=== PATIENT | female | born 1945 | race Caucasian/White ===

== ENCOUNTER 2017-11-17 17:36 | Emergency (ER) | payer MEDICARE ==
[2017-11-17] MEDS ORDERED: NORMAL SALINE 1000 ML 500 ML IV ONE (18:17)
--- NOTE | 2017-11-17 18:36 | RADIOLOGY REPORT (SQ) ---
EXAM DESCRIPTION: CHEST SINGLE VIEW COMPLETED DATE/TIME: 11/17/2017 6:28 pm REASON FOR STUDY: sob COMPARISON: None. EXAM PARAMETERS: NUMBER OF VIEWS: One view. TECHNIQUE: Single frontal radiographic view of the chest acquired. RADIATION DOSE: NA LIMITATIONS: None. FINDINGS: LUNGS AND PLEURA: No opacities, masses or pneumothorax. No pleural effusion. MEDIASTINUM AND HILAR STRUCTURES: No masses. Contour normal. HEART AND VASCULAR STRUCTURES: Heart normal in size. Normal vasculature. BONES: No acute findings. HARDWARE: None in the chest. OTHER: No other significant finding. IMPRESSION: NO ACUTE RADIOGRAPHIC FINDING IN THE CHEST. TECHNICAL DOCUMENTATION: JOB ID: [id number] [employer]- All Rights Reserved Reading location - IP/workstation name: [email or web address]
[2017-11-17 19:05] LABS: ABSOLUTE BASOPHILS # (AUTO) 0.1 10^3/uL (0.0-0.2); ABSOLUTE EOSINOPHILS # (AUTO) 0.3 10^3/uL (0.0-0.6); ABSOLUTE LYMPHOCYTES (AUTO) 1.7 10^3/uL (0.5-4.7); ABSOLUTE MONOCYTES (AUTO) 1.3 10^3/uL (0.1-1.4); ABSOLUTE NEUT (AUTO) 8.2 10^3/uL (1.7-8.2); BASOPHILS % (AUTO) 0.5 % (0-2); EOSINOPHILS % (AUTO) 2.6 % (0-6); HEMATOCRIT 41.8 % (36.0-47.0); HEMOGLOBIN 14.1 g/dL (12.0-15.5); LYMPHOCYTES % (AUTO) 14.5 % (13-45); MEAN CORPUSCULAR HEMOGLOBIN 29.5 pg (27.0-33.4); MEAN CORPUSCULAR HGB CONC 33.6 g/dL (32.0-36.0); MEAN CORPUSCULAR VOLUME 88 fl (80-97); MONOCYTES % (AUTO) 11.2 % (3-13); PLATELET COUNT 198 10^3/uL (150-450); RED BLOOD COUNT 4.77 10^6/uL (3.72-5.28); RED CELL DISTRIBUTION WIDTH 13.1 % (11.5-14.0); SEGMENTED NEUTROPHILS % (AUTO) 71.2 % (42-78); TOTAL CELLS COUNTED % (AUTO) 100 %; WHITE BLOOD COUNT 11.4 10^3/uL (4.0-10.5)
[2017-11-17 19:27] LABS: ALANINE AMINOTRANSFERASE 22 U/L (9-52); ALBUMIN 3.9 g/dL (3.5-5.0); ALKALINE PHOSPHATASE 63 U/L (38-126); ANION GAP 10 (5-19); ASPARTATE AMINO TRANSFERASE 23 U/L (14-36); BILIRUBIN,DIRECT 0.3 mg/dL (0.0-0.4); BILIRUBIN,TOTAL 0.6 mg/dL (0.2-1.3); BLOOD UREA NITROGEN 27 mg/dL (7-20); CARBON DIOXIDE 32 mmol/L (22-30); CHLORIDE 96 mmol/L (98-107); CREATINE KINASE 36 U/L (30-135); GLUCOSE 114 mg/dL (75-110); POTASSIUM 3.2 mmol/L (3.6-5.0); SODIUM 137.5 mmol/L (137-145); TOTAL PROTEIN 6.7 g/dL (6.3-8.2)
[2017-11-17 19:53] LABS: CALCIUM 14.4 mg/dL (8.4-10.2)
[2017-11-17] MEDS ORDERED: NORMAL SALINE 1000 ML 1,000 ML IV ONE (19:54)
--- NOTE | 2017-11-17 20:17 | ER Document Report ---
ED General - General Chief Complaint: Dizziness Stated Complaint: DIZZINESS Time Seen by Provider: 11/17/17 18:14 Notes: Patient is a 72-year-old female with a past medical history of COPD and hypertension who presents with lightheadedness, dizziness and general weakness. Her son at the bedside also reports that there has been periods of some confusion. The patient was placed on 2 different courses of antibiotics over the past 3 weeks including azithromycin and doxycycline. During that time point she was having frequent nausea and even several episodes of vomiting. Since discontinuation of doxycycline 1 week ago she has not had any recurrent vomiting but has continued to feel somewhat lightheaded. She had also been placed on furosemide for a total of 1 week due to bilateral lower extremity edema which has also since been discontinued and the edema has also resolved. Family presented today due to concerns of the patient is not improving. No history of similar symptoms in the past. Standing and exerting herself seems to worsen the lightheadedness and fatigue. She denies any chest pain or increased shortness of breath. No fever or constitutional symptoms. No focal weakness or numbness. Patient and her son at this time deny any confusion. - Related Data Allergies/Adverse Reactions: adhesive tape Allergy (Verified 11/17/17 19:02) cephalexin [From Keflex] Allergy (Verified 11/17/17 19:02) levofloxacin [From Levaquin] Allergy (Verified 11/17/17 19:02) meloxicam Allergy (Verified 11/17/17 19:02) sulfamethoxazole [From Bactrim] Allergy (Verified 11/17/17 19:02) trimethoprim [From Bactrim] Allergy (Verified 11/17/17 19:02) procaine [From Novocain] Adverse Reaction (Verified 11/17/17 19:02) Past Medical History - General Information source: Patient - Social History Smoking Status: Current Every Day Smoker Frequency of alcohol use: None Drug Abuse: None Lives with: Family Family History: Reviewed & Not Pertinent Patient has suicidal ideation: No Patient has homicidal ideation: No Renal/ Medical History: Denies: Hx Peritoneal Dialysis Review of Systems - Review of Systems Notes: Constitutional: Negative for fever. HENT: Negative for sore throat. Eyes: Negative for visual changes. Cardiovascular: Negative for chest pain. Positive for lightheadedness Respiratory: Negative for shortness of breath. Gastrointestinal: Negative for abdominal pain, vomiting or diarrhea. Genitourinary: Negative for dysuria. Musculoskeletal: Negative for back pain. Skin: Negative for rash. Neurological: Negative for headaches, weakness or numbness. 10 point ROS negative except as marked above and in HPI. Physical Exam - Vital signs Vitals: Temp Pulse Resp BP Pulse Ox 99.5 F 96 20 172/69 H 96 11/17/17 17:53 11/17/17 17:53 11/17/17 17:53 11/17/17 17:53 11/17/17 17:53 Interpretation: Hypertensive Notes: PHYSICAL EXAMINATION: GENERAL: Well-appearing, well-nourished and in no acute distress. HEAD: Atraumatic, normocephalic. EYES: Pupils equal round and reactive to light, extraocular movements intact, sclera anicteric, conjunctiva are normal. ENT: nares patent, oropharynx clear without exudates. Mild dry mucous membranes. NECK: Normal range of motion, supple without lymphadenopathy LUNGS: Breath sounds clear to auscultation bilaterally and equal. No wheezes rales or rhonchi. HEART: Regular rate and rhythm without murmurs ABDOMEN: Soft, nontender, normoactive bowel sounds. No guarding, no rebound. No masses appreciated. EXTREMITIES: Normal range of motion, no pitting or edema. No cyanosis. NEUROLOGICAL: Face symmetric. Tongue protrudes midline. Extraocular motions intact. Pupils are 2 mm and equally reactive. Normal speech. 5 out of 5 strength in both the distal and proximal upper and lower extremities bilaterally. Sensation is grossly intact throughout. Finger to nose testing normal. Pronator drift normal. PSYCH: Normal mood, normal affect. SKIN: Warm, Dry, normal turgor, no rashes or lesions noted. Course - Re-evaluation Re-evalutation: 11/17/17 20:15 Patient presents with signs and symptoms most consistent with acute dehydration and her labs do support this with a prerenal azotemia as well as hypercalcemia like in the setting of poor fluid intake, diuresis with furosemide and nausea and vomiting in the setting of antibiotic use. She has not had any vomiting or upper abdominal pain since discontinuing doxycycline I do not suspect an acute intra-abdominal process. Her neurologic exam is without any focal deficits. Her chest x-ray is clear without any evidence of acute pneumonia. Urinalysis is pending. Will also obtain a CT of the head as family is concerned about the possibility of a stroke for which I have an extremely low suspicion particular given an NIH stroke scale of 0 at time of assessment. Is having these remaining tests are normal patient we discharged home with her conditions continue oral fluid, compression stockings to lower extremities as needed for edema as opposed to furosemide 11/17/17 21:14 Urinalysis with 13 white blood cells but also has multiple squamous epithelial cells and patient does not have any additional symptoms to suggest urinary tract infection. A culture has been sent and will call back if patient has positive culture. CT head unremarkable. Patient feels improved after receiving IV fluids. At this time will discharge with return precautions and follow-up recommendations. Verbal discharge instructions given a the bedside and opportunity for questions given. Medication warnings reviewed. Patient is in agreement with this plan and has verbalized understanding of return precautions and the need for primary care follow-up in the next 24-72 hours. - Vital Signs Vital signs: Temp Pulse Resp BP Pulse Ox 99.5 F 96 19 158/91 H 94 11/17/17 17:53 11/17/17 17:53 11/17/17 21:04 11/17/17 20:41 11/17/17 21:04 - Laboratory Result Diagrams: 11/17/17 18:45 11/17/17 18:45 Laboratory results interpreted by me: 11/17/17 11/17/17 11/17/17 18:45 18:45 20:22 WBC 11.4 H Potassium 3.2 L Chloride 96 L Carbon Dioxide 32 H BUN 27 H Creatinine 1.39 H Est GFR ( Amer) 45 L Est GFR (Non-Af Amer) 37 L Glucose 114 H Calcium 14.4 H* Ur Leukocyte Esterase TRACE H - Diagnostic Test Radiology reviewed: Image reviewed, Reports reviewed Radiology results interpreted by me: 11/17/17 21:14 Chest x-ray: No acute infiltrate or pneumothorax CT head: No acute intracranial bleed or mass Discharge - Discharge Clinical Impression: Dehydration, Hypercalcemia, Prerenal azotemia Condition: Good Disposition: HOME, SELF-CARE Additional Instructions: Your labs and workup today suggest that your symptoms are likely due to being dehydrated from having taken Lasix and having had several episodes of nausea and vomiting while on antibiotics. Please continue to drink plenty of water. Wear compression stockings as needed for increasing swelling of her lower extremities if this does occur. Please return to the emergency department immediately if you have chest pain, shortness of breath, pass out, develop a fever greater than 100.4F, or have any other symptoms that are worrisome to you. Referrals: SHIMON LA MD [Primary Care Provider] - Follow up as needed
[2017-11-17 20:48] LABS: APPEARANCE,URINE SLIGHTLY-CLOUDY; BILIRUBIN,URINE NEGATIVE (NEGATIVE); COLOR,URINE YELLOW; GLUCOSE, URINE NEGATIVE (NEGATIVE); KETONES,URINE NEGATIVE (NEGATIVE); LEUKOCYTE ESTERASE,URINE TRACE (NEGATIVE); NITRITE,URINE NEGATIVE (NEGATIVE); PROTEIN,URINE NEGATIVE (NEGATIVE); URINE SPECIFIC GRAVITY 1.011; UROBILINOGEN,URINE NEGATIVE mg/dL (<2.0)
--- NOTE | 2017-11-17 21:16 | RADIOLOGY REPORT (SQ) ---
EXAM DESCRIPTION: CT HEAD WITHOUT COMPLETED DATE/TIME: 11/17/2017 9:08 pm REASON FOR STUDY: ams COMPARISON: None. TECHNIQUE: Axial images acquired through the brain without intravenous contrast. Images reviewed wi th bone, brain and subdural windows. Images stored on PACS. All CT scanners at this facility use dose modulation, iterative reconstruction, and/or weight based d osing when appropriate to reduce radiation dose to as low as reasonably achievable (ALARA). [facility]: Dose Right [facility]: CareDose [facility]: Dose Right [facility]: Teradose 4D [facility]: Smart [employer] RADIATION DOSE: CT Rad equipment meets quality standard of care and radiation dose reduction techniq ues were employed. CTDIvol: 53.2 mGy. DLP: 991 mGy-cm. mGy. LIMITATIONS: None. FINDINGS: VENTRICLES: Normal size and contour. CEREBRUM: No masses. No hemorrhage. No midline shift. No evidence for acute infarction. Normal gra y/white matter differentiation. No areas of low density in the white matter. CEREBELLUM: No masses. No hemorrhage. No alteration of density. No evidence for acute infarction. EXTRAAXIAL SPACES: No fluid collections. No masses. ORBITS AND GLOBE: No intra- or extraconal masses. Normal contour of globe without masses. CALVARIUM: No fracture. PARANASAL SINUSES: No fluid or mucosal thickening. SOFT TISSUES: No mass or hematoma. OTHER: No other significant finding. IMPRESSION: NORMAL BRAIN CT WITHOUT CONTRAST. EVIDENCE OF ACUTE STROKE: NO. COMMENT: Quality ID # [id number]: Final reports with documentation of one or more dose reduction techniques (e.g., Automated exposure control, adjustment of the mA and/or kV according to patient size, use of iterative reconstruction technique) TECHNICAL DOCUMENTATION: JOB ID: [id number] [email or web address]- All Rights Reserved Reading location - IP/workstation name: [email or web address]
[2017-11-17 23:38] VITALS: BP 154/66
== END 2017-11-17 23:40 | disposition home or self-care (01) ==
LOC: ER 17:36
DX: E86.0 Dehydration (principal); E83.52 Hypercalcemia; R79.89 Other specified abnormal findings of blood chemistry; R42 Dizziness and giddiness; R53.83 Other fatigue; R53.1 Weakness; I10 Essential (primary) hypertension; J44.9 Chronic obstructive pulmonary disease, unspecified; Z91.048 Other nonmedicinal substance allergy status; Z88.8 Allergy status to other drugs, medicaments and biological substances; Z88.1 Allergy status to other antibiotic agents; F17.200 Nicotine dependence, unspecified, uncomplicated
CPT/HCPCS: 99284; 96360; 96361; 36415; 87086; 82550; 83605; 85025; 80053; 81001; 84484; 71045; 70450; J7030

== ENCOUNTER 2018-04-25 20:57 | Inpatient (IN) | payer MEDICARE ==
[2018-04-25] MEDS ORDERED: RINGERS SOLUTION,LACTATED 1,000 ML IV ONE ×2 (21:10→21:51)
[2018-04-25] MEDS ORDERED: IPRATROPIUM/ALBUTEROL 0.5-2.5 MG/3 ML AMPUL NEB ONE (21:11)
[2018-04-25] MEDS ORDERED: ALBUTEROL SULFATE 0.083% NEB 2.5 MG/3 ML AMPUL NEB ONE (21:11)
--- NOTE | 2018-04-25 21:11 | ER Document Report ---
ED General - General Stated Complaint: RESPIRATORY DISTRESS Time Seen by Provider: 04/25/18 21:04 Cannot obtain history due to: Unstable vital signs, Altered mental status Notes: Patient is a 72-year-old female with past medical history of COPD, continues to smoke who presents in respiratory distress with EMS. The patient apparently has had progressive shortness of breath and cough throughout the day per the daughter at the bedside, was initially very resistant to coming to the hospital eventually EMS was contacted. Patient is herself unable to provide any meaningful history due to respiratory distress and lethargy. Family denies any history of similar symptoms in the past. She has never required intubation or BiPAP placement. She has not contacted her primary care doctor regarding today's concerns. She did receive an influenza vaccine this year. - Related Data Allergies/Adverse Reactions: adhesive tape Allergy (Verified 04/25/18 23:05) cephalexin [From Keflex] Allergy (Verified 04/25/18 23:05) levofloxacin [From Levaquin] Allergy (Verified 04/25/18 23:05) meloxicam Allergy (Verified 04/25/18 23:05) sulfamethoxazole [From Bactrim] Allergy (Verified 04/25/18 23:05) trimethoprim [From Bactrim] Allergy (Verified 04/25/18 23:05) procaine [From Novocain] Adverse Reaction (Verified 04/25/18 23:05) Past Medical History - General Information source: Relative Cannot obtain history due to: Unstable vital signs, Altered mental status - Social History Smoking Status: Current Every Day Smoker Frequency of alcohol use: None Drug Abuse: None Lives with: Family Family History: Reviewed & Not Pertinent Renal/ Medical History: Denies: Hx Peritoneal Dialysis Review of Systems - Review of Systems Notes: Constitutional: Positive for fever. HENT: Positive for sore throat. Eyes: Negative for visual changes. Cardiovascular: Negative for chest pain. Respiratory: Positive for shortness of breath. Gastrointestinal: Negative for abdominal pain, vomiting or diarrhea. Genitourinary: Negative for dysuria. Musculoskeletal: Negative for back pain. Skin: Negative for rash. Neurological: Negative for headaches, weakness or numbness. 10 point ROS negative except as marked above and in HPI. Physical Exam - Vital signs Vitals: Resp Pulse Ox 39 H 100 04/25/18 21:01 04/25/18 21:01 Interpretation: Tachycardic, Tachypneic, Febrile Notes: PHYSICAL EXAMINATION: GENERAL: Extremely ill in appearance, in severe respiratory distress HEAD: Atraumatic, normocephalic. EYES: Pupils equal round and reactive to light, extraocular movements intact, sclera anicteric, conjunctiva are normal. ENT: nares patent, oropharynx clear without exudates. Extremely dry mucous membranes. NECK: Normal range of motion, supple without lymphadenopathy LUNGS: Poor air movement in all lung sharma, scattered wheezing throughout. In severe respiratory distress with respiratory rates greater than 40 breaths/min. Intercostal and supraclavicular retractions are present. HEART: Regular tachycardia without murmurs ABDOMEN: Soft, nontender, normoactive bowel sounds. No guarding, no rebound. No masses appreciated. EXTREMITIES: Normal range of motion, no pitting or edema. No cyanosis. NEUROLOGICAL: No focal neurological deficits. Moves all extremities spontaneously. PSYCH: Somewhat lethargic, listless SKIN: Warm, Dry, poor skin turgor Course - Re-evaluation Re-evalutation: 04/25/18 21:07 Patient presents in severe respiratory distress, only able to speak in 2-3 words per sentence, retracting in the supraclavicular and intercostal spaces. Globally diminished air movement in all lung sharma with scattered expiratory wheezing throughout. Patient is tachycardic although is maintaining her saturations into the mid 90s on segmental nasal cannula. Patient will be immediately placed on BiPAP. She has a ready received 125 mg of Solu-Medrol, 2 g of magnesium and 1 duo nebulizer prior to arrival via EMS. She has been immediately placed on a continuous nebulizer in line with BiPAP. Will also give 1 L of IV fluids. Will continue to regularly reassess the patient as she is high risk for respiratory decompensation and need for intubation. 04/25/18 21:50 Documentation is delayed has had been at this patient's bedside continuously for the past 30 minutes. In summary unfortunately patient did continue to deteriorate on BiPAP, became increasingly somnolent, was continuing to remain tachypnea can have very poor air movement in all lung sharma. Chest x-ray did not show any distinct infiltrate and clinical history is not consistent with a congestive picture. Patient was transferred to a trauma bay. She was given a low dose of ketamine which unfortunately continued to fail to improve her respiratory status. I then did elect to proceed with intubation due to the patient's continued deterioration. Shortly after intubation venous blood gas results did reveal that the patient has a respiratory acidosis consistent with her picture of a COPD with distress. Patient has been placed on a ventilator, propofol infusion for sedation. She has been started on IV doxycycline for empiric coverage of a possible associated pneumonia as she did have a fever at home today. A temperature Arredondo catheter will be placed. IV fluids are ongoing. Blood cultures have been obtained. 04/25/18 22:12 Patient has had improvement of her oxygenation on the ventilator currently 93% on 40% FiO2. Blood pressure 102/57 while on propofol. IV fluids are going. Heart rate has decreased down into the 120s. Will continue to reassess at regular intervals. Patient will require admission to the ICU. 04/25/18 23:43 Patient continues to be well sedated on propofol. Laboratories do show that she is flu a positive. I have discussed this case with the inpatient physician who has excepted the patient Tamiflu has been administered. I have updated the fami ly. I have advanced the ET tube a total of 4 cm. - Vital Signs Vital signs: Temp Pulse Resp BP Pulse Ox 99.8 F 108 H 17 81/50 L 99 04/26/18 02:48 04/26/18 00:30 04/26/18 02:48 04/26/18 02:48 04/26/18 02:48 - Laboratory Result Diagrams: 04/25/18 21:09 04/25/18 22:06 Laboratory results interpreted by me: 04/25/18 04/25/18 04/25/18 21:09 21:09 21:09 WBC 21.0 H Seg Neuts % (Manual) 91 H Lymphocytes % (Manual) 5 L Abs Neuts (Manual) 19.1 H Carbonic Acid ABG pH ABG pCO2 ABG pO2 ABG HCO3 ABG Total CO2 ABG O2 Saturation VBG pH 7.21 L VBG pCO2 69.6 H* Sodium Chloride Glucose Lactic Acid 2.4 H 04/25/18 04/25/18 22:06 23:20 WBC Seg Neuts % (Manual) Lymphocytes % (Manual) Abs Neuts (Manual) Carbonic Acid 2.29 H ABG pH 7.21 L ABG pCO2 76.2 H* ABG pO2 79.9 L ABG HCO3 29.7 H ABG Total CO2 32.1 H ABG O2 Saturation 92.7 L VBG pH VBG pCO2 Sodium 129.5 L Chloride 97 L Glucose 351 H Lactic Acid - Diagnostic Test Radiology reviewed: Image reviewed, Reports reviewed Radiology results interpreted by me: 04/25/18 21:53 Chest x-ray: No acute infiltrate - EKG Interpretation by Me Additional EKG results interpreted by me: 04/26/18 03:24 Sinus tachycardia, rate 145, LBB, Procedures - Intubation Orotracheal Airway evaluation: Normal anatomy Mallampati Classification: Class 1 Medications: Etomidate, Other - Rocuronium Intubation method: Orotracheal Blade type: Rhonda Blade size: 4 ETT size: 7.5 ETT secured at: Lips ETT secured at (cm): 22 Breath Sounds after Intubation: Equal End tidal CO2 confirmed: Yes Ventilator settings: SIMV Tidal volume: 400 FiO2: 70 Respirations: 18 PEEP: 5 Post Intubation Xray: Yes - Tube advanced 4 cm Intubation Complications: No complications Critical Care Note - Critical Care Note Total time excluding time spent on procedures (mins): 55 Comments: Critical care time spent obtaining history from patient or surrogate, discussions with consultants, development of treatment plan with patient or surrogate, evaluation of patient's response to treatment, examination of patient, ordering and performing treatments and interventions, ordering and review of laboratory studies, re-evaluation of patient's condition, ordering and review of radiographic studies and review of old charts Discharge - Discharge Clinical Impression: Respiratory distress, Influenza, Respiratory acidosis Condition: Critical Disposition: ADMITTED INPATIENT Admitting Provider: Hospitalist Unit Admitted: ICU
[2018-04-25 21:31] LABS: HEMATOCRIT 39.7 % (36.0-47.0); HEMOGLOBIN 13.4 g/dL (12.0-15.5); MEAN CORPUSCULAR HEMOGLOBIN 30.3 pg (27.0-33.4); MEAN CORPUSCULAR HGB CONC 33.8 g/dL (32.0-36.0); MEAN CORPUSCULAR VOLUME 90 fl (80-97); PLATELET COUNT 283 10^3/uL (150-450); RED BLOOD COUNT 4.42 10^6/uL (3.72-5.28); RED CELL DISTRIBUTION WIDTH 12.8 % (11.5-14.0); VENOUS BLOOD HCO3 27.4 mmol/L (20-32); VENOUS BLOOD PH 7.21 (7.30-7.42)
[2018-04-25] MEDS ORDERED: KETAMINE HCL INJ 500 MG/10 ML VIAL ONE (21:32)
[2018-04-25] MEDS ORDERED: ETOMIDATE INJ/PF 20 MG/10 ML SDV IV ONE ×2 (21:34→22:44)
--- NOTE | 2018-04-25 21:38 | RADIOLOGY REPORT (SQ) ---
XR CHEST 1 VIEW HISTORY: Respiratory distress. COMPARISON: 11/17/2017 FINDINGS: Query cardiomegaly with mild pulmonary vascular congestion. There is atelectasis at the left lung base. No large pleural effusions or pneumothorax. IMPRESSION: Mild pulmonary edema. No pleural effusions are seen.
[2018-04-25 21:42] LABS: VENOUS BLOOD PCO2 69.6 mmHg (35-63)
[2018-04-25] MEDS ORDERED: PROPOFOL 1,000 MG/100 ML INFUS..BTL IV PRN (21:49)
[2018-04-25] MEDS ORDERED: DOXYCYCLINE HYCLATE INJ 100 MG VIAL IV ONE (21:50)
[2018-04-25 21:51] LABS: ABSOLUTE LYMPHOCYTES# (MANUAL) 1.1 10^3/uL (0.5-4.7); ABSOLUTE MONOCYTES # (MANUAL) 0.8 10^3/uL (0.1-1.4); ABSOLUTE NEUTROPHILS# (MANUAL) 19.1 10^3/uL (1.7-8.2); BASOPHILS % (MANUAL) 0 % (0-2); EOSINOPHILS % (MANUAL) 0 % (0-6); LYMPHOCYTES % (MANUAL) 5 % (13-45); MONOCYTES % (MANUAL) 4 % (3-13); SEGMENTED NEUTROPHILS % (MAN) 91 % (42-78); TOTAL CELLS COUNTED 100
[2018-04-25 21:52] LABS: PLATELET COMMENT ADEQUATE; RBC MORPHOLOGY COMMENT NORMO-CYTIC/CHROMIC
[2018-04-25] MEDS ORDERED: ACETAMINOPHEN 325 MG SUPP.RECT PR ONE (22:24)
[2018-04-25 22:42] LABS: ANION GAP 10 (5-19); BLOOD UREA NITROGEN 15 mg/dL (7-20); CALCIUM 8.5 mg/dL (8.4-10.2); CARBON DIOXIDE 23 mmol/L (22-30); CHLORIDE 97 mmol/L (98-107); GLUCOSE 351 mg/dL (75-110); SODIUM 129.5 mmol/L (137-145)
[2018-04-25] MEDS ORDERED: ROCURONIUM BROMIDE INJ 50 MG/5 ML VIAL IV ONE (22:45)
[2018-04-25] MEDS ORDERED: KETAMINE HCL INJ 500 MG/10 ML VIAL IV ONE (22:45)
[2018-04-25 23:12] LABS: A TYPE INFLUENZA AG POSITIVE (NEGATIVE); B INFLUENZA AG NEGATIVE (NEGATIVE)
[2018-04-25 23:12] LABS: TROPONIN I 0.787 ng/mL
--- NOTE | 2018-04-25 23:12 | RADIOLOGY REPORT (SQ) ---
EXAM DESCRIPTION: XR CHEST 1 VIEW COMPLETED DATE/TME: 04/25/2018 00:00 CLINICAL HISTORY: 72 years Female ETT/NG PLACEMENT COMPARISON: 04/25/2018. FINDINGS: Lungs are hyperinflated compatible COPD. Chronic size appears stable. Endotracheal tube is 8 cm above the joseph. This could be advanced 3 cm for more optimal positioning. No definite consolidation or pleural fluid. Small nodular focus along the inferior lower right chest of uncertain clinical significance. This was not clearly present on the examination from October. Consider further evaluation with CT. IMPRESSION: ET tube is 8 cm above the joseph. This could be advanced 3 cm for more optimal positioning Pulmonary hyperinflation Nasogastric tube is seen in the esophagus but is not clearly visualized over the distal aspect of the lower chest. Recommend advancing the tube and repeat imaging. Nodular focus along the lateral right lung base. Recommend CT to exclude underlying mass or nodule
[2018-04-25] MEDS ORDERED: OSELTAMIVIR PHOSPHATE 75 MG CAPSULE PO ONE (23:31)
[2018-04-25 23:34] LABS: ARTERIAL BLOOD BASE EXCESS 0 mmol/L; ARTERIAL BLOOD FIO2 70%; ARTERIAL BLOOD H2CO3 2.29 mmol/L (1.05-1.35); ARTERIAL BLOOD HCO3 29.7 mmol/L (20-24); ARTERIAL BLOOD O2 SATURATION 92.7 % (94-98); ARTERIAL BLOOD PH 7.21 (7.35-7.45); ARTERIAL BLOOD PO2 79.9 mmHg (80-100); ARTERIAL BLOOD TOTAL CO2 32.1 mmol/L (21-25)
[2018-04-25 23:35] LABS: ARTERIAL BLOOD PCO2 76.2 mmHg (35-45)
[2018-04-25] MEDS ORDERED: ONDANSETRON HCL INJ/PF 4 MG/2 ML SDV IV PRN (23:36)
[2018-04-25 23:45] LABS: APPEARANCE,URINE SLIGHTLY-CLOUDY; BILIRUBIN,URINE NEGATIVE (NEGATIVE); CALCIUM OXALATE CRYSTALS,URINE RARE /HPF; COLOR,URINE YELLOW; GLUCOSE, URINE NEGATIVE (NEGATIVE); KETONES,URINE NEGATIVE (NEGATIVE); LEUKOCYTE ESTERASE,URINE NEGATIVE (NEGATIVE); NITRITE,URINE NEGATIVE (NEGATIVE); PROTEIN,URINE NEGATIVE (NEGATIVE); URINE SPECIFIC GRAVITY 1.018; UROBILINOGEN,URINE NEGATIVE mg/dL (<2.0)
[2018-04-25] MEDS ORDERED: ACETAMINOPHEN 650 MG SUPP.RECT PR PRN (23:50)
[2018-04-25] MEDS ORDERED: HYDRALAZINE HCL INJ/PF 20 MG/1 ML SDV IV PRN (23:56)
--- NOTE | 2018-04-25 23:59 | RADIOLOGY REPORT (SQ) ---
EXAM DESCRIPTION: XR CHEST 1 VIEW COMPLETED DATE/TME: 04/25/2018 00:00 CLINICAL HISTORY: 72 years, Female, ET tube advancement COMPARISON: Prior chest x-ray from 10:02 PM on today's date NUMBER OF VIEWS: 1 TECHNIQUE: Portable chest LIMITATIONS: None. FINDINGS: Heart size is stable. Enteric tube remains in place, however the distal tip continues to project over the region of the mid to distal esophagus.. Endotracheal tube in grossly unchanged position, with the tip at the level of the clavicular heads. No pneumothorax. Underlying emphysema. Airspace opacity of the right lung base. Equivocal left basilar airspace opacity. Coarse interstitial changes bilaterally.. IMPRESSION: Endotracheal tube in unchanged position. Enteric tube with the distal tip projecting over the mid to distal esophagus. Other findings are stable copyright 2011 [employer]- All Rights Reserved
[2018-04-26] MEDS ORDERED: HEPARIN SOD (PORCINE) 5,000 UNIT/ML 1 ML SYRINGE SUBCUT ONE (00:15)
[2018-04-26] MEDS ORDERED: PANTOPRAZOLE SODIUM 40 MG VIAL IV ONE (00:15)
[2018-04-26] MEDS: LEVALBUTEROL HCL NEB 1.25 MG/3 ML AMPUL NEB SCH ×4 (00:32→23:18)
[2018-04-26] MEDS: IPRATROPIUM BROMIDE 0.02% NEB 0.5 MG/2.5 ML AMPUL NEB SCH ×4 (00:32→23:18)
--- NOTE | 2018-04-26 01:29 | RADIOLOGY REPORT (SQ) ---
EXAM DESCRIPTION: XR CHEST 1 VIEW COMPLETED DATE/TME: 04/26/2018 00:00 CLINICAL HISTORY: 72 years, Female, ET tube advancement COMPARISON: Prior chest x-ray from 04/25/2018 at 11:39 PM NUMBER OF VIEWS: 1 TECHNIQUE: Frontal view chest LIMITATIONS: None. FINDINGS: Tip of the endotracheal tube now lies approximately 4.5 cm above the joseph. However, the enteric tube distal tip still lies in the region of the distal esophagus. No pneumothorax. The heart size is normal. Atheromatous change thoracic aorta. Airspace opacity right lung base. Equivocal opacity left lung base with coarse interstitial changes bilaterally. IMPRESSION: Tip of the endotracheal tube has been advanced and is now approximately 4.5 cm above the joseph. Tip of the enteric tube remains in the region of the distal esophagus. Other findings are stable copyright 2010 [employer]- All Rights Reserved
[2018-04-26] MEDS ORDERED: MIDAZOLAM HCL 50 MG/100 ML RTUINJ ONE (02:06)
--- NOTE | 2018-04-26 02:13 | PDOC H&P ---
History of Present Illness Admission Date/PCP: SHIMON LA MD Patient complains of: Dyspnea History of Present Illness: CAROLE SOARES is a 72 year old female who presented to the emergency room with a 2-day history of progressively worsening dyspnea which had increased to extremely severe at the time of her presentation to the ER. At the time of her initial presentation she was only able to speak 2-3 word sentences and was aggressively using her accessory musculature of respiration. She was initially treated with BiPAP which failed and she was subsequently intubated and placed on a mechanical ventilator. Patient's family therefore has provided most of this information. She had associated symptoms of a slightly increased chronic nonproductive cough as well as a subjective low-grade fever. She has experienced similar symptoms in the past with exacerbations of her chronic obstructive pulmonary disease. Her dyspnea was worsened by any effort or exe rtion and had not improved with her usual home medications for COPD. In the emergency room she was found to have severe hypoxia and hypercapnia with a positive influenza A titer and a leukocytosis noted after the patient had received IV Solu-Medrol and albuterol nebulizers. Patient was therefore a dmitted to the intensive care unit for further evaluation and treatment as soon as an intensive care bed is available. Past Medical History Cardiac Medical History: Reports: Hyperlipidema, Hypertension Pulmonary Medical History: Reports: Bronchitis, Chronic Obstructive Pulmonary Disease (COPD), Intubation, Pneumonia, Respiratory Failure EENT Medical History: Reports: None Neurological Medical History: Denies: Multiple Sclerosis, Seizures Endocrine Medical History: Reports: Hypothyroidism Denies: Diabetes Mellitus Type 1, Diabetes Mellitus Type 2, Hyperthyroidism Renal/ Medical History: Denies: Chronic Kidney Disease, Nephrolithiasis Malignancy Medical History: Reports: None GI Medical History: Reports: Gastroesophageal Reflux Disease Denies: Cirrhosis, Hepatitis Musculoskeltal Medical History: Reports: Arthritis, Other - Osteoporosis Denies: Gout Skin Medical History: Denies: Eczema, Psoriasis Psychiatric Medical History: Reports: Depression, Tobacco Dependency Denies: Alcohol Dependency, Substance Abuse Traumatic Medical History: Reports: None Hematology: Denies: Anemia, Bleeding Tendencies Infectious Medical History: Reports: None Past Surgical History Past Surgical History: Family members present were unaware of any surgical history. Past Surgical History: Reports: None Social History Information Source: Relative Smoking Status: Current Every Day Smoker Frequency of Alcohol Use: None Hx Recreational Drug Use: No Drugs: None Hx Prescription Drug Abuse: No - Advance Directive Resuscitation Status: Full Code Surrogate healthcare decision maker:: Betsy Diggs Family History Family History: DM, Hypertension, Thyroid Disfunction Parental Family History Reviewed: Yes Children Family History Reviewed: No Sibling(s) Family History Reviewed.: Yes Medication/Allergy Home Medications: Albuterol Sulfate [Proair Hfa Inhalation Aerosol 8.5 gm Mdi] 2 puff IH Q4 PRN 04/25/18 Albuterol Sulfate [Ventolin 0.083% Neb 2.5 mg/3 ml Ampul] 1 vial NEB Q6 04/25/18 Aspirin [Ecotrin] 81 mg PO DAILY 04/25/18 Atorvastatin Calcium [Lipitor 20 mg Tablet] 20 mg PO QHS 04/25/18 Benazepril/Hydrochlorothiazide [Benazepril-Hctz 20-25 mg Tab] 1 tab PO DAILY 04/25/18 Budesonide/Formoterol Fumarate [Symbicort Hfa 80-4.5 Mcg Inhaler 6.9 gm] 2 puff IH BID 04/25/18 Bupropion HCl [Wellbutrin Sr 150 mg Tablet] 1 tab PO DAILY 04/25/18 Calcium Carbonate/Vitamin D3 [Calcium 600 + Vit D 400 Tablet] 1 tab PO DAILY 04/25/18 Cetirizine HCl [Zyrtec] 10 mg PO DAILY 04/25/18 Denosumab [Prolia 60 mg/ml Syr 1 ml] 60 mg SUBCUT ASDIR 04/25/18 Esomeprazole Mag Trihydrate [Nexium] 40 mg PO DAILY PRN 04/25/18 Fluticasone Propionate [Flovent Diskus] 1 spray NASL BID 04/25/18 Levothyroxine Sodium [Synthroid 0.088 mg Tablet] 88 mcg PO DAILY 04/25/18 Montelukast Sodium [Singulair] 10 mg PO DAILY 04/25/18 Multivitamin [Multivitamins] 1 each PO DAILY 04/25/18 Naproxen 500 mg PO PRN PRN 04/25/18 Potassium Chloride 10 meq PO DAILY 04/25/18 Tiotropium [place] [Spiriva Respimat] 2.5 mcg IH BID 04/25/18 Allergies/Adverse Reactions: adhesive tape Allergy (Verified 04/25/18 23:05) cephalexin [From Keflex] Allergy (Verified 04/25/18 23:05) levofloxacin [From Levaquin] Allergy (Verified 04/25/18 23:05) meloxicam Allergy (Verified 04/25/18 23:05) sulfamethoxazole [From Bactrim] Allergy (Verified 04/25/18 23:05) trimethoprim [From Bactrim] Allergy (Verified 04/25/18 23:05) procaine [From Novocain] Adverse Reaction (Verified 04/25/18 23:05) Review of Systems ROS unobtainable: Due to endotracheal tube Physical Exam Vital Signs: Temp Pulse Resp BP Pulse Ox 99.8 F 27 H 122/83 93 04/25/18 23:26 04/25/18 23:26 04/25/18 23:26 04/25/18 23:26 Intake & Output 04/23/18 04/24/18 04/25/18 23:59 23:59 23:59 Intake Total 1999 Balance 2000 Weight 65.1 kg General appearance: PRESENT: no acute distress, well-developed, other - Endotracheally intubated and mechanically ventilated Head exam: PRESENT: atraumatic, normocephalic Eye exam: PRESENT: conjunctiva pink. ABSENT: scleral icterus Ear exam: PRESENT: normal external ear exam. ABSENT: bleeding, drainage Mouth exam: PRESENT: dry mucosa, neck supple, tongue midline Neck exam: ABSENT: JVD, thyromegaly, tracheal deviation Respiratory exam: PRESENT: decreased breath sounds - Moderately decreased breath sounds throughout all sharma, symmetrical, other - Endotracheally intubated and mechanically ventilated Cardiovascular exam: PRESENT: RRR, systolic murmur - Soft 2/6 systolic murmur heard best at the right lower sternal border, tachycardia. ABSENT: clicks, diastolic murmur, gallop, rubs Pulses: PRESENT: normal radial pulses, normal dorsalis pedis pul Vascular exam: PRESENT: normal capillary refill. ABSENT: pallor GI/Abdominal exam: PRESENT: normal bowel sounds, soft Rectal exam: PRESENT: deferred Extremities exam: ABSENT: joint swelling, pedal edema Musculoskeletal exam: ABSENT: deformity, dislocation Neurological exam: PRESENT: other - Endotracheally intubated and mechanically ventilated, receiving propofol for sedation Psychiatric exam: PRESENT: other - Sedated for mechanical ventilation with propofol Skin exam: PRESENT: dry, intact, warm. ABSENT: jaundice, rash, urticaria Results Laboratory Results: 04/25/18 21:09 04/25/18 22:06 04/25/18 04/25/18 04/25/18 21:09 21:09 21:09 WBC 21.0 H RBC 4.42 Hgb 13.4 Hct 39.7 MCV 90 MCH 30.3 MCHC 33.8 RDW 12.8 Plt Count 283 Seg Neutrophils % Not Reportable Lymphocytes % Not Reportable Monocytes % Not Reportable Eosinophils % Not Reportable Basophils % Not Reportable Absolute Neutrophils Not Reportable Absolute Lymphocytes Not Reportable Absolute Monocytes Not Reportable Absolute Eosinophils Not Reportable Absolute Basophils Not Reportable Carbonic Acid HCO3/H2CO3 Ratio ABG pH ABG pCO2 ABG pO2 ABG HCO3 ABG O2 Saturation ABG Base Excess VBG pH VBG pCO2 VBG HCO3 VBG Base Excess FiO2 Sodium Cancelled Potassium Cancelled Chloride Cancelled Carbon Dioxide Cancelled Anion Gap Cancelled BUN Cancelled Creatinine Cancelled Est GFR ( Amer) Cancelled Est GFR (Non-Af Amer) Cancelled Glucose Cancelled Lactic Acid 2.4 H Calcium Cancelled Urine Color Urine Appearance Urine pH Ur Specific [place] Urine Protein Urine Glucose (UA) Urine Ketones Urine Blood Urine Nitrite Ur Leukocyte Esterase Urine WBC (Auto) Urine RBC (Auto) 04/25/18 04/25/18 04/25/18 21:09 21:50 22:06 WBC RBC Hgb Hct MCV MCH MCHC RDW Plt Count Seg Neutrophils % Lymphocytes % Monocytes % Eosinophils % Basophils % Absolute Neutrophils Absolute Lymphocytes Absolute Monocytes Absolute Eosinophils Absolute Basophils Carbonic Acid HCO3/H2CO3 Ratio ABG pH ABG pCO2 ABG pO2 ABG HCO3 ABG O2 Saturation ABG Base Excess VBG pH 7.21 L VBG pCO2 69.6 H* VBG HCO3 27.4 VBG Base Excess -2.0 FiO2 Sodium 129.5 L Potassium 5.0 Chloride 97 L Carbon Dioxide 23 Anion Gap 10 BUN 15 Creatinine 0.71 Est GFR ( Amer) > 60 Est GFR (Non-Af Amer) > 60 Glucose 351 H Lactic Acid Calcium 8.5 Urine Color YELLOW Urine Appearance SLIGHTLY-CLOUDY Urine pH 5.0 Ur Specific [place] 1.018 Urine Protein NEGATIVE Urine Glucose (UA) NEGATIVE Urine Ketones NEGATIVE Urine Blood NEGATIVE Urine Nitrite NEGATIVE Ur Leukocyte Esterase NEGATIVE Urine WBC (Auto) 1 Urine RBC (Auto) 1 04/25/18 23:20 WBC RBC Hgb Hct MCV MCH MCHC RDW Plt Count Seg Neutrophils % Lymphocytes % Monocytes % Eosinophils % Basophils % Absolute Neutrophils Absolute Lymphocytes Absolute Monocytes Absolute Eosinophils Absolute Basophils Carbonic Acid 2.29 H HCO3/H2CO3 Ratio 12:1 ABG pH 7.21 L ABG pCO2 76.2 H* ABG pO2 79.9 L ABG HCO3 29.7 H ABG O2 Saturation 92.7 L ABG Base Excess 0 VBG pH VBG pCO2 VBG HCO3 VBG Base Excess FiO2 70% Sodium Potassium Chloride Carbon Dioxide Anion Gap BUN Creatinine Est GFR ( Amer) Est GFR (Non-Af Amer) Glucose Lactic Acid Calcium Urine Color Urine Appearance Urine pH Ur Specific [place] Urine Protein Urine Glucose (UA) Urine Ketones Urine Blood Urine Nitrite Ur Leukocyte Esterase Urine WBC (Auto) Urine RBC (Auto) 04/25/18 04/25/18 21:09 22:32 Troponin I Cancelled 0.787 NT-Pro-B Natriuret Pep Cancelled 256 Impressions: Chest X-Ray 04/25/18 21:08 IMPRESSION: Mild pulmonary edema. No pleural effusions are seen. Assessment & Plan - Diagnosis (1) Acute on chronic respiratory failure with hypoxemia Is this a current diagnosis for this admission?: Yes Plan: Patient will be continued on ventilatory support with mechanical ventilation in the ICU. Dr. Hua will be consulted for pulmonary management of the patient's ventilator and pulmonology input into treatment the patient. (2) Influenza A with pneumonia Is this a current diagnosis for this admission?: Yes Plan: Patient will be treated with supportive cares and symptomatic cares as required for her influenza. If she is intubated and her GI tract is not easily accessible with a failed NG tube placement she will not receive Tamiflu which is of dubious value at this stage of her treatment. She will be treated with empiric doxycycline intravenously 100 mg every 12 hours to cover any possible atypical pneumonias but would give the similar right middle lobe interstitial pneumonitis appearance radiographically. (3) Chronic obstructive pulmonary disease (COPD) Is this a current diagnosis for this admission?: Yes Plan: She will receive an aggressive pulmonary toilet utilizing Pulmicort, Xopenex, Atrovent and albuterol via nebulizer as well as IV Solu-Medrol and empiric an tibiotic therapy with doxycycline as previously noted. (4) Hypertension Qualifiers: Hypertension type: essential hypertension Qualified Code(s): I10 - Essential (primary) hypertension Is this a current diagnosis for this admission?: Yes Plan: Patient's hypertension will be addressed on an as-needed basis while she is on the ventilator with intravenous hydralazine. Her usual antihypertensive regiment will be continued as appropriate once she is no longer requiring cynthia tilatory support. (5) Hyperlipidemia Qualifiers: Hyperlipidemia type: unspecified Qualified Code(s): E78.5 - Hyperlipidemia, unspecified Is this a current diagnosis for this admission?: Yes Plan: Patient will be continued on her statin therapy once she no longer requires ventilatory support and can tolerate oral medications. A lipid profile may be obtained to evaluate her current therapy. - Time Time Spent: 30 to 50 Minutes Critical Time spent with patient: Less than 15 minutes Medications reviewed and adjusted accordingly: Yes Anticipated discharge[facility] [id number] - Inpatient Certification Based on my medical assessment, after consideration of the patient's comorbidities, presenting symptoms, or acuity I expect that the services needed warrant INPATIENT care.: Yes I certify that my determination is in accordance with my understanding of Medicare's requirements for reasonable and necessary INPATIENT services [42 CFR 412.3e].: Yes Medical Necessity: Need Close Monitoring Due to Risk of Patient Decompensation, Need For IV Fluids, Need For Continuous Telemetry Monitoring, Need for Nebulizer Therapy and Monitoring of Response, Risk of Complication if Not Cared For in Hospital
[2018-04-26] MEDS: MIDAZOLAM HCL 50 MG/100 ML RTUINJ IV PRN ×4 (02:24→22:20)
[2018-04-26 03:59] LABS: ARTERIAL BLOOD BASE EXCESS -2.4 mmol/L; ARTERIAL BLOOD H2CO3 1.59 mmol/L (1.05-1.35); ARTERIAL BLOOD HCO3 24.8 mmol/L (20-24); ARTERIAL BLOOD PCO2 52.9 mmHg (35-45); ARTERIAL BLOOD PH 7.29 (7.35-7.45); ARTERIAL BLOOD PO2 172.8 mmHg (80-100); ARTERIAL BLOOD TOTAL CO2 26.4 mmol/L (21-25)
[2018-04-26] MEDS ORDERED: NOREPINEPHRINE BITARTRATE INJ/PF 4 MG/4 ML SDV IV ONE (04:18)
[2018-04-26] MEDS: DEXTROSE 5%-WATER 250 ML with NOREPINEPHRINE BITARTRATE 4 MG IV PRN ×4 (04:30→15:06)
[2018-04-26 04:54] LABS: HEMATOCRIT 34.3 % (36.0-47.0); HEMOGLOBIN 11.5 g/dL (12.0-15.5); MEAN CORPUSCULAR HEMOGLOBIN 30.3 pg (27.0-33.4); MEAN CORPUSCULAR HGB CONC 33.6 g/dL (32.0-36.0); MEAN CORPUSCULAR VOLUME 90 fl (80-97); PLATELET COUNT 206 10^3/uL (150-450); RED BLOOD COUNT 3.81 10^6/uL (3.72-5.28); RED CELL DISTRIBUTION WIDTH 12.8 % (11.5-14.0)
[2018-04-26 05:09] LABS: ANION GAP 8 (5-19); BLOOD UREA NITROGEN 16 mg/dL (7-20); CALCIUM 7.7 mg/dL (8.4-10.2); CARBON DIOXIDE 23 mmol/L (22-30); CHLORIDE 98 mmol/L (98-107); CREATINE KINASE 121 U/L (30-135); GLUCOSE 219 mg/dL (75-110); POTASSIUM 4.5 mmol/L (3.6-5.0); SODIUM 128.9 mmol/L (137-145)
[2018-04-26 05:17] LABS: ABSOLUTE MONOCYTES # (MANUAL) 0.8 10^3/uL (0.1-1.4); ABSOLUTE NEUTROPHILS# (MANUAL) 20.2 10^3/uL (1.7-8.2); BASOPHILS % (MANUAL) 0 % (0-2); EOSINOPHILS % (MANUAL) 0 % (0-6); LYMPHOCYTES % (MANUAL) 0 % (13-45); MONOCYTES % (MANUAL) 4 % (3-13); SEGMENTED NEUTROPHILS % (MAN) 96 % (42-78); TOTAL CELLS COUNTED 100
[2018-04-26 05:18] LABS: PLATELET COMMENT ADEQUATE; RBC MORPHOLOGY COMMENT NORMO-CYTIC/CHROMIC
[2018-04-26 05:19] LABS: CREATINE KINASE MB 7.97 ng/mL (<4.55)
[2018-04-26 05:25] LABS: TROPONIN I 1.82 ng/mL
[2018-04-26] MEDS: METHYLPREDNISOLONE INJ 40 MG/1 ML SDV IV SCH ×4 (06:01→23:18)
[2018-04-26] MEDS: HEPARIN SOD (PORCINE) 5,000 UNIT/ML 1 ML SYRINGE SUBCUT SCH ×2 (06:01→15:07)
[2018-04-26] MEDS: NORMAL SALINE 1000 ML 1,000 ML IV PRN ×2 (07:00→17:23)
[2018-04-26] MEDS: BUDESONIDE NEB 0.5 MG/2 ML AMPUL NEB SCH ×2 (08:10→21:07)
--- NOTE | 2018-04-26 08:50 | EKG REPORT ---
SEVERITY:- ABNORMAL ECG - SINUS RHYTHM ABNORMAL T, PROBABLE ISCHEMIA, WIDESPREAD PROLONGED QT INTERVAL : Confirmed by: Vincent Rao 26-Apr-2018 08:49:28
--- NOTE | 2018-04-26 08:51 | EKG REPORT ---
SEVERITY:- ABNORMAL ECG - SINUS TACHYCARDIA also consider A FLUTTER WITH 2:1 CONDUCTION AT THIS HEART RATE FIRST DEGREE AV BLOCK LEFT BUNDLE BRANCH BLOCK : Confirmed by: Vincent Rao 26-Apr-2018 08:50:58
[2018-04-26] MEDS ORDERED: DOXYCYCLINE HYCLATE INJ 100 MG VIAL IV SCH (10:00)
[2018-04-26] MEDS ORDERED: OSELTAMIVIR PHOSPHATE 75 MG CAPSULE PO SCH (10:00)
[2018-04-26 11:13] LABS: CREATINE KINASE MB 12.5 ng/mL (<4.55)
[2018-04-26 11:23] LABS: TROPONIN I 2.09 ng/mL
[2018-04-26] MEDS: PANTOPRAZOLE SODIUM 40 MG VIAL IV SCH ×2 (11:45→21:39)
[2018-04-26] MEDS: ACETYLCYSTEINE 20% SOLN 800 MG/4 ML VIAL.NEB NEB SCH ×2 (14:17→21:13)
[2018-04-26 14:41] LABS: ARTERIAL BLOOD BASE EXCESS -0.8 mmol/L; ARTERIAL BLOOD H2CO3 0.94 mmol/L (1.05-1.35); ARTERIAL BLOOD HCO3 22.2 mmol/L (20-24); ARTERIAL BLOOD O2 SATURATION 95.8 % (94-98); ARTERIAL BLOOD PCO2 31.3 mmHg (35-45); ARTERIAL BLOOD PH 7.47 (7.35-7.45); ARTERIAL BLOOD TOTAL CO2 23.1 mmol/L (21-25)
[2018-04-26 14:44] LABS: ARTERIAL BLOOD FIO2 30%
--- NOTE | 2018-04-26 15:09 | PDOC PROGRESS REPORT ---
Subjective Progress Note for:: 04/26/18 Subjective:: Intubated, sedated. In no apparent distress. Reason For Visit: ACUTE ON CHRONIC RESPIRATORY FAILURE WITH HYPOXIA Physical Exam Vital Signs: Temp Pulse Resp BP Pulse Ox 100.4 F 82 18 96/61 L 97 04/26/18 13:21 04/26/18 08:10 04/26/18 08:10 04/26/18 03:52 04/26/18 11:45 Intake & Output 04/25/18 04/26/18 04/27/18 06:59 06:59 06:59 Intake Total 2058 320 Output Total 300 860 Balance 1758 -540 Weight 66.1 kg GENERAL: Well-developed, no acute distress HEENT: Normocephalic/atraumatic NECK supple, no JVD CARDIOVASCULAR: RRR, normal S1-S2 LUNGS: CTA bilaterally ABDOMEN: Soft, NT, NL bowel sounds EXTREMITIES: No edema, clubbing, cyanosis NEUROLOGICAL: Intubated/sedated Results Laboratory Results: 04/26/18 04:40 04/26/18 04:40 04/25/18 04/25/18 04/25/18 21:09 21:09 21:09 WBC 21.0 H RBC 4.42 Hgb 13.4 Hct 39.7 MCV 90 MCH 30.3 MCHC 33.8 RDW 12.8 Plt Count 283 Seg Neutrophils % Not Reportable Lymphocytes % Not Reportable Monocytes % Not Reportable Eosinophils % Not Reportable Basophils % Not Reportable Absolute Neutrophils Not Reportable Absolute Lymphocytes Not Reportable Absolute Monocytes Not Reportable Absolute Eosinophils Not Reportable Absolute Basophils Not Reportable Carbonic Acid HCO3/H2CO3 Ratio ABG pH ABG pCO2 ABG pO2 ABG HCO3 ABG O2 Saturation ABG Base Excess VBG pH VBG pCO2 VBG HCO3 VBG Base Excess FiO2 Sodium Cancelled Potassium Cancelled Chloride Cancelled Carbon Dioxide Cancelled Anion Gap Cancelled BUN Cancelled Creatinine Cancelled Est GFR ( Amer) Cancelled Est GFR (Non-Af Amer) Cancelled Glucose Cancelled Lactic Acid 2.4 H Calcium Cancelled Magnesium Urine Color Urine Appearance Urine pH Ur Specific [place] Urine Protein Urine Glucose (UA) Urine Ketones Urine Blood Urine Nitrite Ur Leukocyte Esterase Urine WBC (Auto) Urine RBC (Auto) 04/25/18 04/25/18 04/25/18 21:09 21:50 22:06 WBC RBC Hgb Hct MCV MCH MCHC RDW Plt Count Seg Neutrophils % Lymphocytes % Monocytes % Eosinophils % Basophils % Absolute Neutrophils Absolute Lymphocytes Absolute Monocytes Absolute Eosinophils Absolute Basophils Carbonic Acid HCO3/H2CO3 Ratio ABG pH ABG pCO2 ABG pO2 ABG HCO3 ABG O2 Saturation ABG Base Excess VBG pH 7.21 L VBG pCO2 69.6 H* VBG HCO3 27.4 VBG Base Excess -2.0 FiO2 Sodium 129.5 L Potassium 5.0 Chloride 97 L Carbon Dioxide 23 Anion Gap 10 BUN 15 Creatinine 0.71 Est GFR ( Amer) > 60 Est GFR (Non-Af Amer) > 60 Glucose 351 H Lactic Acid Calcium 8.5 Magnesium Urine Color YELLOW Urine Appearance SLIGHTLY-CLOUDY Urine pH 5.0 Ur Specific [place] 1.018 Urine Protein NEGATIVE Urine Glucose (UA) NEGATIVE Urine Ketones NEGATIVE Urine Blood NEGATIVE Urine Nitrite NEGATIVE Ur Leukocyte Esterase NEGATIVE Urine WBC (Auto) 1 Urine RBC (Auto) 1 04/25/18 04/26/18 04/26/18 23:20 01:12 03:50 WBC RBC Hgb Hct MCV MCH MCHC RDW Plt Count Seg Neutrophils % Lymphocytes % Monocytes % Eosinophils % Basophils % Absolute Neutrophils Absolute Lymphocytes Absolute Monocytes Absolute Eosinophils Absolute Basophils Carbonic Acid 2.29 H 1.59 H HCO3/H2CO3 Ratio 12:1 15:1 ABG pH 7.21 L 7.29 L ABG pCO2 76.2 H* 52.9 H ABG pO2 79.9 L 172.8 H ABG HCO3 29.7 H 24.8 H ABG O2 Saturation 92.7 L 99.0 H ABG Base Excess 0 -2.4 VBG pH VBG pCO2 VBG HCO3 VBG Base Excess FiO2 70% 55% Sodium Potassium Chloride Carbon Dioxide Anion Gap BUN Creatinine Est GFR ( Amer) Est GFR (Non-Af Amer) Glucose Lactic Acid 1.8 Calcium Magnesium Urine Color Urine Appearance Urine pH Ur Specific [place] Urine Protein Urine Glucose (UA) Urine Ketones Urine Blood Urine Nitrite Ur Leukocyte Esterase Urine WBC (Auto) Urine RBC (Auto) 04/26/18 04/26/18 04/26/18 04:40 04:40 14:25 WBC 21.0 H RBC 3.81 Hgb 11.5 L Hct 34.3 L MCV 90 MCH 30.3 MCHC 33.6 RDW 12.8 Plt Count 206 Seg Neutrophils % Not Reportable Lymphocytes % Not Reportable Monocytes % Not Reportable Eosinophils % Not Reportable Basophils % Not Reportable Absolute Neutrophils Not Reportable Absolute Lymphocytes Not Reportable Absolute Monocytes Not Reportable Absolute Eosinophils Not Reportable Absolute Basophils Not Reportable Carbonic Acid 0.94 L HCO3/H2CO3 Ratio 23:1 ABG pH 7.47 H ABG pCO2 31.3 L ABG pO2 74.0 L ABG HCO3 22.2 ABG O2 Saturation 95.8 ABG Base Excess -0.8 VBG pH VBG pCO2 VBG HCO3 VBG Base Excess FiO2 30% Sodium 128.9 L Potassium 4.5 Chloride 98 Carbon Dioxide 23 Anion Gap 8 BUN 16 Creatinine 0.77 Est GFR ( Amer) > 60 Est GFR (Non-Af Amer) > 60 Glucose 219 H Lactic Acid Calcium 7.7 L Magnesium 1.7 Urine Color Urine Appearance Urine pH Ur Specific [place] Urine Protein Urine Glucose (UA) Urine Ketones Urine Blood Urine Nitrite Ur Leukocyte Esterase Urine WBC (Auto) Urine RBC (Auto) 04/25/18 04/25/18 04/25/18 21:09 22:06 22:32 Creatine Kinase 91 CK-MB (CK-2) Troponin I Cancelled 0.787 NT-Pro-B Natriuret Pep Cancelled 256 04/25/18 04/26/18 04/26/18 22:32 04:40 04:40 Creatine Kinase 121 CK-MB (CK-2) 3.26 7.97 H Troponin I Cancelled 1.820 NT-Pro-B Natriuret Pep 04/26/18 04/26/18 10:24 10:24 Creatine Kinase 171 H CK-MB (CK-2) 12.50 H Troponin I 2.090 NT-Pro-B Natriuret Pep Impressions: Chest X-Ray 04/26/18 00:00 IMPRESSION: Tip of the endotracheal tube has been advanced and is now approximately 4.5 cm above the joseph. Tip of the enteric tube remains in the region of the distal esophagus. Other findings are stable copyright 2011 [email or web address]- All Rights Reserved Assessment & Plan - Diagnosis (1) Acute on chronic respiratory failure with hypoxemia Is this a current diagnosis for this admission?: Yes (2) Chronic obstructive pulmonary disease (COPD) Is this a current diagnosis for this admission?: Yes (3) Hyperlipidemia Qualifiers: Hyperlipidemia type: unspecified Qualified Code(s): E78.5 - Hyperlipidemia, unspecified Is this a current diagnosis for this admission?: Yes (4) Hypertension Qualifiers: Hypertension type: essential hypertension Qualified Code(s): I10 - Essential (primary) hypertension Is this a current diagnosis for this admission?: Yes (5) Influenza A with pneumonia Is this a current diagnosis for this admission?: Yes (6) Nicotine addiction Is this a current diagnosis for this admission?: Yes - Plan Summary Plan Summary: Continue management of flu with Tamiflu. Continue doxycycline for bacterial coverage. Follow blood culture result, check sputum cultures. Continue vent management, wean as tolerated. Continue supportive care otherwise.
[2018-04-26] MEDS ORDERED: PHARMACY COMMUNICATION ORDER MC NR (15:30)
--- NOTE | 2018-04-26 16:16 | RADIOLOGY REPORT (SQ) ---
EXAM DESCRIPTION: KUB/ABDOMEN (SINGLE VIEW) COMPLETED DATE/TIME: 04/26/2018 3:55 pm REASON FOR STUDY: Check Placement of NG Tube COMPARISON: None. NUMBER OF VIEWS: One view. TECHNIQUE: Supine radiographic image of the abdomen acquired. LIMITATIONS: None. FINDINGS: Nasogastric tube is looped in the stomach with the tip pointing cephalad at the level of t he GE junction. Side-hole is in the gastric fundus. IMPRESSION: NG tube position as above. Reading location - IP/workstation name: [email or web address]
[2018-04-26] MEDS: NICOTINE 21 MG/24 HR PATCH.TD24 TD SCH (17:21)
[2018-04-26] MEDS: DOXYCYCLINE HYCLATE 100 MG in DEXTROSE 5%-WATER 250 ML IV SCH (17:22)
--- NOTE | 2018-04-26 17:40 | RADIOLOGY REPORT (SQ) ---
EXAM DESCRIPTION: KUB/ABDOMEN (SINGLE VIEW) COMPLETED DATE/TIME: 04/26/2018 5:29 pm REASON FOR STUDY: ogt pulled back COMPARISON: Earlier the same day. NUMBER OF VIEWS: One view. TECHNIQUE: Supine radiographic image of the abdomen acquired. LIMITATIONS: None. FINDINGS: NG tube has been retracted. Side-hole overlies the gastric fundus and should be satisfact ory for tube feeding. IMPRESSION: Satisfactory position of nasogastric tube. Reading location - IP/workstation name: [email or web address]
[2018-04-26 19:47] LABS: CREATINE KINASE MB 9.22 ng/mL (<4.55)
[2018-04-26 19:51] LABS: TROPONIN I 2.02 ng/mL
[2018-04-26] MEDS: ALBUTEROL SULFATE 0.083% NEB 2.5 MG/3 ML AMPUL NEB PRN (21:07)
[2018-04-26] MEDS: ENOXAPARIN SODIUM INJ 80 MG/0.8 ML DISP.SYRIN SUBCUT SCH (21:39)
--- NOTE | 2018-04-26 22:16 | PDOC CONSULTATION ---
Consultation-Blank Consultation: CARDIOLOGY CONSULTATION by Dr. Nereyda Dunlap. Patient seen at 2 PM on 04/26/2018 REASON FOR CONSULTATION: Patient with acute respiratory failure with abnormal EKG, and elevated troponin I.
[2018-04-27] MEDS: MIDAZOLAM HCL 50 MG/100 ML RTUINJ IV PRN ×5 (02:17→22:20)
[2018-04-27] MEDS: NORMAL SALINE 1000 ML 1,000 ML IV PRN ×2 (02:18→15:08)
[2018-04-27] MEDS: DOXYCYCLINE HYCLATE 100 MG in DEXTROSE 5%-WATER 250 ML IV SCH (05:28)
[2018-04-27] MEDS: METHYLPREDNISOLONE INJ 40 MG/1 ML SDV IV SCH ×4 (05:28→23:27)
--- NOTE | 2018-04-27 05:42 | RADIOLOGY REPORT (SQ) ---
EXAM DESCRIPTION: XR CHEST 1 VIEW COMPLETED DATE/TME: 04/27/2018 06:00 CLINICAL HISTORY: 72 years, Female, resp failure COMPARISON: 04/26/2018 chest NUMBER OF VIEWS: 1 TECHNIQUE: Portal chest LIMITATIONS: None. FINDINGS: The heart size is normal. Endotracheal and enteric tubes are in place. COPD. Osteopenia. Mild atheromatous change thoracic aorta. Improved aeration of the lung bases bilaterally. IMPRESSION: Improved aeration of the lung bases. Other findings are grossly stable copyright 2010 [employer]- All Rights Reserved
[2018-04-27 05:49] LABS: ARTERIAL BLOOD BASE EXCESS -1.3 mmol/L; ARTERIAL BLOOD H2CO3 0.92 mmol/L (1.05-1.35); ARTERIAL BLOOD HCO3 21.6 mmol/L (20-24); ARTERIAL BLOOD O2 SATURATION 97.4 % (94-98); ARTERIAL BLOOD PCO2 30.6 mmHg (35-45); ARTERIAL BLOOD PH 7.47 (7.35-7.45); ARTERIAL BLOOD PO2 90.5 mmHg (80-100); ARTERIAL BLOOD TOTAL CO2 22.5 mmol/L (21-25)
[2018-04-27 05:50] LABS: ARTERIAL BLOOD FIO2 30%
[2018-04-27 05:53] LABS: APPEARANCE,URINE CLEAR; BILIRUBIN,URINE NEGATIVE (NEGATIVE); COLOR,URINE YELLOW; GLUCOSE, URINE NEGATIVE (NEGATIVE); KETONES,URINE TRACE mg/dL (NEGATIVE); LEUKOCYTE ESTERASE,URINE NEGATIVE (NEGATIVE); NITRITE,URINE NEGATIVE (NEGATIVE); PROTEIN,URINE NEGATIVE (NEGATIVE); URINE SPECIFIC GRAVITY 1.012; UROBILINOGEN,URINE NEGATIVE mg/dL (<2.0)
[2018-04-27 06:29] LABS: HEMATOCRIT 33.2 % (36.0-47.0); HEMOGLOBIN 11.5 g/dL (12.0-15.5); MEAN CORPUSCULAR HEMOGLOBIN 30.1 pg (27.0-33.4); MEAN CORPUSCULAR HGB CONC 34.7 g/dL (32.0-36.0); MEAN CORPUSCULAR VOLUME 87 fl (80-97); PLATELET COUNT 230 10^3/uL (150-450); RED BLOOD COUNT 3.83 10^6/uL (3.72-5.28); RED CELL DISTRIBUTION WIDTH 12.6 % (11.5-14.0); WHITE BLOOD COUNT 21.8 10^3/uL (4.0-10.5)
[2018-04-27 06:40] LABS: ANION GAP 5 (5-19); BLOOD UREA NITROGEN 13 mg/dL (7-20); CALCIUM 7.2 mg/dL (8.4-10.2); CARBON DIOXIDE 24 mmol/L (22-30); CHLORIDE 104 mmol/L (98-107); GLUCOSE 183 mg/dL (75-110); PHOSPHORUS 1.7 mg/dL (2.5-4.5); POTASSIUM 3.7 mmol/L (3.6-5.0); SODIUM 132.7 mmol/L (137-145)
[2018-04-27] MEDS: ACETYLCYSTEINE 20% SOLN 800 MG/4 ML VIAL.NEB NEB SCH ×2 (07:59→19:58)
[2018-04-27] MEDS: LEVALBUTEROL HCL NEB 1.25 MG/3 ML AMPUL NEB SCH ×3 (07:59→23:43)
[2018-04-27] MEDS: IPRATROPIUM BROMIDE 0.02% NEB 0.5 MG/2.5 ML AMPUL NEB SCH ×3 (07:59→23:43)
[2018-04-27] MEDS: BUDESONIDE NEB 0.5 MG/2 ML AMPUL NEB SCH ×2 (07:59→19:58)
[2018-04-27] MEDS: DEXTROSE 5%-WATER 250 ML with NOREPINEPHRINE BITARTRATE 4 MG IV PRN ×2 (08:09)
[2018-04-27] MEDS ORDERED: DEXTROSE 5%-WATER 250 ML with VASOPRESSIN 100 UNIT IV PRN ×2 (10:29)
[2018-04-27] MEDS ORDERED: VANCOMYCIN HCL 0 MG in DEXTROSE 5%-WATER 250 ML IV NR (10:30)
--- NOTE | 2018-04-27 12:37 | RADIOLOGY REPORT (SQ) ---
EXAM DESCRIPTION: CT HEAD WITHOUT COMPLETED DATE/TIME: 04/27/2018 12:24 pm REASON FOR STUDY: LOC ? Cerebral T waves. COMPARISON: 11/17/2017. TECHNIQUE: Axial images acquired through the brain without intravenous contrast. Images reviewed wi th bone, brain and subdural windows. Additional sagittal and coronal reconstructions were generated. Images stored on PACS. All CT scanners at this facility use dose modulation, iterative reconstruction, and/or weight based d osing when appropriate to reduce radiation dose to as low as reasonably achievable (ALARA). [facility]: Dose Right [facility]: CareDose [facility]: Dose Right [facility]: Teradose 4D [facility]: Signal Data RADIATION DOSE: CT Rad equipment meets quality standard of care and radiation dose reduction techniq ues were employed. CTDIvol: 53.2 mGy. DLP: 1044 mGy-cm. mGy. LIMITATIONS: None. FINDINGS: VENTRICLES: Normal size and contour. CEREBRUM: No masses. No hemorrhage. No midline shift. No evidence for acute infarction. Normal gra y/white matter differentiation. No areas of low density in the white matter. CEREBELLUM: No masses. No hemorrhage. No alteration of density. No evidence for acute infarction. EXTRAAXIAL SPACES: No fluid collections. No masses. ORBITS AND GLOBE: No intra- or extraconal masses. Normal contour of globe without masses. CALVARIUM: No fracture. PARANASAL SINUSES: No fluid or mucosal thickening. SOFT TISSUES: No mass or hematoma. OTHER: No other significant finding. IMPRESSION: NORMAL BRAIN CT WITHOUT CONTRAST. EVIDENCE OF ACUTE STROKE: NO. COMMENT: Quality ID # [id number]: Final reports with documentation of one or more dose reduction techniques (e.g., Automated exposure control, adjustment of the mA and/or kV according to patient size, use of iterative reconstruction technique) TECHNICAL DOCUMENTATION: JOB ID: [id number] [employer]- All Rights Reserved Reading location - IP/workstation name: [email or web address]
[2018-04-27] MEDS ORDERED: NORMAL SALINE INJ/PF 0.9% 10 ML SDV IV PRN (13:17)
--- NOTE | 2018-04-27 13:17 | Operative Report ---
Operative Report DATE OF SURGERY: 04/27/18 PREOPERATIVE DIAGNOSIS: 1. Respiratory failure POSTOPERATIVE DIAGNOSIS: Same OPERATION: Ultrasound directed insertion of triple-lumen right internal jugular vein and interpretation a portable upright x-ray SURGEON: JILLIAN LUDWIG ANESTHESIA: Local TISSUE REMOVED OR ALTERED: None COMPLICATIONS: None ESTIMATED BLOOD LOSS: 15 cc INTRAOPERATIVE FINDINGS: See below PROCEDURE: Informed consent was obtained. The patient was placed in Trendelenburg the right neck and chest wall were exposed, and prepped and draped in a sterile fashion. Surgical plan and surgical timeout discussed. The right neck was anesthetized with 1% lidocaine without epinephrine. Using the variable frequency linear transducer, real time, a 18-gauge needle and wire were threaded into the right internal jugular vein. The tract was dilated up, the dilator removed, and the triple-lumen central venous access catheter was threaded into the right internal jugular vein uneventfully to the hub. There was excellent aspiration and flush of saline through all 3 lumens. The catheter was affixed to the skin with a Biopatch and 2-0 silk suture; sterile dressing applied. The patient tolerated the procedure well. There were no complications. Portable upright chest x-ray demonstrated no pneumothorax, no kinking of the catheter, and tip of the catheter in the superior vena cava-right atrial junction. Results of the studies shared with nursing staff.
[2018-04-27] MEDS: ENOXAPARIN SODIUM INJ 80 MG/0.8 ML DISP.SYRIN SUBCUT SCH (13:25)
[2018-04-27] MEDS: NICOTINE 21 MG/24 HR PATCH.TD24 TD SCH (13:25)
[2018-04-27] MEDS: PANTOPRAZOLE SODIUM 40 MG VIAL IV SCH ×2 (13:26→22:50)
--- NOTE | 2018-04-27 13:32 | RADIOLOGY REPORT (SQ) ---
EXAM DESCRIPTION: CHEST SINGLE VIEW COMPLETED DATE/TIME: 04/27/2018 1:19 pm REASON FOR STUDY: Central Line Placement COMPARISON: 04/27/2018 at 0506 hours. EXAM PARAMETERS: NUMBER OF VIEWS: One view. TECHNIQUE: Single frontal radiographic view of the chest acquired. RADIATION DOSE: NA LIMITATIONS: None. FINDINGS: LUNGS AND PLEURA: Chronic interstitial changes. Faint basilar densities. No pneumothorax . MEDIASTINUM AND HILAR STRUCTURES: No masses. Contour normal. HEART AND VASCULAR STRUCTURES: Heart normal in size. Normal vasculature. BONES: No acute findings. HARDWARE: Central line on the right side with the tip at the cavoatrial junction. Stable endotrachea l tube and nasogastric tube. OTHER: No other significant finding. IMPRESSION: NO PNEUMOTHORAX FOLLOWING CENTRAL LINE PLACEMENT. NO SIGNIFICANT CHANGE IN APPEARANCE O F THE CHEST. TECHNICAL DOCUMENTATION: JOB ID: [id number] [employer] All Rights Reserved Reading location - IP/workstation name: [email or web address]
[2018-04-27] MEDS ORDERED: LEVOFLOXACIN 750 MG/D5W RTU 750 MG/150 ML RTUPB IV SCH (14:00)
--- NOTE | 2018-04-27 14:50 | PDOC CONSULTATION ---
Consultation Consult Date: 04/26/18 Attending physician:: SONIA PORTILLO Consult reason:: Acute on chronic respiratory failure History of Present Illness Admission Date/PCP: 04/25/18 23:58 SHIMON LA MD History of Present Illness: CAROLE SOARES is a 72 year old female, to the emergency room after 2 days of progressive shortness of breath she has a history of COPD O2 dependent at the time of her presentation BiPAP was initiated as well as multiple nebulizers however she failed to respond and subsequently she was intubated. She is currently intubated and sedated is of note that she has a positive influenza titer. No history of smoking additional details are unavailable as the family is not at the bedside. Past Medical History Cardiac Medical History: Reports: Hyperlipidema, Hypertension Pulmonary Medical History: Reports: Bronchitis, Chronic Obstructive Pulmonary Disease (COPD), Intubation, Pneumonia, Respiratory Failure EENT Medical History: Reports: None Neurological Medical History: Denies: Multiple Sclerosis, Seizures Endocrine Medical History: Reports: Hypothyroidism Denies: Diabetes Mellitus Type 1, Diabetes Mellitus Type 2, Hyperthyroidism Renal/ Medical History: Denies: Chronic Kidney Disease, Nephrolithiasis Malignancy Medical History: Reports: None GI Medical History: Reports: Gastroesophageal Reflux Disease Denies: Cirrhosis, Hepatitis Musculoskeltal Medical History: Reports: Arthritis, Other - Osteoporosis Denies: Gout Skin Medical History: Denies: Eczema, Psoriasis Psychiatric Medical History: Reports: Depression, Tobacco Dependency Denies: Alcohol Dependency, Substance Abuse Traumatic Medical History: Reports: None Hematology: Denies: Anemia, Bleeding Tendencies Infectious Medical History: Reports: None Past Surgical History Past Surgical History: Reports: None Social History Information Source: [facility] Records Lives with: Family Smoking Status: Current Every Day Smoker Cigarettes Packs Per Day: 0.5 Number of Years Smokin Frequency of Alcohol Use: None Hx Recreational Drug Use: No Drugs: None Hx Prescription Drug Abuse: No - Advance Directive Resuscitation Status: Full Code Family History Parental Family History Reviewed: No Children Family History Reviewed: No Sibling(s) Family History Reviewed.: No Medication/Allergy Home Medications: Albuterol Sulfate [Proair HFA Inhalation Aerosol 8.5 gm MDI] 2 puff IH Q6 1 Atorvastatin Calcium [Lipitor 10 mg Tablet] 10 mg PO DAILY 04/26/18 Azithromycin [Zithromax 250 mg Tablet] 250 mg PO MOTUWETHFR@1000 04/26/18 Benazepril/Hydrochlorothiazide [Benazepril-Hctz 20-25 mg Tab] 1 tab PO DAILY 04/26/18 Budesonide/Formoterol Fumarate [Symbicort HFA 160-4.5 mcg Inhaler 6 gm] 2 puff IH Q12 04/26/18 Bupropion HCl [Bupropion Xl] 150 mg PO DAILY 04/26/18 Cetirizine HCl [Zyrtec 10 mg Tablet] 10 mg PO DAILY 04/26/18 Hydrochlorothiazide [Hydrodiuril 12.5 mg Tablet] 12.5 mg PO DAILY 04/26/18 Levothyroxine Sodium [Synthroid 0.088 mg Tablet] 0.088 mg PO Q6AM 04/26/18 Montelukast Sodium [Singulair 10 mg Tablet] 10 mg PO QHS 04/26/18 Potassium Chloride [Klor-Con M10] 10 meq PO DAILY 04/26/18 Tiotropium [place] [Spiriva Handihaler 5 Cap/Kit (18 Mcg/Cap)] 1 puff IH DAILY 04/26/18 Triamcinolone Acetonide [Aristocort 0.1% Ointment] 1 applic TOP BID 04/26/18 Allergies/Adverse Reactions: adhesive tape Allergy (Verified 04/25/18 23:05) cephalexin [From Keflex] Allergy (Verified 04/25/18 23:05) levofloxacin [From Levaquin] Allergy (Verified 04/25/18 23:05) meloxicam Allergy (Verified 04/25/18 23:05) sulfamethoxazole [From Bactrim] Allergy (Verified 04/25/18 23:05) trimethoprim [From Bactrim] Allergy (Verified 04/25/18 23:05) procaine [From Novocain] Adverse Reaction (Verified 04/25/18 23:05) Review of Systems ROS unobtainable: Due to endotracheal tube Physical Exam Vital Signs: Temp Pulse Resp BP Pulse Ox 99.5 F 82 18 96/61 L 100 04/26/18 11:18 04/26/18 08:10 04/26/18 08:10 04/26/18 03:52 04/26/18 08:10 Intake & Output 04/25/18 04/26/18 04/27/18 06:59 06:59 06:59 Intake Total 8 Output Total 300 660 Balance 1758 -660 Weight 66.1 kg General appearance: PRESENT: no acute distress, disheveled, well-developed, well-nourished. ABSENT: cooperative Head exam: PRESENT: atraumatic, normocephalic Eye exam: PRESENT: conjunctiva pale. ABSENT: EOMI, nystagmus, scleral icterus Mouth exam: PRESENT: dry mucosa, neck supple, tongue midline, other - ET tube in place Neck exam: ABSENT: carotid bruit, JVD, lymphadenopathy, thyromegaly, tracheal deviation, tracheostomy Respiratory exam: PRESENT: decreased breath sounds, prolonged expiratory phas, rales, rhonchi, unlabored. ABSENT: retraction, stridor, symmetrical, tachypnea Cardiovascular exam: PRESENT: RRR, +S1, +S2. ABSENT: tachycardia Pulses: ABSENT: normal radial pulses GI/Abdominal exam: PRESENT: soft. ABSENT: tenderness Gentrourinary exam: PRESENT: indwelling catheter Extremities exam: ABSENT: calf tenderness, clubbing, joint swelling, pedal edema Musculoskeletal exam: ABSENT: deformity, dislocation Neurological exam: ABSENT: awake Skin exam: PRESENT: dry, warm Results Laboratory Results: 04/26/18 04:40 04/26/18 04:40 04/25/18 04/25/18 04/25/18 21:09 21:09 21:09 WBC 21.0 H RBC 4.42 Hgb 13.4 Hct 39.7 MCV 90 MCH 30.3 MCHC 33.8 RDW 12.8 Plt Count 283 Seg Neutrophils % Not Reportable Lymphocytes % Not Reportable Monocytes % Not Reportable Eosinophils % Not Reportable Basophils % Not Reportable Absolute Neutrophils Not Reportable Absolute Lymphocytes Not Reportable Absolute Monocytes Not Reportable Absolute Eosinophils Not Reportable Absolute Basophils Not Reportable Carbonic Acid HCO3/H2CO3 Ratio ABG pH ABG pCO2 ABG pO2 ABG HCO3 ABG O2 Saturation ABG Base Excess VBG pH VBG pCO2 VBG HCO3 VBG Base Excess FiO2 Sodium Cancelled Potassium Cancelled Chloride Cancelled Carbon Dioxide Cancelled Anion Gap Cancelled BUN Cancelled Creatinine Cancelled Est GFR ( Amer) Cancelled Est GFR (Non-Af Amer) Cancelled Glucose Cancelled Lactic Acid 2.4 H Calcium Cancelled Magnesium Urine Color Urine Appearance Urine pH Ur Specific [place] Urine Protein Urine Glucose (UA) Urine Ketones Urine Blood Urine Nitrite Ur Leukocyte Esterase Urine WBC (Auto) Urine RBC (Auto) 04/25/18 04/25/18 04/25/18 21:09 21:50 22:06 WBC RBC Hgb Hct MCV MCH MCHC RDW Plt Count Seg Neutrophils % Lymphocytes % Monocytes % Eosinophils % Basophils % Absolute Neutrophils Absolute Lymphocytes Absolute Monocytes Absolute Eosinophils Absolute Basophils Carbonic Acid HCO3/H2CO3 Ratio ABG pH ABG pCO2 ABG pO2 ABG HCO3 ABG O2 Saturation ABG Base Excess VBG pH 7.21 L VBG pCO2 69.6 H* VBG HCO3 27.4 VBG Base Excess -2.0 FiO2 Sodium 129.5 L Potassium 5.0 Chloride 97 L Carbon Dioxide 23 Anion Gap 10 BUN 15 Creatinine 0.71 Est GFR ( Amer) > 60 Est GFR (Non-Af Amer) > 60 Glucose 351 H Lactic Acid Calcium 8.5 Magnesium Urine Color YELLOW Urine Appearance SLIGHTLY-CLOUDY Urine pH 5.0 Ur Specific [place] 1.018 Urine Protein NEGATIVE Urine Glucose (UA) NEGATIVE Urine Ketones NEGATIVE Urine Blood NEGATIVE Urine Nitrite NEGATIVE Ur Leukocyte Esterase NEGATIVE Urine WBC (Auto) 1 Urine RBC (Auto) 1 04/25/18 04/26/18 04/26/18 23:20 01:12 03:50 WBC RBC Hgb Hct MCV MCH MCHC RDW Plt Count Seg Neutrophils % Lymphocytes % Monocytes % Eosinophils % Basophils % Absolute Neutrophils Absolute Lymphocytes Absolute Monocytes Absolute Eosinophils Absolute Basophils Carbonic Acid 2.29 H 1.59 H HCO3/H2CO3 Ratio 12:1 15:1 ABG pH 7.21 L 7.29 L ABG pCO2 76.2 H* 52.9 H ABG pO2 79.9 L 172.8 H ABG HCO3 29.7 H 24.8 H ABG O2 Saturation 92.7 L 99.0 H ABG Base Excess 0 -2.4 VBG pH VBG pCO2 VBG HCO3 VBG Base Excess FiO2 70% 55% Sodium Potassium Chloride Carbon Dioxide Anion Gap BUN Creatinine Est GFR ( Amer) Est GFR (Non-Af Amer) Glucose Lactic Acid 1.8 Calcium Magnesium Urine Color Urine Appearance Urine pH Ur Specific [place] Urine Protein Urine Glucose (UA) Urine Ketones Urine Blood Urine Nitrite Ur Leukocyte Esterase Urine WBC (Auto) Urine RBC (Auto) 04/26/18 04/26/18 04:40 04:40 WBC 21.0 H RBC 3.81 Hgb 11.5 L Hct 34.3 L MCV 90 MCH 30.3 MCHC 33.6 RDW 12.8 Plt Count 206 Seg Neutrophils % Not Reportable Lymphocytes % Not Reportable Monocytes % Not Reportable Eosinophils % Not Reportable Basophils % Not Reportable Absolute Neutrophils Not Reportable Absolute Lymphocytes Not Reportable Absolute Monocytes Not Reportable Absolute Eosinophils Not Reportable Absolute Basophils Not Reportable Carbonic Acid HCO3/H2CO3 Ratio ABG pH ABG pCO2 ABG pO2 ABG HCO3 ABG O2 Saturation ABG Base Excess VBG pH VBG pCO2 VBG HCO3 VBG Base Excess FiO2 Sodium 128.9 L Potassium 4.5 Chloride 98 Carbon Dioxide 23 Anion Gap 8 BUN 16 Creatinine 0.77 Est GFR ( Amer) > 60 Est GFR (Non-Af Amer) > 60 Glucose 219 H Lactic Acid Calcium 7.7 L Magnesium 1.7 Urine Color Urine Appearance Urine pH Ur Specific [place] Urine Protein Urine Glucose (UA) Urine Ketones Urine Blood Urine Nitrite Ur Leukocyte Esterase Urine WBC (Auto) Urine RBC (Auto) 04/25/18 04/25/18 04/25/18 21:09 22:06 22:32 Creatine Kinase 91 CK-MB (CK-2) Troponin I Cancelled 0.787 NT-Pro-B Natriuret Pep Cancelled 256 04/25/18 04/26/18 04/26/18 22:32 04:40 04:40 Creatine Kinase 121 CK-MB (CK-2) 3.26 7.97 H Troponin I Cancelled 1.820 NT-Pro-B Natriuret Pep 04/26/18 04/26/18 10:24 10:24 Creatine Kinase 171 H CK-MB (CK-2) 12.50 H Troponin I 2.090 NT-Pro-B Natriuret Pep Impressions: Chest X-Ray 04/26/18 00:00 IMPRESSION: Tip of the endotracheal tube has been advanced and is now approximately 4.5 cm above the joseph. Tip of the enteric tube remains in the region of the distal esophagus. Other findings are stable copyright 2011 [employer]- All Rights Reserved Assessment & Plan - Diagnosis (1) Acute on chronic respiratory failure with hypoxemia Is this a current diagnosis for this admission?: Yes Plan: She is an 8 ventilator as needed judicious oxygenation so as to not initiate poor ventilation memory patient is have end-stage COPD (2) Chronic obstructive pulmonary disease (COPD) Is this a current diagnosis for this admission?: Yes Plan: Generic Name Dose Route Start Last Admin Trade Name Freq PRN Reason Stop Dose Admin Levalbuterol HCl 1.25 mg 04/26/18 00:00 04/27/18 07:59 Xopenex Neb 1.25 Mg/3 Ml Ampul NEB 05/26/18 00:00 1.25 mg RTQ8 AURELIO Budesonide 0.5 mg 04/26/18 08:00 04/27/18 07:59 Pulmicort Neb 0.5 Mg/2 Ml Ampul NEB 05/26/18 07:59 0.5 mg RTQ12 AURELIO Methylprednisolone Sodium Succinate 40 mg 04/26/18 06:00 04/27/18 13:26 Solu-Medrol Inj/Pf 40 Mg/1 Ml Sdv IV 05/24/18 00:01 40 mg Q6 AURELIO Albuterol 2.5 mg 04/25/18 23:50 04/26/18 21:07 Ventolin 0.083% Neb 2.5 Mg/3 Ml Ampul NEB 05/25/18 23:49 2.5 mg RTQ1HP PRN SHORTNESS OF BREATH Ipratropium [place] 0.5 mg 04/26/18 00:00 04/27/18 07:59 Atrovent 0.02% Neb 0.5 Mg/2.5 Ml Ampul NEB 05/26/18 00:00 0.5 mg RTQ8 [facility] Acetylcysteine 600 mg 04/26/18 13:45 04/27/18 07:59 Mucomist 20% Soln 800 Mg/4 Ml NEB 05/26/18 13:44 600 mg RTBID [facility] (3) Influenza A with pneumonia Is this a current diagnosis for this admission?: Yes Plan: Per rapid testing (4) Nicotine addiction Is this a current diagnosis for this admission?: Yes Plan: Transdermal nicotine - Time Total Critical Time (Minutes): 55
[2018-04-27] MEDS: AZITHROMYCIN 500 MG in DEXTROSE 5%-WATER 250 ML IV SCH (15:00)
[2018-04-27] MEDS: AZTREONAM 1 GM in DEXTROSE 5%-WATER 50 ML IV SCH ×2 (15:09→23:33)
--- NOTE | 2018-04-27 17:57 | PDOC PROGRESS REPORT ---
Subjective Progress Note for:: 04/27/18 Subjective:: Intubated, sedated. She is on vasopressor for hypotension. He will bloody her NG tube she was guaiac positive, so Dr. Dunlap of cardiology has decided no aspirin or heparin for her possible NSTEMI. She is currently in no apparent distress. Children, including one son and 2 daughters at bedside. Reason For Visit: ACUTE ON CHRONIC RESPIRATORY FAILURE WITH HYPOXIA Physical Exam Vital Signs: Temp Pulse Resp BP Pulse Ox 100.0 F 91 22 H 102/57 L 100 04/27/18 16:06 04/27/18 16:16 04/27/18 16:16 04/27/18 16:06 04/27/18 16:16 Intake & Output 04/26/18 04/27/18 04/28/18 06:59 06:59 06:59 Intake Total 2058 2990 1789 Output Total 300 1835 420 Balance 1758 1155 1369 Weight 66.1 kg 68.1 kg 68.1 kg GENERAL: Well-developed, intubated, in no acute distress HEENT: Normocephalic/atraumatic NECK supple, no JVD CARDIOVASCULAR: RRR, normal S1-S2 LUNGS: Coarse breath sounds bilaterally ABDOMEN: Soft, NT, NL bowel sounds EXTREMITIES: No edema, clubbing, cyanosis NEUROLOGICAL: Intubated/sedated Results Laboratory Results: 04/27/18 06:19 04/27/18 06:19 04/27/18 04/27/18 04/27/18 05:39 05:39 06:19 WBC 21.8 H RBC 3.83 Hgb 11.5 L Hct 33.2 L MCV 87 MCH 30.1 MCHC 34.7 RDW 12.6 Plt Count 230 Carbonic Acid 0.92 L HCO3/H2CO3 Ratio 23:1 ABG pH 7.47 H ABG pCO2 30.6 L ABG pO2 90.5 ABG HCO3 21.6 ABG O2 Saturation 97.4 ABG Base Excess -1.3 FiO2 30% Sodium Potassium Chloride Carbon Dioxide Anion Gap BUN Creatinine Est GFR ( Amer) Est GFR (Non-Af Amer) Glucose Calcium Phosphorus Magnesium Urine Color YELLOW Urine Appearance CLEAR Urine pH 6.0 Ur Specific [place] 1.012 Urine Protein NEGATIVE Urine Glucose (UA) NEGATIVE Urine Ketones TRACE H Urine Blood NEGATIVE Urine Nitrite NEGATIVE Ur Leukocyte Esterase NEGATIVE Urine WBC (Auto) 1 Urine RBC (Auto) 1 04/27/18 06:19 WBC RBC Hgb Hct MCV MCH MCHC RDW Plt Count Carbonic Acid HCO3/H2CO3 Ratio ABG pH ABG pCO2 ABG pO2 ABG HCO3 ABG O2 Saturation ABG Base Excess FiO2 Sodium 132.7 L Potassium 3.7 Chloride 104 Carbon Dioxide 24 Anion Gap 5 BUN 13 Creatinine 0.50 L Est GFR ( Amer) > 60 Est GFR (Non-Af Amer) > 60 Glucose 183 H Calcium 7.2 L Phosphorus 1.7 L Magnesium 1.8 Urine Color Urine Appearance Urine pH Ur Specific [place] Urine Protein Urine Glucose (UA) Urine Ketones Urine Blood Urine Nitrite Ur Leukocyte Esterase Urine WBC (Auto) Urine RBC (Auto) 04/25/18 04/25/18 04/25/18 21:09 22:06 22:32 Creatine Kinase 91 CK-MB (CK-2) Troponin I Cancelled 0.787 NT-Pro-B Natriuret Pep Cancelled 256 04/25/18 04/26/18 04/26/18 22:32 04:40 04:40 Creatine Kinase 121 CK-MB (CK-2) 3.26 7.97 H Troponin I Cancelled 1.820 NT-Pro-B Natriuret Pep 04/26/18 04/26/18 04/26/18 10:24 10:24 19:17 Creatine Kinase 171 H 143 H CK-MB (CK-2) 12.50 H Troponin I 2.090 NT-Pro-B Natriuret Pep 04/26/18 19:17 Creatine Kinase CK-MB (CK-2) 9.22 H Troponin I 2.020 NT-Pro-B Natriuret Pep Impressions: KUB X-Ray 04/26/18 16:45 IMPRESSION: Satisfactory position of nasogastric tube. Head CT 04/27/18 00:00 IMPRESSION: NORMAL BRAIN CT WITHOUT CONTRAST. EVIDENCE OF ACUTE STROKE: NO. Chest X-Ray 04/27/18 12:47 IMPRESSION: NO PNEUMOTHORAX FOLLOWING CENTRAL LINE PLACEMENT. NO SIGNIFICANT CHANGE IN APPEARANCE OF THE CHEST. Assessment & Plan - Diagnosis (1) Acute on chronic respiratory failure with hypoxemia Is this a current diagnosis for this admission?: Yes (2) Chronic obstructive pulmonary disease (COPD) Is this a current diagnosis for this admission?: Yes (3) Hyperlipidemia Qualifiers: Hyperlipidemia type: unspecified Qualified Code(s): E78.5 - Hyperlipidemia, unspecified Is this a current diagnosis for this admission?: Yes (4) Hypertension Qualifiers: Hypertension type: essential hypertension Qualified Code(s): I10 - Essential (primary) hypertension Is this a current diagnosis for this admission?: Yes (5) Influenza A with pneumonia Is this a current diagnosis for this admission?: Yes (6) Nicotine addiction Is this a current diagnosis for this admission?: Yes (7) Sepsis Is this a current diagnosis for this admission?: Yes (8) Non-STEMI (non-ST elevated myocardial infarction) Is this a current diagnosis for this admission?: Yes - Plan Summary Plan Summary: Continue management of flu with Tamiflu. There is significant suspicion for sepsis and patient's white blood cells count remains elevated at 21,000 in spite of 2 days on doxycycline. Patient is allergic to cephalosporins and Levaquin, so I am hesitant to use penicillins such as Zosyn as well at this time. Will treat with Vanco to cover gram positives and aztreonam to cover gram negatives, including Pseudomonas. Will add azithromycin to cover atypicals. Follow-up blood cultures and sputum culture results. Cardiology evaluation and follow-up by Dr. Dunlap appreciated. Continue pressors. Continue vent management. Wean of pain and pressors as tolerated. Pulmonology consult appreciated. Continue supportive care otherwise.
[2018-04-27] MEDS: ALBUTEROL SULFATE 0.083% NEB 2.5 MG/3 ML AMPUL NEB PRN (19:58)
--- NOTE | 2018-04-27 22:57 | Progress Note ---
Provider Note Provider Note: CARDIOLOGY progress note by Dr. Nereyda Dulnap on 04/27/2018. SUBJECTIVE: The patient is intubated and sedated. There is no arrhythmias seen on the monitor. The patient is off the Levophed, with the institution of vasopressin. There is no ventricular arrhythmia seen on the monitor. The patient appears to be well sedated. PHYSICAL EXAMINATION: The patient appears to be chronically ill. But she is in no acute distress. Selected Entries 04/27/18 04/27/18 04/27/18 18:00 19:36 19:52 Temperature 99.5 F 99.7 F Pulse Rate Heart Rate ( 95 95 Monitors) Respiratory 22 H 22 H Rate Respiratory Effort Blood Pressure 113/58 L O2 Sat by Pulse 95 97 Oximetry Oxygen Delivery Mechanical Method ( Ventilator includes room air) Fraction of Inspired Oxygen (FIO2) Percent of 30 Oxygen 04/27/18 20:00 Temperature Pulse Rate 95 Heart Rate ( Monitors) Respiratory 22 H Rate Respiratory Non-Labored Effort Mechanically Ventilated Blood Pressure O2 Sat by Pulse 98 Oximetry Oxygen Delivery Method ( includes room air) Fraction of 30 Inspired Oxygen (FIO2) Percent of Oxygen 30 HEAD: Is atraumatic normocephalic. EYES: Pupils equal round regular reactive to light. ENT is negative. NECK: Is supple. There is no JVD. Carotids are equal there is no bruits. There is no thyromegaly. Trachea central. LUNGS:. There is diminished air entry bilaterally. There are a few scattered rhonchi. If you dry crackles in the bases. Left greater than right base. There is no rales of CHF. HEART: S1-S2 is heard. There is no S3 gallop there is no S4 gallop there is murmur of mild mitral regurgitation present there is no murmur of aortic stenosis or aortic regurgitation. There is no rub. ABDOMEN: Is soft bowel sounds are well heard. There is no hepatosplenic megaly. EXTREMITIES: Femorals are well felt. There is no femoral bruits. Leg pulses well felt. There is no pedal edema. There is no DVT S or cellulitis. There is no sinus or clubbing. DRUM ATTENDANT and psychiatric: Not examined since the patient is intubated and sedated. 04/25/18 04/26/18 04/26/18 21:50 04:40 10:24 WBC RBC Hgb Hct MCV MCH MCHC RDW Plt Count Carbonic Acid HCO3/H2CO3 Ratio ABG pH ABG pCO2 ABG pO2 ABG HCO3 ABG Total CO2 ABG O2 Saturation ABG Base Excess FiO2 Sodium Potassium Chloride Carbon Dioxide Anion Gap BUN Creatinine Est GFR (Non-Af Amer) Glucose Calcium Phosphorus Magnesium Creatine Kinase 171 H CK-MB (CK-2) 7.97 H Troponin I 1.820 Influenza A (Rapid) POSITIVE Influenza B (Rapid) NEGATIVE 04/26/18 04/26/18 04/26/18 10:24 19:17 19:17 WBC RBC Hgb Hct MCV MCH MCHC RDW Plt Count Carbonic Acid HCO3/H2CO3 Ratio ABG pH ABG pCO2 ABG pO2 ABG HCO3 ABG Total CO2 ABG O2 Saturation ABG Base Excess FiO2 Sodium Potassium Chloride Carbon Dioxide Anion Gap BUN Creatinine Est GFR (Non-Af Amer) Glucose Calcium Phosphorus Magnesium Creatine Kinase 143 H CK-MB (CK-2) 12.50 H 9.22 H Troponin I 2.090 2.020 Influenza A (Rapid) Influenza B (Rapid) 04/27/18 04/27/18 04/27/18 05:39 06:19 06:19 WBC 21.8 H RBC 3.83 Hgb 11.5 L Hct 33.2 L MCV 87 MCH 30.1 MCHC 34.7 RDW 12.6 Plt Count 230 Carbonic Acid 0.92 L HCO3/H2CO3 Ratio 23:1 ABG pH 7.47 H ABG pCO2 30.6 L ABG pO2 90.5 ABG HCO3 21.6 ABG Total CO2 22.5 ABG O2 Saturation 97.4 ABG Base Excess -1.3 FiO2 30% Sodium 132.7 L Potassium 3.7 Chloride 104 Carbon Dioxide 24 Anion Gap 5 BUN 13 Creatinine 0.50 L Est GFR (Non-Af Amer) > 60 Glucose 183 H Calcium 7.2 L Phosphorus 1.7 L Magnesium 1.8 Creatine Kinase CK-MB (CK-2) Troponin I Influenza A (Rapid) Influenza B (Rapid) MONITOR SHOWS DIFFUSE SUBENDOCARDIAL T WAVE INVERSION. THE PATIENT'S CHEST X- RAY SHOWS IMPROVEMENT IN THE BIBASILAR DENSITIES. THERE IS ALSO CHRONIC INTERSTITIAL CHANGES. THE PATIENT'S CT OF THE HEAD SHOWS NORMAL CT OF THE BRAIN, AND HENCE THE T WAVE INVERSION IS NOT DUE TO CEREBRAL T WAVES. 04/26/18 16:00 Gram Stain - Preliminary Sputum Sputum Culture - Preliminary 04/25/18 22:06 Blood Culture - Preliminary Blood NO GROWTH AFTER 48 HOURS 04/25/18 21:09 Blood Culture - Preliminary Blood NO GROWTH AFTER 48 HOURS IMPRESSION/RECOMMENDATION: 1. ACUTE ON CHRONIC RESPIRATORY FAILURE: CONTINUE VENTILATORY SUPPORT AND ANTI- COPD MEDICATION AND ANTIBIOTICS. 2. INFLUENZA A PNEUMONIA: CONTINUE ANTIBIOTICS. 3. NON-ST ELEVATION AL. WE WILL START THE PATIENT ON ASPIRIN, AND ALSO START THE PATIENT ON LOVENOX AT 1 MG/KG SUBCUTANEOUSLY EVERY 12 HOURS. LATER ONCE THE BLOOD PRESSURE SETTLES WE WILL START THE PATIENT ON A BETA-LUISITO. We will recheck the patient's troponin I and EKG in the a.m. 4. Abnormal EKG consistent with subendocardial T wave inversion. 5. COPD. 6. Hypotension: Most likely secondary to sepsis due to her pneumonia. Note the patient has been weaned off the Levophed, and the patient has been. Placed on vasopressin. 7. History of hypertension: At present the patient's blood pressure is low requiring pressors. 8. HYPOTHYROIDISM: Continue thyroid replacement. 9.Hhistory of ongoing tobacco abuse. Will later give the patient tobacco cessation counseling when she is extubated and awake and alert. Discussed with the patient's daughter the patient's condition. Medications have been reviewed. Medications added. Discussed management plan with attending physician on the case. Note medical decision making is of high complexity. 40 minutes spent on this patient, with more than 50% of time spent in direct patient care. We will follow with you.
[2018-04-27] MEDS ORDERED: AZTREONAM INJ 1 GM VIAL ONE (23:22)
[2018-04-27] MEDS: VANCOMYCIN HCL 750 MG in DEXTROSE 5%-WATER 250 ML IV SCH (23:27)
[2018-04-27] MEDS: OSELTAMIVIR PHOSPHATE 6 MG/1 ML SUSP 60 ML PO SCH (23:28)
[2018-04-28] MEDS: MIDAZOLAM HCL 50 MG/100 ML RTUINJ IV PRN ×6 (01:35→22:48)
[2018-04-28] MEDS: NORMAL SALINE 1000 ML 1,000 ML IV PRN ×2 (04:00→18:24)
[2018-04-28] MEDS: AZTREONAM 1 GM in DEXTROSE 5%-WATER 50 ML IV SCH ×3 (05:45→21:37)
[2018-04-28] MEDS: METHYLPREDNISOLONE INJ 40 MG/1 ML SDV IV SCH ×3 (05:49→21:38)
[2018-04-28 06:09] LABS: ARTERIAL BLOOD BASE EXCESS -2.1 mmol/L; ARTERIAL BLOOD H2CO3 0.91 mmol/L (1.05-1.35); ARTERIAL BLOOD O2 SATURATION 97.6 % (94-98); ARTERIAL BLOOD PCO2 30.3 mmHg (35-45); ARTERIAL BLOOD PH 7.46 (7.35-7.45); ARTERIAL BLOOD PO2 94.2 mmHg (80-100); ARTERIAL BLOOD TOTAL CO2 21.9 mmol/L (21-25)
[2018-04-28 06:10] LABS: ARTERIAL BLOOD FIO2 30%
[2018-04-28 06:20] LABS: HEMATOCRIT 30.4 % (36.0-47.0); HEMOGLOBIN 10.5 g/dL (12.0-15.5); MEAN CORPUSCULAR HEMOGLOBIN 30.2 pg (27.0-33.4); MEAN CORPUSCULAR HGB CONC 34.4 g/dL (32.0-36.0); MEAN CORPUSCULAR VOLUME 88 fl (80-97); PLATELET COUNT 196 10^3/uL (150-450); RED BLOOD COUNT 3.47 10^6/uL (3.72-5.28); RED CELL DISTRIBUTION WIDTH 12.6 % (11.5-14.0); WHITE BLOOD COUNT 13.8 10^3/uL (4.0-10.5)
[2018-04-28 06:26] LABS: ANION GAP 6 (5-19); BLOOD UREA NITROGEN 23 mg/dL (7-20); CARBON DIOXIDE 20 mmol/L (22-30); CHLORIDE 106 mmol/L (98-107); GLUCOSE 160 mg/dL (75-110); POTASSIUM 3.9 mmol/L (3.6-5.0); SODIUM 131.7 mmol/L (137-145)
[2018-04-28 06:36] LABS: CALCIUM 6.6 mg/dL (8.4-10.2)
[2018-04-28] MEDS: IPRATROPIUM BROMIDE 0.02% NEB 0.5 MG/2.5 ML AMPUL NEB SCH ×2 (07:43→16:55)
[2018-04-28] MEDS: ACETYLCYSTEINE 20% SOLN 800 MG/4 ML VIAL.NEB NEB SCH ×2 (07:43→20:32)
[2018-04-28] MEDS: LEVALBUTEROL HCL NEB 1.25 MG/3 ML AMPUL NEB SCH ×2 (07:43→16:55)
[2018-04-28] MEDS: BUDESONIDE NEB 0.5 MG/2 ML AMPUL NEB SCH ×2 (07:43→20:32)
[2018-04-28 07:51] LABS: ABSOLUTE MONOCYTES # (MANUAL) 0.6 10^3/uL (0.1-1.4); ABSOLUTE NEUTROPHILS# (MANUAL) 13.2 10^3/uL (1.7-8.2); BAND NEUTROPHILS % (MANUAL) 4 % (3-5); BASOPHILS % (MANUAL) 0 % (0-2); EOSINOPHILS % (MANUAL) 0 % (0-6); LYMPHOCYTES % (MANUAL) 0 % (13-45); MONOCYTES % (MANUAL) 4 % (3-13); SEGMENTED NEUTROPHILS % (MAN) 92 % (42-78); TOTAL CELLS COUNTED 100
[2018-04-28 07:52] LABS: PLATELET COMMENT ADEQUATE; RBC MORPHOLOGY COMMENT NORMO-CYTIC/CHROMIC; TOXIC GRANULATION 1+
[2018-04-28] MEDS: PANTOPRAZOLE SODIUM 40 MG VIAL IV SCH ×2 (10:08→21:39)
[2018-04-28] MEDS: AZITHROMYCIN 500 MG in DEXTROSE 5%-WATER 250 ML IV SCH (10:08)
[2018-04-28] MEDS: NICOTINE 21 MG/24 HR PATCH.TD24 TD SCH (10:08)
[2018-04-28] MEDS: VANCOMYCIN HCL 750 MG in DEXTROSE 5%-WATER 250 ML IV SCH ×2 (11:04→21:37)
[2018-04-28 11:16] LABS: ARTERIAL BLOOD BASE EXCESS -2.9 mmol/L; ARTERIAL BLOOD FIO2 30%; ARTERIAL BLOOD H2CO3 1.15 mmol/L (1.05-1.35); ARTERIAL BLOOD HCO3 21.9 mmol/L (20-24); ARTERIAL BLOOD O2 SATURATION 97.1 % (94-98); ARTERIAL BLOOD PCO2 38.3 mmHg (35-45); ARTERIAL BLOOD PH 7.38 (7.35-7.45); ARTERIAL BLOOD PO2 94.7 mmHg (80-100); ARTERIAL BLOOD TOTAL CO2 23.1 mmol/L (21-25)
[2018-04-28] MEDS ORDERED: NORMAL SALINE 250 ML IV PRN (11:50)
[2018-04-28] MEDS ORDERED: MIDAZOLAM 2 MG/2 ML INJ IV PRN (12:32)
--- NOTE | 2018-04-28 14:20 | EKG REPORT ---
SEVERITY:- ABNORMAL ECG - SINUS TACHYCARDIA ABNORMAL T, PROBABLE ISCHEMIA, WIDESPREAD PROLONGED QT INTERVAL : Confirmed by: Nereyda Dunlap MD 28-Apr-2018 14:18:41
--- NOTE | 2018-04-28 16:40 | PDOC PROGRESS REPORT ---
Subjective Progress Note for:: 04/28/18 Subjective:: This is a 72 yr old with a past medical history of COPD, hyperlipidemia, hypertension and hypothyroidism who initially presented with increasing shortness of breath and cough. Patient was initially placed on BiPAP in the ER but she continued to decompensate. She was noted to be hypoxic and also had respiratory acidosis and was subsequently intubated. She was treated for COPD exacerbation. Her initial x-ray also showed questionable right basilar opacity. Flu testing also came back positive for influenza A. Patient's troponin also trended up to 2.0 and she was treated for possible NSTEMI. No acute event overnight. Patient is saturating well on minimal vent settings. She is in very minimal dose of vasopressin which will be weaned off now. She is sedated with Versed. Reason For Visit: ACUTE ON CHRONIC RESPIRATORY FAILURE WITH HYPOXIA Physical Exam Vital Signs: Temp Pulse Resp BP Pulse Ox 98.8 F 90 18 100/55 L 95 04/28/18 15:38 04/28/18 14:00 04/28/18 15:38 04/28/18 15:38 04/28/18 15:38 Intake & Output 04/27/18 04/28/18 04/29/18 06:59 06:59 06:59 Intake Total 2990 3625 124 Output Total 1835 930 920 Balance 1155 2695 -796 Weight 150 lb 2.157 oz 160 lb 7.944 oz General appearance: PRESENT: other - intubated, sedated Eye exam: PRESENT: conjunctiva pink, EOMI, PERRLA. ABSENT: scleral icterus Ear exam: PRESENT: normal external ear exam Neck exam: ABSENT: carotid bruit, JVD, lymphadenopathy, thyromegaly Respiratory exam: PRESENT: clear to auscultation babita. ABSENT: rales, rhonchi, w heezes Cardiovascular exam: PRESENT: RRR. ABSENT: diastolic murmur, rubs, systolic murmur Pulses: PRESENT: normal dorsalis pedis pul GI/Abdominal exam: PRESENT: normal bowel sounds, soft. ABSENT: distended, guarding, mass, organolmegaly, rebound, tenderness Rectal exam: PRESENT: deferred Neurological exam: PRESENT: other - intubated, sedated Results Laboratory Results: 04/28/18 05:59 04/28/18 05:59 01/05/1604/28/18 04/28/18 05:59 05:59 05:59 WBC 13.8 H RBC 3.47 L Hgb 10.5 L Hct 30.4 L MCV 88 MCH 30.2 MCHC 34.4 RDW 12.6 Plt Count 196 Seg Neutrophils % Not Reportable Lymphocytes % Not Reportable Monocytes % Not Reportable Eosinophils % Not Reportable Basophils % Not Reportable Absolute Neutrophils Not Reportable Absolute Lymphocytes Not Reportable Absolute Monocytes Not Reportable Absolute Eosinophils Not Reportable Absolute Basophils Not Reportable Carbonic Acid 0.91 L HCO3/H2CO3 Ratio 23:1 ABG pH 7.46 H ABG pCO2 30.3 L ABG pO2 94.2 ABG HCO3 21.0 ABG O2 Saturation 97.6 ABG Base Excess -2.1 FiO2 30% Sodium 131.7 L Potassium 3.9 Chloride 106 Carbon Dioxide 20 L Anion Gap 6 BUN 23 H Creatinine 0.45 L Est GFR ( Amer) > 60 Est GFR (Non-Af Amer) > 60 Glucose 160 H Calcium 6.6 L* Magnesium 2.0 Albumin 04/28/18 04/28/18 10:00 10:50 WBC RBC Hgb Hct MCV MCH MCHC RDW Plt Count Seg Neutrophils % Lymphocytes % Monocytes % Eosinophils % Basophils % Absolute Neutrophils Absolute Lymphocytes Absolute Monocytes Absolute Eosinophils Absolute Basophils Carbonic Acid 1.15 HCO3/H2CO3 Ratio 19:1 ABG pH 7.38 ABG pCO2 38.3 ABG pO2 94.7 ABG HCO3 21.9 ABG O2 Saturation 97.1 ABG Base Excess -2.9 FiO2 30% Sodium Potassium Chloride Carbon Dioxide Anion Gap BUN Creatinine Est GFR ( Amer) Est GFR (Non-Af Amer) Glucose Calcium Magnesium Albumin 3.0 L 04/26/18 16:00 Sputum Gram Stain - Final 04/26/18 16:00 Sputum Sputum Culture - Final NORMAL MINOR 04/25/18 04/25/18 04/25/18 21:09 22:06 22:32 Creatine Kinase 91 CK-MB (CK-2) Troponin I Cancelled 0.787 NT-Pro-B Natriuret Pep Cancelled 256 04/25/18 04/26/18 04/26/18 22:32 04:40 04:40 Creatine Kinase 121 CK-MB (CK-2) 3.26 7.97 H Troponin I Cancelled 1.820 NT-Pro-B Natriuret Pep 04/26/18 04/26/18 04/26/18 10:24 10:24 19:17 Creatine Kinase 171 H 143 H CK-MB (CK-2) 12.50 H Troponin I 2.090 NT-Pro-B Natriuret Pep 04/26/18 04/28/18 19:17 10:00 Creatine Kinase CK-MB (CK-2) 9.22 H Troponin I 2.020 0.654 NT-Pro-B Natriuret Pep Impressions: KUB X-Ray 04/26/18 16:45 IMPRESSION: Satisfactory position of nasogastric tube. Head CT 04/27/18 00:00 IMPRESSION: NORMAL BRAIN CT WITHOUT CONTRAST. EVIDENCE OF ACUTE STROKE: NO. Chest X-Ray 04/27/18 12:47 IMPRESSION: NO PNEUMOTHORAX FOLLOWING CENTRAL LINE PLACEMENT. NO SIGNIFICANT CHANGE IN APPEARANCE OF THE CHEST. Assessment & Plan - Diagnosis (1) Acute respiratory failure with hypoxia and hypercapnia Is this a current diagnosis for this admission?: Yes Plan: Secondary to COPD exacerbation, influenza A and possible pneumonia. Currently saturating well on minimal vent settings. (2) COPD exacerbation Is this a current diagnosis for this admission?: Yes Plan: Continue IV steroids and breathing treatments. Decrease Solu-Medrol from 40 q6h to 40 q12h. Continue broad-spectrum antibiotics for now. (3) Influenza A with pneumonia Is this a current diagnosis for this admission?: Yes Plan: On Tamiflu. (4) Non-STEMI (non-ST elevated myocardial infarction) Is this a current diagnosis for this admission?: Yes Plan: Cardiology following. Will reorder aspirin and Lovenox. - Time Time Spent with patient: 25-34 minutes
[2018-04-28 16:58] LABS: BLOOD UREA NITROGEN 21 mg/dL (7-20); GLUCOSE 151 mg/dL (75-110)
[2018-04-28 17:04] LABS: CARBON DIOXIDE 23 mmol/L (22-30); CHLORIDE 108 mmol/L (98-107); SODIUM 134.7 mmol/L (137-145)
--- NOTE | 2018-04-28 17:05 | PDOC PROGRESS REPORT ---
Subjective Progress Note for:: 04/27/18 Subjective:: intubated and sedated Reason For Visit: ACUTE ON CHRONIC RESPIRATORY FAILURE WITH HYPOXIA Physical Exam Vital Signs: Temp Pulse Resp BP Pulse Ox 98.8 F 84 22 H 111/58 L 96 04/27/18 07:56 04/27/18 08:01 04/27/18 08:01 04/27/18 07:56 04/27/18 08:01 Intake & Output 04/26/18 04/27/18 04/28/18 06:59 06:59 06:59 Intake Total 2058 2990 446 Output Total 300 1835 60 Balance 1758 1155 386 Weight 66.1 kg 68.1 kg General appearance: PRESENT: no acute distress, disheveled Head exam: PRESENT: atraumatic, normocephalic Eye exam: PRESENT: conjunctiva pale Mouth exam: PRESENT: dry mucosa, neck supple, tongue midline, other - ET tube in place Neck exam: ABSENT: carotid bruit, JVD, lymphadenopathy, thyromegaly Respiratory exam: PRESENT: decreased breath sounds, prolonged expiratory phas, rales, rhonchi, unlabored Cardiovascular exam: PRESENT: RRR, +S1, +S2 Pulses: PRESENT: normal radial pulses - l GI/Abdominal exam: PRESENT: soft. ABSENT: tenderness, other Gentrourinary exam: PRESENT: indwelling catheter Extremities exam: ABSENT: calf tenderness, clubbing, joint swelling Musculoskeletal exam: ABSENT: ambulatory, deformity Neurological exam: ABSENT: awake Skin exam: PRESENT: dry, warm Results Laboratory Results: 04/27/18 06:19 04/27/18 06:19 04/26/18 04/27/18 04/27/18 14:25 05:39 05:39 WBC RBC Hgb Hct MCV MCH MCHC RDW Plt Count Carbonic Acid 0.94 L 0.92 L HCO3/H2CO3 Ratio 23:1 23:1 ABG pH 7.47 H 7.47 H ABG pCO2 31.3 L 30.6 L ABG pO2 74.0 L 90.5 ABG HCO3 22.2 21.6 ABG O2 Saturation 95.8 97.4 ABG Base Excess -0.8 -1.3 FiO2 30% 30% Sodium Potassium Chloride Carbon Dioxide Anion Gap BUN Creatinine Est GFR ( Amer) Est GFR (Non-Af Amer) Glucose Calcium Phosphorus Magnesium Urine Color YELLOW Urine Appearance CLEAR Urine pH 6.0 Ur Specific [place] 1.012 Urine Protein NEGATIVE Urine Glucose (UA) NEGATIVE Urine Ketones TRACE H Urine Blood NEGATIVE Urine Nitrite NEGATIVE Ur Leukocyte Esterase NEGATIVE Urine WBC (Auto) 1 Urine RBC (Auto) 1 04/27/18 04/27/18 06:19 06:19 WBC 21.8 H RBC 3.83 Hgb 11.5 L Hct 33.2 L MCV 87 MCH 30.1 MCHC 34.7 RDW 12.6 Plt Count 230 Carbonic Acid HCO3/H2CO3 Ratio ABG pH ABG pCO2 ABG pO2 ABG HCO3 ABG O2 Saturation ABG Base Excess FiO2 Sodium 132.7 L Potassium 3.7 Chloride 104 Carbon Dioxide 24 Anion Gap 5 BUN 13 Creatinine 0.50 L Est GFR ( Amer) > 60 Est GFR (Non-Af Amer) > 60 Glucose 183 H Calcium 7.2 L Phosphorus 1.7 L Magnesium 1.8 Urine Color Urine Appearance Urine pH Ur Specific [place] Urine Protein Urine Glucose (UA) Urine Ketones Urine Blood Urine Nitrite Ur Leukocyte Esterase Urine WBC (Auto) Urine RBC (Auto) 04/25/18 04/25/18 04/25/18 21:09 22:06 22:32 Creatine Kinase 91 CK-MB (CK-2) Troponin I Cancelled 0.787 NT-Pro-B Natriuret Pep Cancelled 256 04/25/18 04/26/18 04/26/18 22:32 04:40 04:40 Creatine Kinase 121 CK-MB (CK-2) 3.26 7.97 H Troponin I Cancelled 1.820 NT-Pro-B Natriuret Pep 04/26/18 04/26/18 04/26/18 10:24 10:24 19:17 Creatine Kinase 171 H 143 H CK-MB (CK-2) 12.50 H Troponin I 2.090 NT-Pro-B Natriuret Pep 04/26/18 19:17 Creatine Kinase CK-MB (CK-2) 9.22 H Troponin I 2.020 NT-Pro-B Natriuret Pep Impressions: KUB X-Ray 04/26/18 16:45 IMPRESSION: Satisfactory position of nasogastric tube. Chest X-Ray 04/27/18 06:00 IMPRESSION: Improved aeration of the lung bases. Other findings are grossly stable copyright 2011 [employer]- All Rights Reserved Assessment & Plan - Diagnosis (1) Acute respiratory failure with hypoxia and hypercapnia Is this a current diagnosis for this admission?: Yes Plan: stable on mechanical ventilation (2) Chronic obstructive pulmonary disease (COPD) Is this a current diagnosis for this admission?: Yes (3) Influenza A with pneumonia Is this a current diagnosis for this admission?: Yes Plan: Per rapid testing (4) Nicotine addiction Is this a current diagnosis for this admission?: Yes Plan: Transdermal nicotine - Time Total Critical Time (Minutes): 45
[2018-04-28 17:09] LABS: ANION GAP 4 (5-19)
[2018-04-28 17:10] LABS: CALCIUM 6.7 mg/dL (8.4-10.2)
--- NOTE | 2018-04-28 17:59 | Progress Note ---
Provider Note Provider Note: CARDIOLOGY PROGRESS NOTES by Dr. Nereyda Dunlap on 04/28/2018. SUBJECTIVE: The patient is intubated and sedated. She appears to be comfortable. There is no ventricular arrhythmia seen on the monitor. The patient remains in sinus rhythm. There are deep T wave inversions diffusely on the EKG. PHYSICAL EXAMINATION: The patient appears to be chronically ill. She is well- groomed. Selected Entries 04/28/18 10:00 Temperature 98.2 F Temperature Core Source Pulse Rate 93 Respiratory 20 Rate Blood Pressure 102/56 L [Right Upper Arm] Blood Pressure 71 Mean [Right Upper Arm] Blood Pressure Supine Position [Right Upper Arm] Blood Pressure 102 Systolic [Right Upper Arm] O2 Sat by Pulse 98 Oximetry Oxygen Delivery Mechanical Method ( Ventilator includes room air) Percent of 30 Oxygen HEAD: Is atraumatic normocephalic. EYES: Pupils equal round regular reactive to light. ENT is negative. NECK: Is supple. There is no JVD. Carotids are equal there is no bruits. There is no thyromegaly. Trachea central. LUNGS:. There is diminished air entry bilaterally. There are a few scattered rhonchi. If you dry crackles in the bases. Left greater than right base. There is no rales of CHF. HEART: S1-S2 is heard. There is no S3 gallop there is no S4 gallop there is murmur of mild mitral regurgitation present there is no murmur of aortic stenosis or aortic regurgitation. There is no rub. ABDOMEN: Is soft bowel sounds are well heard. There is no hepatosplenic megaly. EXTREMITIES: Femorals are well felt. There is no femoral bruits. Leg pulses well felt. There is no pedal edema. There is no DVT S or cellulitis. There is no sinus or clubbing. DIET CONSULTANT and psychiatric: Not examined since the patient is intubated and sedated. 04/28/18 04/28/18 04/28/18 05:59 05:59 10:00 WBC 13.8 H RBC 3.47 L Hgb 10.5 L Hct 30.4 L MCV 88 MCH 30.2 MCHC 34.4 RDW 12.6 Plt Count 196 Total Counted 100 Seg Neuts % (Manual) 92 H Carbonic Acid HCO3/H2CO3 Ratio ABG pH ABG pCO2 ABG pO2 ABG HCO3 ABG Total CO2 ABG O2 Saturation ABG Base Excess FiO2 Sodium 131.7 L Potassium 3.9 Chloride 106 Carbon Dioxide 20 L Anion Gap 6 BUN 23 H Creatinine 0.45 L Est GFR (Non-Af Amer) > 60 Glucose 160 H Calcium 6.6 L* Magnesium 2.0 Albumin 3.0 L 04/28/18 10:50 WBC RBC Hgb Hct MCV MCH MCHC RDW Plt Count Total Counted Seg Neuts % (Manual) Carbonic Acid 1.15 HCO3/H2CO3 Ratio 19:1 ABG pH 7.38 ABG pCO2 38.3 ABG pO2 94.7 ABG HCO3 21.9 ABG Total CO2 23.1 ABG O2 Saturation 97.1 ABG Base Excess -2.9 FiO2 30% Sodium Potassium Chloride Carbon Dioxide Anion Gap BUN Creatinine Est GFR (Non-Af Amer) Glucose Calcium Magnesium Albumin The patient's EKG shows sinus rhythm. There is deep subendocardial T wave inversions diffusely. The patient's troponin I is trending down. The patient was given a bolus of 250 of normal saline, and the blood pressure came up to 110-120 systolic. We will see if this blood pressure remained stable, will later start the patient on a beta-luisito for cardioprotection. The patient already on aspirin and Lovenox at 1 mg/kg subcutaneously every 12 hours. IMPRESSION/RECOMMENDATION: 1. ACUTE ON CHRONIC RESPIRATORY FAILURE: CONTINUE VENTILATORY SUPPORT AND ANTI- COPD MEDICATION AND ANTIBIOTICS. The patient's ABGs on FiO2 of 30% look good. 2. INFLUENZA A PNEUMONIA: CONTINUE ANTIBIOTICS. 3. NON-ST ELEVATION DC. THE PATIENT IS ON ASPIRIN, AND ALSO CONTINUE THE PATIENT ON LOVENOX AT 1 MG/KG SUBCUTANEOUSLY EVERY 12 HOURS. LATER ONCE THE BLOOD PRESSURE SETTLES WE WILL START THE PATIENT ON A BETA-LUISITO. The troponin is trending down. Will check recheck the patient's troponin in the morning 4. Abnormal EKG consistent with subendocardial T wave inversion. 5. COPD. 6. Hypotension: Most likely secondary to sepsis due to her pneumonia. The patient blood pressure now is stable off all pressors including Levophed and vasopressin. 7. History of hypertension: At present the patient's blood pressure is low requiring pressors. 8. HYPOTHYROIDISM: Continue thyroid replacement. 9.Hhistory of ongoing tobacco abuse. Will later give the patient tobacco cessation counseling when she is extubated and awake and alert. Discussed with the patient's daughter the patient's condition. Medications have been reviewed. Medications added. Discussed management plan with attending physician on the case. Note medical decision making is of high complexity. 40 minutes spent on this patient, with more than 50% of time spent in direct patient care. We will follow with you.
[2018-04-28] MEDS ORDERED: METOPROLOL TARTRATE 25 MG TABLET PO ONE (19:45)
[2018-04-28] MEDS: ALBUTEROL SULFATE 0.083% NEB 2.5 MG/3 ML AMPUL NEB PRN (20:32)
[2018-04-28] MEDS: OSELTAMIVIR PHOSPHATE 6 MG/1 ML SUSP 60 ML PO SCH (21:37)
[2018-04-28] MEDS: ENOXAPARIN SODIUM INJ 80 MG/0.8 ML DISP.SYRIN SUBCUT SCH (21:38)
[2018-04-29] MEDS: IPRATROPIUM BROMIDE 0.02% NEB 0.5 MG/2.5 ML AMPUL NEB SCH ×3 (00:23→16:31)
[2018-04-29] MEDS: LEVALBUTEROL HCL NEB 1.25 MG/3 ML AMPUL NEB SCH ×3 (00:23→16:31)
[2018-04-29] MEDS: MIDAZOLAM HCL 50 MG/100 ML RTUINJ IV PRN ×3 (01:33→09:43)
[2018-04-29 04:43] LABS: HEMATOCRIT 30.9 % (36.0-47.0); HEMOGLOBIN 10.3 g/dL (12.0-15.5); MEAN CORPUSCULAR HEMOGLOBIN 29.7 pg (27.0-33.4); MEAN CORPUSCULAR HGB CONC 33.3 g/dL (32.0-36.0); MEAN CORPUSCULAR VOLUME 89 fl (80-97); PLATELET COUNT 212 10^3/uL (150-450); RED BLOOD COUNT 3.46 10^6/uL (3.72-5.28); RED CELL DISTRIBUTION WIDTH 12.8 % (11.5-14.0); WHITE BLOOD COUNT 13.2 10^3/uL (4.0-10.5)
[2018-04-29 04:44] LABS: ARTERIAL BLOOD BASE EXCESS -0.8 mmol/L; ARTERIAL BLOOD H2CO3 1.13 mmol/L (1.05-1.35); ARTERIAL BLOOD HCO3 23.5 mmol/L (20-24); ARTERIAL BLOOD O2 SATURATION 95.9 % (94-98); ARTERIAL BLOOD PCO2 37.4 mmHg (35-45); ARTERIAL BLOOD PH 7.42 (7.35-7.45); ARTERIAL BLOOD PO2 78.8 mmHg (80-100); ARTERIAL BLOOD TOTAL CO2 24.6 mmol/L (21-25)
[2018-04-29 04:45] LABS: ARTERIAL BLOOD FIO2 30%
[2018-04-29 04:46] LABS: APPEARANCE,URINE CLEAR; BILIRUBIN,URINE NEGATIVE (NEGATIVE); COLOR,URINE YELLOW; GLUCOSE, URINE NEGATIVE (NEGATIVE); KETONES,URINE NEGATIVE (NEGATIVE); LEUKOCYTE ESTERASE,URINE NEGATIVE (NEGATIVE); NITRITE,URINE NEGATIVE (NEGATIVE); PROTEIN,URINE NEGATIVE (NEGATIVE); URINE SPECIFIC GRAVITY 1.017; UROBILINOGEN,URINE NEGATIVE mg/dL (<2.0)
[2018-04-29 04:56] LABS: ALANINE AMINOTRANSFERASE 44 U/L (9-52); ALBUMIN 2.5 g/dL (3.5-5.0); ALKALINE PHOSPHATASE 52 U/L (38-126); ASPARTATE AMINO TRANSFERASE 18 U/L (14-36); BILIRUBIN,DIRECT 0.2 mg/dL (0.0-0.4); BILIRUBIN,TOTAL 0.3 mg/dL (0.2-1.3); BLOOD UREA NITROGEN 23 mg/dL (7-20); GLUCOSE 154 mg/dL (75-110); POTASSIUM 3.8 mmol/L (3.6-5.0); TOTAL PROTEIN 4.3 g/dL (6.3-8.2)
[2018-04-29 04:58] LABS: ABSOLUTE LYMPHOCYTES# (MANUAL) 0.9 10^3/uL (0.5-4.7); ABSOLUTE MONOCYTES # (MANUAL) 1.1 10^3/uL (0.1-1.4); ABSOLUTE NEUTROPHILS# (MANUAL) 11.2 10^3/uL (1.7-8.2); BASOPHILS % (MANUAL) 0 % (0-2); EOSINOPHILS % (MANUAL) 0 % (0-6); LYMPHOCYTES % (MANUAL) 7 % (13-45); MONOCYTES % (MANUAL) 8 % (3-13); NUCLEATED RED BLOOD CELLS 1 /100 WBC (0); SEGMENTED NEUTROPHILS % (MAN) 85 % (42-78); TOTAL CELLS COUNTED 100
[2018-04-29 04:59] LABS: PLATELET COMMENT ADEQUATE; RBC MORPHOLOGY COMMENT NORMO-CYTIC/CHROMIC
[2018-04-29 05:02] LABS: CARBON DIOXIDE 25 mmol/L (22-30); CHLORIDE 109 mmol/L (98-107); SODIUM 137.5 mmol/L (137-145)
[2018-04-29 05:11] LABS: ANION GAP 4 (5-19)
[2018-04-29 05:13] LABS: CALCIUM 6.5 mg/dL (8.4-10.2)
[2018-04-29] MEDS: NORMAL SALINE 1000 ML 1,000 ML IV PRN ×2 (05:32→22:55)
[2018-04-29] MEDS: AZTREONAM 1 GM in DEXTROSE 5%-WATER 50 ML IV SCH ×3 (05:32→21:49)
--- NOTE | 2018-04-29 06:31 | RADIOLOGY REPORT (SQ) ---
EXAM DESCRIPTION: XR CHEST 1 VIEW COMPLETED DATE/TME: 04/29/2018 06:00 CLINICAL HISTORY: 72 years Female, pna COMPARISON: 2 days prior. NUMBER OF VIEWS/TECHNIQUE: 1/AP FINDINGS: Adequate appearing endotracheal tube. Adequate appearing enteric tube with tip at the left upper abdominal quadrant. Adequate appearing right jugular central line. Atherosclerotic vascular disease. Mild central edema pattern. Small blunting-effusion of the right costophrenic angle.Normal cardiac silhouette size. No pneumothorax. Stable bony thorax. IMPRESSION: No significant change.
[2018-04-29] MEDS: ACETYLCYSTEINE 20% SOLN 800 MG/4 ML VIAL.NEB NEB SCH ×2 (07:45→19:43)
[2018-04-29] MEDS: BUDESONIDE NEB 0.5 MG/2 ML AMPUL NEB SCH ×2 (07:50→19:43)
[2018-04-29] MEDS ORDERED: CALCIUM GLUCONATE 1000 MG/10 ML INJ IV ONE (08:30)
[2018-04-29] MEDS: NICOTINE 21 MG/24 HR PATCH.TD24 TD SCH (09:33)
[2018-04-29] MEDS: METHYLPREDNISOLONE INJ 40 MG/1 ML SDV IV SCH ×2 (09:33→21:53)
[2018-04-29] MEDS: AZITHROMYCIN 500 MG in DEXTROSE 5%-WATER 250 ML IV SCH (09:33)
[2018-04-29] MEDS: ENOXAPARIN SODIUM INJ 80 MG/0.8 ML DISP.SYRIN SUBCUT SCH ×2 (09:37→21:53)
[2018-04-29] MEDS: OSELTAMIVIR PHOSPHATE 6 MG/1 ML SUSP 60 ML PO SCH ×2 (09:55→22:21)
[2018-04-29] MEDS: PANTOPRAZOLE SODIUM 40 MG VIAL IV SCH ×2 (10:08→21:54)
[2018-04-29] MEDS: ASPIRIN 81 MG TABLET, CHEWABLE PO SCH (10:08)
--- NOTE | 2018-04-29 10:40 | PDOC PROGRESS REPORT ---
Subjective Progress Note for:: 04/28/18 Subjective:: intubated and sedated Reason For Visit: ACUTE ON CHRONIC RESPIRATORY FAILURE WITH HYPOXIA Physical Exam Vital Signs: Temp Pulse Resp BP Pulse Ox 98.4 F 93 20 103/62 99 04/28/18 11:07 04/28/18 10:00 04/28/18 11:07 04/28/18 11:07 04/28/18 11:07 Intake & Output 04/27/18 04/28/18 04/29/18 06:59 06:59 06:59 Intake Total 2990 3575 31 Output Total 1835 930 240 Balance 1155 2645 -209 Weight 68.1 kg 72.8 kg General appearance: PRESENT: no acute distress, disheveled, well-developed, well-nourished Head exam: PRESENT: atraumatic, normocephalic Eye exam: PRESENT: conjunctiva pale Mouth exam: PRESENT: dry mucosa, neck supple, tongue midline - ., other - et tubel Neck exam: ABSENT: carotid bruit, JVD, lymphadenopathy, thyromegaly, tracheal deviation, tracheostomy Respiratory exam: PRESENT: decreased breath sounds, prolonged expiratory phas, rales, rhonchi. ABSENT: tachypnea Cardiovascular exam: PRESENT: RRR, +S1, +S2, tachycardia Pulses: PRESENT: normal radial pulses GI/Abdominal exam: PRESENT: soft Gentrourinary exam: PRESENT: indwelling catheter Extremities exam: PRESENT: pedal edema Neurological exam: ABSENT: awake Skin exam: PRESENT: dry, warm Results Laboratory Results: 04/28/18 05:59 04/28/18 05:59 04/28/18 04/28/18 04/28/18 05:59 05:59 05:59 WBC 13.8 H RBC 3.47 L Hgb 10.5 L Hct 30.4 L MCV 88 MCH 30.2 MCHC 34.4 RDW 12.6 Plt Count 196 Seg Neutrophils % Not Reportable Lymphocytes % Not Reportable Monocytes % Not Reportable Eosinophils % Not Reportable Basophils % Not Reportable Absolute Neutrophils Not Reportable Absolute Lymphocytes Not Reportable Absolute Monocytes Not Reportable Absolute Eosinophils Not Reportable Absolute Basophils Not Reportable Carbonic Acid 0.91 L HCO3/H2CO3 Ratio 23:1 ABG pH 7.46 H ABG pCO2 30.3 L ABG pO2 94.2 ABG HCO3 21.0 ABG O2 Saturation 97.6 ABG Base Excess -2.1 FiO2 30% Sodium 131.7 L Potassium 3.9 Chloride 106 Carbon Dioxide 20 L Anion Gap 6 BUN 23 H Creatinine 0.45 L Est GFR ( Amer) > 60 Est GFR (Non-Af Amer) > 60 Glucose 160 H Calcium 6.6 L* Magnesium 2.0 Albumin 04/28/18 10:00 WBC RBC Hgb Hct MCV MCH MCHC RDW Plt Count Seg Neutrophils % Lymphocytes % Monocytes % Eosinophils % Basophils % Absolute Neutrophils Absolute Lymphocytes Absolute Monocytes Absolute Eosinophils Absolute Basophils Carbonic Acid HCO3/H2CO3 Ratio ABG pH ABG pCO2 ABG pO2 ABG HCO3 ABG O2 Saturation ABG Base Excess FiO2 Sodium Potassium Chloride Carbon Dioxide Anion Gap BUN Creatinine Est GFR ( Amer) Est GFR (Non-Af Amer) Glucose Calcium Magnesium Albumin 3.0 L 04/25/18 04/25/18 04/25/18 21:09 22:06 22:32 Creatine Kinase 91 CK-MB (CK-2) Troponin I Cancelled 0.787 NT-Pro-B Natriuret Pep Cancelled 256 04/25/18 04/26/18 04/26/18 22:32 04:40 04:40 Creatine Kinase 121 CK-MB (CK-2) 3.26 7.97 H Troponin I Cancelled 1.820 NT-Pro-B Natriuret Pep 04/26/18 04/26/18 04/26/18 10:24 10:24 19:17 Creatine Kinase 171 H 143 H CK-MB (CK-2) 12.50 H Troponin I 2.090 NT-Pro-B Natriuret Pep 04/26/18 04/28/18 19:17 10:00 Creatine Kinase CK-MB (CK-2) 9.22 H Troponin I 2.020 0.654 NT-Pro-B Natriuret Pep Impressions: KUB X-Ray 04/26/18 16:45 IMPRESSION: Satisfactory position of nasogastric tube. Head CT 04/27/18 00:00 IMPRESSION: NORMAL BRAIN CT WITHOUT CONTRAST. EVIDENCE OF ACUTE STROKE: NO. Chest X-Ray 04/27/18 12:47 IMPRESSION: NO PNEUMOTHORAX FOLLOWING CENTRAL LINE PLACEMENT. NO SIGNIFICANT CHANGE IN APPEARANCE OF THE CHEST. Assessment & Plan - Diagnosis (1) Acute on chronic respiratory failure with hypoxemia Is this a current diagnosis for this admission?: Yes Plan: She is an 8 ventilator as needed judicious oxygenation so as to not initiate poor ventilation memory patient is have end-stage COPD (2) Chronic obstructive pulmonary disease (COPD) Is this a current diagnosis for this admission?: Yes Plan: Generic Name Dose Route Start Last Admin Trade Name Freq PRN Reason Stop Dose Admin Levalbuterol HCl 1.25 mg 04/26/18 00:00 04/27/18 07:59 Xopenex Neb 1.25 Mg/3 Ml Ampul NEB 05/26/18 00:00 1.25 mg RTQ8 [facility] Budesonide 0.5 mg 04/26/18 08:00 04/27/18 07:59 Pulmicort Neb 0.5 Mg/2 Ml Ampul NEB 05/26/18 07:59 0.5 mg RTQ12 [facility] Methylprednisolone Sodium Succinate 40 mg 04/26/18 06:00 04/27/18 13:26 Solu-Medrol Inj/Pf 40 Mg/1 Ml Sdv IV 05/24/18 00:01 40 mg Q6 [facility] Albuterol 2.5 mg 04/25/18 23:50 04/26/18 21:07 Ventolin 0.083% Neb 2.5 Mg/3 Ml Ampul NEB 05/25/18 23:49 2.5 mg RTQ1HP PRN SHORTNESS OF BREATH Ipratropium [place] 0.5 mg 04/26/18 00:00 04/27/18 07:59 Atrovent 0.02% Neb 0.5 Mg/2.5 Ml Ampul NEB 05/26/18 00:00 0.5 mg RTQ8 [facility] Acetylcysteine 600 mg 04/26/18 13:45 04/27/18 07:59 Mucomist 20% Soln 800 Mg/4 Ml NEB 05/26/18 13:44 600 mg RTBID [facility] (3) Influenza A with pneumonia Is this a current diagnosis for this admission?: Yes Plan: Per rapid testing (4) Nicotine addiction Is this a current diagnosis for this admission?: Yes Plan: Transdermal nicotine - Time Total Critical Time (Minutes): 45
--- NOTE | 2018-04-29 10:43 | PDOC PROGRESS REPORT ---
Subjective Progress Note for:: 04/29/18 Subjective:: intubated and sedated Reason For Visit: ACUTE ON CHRONIC RESPIRATORY FAILURE WITH HYPOXIA Physical Exam Vital Signs: Temp Pulse Resp BP Pulse Ox 99.0 F 92 17 104/59 L 98 04/29/18 08:00 04/29/18 08:00 04/29/18 08:00 04/29/18 08:00 04/29/18 08:00 Intake & Output 04/28/18 04/29/18 04/30/18 06:59 06:59 06:59 Intake Total 3625 3662 Output Total 930 2195 175 Balance 2695 1467 -175 Weight 72.8 kg 72.7 kg General appearance: PRESENT: no acute distress, disheveled, well-developed. ABSENT: cooperative Head exam: PRESENT: atraumatic, normocephalic Eye exam: PRESENT: conjunctiva pale. ABSENT: nystagmus, scleral icterus Mouth exam: PRESENT: dry mucosa, neck supple, tongue midline, other - ET tube Neck exam: ABSENT: carotid bruit, JVD, lymphadenopathy, thyromegaly, tracheal deviation, tracheostomy Respiratory exam: PRESENT: decreased breath sounds, prolonged expiratory phas, rales, rhonchi, symmetrical, unlabored. ABSENT: retraction, stridor, tachypnea Cardiovascular exam: PRESENT: RRR, +S1, +S2, tachycardia Pulses: PRESENT: normal radial pulses GI/Abdominal exam: PRESENT: soft. ABSENT: tenderness Gentrourinary exam: PRESENT: indwelling catheter Extremities exam: ABSENT: calf tenderness, clubbing, joint swelling Musculoskeletal exam: ABSENT: deformity, dislocation Neurological exam: ABSENT: awake Skin exam: PRESENT: dry, warm Results Laboratory Results: 04/29/18 04:13 04/29/18 04:13 04/28/18 04/28/18 04/28/18 10:00 10:50 16:05 WBC RBC Hgb Hct MCV MCH MCHC RDW Plt Count Seg Neutrophils % Lymphocytes % Monocytes % Eosinophils % Basophils % Absolute Neutrophils Absolute Lymphocytes Absolute Monocytes Absolute Eosinophils Absolute Basophils Carbonic Acid 1.15 HCO3/H2CO3 Ratio 19:1 ABG pH 7.38 ABG pCO2 38.3 ABG pO2 94.7 ABG HCO3 21.9 ABG O2 Saturation 97.1 ABG Base Excess -2.9 FiO2 30% Sodium 134.7 L Potassium 4.0 Chloride 108 H Carbon Dioxide 23 Anion Gap 4 L BUN 21 H Creatinine 0.45 L Est GFR ( Amer) > 60 Est GFR (Non-Af Amer) > 60 Glucose 151 H Calcium 6.7 L* Magnesium Total Bilirubin AST ALT Alkaline Phosphatase Total Protein Albumin 3.0 L Urine Color Urine Appearance Urine pH Ur Specific [place] Urine Protein Urine Glucose (UA) Urine Ketones Urine Blood Urine Nitrite Ur Leukocyte Esterase Urine WBC (Auto) Urine RBC (Auto) 04/28/18 04/29/18 04/29/18 16:05 04:13 04:13 WBC 13.2 H RBC 3.46 L Hgb 10.3 L Hct 30.9 L MCV 89 MCH 29.7 MCHC 33.3 RDW 12.8 Plt Count 212 Seg Neutrophils % Not Reportable Lymphocytes % Not Reportable Monocytes % Not Reportable Eosinophils % Not Reportable Basophils % Not Reportable Absolute Neutrophils Not Reportable Absolute Lymphocytes Not Reportable Absolute Monocytes Not Reportable Absolute Eosinophils Not Reportable Absolute Basophils Not Reportable Carbonic Acid 1.13 HCO3/H2CO3 Ratio 20:1 ABG pH 7.42 ABG pCO2 37.4 ABG pO2 78.8 L ABG HCO3 23.5 ABG O2 Saturation 95.9 ABG Base Excess -0.8 FiO2 30% Sodium Potassium Chloride Carbon Dioxide Anion Gap BUN Creatinine Est GFR ( Amer) Est GFR (Non-Af Amer) Glucose Calcium Magnesium Total Bilirubin AST ALT Alkaline Phosphatase Total Protein Albumin 2.6 L Urine Color Urine Appearance Urine pH Ur Specific [place] Urine Protein Urine Glucose (UA) Urine Ketones Urine Blood Urine Nitrite Ur Leukocyte Esterase Urine WBC (Auto) Urine RBC (Auto) 04/29/18 04/29/18 04:13 04:13 WBC RBC Hgb Hct MCV MCH MCHC RDW Plt Count Seg Neutrophils % Lymphocytes % Monocytes % Eosinophils % Basophils % Absolute Neutrophils Absolute Lymphocytes Absolute Monocytes Absolute Eosinophils Absolute Basophils Carbonic Acid HCO3/H2CO3 Ratio ABG pH ABG pCO2 ABG pO2 ABG HCO3 ABG O2 Saturation ABG Base Excess FiO2 Sodium 137.5 Potassium 3.8 Chloride 109 H Carbon Dioxide 25 Anion Gap 4 L BUN 23 H Creatinine 0.47 L Est GFR ( Amer) > 60 Est GFR (Non-Af Amer) > 60 Glucose 154 H Calcium 6.5 L* Magnesium 2.4 H Total Bilirubin 0.3 AST 18 ALT 44 Alkaline Phosphatase 52 Total Protein 4.3 L Albumin 2.5 L Urine Color YELLOW Urine Appearance CLEAR Urine pH 6.0 Ur Specific [place] 1.017 Urine Protein NEGATIVE Urine Glucose (UA) NEGATIVE Urine Ketones NEGATIVE Urine Blood SMALL H Urine Nitrite NEGATIVE Ur Leukocyte Esterase NEGATIVE Urine WBC (Auto) 2 Urine RBC (Auto) 14 04/26/18 16:00 Sputum Gram Stain - Final 04/26/18 16:00 Sputum Sputum Culture - Final NORMAL MINOR 04/25/18 04/25/18 04/25/18 21:09 22:06 22:32 Creatine Kinase 91 CK-MB (CK-2) Troponin I Cancelled 0.787 NT-Pro-B Natriuret Pep Cancelled 256 04/25/18 04/26/18 04/26/18 22:32 04:40 04:40 Creatine Kinase 121 CK-MB (CK-2) 3.26 7.97 H Troponin I Cancelled 1.820 NT-Pro-B Natriuret Pep 04/26/18 04/26/18 04/26/18 10:24 10:24 19:17 Creatine Kinase 171 H 143 H CK-MB (CK-2) 12.50 H Troponin I 2.090 NT-Pro-B Natriuret Pep 04/26/18 04/28/18 19:17 10:00 Creatine Kinase CK-MB (CK-2) 9.22 H Troponin I 2.020 0.654 NT-Pro-B Natriuret Pep Impressions: KUB X-Ray 04/26/18 16:45 IMPRESSION: Satisfactory position of nasogastric tube. Head CT 04/27/18 00:00 IMPRESSION: NORMAL BRAIN CT WITHOUT CONTRAST. EVIDENCE OF ACUTE STROKE: NO. Chest X-Ray 04/29/18 06:00 IMPRESSION: No significant change. Assessment & Plan - Diagnosis (1) Acute on chronic respiratory failure with hypoxemia Is this a current diagnosis for this admission?: Yes Plan: She is an 8 ventilator as needed judicious oxygenation so as to not initiate poor ventilation memory patient is have end-stage COPD (2) Chronic obstructive pulmonary disease (COPD) Is this a current diagnosis for this admission?: Yes Plan: Generic Name Dose Route Start Last Admin Trade Name Freq PRN Reason Stop Dose Admin Levalbuterol HCl 1.25 mg 04/26/18 00:00 04/27/18 07:59 Xopenex Neb 1.25 Mg/3 Ml Ampul NEB 05/26/18 00:00 1.25 mg RTQ8 [facility] Budesonide 0.5 mg 04/26/18 08:00 04/27/18 07:59 Pulmicort Neb 0.5 Mg/2 Ml Ampul NEB 05/26/18 07:59 0.5 mg RTQ12 [facility] Methylprednisolone Sodium Succinate 40 mg 04/26/18 06:00 04/27/18 13:26 Solu-Medrol Inj/Pf 40 Mg/1 Ml Sdv IV 05/24/18 00:01 40 mg Q6 [facility] Albuterol 2.5 mg 04/25/18 23:50 04/26/18 21:07 Ventolin 0.083% Neb 2.5 Mg/3 Ml Ampul NEB 05/25/18 23:49 2.5 mg RTQ1HP PRN SHORTNESS OF BREATH Ipratropium [place] 0.5 mg 04/26/18 00:00 04/27/18 07:59 Atrovent 0.02% Neb 0.5 Mg/2.5 Ml Ampul NEB 05/26/18 00:00 0.5 mg RTQ8 [facility] Acetylcysteine 600 mg 04/26/18 13:45 04/27/18 07:59 Mucomist 20% Soln 800 Mg/4 Ml NEB 05/26/18 13:44 600 mg RTBID [facility] (3) Influenza A with pneumonia Is this a current diagnosis for this admission?: Yes Plan: Per rapid testing (4) Nicotine addiction Is this a current diagnosis for this admission?: Yes Plan: Transdermal nicotine - Time Total Critical Time (Minutes): 45
[2018-04-29] MEDS: VANCOMYCIN HCL 750 MG in DEXTROSE 5%-WATER 250 ML IV SCH (11:30)
[2018-04-29 12:11] LABS: VANCOMYCIN,TROUGH 6.9 ug/mL (5.0-20.0)
[2018-04-29] MEDS: VANCOMYCIN HCL 1,000 MG in DEXTROSE 5%-WATER 250 ML IV SCH ×2 (14:23→22:55)
--- NOTE | 2018-04-29 15:50 | PDOC PROGRESS REPORT ---
Subjective Progress Note for:: 04/29/18 Subjective:: This is a 72 yr old with a past medical history of COPD, hyperlipidemia, hypertension and hypothyroidism who initially presented with increasing shortness of breath and cough. Patient was initially placed on BiPAP in the ER but she continued to decompensate. She was noted to be hypoxic and also had respiratory acidosis and was subsequently intubated. She was treated for COPD exacerbation. Her initial x-ray also showed questionable right basilar opacity. Flu testing also came back positive for influenza A. Patient's troponin also trended up to 2.0 and she was treated for possible NSTEMI. No acute event overnight. Patient remain intubated and is saturating well on minimal vent settings. She was weaned off vasopressin on 04/28/18.. She is sedated with Versed. On SBT yesterday, she started having tachypnea after 25 minutes. Reason For Visit: ACUTE ON CHRONIC RESPIRATORY FAILURE WITH HYPOXIA Physical Exam Vital Signs: Temp Pulse Resp BP Pulse Ox 98.8 F 86 18 104/68 97 04/29/18 14:00 04/29/18 14:00 04/29/18 14:00 04/29/18 14:00 04/29/18 14:00 Intake & Output 04/28/18 04/29/18 04/30/18 06:59 06:59 06:59 Intake Total 3625 3662 284 Output Total 930 2195 625 Balance 2695 1467 -341 Weight 160 lb 7.944 oz 160 lb 4.417 oz General appearance: PRESENT: no acute distress, well-developed, well-nourished Head exam: PRESENT: atraumatic, normocephalic Eye exam: PRESENT: conjunctiva pink, EOMI, PERRLA. ABSENT: scleral icterus Ear exam: PRESENT: normal external ear exam Mouth exam: PRESENT: moist, tongue midline Neck exam: ABSENT: carotid bruit, JVD, lymphadenopathy, thyromegaly Respiratory exam: PRESENT: wheezes. ABSENT: rales, rhonchi Cardiovascular exam: PRESENT: RRR. ABSENT: diastolic murmur, rubs, systolic m urmur Pulses: PRESENT: normal dorsalis pedis pul GI/Abdominal exam: PRESENT: normal bowel sounds, soft. ABSENT: distended, guarding, mass, organolmegaly, rebound, tenderness Rectal exam: PRESENT: deferred Neurological exam: PRESENT: other - intubated, sedated Results Laboratory Results: 04/29/18 04:13 04/29/18 04:13 04/28/18 04/28/18 04/29/18 16:05 16:05 04:13 WBC RBC Hgb Hct MCV MCH MCHC RDW Plt Count Seg Neutrophils % Lymphocytes % Monocytes % Eosinophils % Basophils % Absolute Neutrophils Absolute Lymphocytes Absolute Monocytes Absolute Eosinophils Absolute Basophils Carbonic Acid 1.13 HCO3/H2CO3 Ratio 20:1 ABG pH 7.42 ABG pCO2 37.4 ABG pO2 78.8 L ABG HCO3 23.5 ABG O2 Saturation 95.9 ABG Base Excess -0.8 FiO2 30% Sodium 134.7 L Potassium 4.0 Chloride 108 H Carbon Dioxide 23 Anion Gap 4 L BUN 21 H Creatinine 0.45 L Est GFR ( Amer) > 60 Est GFR (Non-Af Amer) > 60 Glucose 151 H Calcium 6.7 L* Magnesium Total Bilirubin AST ALT Alkaline Phosphatase Total Protein Albumin 2.6 L Urine Color Urine Appearance Urine pH Ur Specific [place] Urine Protein Urine Glucose (UA) Urine Ketones Urine Blood Urine Nitrite Ur Leukocyte Esterase Urine WBC (Auto) Urine RBC (Auto) 04/29/18 04/29/18 04/29/18 04:13 04:13 04:13 WBC 13.2 H RBC 3.46 L Hgb 10.3 L Hct 30.9 L MCV 89 MCH 29.7 MCHC 33.3 RDW 12.8 Plt Count 212 Seg Neutrophils % Not Reportable Lymphocytes % Not Reportable Monocytes % Not Reportable Eosinophils % Not Reportable Basophils % Not Reportable Absolute Neutrophils Not Reportable Absolute Lymphocytes Not Reportable Absolute Monocytes Not Reportable Absolute Eosinophils Not Reportable Absolute Basophils Not Reportable Carbonic Acid HCO3/H2CO3 Ratio ABG pH ABG pCO2 ABG pO2 ABG HCO3 ABG O2 Saturation ABG Base Excess FiO2 Sodium 137.5 Potassium 3.8 Chloride 109 H Carbon Dioxide 25 Anion Gap 4 L BUN 23 H Creatinine 0.47 L Est GFR ( Amer) > 60 Est GFR (Non-Af Amer) > 60 Glucose 154 H Calcium 6.5 L* Magnesium 2.4 H Total Bilirubin 0.3 AST 18 ALT 44 Alkaline Phosphatase 52 Total Protein 4.3 L Albumin 2.5 L Urine Color YELLOW Urine Appearance CLEAR Urine pH 6.0 Ur Specific [place] 1.017 Urine Protein NEGATIVE Urine Glucose (UA) NEGATIVE Urine Ketones NEGATIVE Urine Blood SMALL H Urine Nitrite NEGATIVE Ur Leukocyte Esterase NEGATIVE Urine WBC (Auto) 2 Urine RBC (Auto) 14 04/26/18 16:00 Sputum Gram Stain - Final 04/26/18 16:00 Sputum Sputum Culture - Final NORMAL MINOR 04/25/18 04/25/18 04/25/18 21:09 22:06 22:32 Creatine Kinase 91 CK-MB (CK-2) Troponin I Cancelled 0.787 NT-Pro-B Natriuret Pep Cancelled 256 04/25/18 04/26/18 04/26/18 22:32 04:40 04:40 Creatine Kinase 121 CK-MB (CK-2) 3.26 7.97 H Troponin I Cancelled 1.820 NT-Pro-B Natriuret Pep 04/26/18 04/26/18 04/26/18 10:24 10:24 19:17 Creatine Kinase 171 H 143 H CK-MB (CK-2) 12.50 H Troponin I 2.090 NT-Pro-B Natriuret Pep 04/26/18 04/28/18 04/29/18 19:17 10:00 11:30 Creatine Kinase CK-MB (CK-2) 9.22 H Troponin I 2.020 0.654 0.301 NT-Pro-B Natriuret Pep Impressions: KUB X-Ray 04/26/18 16:45 IMPRESSION: Satisfactory position of nasogastric tube. Head CT 04/27/18 00:00 IMPRESSION: NORMAL BRAIN CT WITHOUT CONTRAST. EVIDENCE OF ACUTE STROKE: NO. Chest X-Ray 04/29/18 06:00 IMPRESSION: No significant change. Assessment & Plan - Diagnosis (1) Acute respiratory failure with hypoxia and hypercapnia Is this a current diagnosis for this admission?: Yes Plan: Secondary to COPD exacerbation, influenza A and possible pneumonia. Currently saturating well on minimal vent settings. Pulmonology following. SBT will be reattempted again today. (2) COPD exacerbation Is this a current diagnosis for this admission?: Yes Plan: Continue IV steroids and breathing treatments. Continue solumedrol. Continue broad-spectrum antibiotics for now. (3) Influenza A with pneumonia Is this a current diagnosis for this admission?: Yes Plan: On Tamiflu. (4) Non-STEMI (non-ST elevated myocardial infarction) Is this a current diagnosis for this admission?: Yes Plan: Cardiology following. Continue aspirin and Lovenox. - Time Time Spent with patient: 15-24 minutes
[2018-04-29] MEDS: ALBUTEROL SULFATE 0.083% NEB 2.5 MG/3 ML AMPUL NEB PRN (19:44)
[2018-04-29] MEDS: METOPROLOL TARTRATE 25 MG TABLET PO SCH (21:54)
--- NOTE | 2018-04-29 22:09 | Progress Note ---
Provider Note Provider Note: CARDIOLOGY PROGRESS NOTE by Dr. Nereyda Dunlap on 04/29/2018. SUBJECTIVE: The patient is intubated and sedated. She does not appear to be in any acute distress. There is no arrhythmias seen on the monitor. On the monitor the patient continues to have deep T wave inversions. The troponin is trending downwards. PHYSICAL EXAMINATION: The patient appears to be well-built. She is well- groomed. She appears to be in no acute distress. Selected Entries 04/29/18 12:00 Temperature 99.5 F Temperature Core Source Pulse Rate 86 Respiratory 12 Rate Blood Pressure 114/69 [Right Upper Arm] Blood Pressure 84 Mean [Right Upper Arm] O2 Sat by Pulse 98 Oximetry Oxygen Delivery Mechanical Method ( Ventilator includes room air) Percent of 30 Oxygen HEAD: Is atraumatic normocephalic. EYES: Pupils equal round regular reactive to light. ENT is negative. NECK: Is supple. There is no JVD. Carotids are equal there is no bruits. There is no thyromegaly. Trachea central. LUNGS:. There is diminished air entry bilaterally. There are a few scattered rhonchi. If you dry crackles in the bases. Left greater than right base. There is no rales of CHF. HEART: S1-S2 is heard. There is no S3 gallop there is no S4 gallop there is murmur of mild mitral regurgitation present there is no murmur of aortic stenosis or aortic regurgitation. There is no rub. ABDOMEN: Is soft bowel sounds are well heard. There is no hepatosplenic megaly. EXTREMITIES: Femorals are well felt. There is no femoral bruits. Leg pulses well felt. There is no pedal edema. There is no DVT S or cellulitis. There is no sinus or clubbing. [employer] and psychiatric: Not examined since the patient is intubated and sedated. 04/29/18 04/29/18 04/29/18 04:13 04:13 04:13 WBC 13.2 H Hgb 10.3 L Hct 30.9 L MCV 89 Plt Count 212 Seg Neuts % (Manual) 85 H Carbonic Acid 1.13 HCO3/H2CO3 Ratio 20:1 ABG pCO2 37.4 ABG pO2 78.8 L ABG HCO3 23.5 ABG Total CO2 24.6 ABG O2 Saturation 95.9 ABG Base Excess -0.8 FiO2 30% Sodium 137.5 Potassium 3.8 Chloride 109 H Carbon Dioxide 25 Anion Gap 4 L BUN 23 H Creatinine 0.47 L Est GFR (Non-Af Amer) > 60 Glucose 154 H Calcium 6.5 L* Magnesium 2.4 H Total Bilirubin 0.3 Direct Bilirubin 0.2 Neonat Total Bilirubin Not Reportable Neonat Direct Bilirubin Not Reportable Neonat Indirect Bili Not Reportable AST 18 ALT 44 Alkaline Phosphatase 52 Troponin I Total Protein 4.3 L Albumin 2.5 L 04/29/18 11:30 WBC Hgb Hct MCV Plt Count Seg Neuts % (Manual) Carbonic Acid HCO3/H2CO3 Ratio ABG pCO2 ABG pO2 ABG HCO3 ABG Total CO2 ABG O2 Saturation ABG Base Excess FiO2 Sodium Potassium Chloride Carbon Dioxide Anion Gap BUN Creatinine Est GFR (Non-Af Amer) Glucose Calcium Magnesium Total Bilirubin Direct Bilirubin Neonat Total Bilirubin Neonat Direct Bilirubin Neonat Indirect Bili AST ALT Alkaline Phosphatase Troponin I 0.301 Total Protein Albumin IMPRESSION/RECOMMENDATION: 1. ACUTE ON CHRONIC RESPIRATORY FAILURE: CONTINUE VENTILATORY SUPPORT AND ANTI- COPD MEDICATION AND ANTIBIOTICS. The patient's ABGs on FiO2 of 30% look good. 2. INFLUENZA A PNEUMONIA: CONTINUE ANTIBIOTICS. 3. NON-ST ELEVATION MO. THE PATIENT IS ON ASPIRIN, AND ALSO CONTINUE THE PATIENT ON LOVENOX AT 1 MG/KG SUBCUTANEOUSLY EVERY 12 HOURS. WILL CONTINUE THE PATIENT ON A BETA-LUISITO. The troponin is trending down. 4. Abnormal EKG consistent with subendocardial T wave inversion. In view of the patient's significant COPD, once the patient is extubated will discuss with the patient and patient's family about the patient going directly for cardiac catheterization. 5. COPD. 6. Hypotension. This is resolved: Most likely secondary to sepsis due to her pneumonia. The patient blood pressure now is stable off all pressors including Levophed and vasopressin. 7. History of hypertension: At present the patient's blood pressure is normal, and patient tolerating beta-luisito. 8. HYPOTHYROIDISM: Continue thyroid replacement. 9.Hhistory of ongoing tobacco abuse. Will later give the patient tobacco cessation counseling when she is extubated and awake and alert. Discussed with the patient's SON the patient's condition. Medications have been reviewed. . Discussed management plan with attending physician on the case. Note medical decision making is of high complexity. 40 minutes spent on this patient, with more than 50% of time spent in direct patient care. We will follow with you.
[2018-04-30] MEDS: IPRATROPIUM BROMIDE 0.02% NEB 0.5 MG/2.5 ML AMPUL NEB SCH ×3 (00:21→16:38)
[2018-04-30] MEDS: LEVALBUTEROL HCL NEB 1.25 MG/3 ML AMPUL NEB SCH ×3 (00:21→16:38)
[2018-04-30 05:05] LABS: ARTERIAL BLOOD BASE EXCESS 0.1 mmol/L; ARTERIAL BLOOD H2CO3 1.12 mmol/L (1.05-1.35); ARTERIAL BLOOD HCO3 24.2 mmol/L (20-24); ARTERIAL BLOOD O2 SATURATION 96.2 % (94-98); ARTERIAL BLOOD PCO2 37.2 mmHg (35-45); ARTERIAL BLOOD PH 7.43 (7.35-7.45); ARTERIAL BLOOD PO2 80.5 mmHg (80-100); ARTERIAL BLOOD TOTAL CO2 25.3 mmol/L (21-25)
[2018-04-30 05:06] LABS: ARTERIAL BLOOD FIO2 30%
[2018-04-30] MEDS: AZTREONAM 1 GM in DEXTROSE 5%-WATER 50 ML IV SCH ×3 (05:08→22:26)
[2018-04-30] MEDS: VANCOMYCIN HCL 1,000 MG in DEXTROSE 5%-WATER 250 ML IV SCH ×3 (05:08→22:28)
[2018-04-30 05:19] LABS: ALANINE AMINOTRANSFERASE 52 U/L (9-52); ALBUMIN 2.7 g/dL (3.5-5.0); ALKALINE PHOSPHATASE 48 U/L (38-126); ASPARTATE AMINO TRANSFERASE 21 U/L (14-36); BILIRUBIN,DIRECT 0.4 mg/dL (0.0-0.4); BILIRUBIN,TOTAL 0.5 mg/dL (0.2-1.3); BLOOD UREA NITROGEN 27 mg/dL (7-20); GLUCOSE 160 mg/dL (75-110); TOTAL PROTEIN 4.8 g/dL (6.3-8.2)
[2018-04-30 05:24] LABS: CARBON DIOXIDE 26 mmol/L (22-30); CHLORIDE 108 mmol/L (98-107); SODIUM 137.2 mmol/L (137-145)
[2018-04-30 05:37] LABS: ANION GAP 3 (5-19); CALCIUM 6.8 mg/dL (8.4-10.2)
--- NOTE | 2018-04-30 06:01 | RADIOLOGY REPORT (SQ) ---
EXAM DESCRIPTION: XR CHEST 1 VIEW COMPLETED DATE/TME: 04/30/2018 06:00 CLINICAL HISTORY: Respiratory Distress. 72 years Female, resp fail COMPARISON: One day prior. NUMBER OF VIEWS/TECHNIQUE: 1/AP FINDINGS: Small obscuration-fusion of bilateral costophrenic angles. Atherosclerotic vascular disease. Normal cardiac silhouette size. Adequate appearing endotracheal tube. Adequate appearing enteric tube with tip at the left upper abdominal quadrant. Adequate appearing right jugular central line. No pneumothorax. Stable bony thorax. IMPRESSION: No significant change.
[2018-04-30] MEDS: ACETYLCYSTEINE 20% SOLN 800 MG/4 ML VIAL.NEB NEB SCH ×2 (08:48→19:27)
[2018-04-30] MEDS: BUDESONIDE NEB 0.5 MG/2 ML AMPUL NEB SCH ×2 (08:48→19:24)
[2018-04-30] MEDS: METHYLPREDNISOLONE INJ 40 MG/1 ML SDV IV SCH ×2 (11:18→22:33)
[2018-04-30] MEDS: ASPIRIN 81 MG TABLET, CHEWABLE PO SCH (11:19)
[2018-04-30] MEDS: PANTOPRAZOLE SODIUM 40 MG VIAL IV SCH ×2 (11:19→22:27)
[2018-04-30] MEDS: METOPROLOL TARTRATE 25 MG TABLET PO SCH ×2 (11:19→22:27)
[2018-04-30] MEDS: ENOXAPARIN SODIUM INJ 80 MG/0.8 ML DISP.SYRIN SUBCUT SCH ×2 (11:19→22:28)
[2018-04-30] MEDS: NICOTINE 21 MG/24 HR PATCH.TD24 TD SCH (11:20)
[2018-04-30] MEDS: AZITHROMYCIN 500 MG in DEXTROSE 5%-WATER 250 ML IV SCH (12:14)
[2018-04-30] MEDS ORDERED: DEXAMETHASONE SOD PHOS INJ 10 MG/1 ML VIAL IV ONE (14:00)
[2018-04-30 16:41] LABS: VANCOMYCIN,TROUGH 13.8 ug/mL (5.0-20.0)
--- NOTE | 2018-04-30 16:59 | PDOC PROGRESS REPORT ---
Subjective Progress Note for:: 04/30/18 Subjective:: This is a 72 yr old with a past medical history of COPD, hyperlipidemia, hypertension and hypothyroidism who initially presented with increasing shortness of breath and cough. Patient was initially placed on BiPAP in the ER but she continued to decompensate. She was noted to be hypoxic and also had respiratory acidosis and was subsequently intubated. She was treated for COPD exacerbation. Her initial x-ray also showed questionable right basilar opacity. Flu testing also came back positive for influenza A. Patient's troponin also trended up to 2.0 and she was treated for possible NSTEMI. Patient extubated today 04/30/18 successfully and is transitioned to BIPAP. Plan of care discussed with family and pulmonology and patient also expressed she wants to be DNR/DNI. Reason For Visit: ACUTE ON CHRONIC RESPIRATORY FAILURE WITH HYPOXIA Physical Exam Vital Signs: Temp Pulse Resp BP Pulse Ox 99.7 F 92 26 H 144/85 H 94 04/30/18 14:39 04/30/18 08:48 04/30/18 14:39 04/30/18 14:39 04/30/18 14:39 Intake & Output 04/29/18 04/30/18 05/01/18 06:59 06:59 06:59 Intake Total 3662 2925 Output Total 2195 2135 1050 Balance 1467 790 -1050 Weight 160 lb 4.417 oz 169 lb 12.095 oz General appearance: PRESENT: no acute distress, well-developed, well-nourished Head exam: PRESENT: atraumatic, normocephalic Eye exam: PRESENT: conjunctiva pink, EOMI, PERRLA. ABSENT: scleral icterus Ear exam: PRESENT: normal external ear exam Mouth exam: PRESENT: moist, tongue midline Neck exam: ABSENT: carotid bruit, JVD, lymphadenopathy, thyromegaly Respiratory exam: PRESENT: wheezes - occasional wheezes. ABSENT: rales, rhonchi Cardiovascular exam: PRESENT: RRR. ABSENT: diastolic murmur, rubs, systolic murmur Pulses: PRESENT: normal dorsalis pedis pul Rectal exam: PRESENT: deferred Neurological exam: PRESENT: alert, awake, oriented to person, oriented to place, oriented to time, oriented to situation Results Laboratory Results: 04/29/18 04:13 04/30/18 04:44 04/30/18 04/30/18 04:44 04:53 Carbonic Acid 1.12 HCO3/H2CO3 Ratio 21:1 ABG pH 7.43 ABG pCO2 37.2 ABG pO2 80.5 ABG HCO3 24.2 H ABG O2 Saturation 96.2 ABG Base Excess 0.1 FiO2 30% Sodium 137.2 Potassium 4.0 Chloride 108 H Carbon Dioxide 26 Anion Gap 3 L BUN 27 H Creatinine 0.49 L Est GFR ( Amer) > 60 Est GFR (Non-Af Amer) > 60 Glucose 160 H Calcium 6.8 L* Magnesium 2.5 H Total Bilirubin 0.5 AST 21 ALT 52 Alkaline Phosphatase 48 Total Protein 4.8 L Albumin 2.7 L 04/25/18 04/25/18 04/25/18 21:09 22:06 22:32 Creatine Kinase 91 CK-MB (CK-2) Troponin I Cancelled 0.787 NT-Pro-B Natriuret Pep Cancelled 256 04/25/18 04/26/18 04/26/18 22:32 04:40 04:40 Creatine Kinase 121 CK-MB (CK-2) 3.26 7.97 H Troponin I Cancelled 1.820 NT-Pro-B Natriuret Pep 04/26/18 04/26/18 04/26/18 10:24 10:24 19:17 Creatine Kinase 171 H 143 H CK-MB (CK-2) 12.50 H Troponin I 2.090 NT-Pro-B Natriuret Pep 04/26/18 04/28/18 04/29/18 19:17 10:00 11:30 Creatine Kinase CK-MB (CK-2) 9.22 H Troponin I 2.020 0.654 0.301 NT-Pro-B Natriuret Pep Impressions: KUB X-Ray 04/26/18 16:45 IMPRESSION: Satisfactory position of nasogastric tube. Head CT 04/27/18 00:00 IMPRESSION: NORMAL BRAIN CT WITHOUT CONTRAST. EVIDENCE OF ACUTE STROKE: NO. Chest X-Ray 04/30/18 06:00 IMPRESSION: No significant change. Assessment & Plan - Diagnosis (1) Acute respiratory failure with hypoxia and hypercapnia Is this a current diagnosis for this admission?: Yes Plan: Secondary to COPD exacerbation, influenza A and possible pneumonia. Currently s aturating well on minimal vent settings. Successfully extubated 04/30/18. She is currently doing well on BIPAP. (2) COPD exacerbation Is this a current diagnosis for this admission?: Yes Plan: Continue IV steroids and breathing treatments. Continue solumedrol. Continue broad-spectrum antibiotics for now. (3) Influenza A with pneumonia Is this a current diagnosis for this admission?: Yes Plan: Completed 5 days of Tamiflu. (4) Non-STEMI (non-ST elevated myocardial infarction) Is this a current diagnosis for this admission?: Yes Plan: Cardiology following. Continue aspirin and Lovenox. Troponins trending down. - Time Time Spent with patient: 15-24 minutes
--- NOTE | 2018-04-30 17:02 | Progress Note ---
Provider Note Provider Note: CARDIOLOGY PROGRESS NOTE by Dr. Dawn assessment on 04/30/2018. SUBJECTIVE: The patient has been extubated, and is on a face tent. She is very drowsy and does not respond to verbal stimuli. She does have some labored breathing. The family has made the patient DNR/DNI. There are no arrhythmias seen on the monitor. Physical EXAMINATION: The patient appears to be ill, although she is breathing fast, does not appear to be in any major distress. 04/30/18 04/30/18 04/30/18 14:09 14:20 14:38 Temperature 99.3 F Heart Rate ( 93 Monitors) Respiratory 22 H Rate Blood Pressure 133/74 H Blood Pressure 93 Mean O2 Sat by Pulse 95 Oximetry Oxygen Delivery Face Tent Method ( includes room air) Fraction of 40 Inspired Oxygen (FIO2) HEAD: Is atraumatic normocephalic. EYES: Pupils equal round regular reactive to light. ENT is negative. NECK: Is supple. There is no JVD. Carotids are equal there is no bruits. There is no thyromegaly. Trachea central. LUNGS:. There is diminished air entry bilaterally. There are a few scattered rhonchi. There are no dry crackles. There is no rales of CHF. HEART: S1-S2 is heard. There is no S3 gallop there is no S4 gallop there is murmur of mild mitral regurgitation present there is no murmur of aortic stenosis or aortic regurgitation. There is no rub. ABDOMEN: Is soft bowel sounds are well heard. There is no hepatosplenic megaly. EXTREMITIES: Femorals are well felt. There is no femoral bruits. Leg pulses well felt. There is no pedal edema. There is no DVT S or cellulitis. There is no sinus or clubbing. [employer] the patient is very drowsy. She does not respond to verbal stimuli, but does move all 4 extremities. PSYCHIATRIC EXAM: Not performed due to patient's being very drowsy. 04/29/18 04/30/18 04/30/18 11:30 04:44 04:53 Carbonic Acid 1.12 HCO3/H2CO3 Ratio 21:1 ABG pH 7.43 ABG pCO2 37.2 ABG pO2 80.5 ABG HCO3 24.2 H ABG Total CO2 25.3 H ABG O2 Saturation 96.2 ABG Base Excess 0.1 FiO2 30% Sodium 137.2 Potassium 4.0 Chloride 108 H Carbon Dioxide 26 Anion Gap 3 L BUN 27 H Creatinine 0.49 L Est GFR (Non-Af Amer) > 60 Glucose 160 H Calcium 6.8 L* Magnesium 2.5 H Total Bilirubin 0.5 Direct Bilirubin 0.4 Neonat Total Bilirubin Not Reportable Neonat Direct Bilirubin Not Reportable Neonat Indirect Bili Not Reportable AST 21 ALT 52 Alkaline Phosphatase 48 Troponin I 0.301 Total Protein 4.8 L Albumin 2.7 L IMPRESSION/RECOMMENDATION: 1. ACUTE ON CHRONIC RESPIRATORY FAILURE: Note that the patient has been extubated, and she has been made a DNR/DNI. We will continue antibiotics and oxygen. 2. INFLUENZA A PNEUMONIA: CONTINUE ANTIBIOTICS. 3. NON-ST ELEVATION NV. THE PATIENT IS ON ASPIRIN, AND ALSO CONTINUE THE PATIENT ON LOVENOX AT 1 MG/KG SUBCUTANEOUSLY EVERY 12 HOURS. WILL CONTINUE THE PATIENT ON A BETA-LUISITO. The troponin is trending down. 4. Abnormal EKG consistent with subendocardial T wave inversion. In view of the patient's significant COPD. It is no more that the family is thinking of making the patient comfort measures only. Hence we will await prior to making a decision as to further investigation of the patient's abnormal EKG for possible underlying significant coronary artery disease. 5. COPD. 6. Hypotension. This is resolved: Most likely secondary to sepsis due to her pneumonia. The patient blood pressure now is stable off all pressors including Levophed and vasopressin. 7. History of hypertension: At present the patient's blood pressure is normal, and patient tolerating beta-luisito. 8. HYPOTHYROIDISM: Continue thyroid replacement. 9.Hhistory of ongoing tobacco abuse. Will later give the patient tobacco cessation counseling when she is extubated and awake and alert. Medications reviewed. Discussed management plan with attending physician. Medical decision making hours of moderate complexity. Note 40 minutes spent on this patient, with more than 50% of time spent in direct patient care. We will follow with you.
[2018-04-30] MEDS: ALBUTEROL SULFATE 0.083% NEB 2.5 MG/3 ML AMPUL NEB PRN (19:24)
[2018-05-01] MEDS: IPRATROPIUM BROMIDE 0.02% NEB 0.5 MG/2.5 ML AMPUL NEB SCH ×4 (00:01→23:53)
[2018-05-01] MEDS: LEVALBUTEROL HCL NEB 1.25 MG/3 ML AMPUL NEB SCH ×4 (00:01→23:53)
[2018-05-01] MEDS ORDERED: MORPHINE SULFATE 10 MG/ML INJ IV ONE (02:00)
[2018-05-01] MEDS: AZTREONAM 1 GM in DEXTROSE 5%-WATER 50 ML IV SCH ×3 (06:25→21:15)
[2018-05-01] MEDS: VANCOMYCIN HCL 1,000 MG in DEXTROSE 5%-WATER 250 ML IV SCH ×3 (06:26→21:15)
--- NOTE | 2018-05-01 06:27 | RADIOLOGY REPORT (SQ) ---
EXAM DESCRIPTION: XR CHEST 1 VIEW COMPLETED DATE/TME: 05/01/2018 06:00 CLINICAL HISTORY: Respiratory Distress. 72 years Female, resp failure COMPARISON: One day prior. NUMBER OF VIEWS/TECHNIQUE: 1/AP FINDINGS: Moderate patchy opacity-layered effusion of the right lower hemithorax.Adequate appearing right jugular central line. Atherosclerotic vascular disease. Normal cardiac silhouette size. No pneumothorax. Stable bony thorax. IMPRESSION: Interval extubation.
[2018-05-01 06:36] LABS: ARTERIAL BLOOD BASE EXCESS 1.2 mmol/L; ARTERIAL BLOOD H2CO3 1.35 mmol/L (1.05-1.35); ARTERIAL BLOOD HCO3 26.5 mmol/L (20-24); ARTERIAL BLOOD O2 SATURATION 98.8 % (94-98); ARTERIAL BLOOD PCO2 44.8 mmHg (35-45); ARTERIAL BLOOD PH 7.39 (7.35-7.45); ARTERIAL BLOOD PO2 145.7 mmHg (80-100); ARTERIAL BLOOD TOTAL CO2 27.9 mmol/L (21-25)
[2018-05-01 06:40] LABS: ARTERIAL BLOOD FIO2 40%
[2018-05-01 06:47] LABS: HEMOGLOBIN 11.4 g/dL (12.0-15.5); MEAN CORPUSCULAR HEMOGLOBIN 29.8 pg (27.0-33.4); MEAN CORPUSCULAR HGB CONC 33.5 g/dL (32.0-36.0); MEAN CORPUSCULAR VOLUME 89 fl (80-97); PLATELET COUNT 251 10^3/uL (150-450); RED BLOOD COUNT 3.84 10^6/uL (3.72-5.28); RED CELL DISTRIBUTION WIDTH 12.6 % (11.5-14.0); WHITE BLOOD COUNT 17.8 10^3/uL (4.0-10.5)
[2018-05-01 06:51] LABS: APPEARANCE,URINE CLEAR; BILIRUBIN,URINE NEGATIVE (NEGATIVE); COLOR,URINE YELLOW; GLUCOSE, URINE 50 mg/dL (NEGATIVE); KETONES,URINE NEGATIVE (NEGATIVE); LEUKOCYTE ESTERASE,URINE NEGATIVE (NEGATIVE); NITRITE,URINE NEGATIVE (NEGATIVE); PROTEIN,URINE NEGATIVE (NEGATIVE); URINE SPECIFIC GRAVITY 1.016
[2018-05-01 06:58] LABS: BLOOD UREA NITROGEN 27 mg/dL (7-20); GLUCOSE 136 mg/dL (75-110); POTASSIUM 3.9 mmol/L (3.6-5.0)
[2018-05-01 07:03] LABS: CARBON DIOXIDE 30 mmol/L (22-30); CHLORIDE 110 mmol/L (98-107); SODIUM 142.4 mmol/L (137-145)
[2018-05-01 07:12] LABS: ANION GAP 2 (5-19); CALCIUM 6.8 mg/dL (8.4-10.2)
[2018-05-01 07:30] LABS: ABSOLUTE LYMPHOCYTES# (MANUAL) 1.1 10^3/uL (0.5-4.7); ABSOLUTE MONOCYTES # (MANUAL) 2.1 10^3/uL (0.1-1.4); ABSOLUTE NEUTROPHILS# (MANUAL) 14.6 10^3/uL (1.7-8.2); BAND NEUTROPHILS % (MANUAL) 4 % (3-5); BASOPHILS % (MANUAL) 0 % (0-2); EOSINOPHILS % (MANUAL) 0 % (0-6); LYMPHOCYTES % (MANUAL) 6 % (13-45); METAMYELOCYTES % (MANUAL) 1 % (0); MONOCYTES % (MANUAL) 12 % (3-13); NUCLEATED RED BLOOD CELLS 3 /100 WBC (0); SEGMENTED NEUTROPHILS % (MAN) 77 % (42-78); TOTAL CELLS COUNTED 100
[2018-05-01 07:31] LABS: PLATELET COMMENT ADEQUATE; RBC MORPHOLOGY COMMENT NORMO-CYTIC/CHROMIC; TOXIC GRANULATION SLIGHT
[2018-05-01] MEDS: BUDESONIDE NEB 0.5 MG/2 ML AMPUL NEB SCH (08:44)
[2018-05-01] MEDS: ACETYLCYSTEINE 20% SOLN 800 MG/4 ML VIAL.NEB NEB SCH ×2 (08:45→19:42)
[2018-05-01] MEDS: METOPROLOL TARTRATE 25 MG TABLET PO SCH ×2 (11:37→21:02)
[2018-05-01] MEDS: ASPIRIN 81 MG TABLET, CHEWABLE PO SCH (11:37)
[2018-05-01] MEDS: METHYLPREDNISOLONE INJ 40 MG/1 ML SDV IV SCH ×2 (11:45→21:02)
[2018-05-01] MEDS: PANTOPRAZOLE SODIUM 40 MG VIAL IV SCH ×2 (11:45→21:02)
[2018-05-01] MEDS: ENOXAPARIN SODIUM INJ 80 MG/0.8 ML DISP.SYRIN SUBCUT SCH ×2 (11:46→21:03)
[2018-05-01] MEDS: NICOTINE 21 MG/24 HR PATCH.TD24 TD SCH (11:46)
[2018-05-01] MEDS: AZITHROMYCIN 500 MG in DEXTROSE 5%-WATER 250 ML IV SCH (11:54)
[2018-05-01] MEDS: MORPHINE SULFATE 10 MG/ML INJ IV PRN ×2 (13:43→17:07)
--- NOTE | 2018-05-01 16:11 | PDOC PROGRESS REPORT ---
Subjective Progress Note for:: 05/01/18 Subjective:: This is a 72 yr old with a past medical history of COPD, hyperlipidemia, hypertension and hypothyroidism who initially presented with increasing shortness of breath and cough. Patient was initially placed on BiPAP in the ER but she continued to decompensate. She was noted to be hypoxic and also had respiratory acidosis and was subsequently intubated. She was treated for COPD exacerbation. Her initial x-ray also showed questionable right basilar opacity. Flu testing also came back positive for influenza A. Patient's troponin also trended up to 2.0 and she was treated for possible NSTEMI. Patient extubated on 04/30/18 successfully and was transitioned to BIPAP. Plan of care discussed in length with family and pulmonology and patient also expressed she wants to be DNR/DNI. They also expressed interest in transitioning her to hospice or comfort measures if she has recurrence of respiratory distress. Patient had episodes of tachypnea last night and was relieved with morphine. Discussed with patient and family again this morning and they are considering between inpatient vs home hospice but awaiting for other family members to come in. Reason For Visit: ACUTE ON CHRONIC RESPIRATORY FAILURE WITH HYPOXIA Physical Exam Vital Signs: Temp Pulse Resp BP Pulse Ox 98.8 F 88 18 133/73 H 98 05/01/18 15:40 05/01/18 08:44 05/01/18 15:40 05/01/18 15:40 05/01/18 15:40 Intake & Output 04/30/18 05/01/18 05/02/18 06:59 06:59 06:59 Intake Total 2925 1900 250 Output Total 2135 3525 875 Balance 790 -1625 -625 Weight 169 lb 12.095 oz 165 lb 2.02 oz General appearance: PRESENT: mild distress Head exam: PRESENT: atraumatic, normocephalic Eye exam: PRESENT: conjunctiva pink, EOMI, PERRLA. ABSENT: scleral icterus Ear exam: PRESENT: normal external ear exam Mouth exam: PRESENT: moist, tongue midline Neck exam: ABSENT: carotid bruit, JVD, lymphadenopathy, thyromegaly Respiratory exam: PRESENT: rhonchi, wheezes. ABSENT: rales Cardiovascular exam: PRESENT: RRR. ABSENT: diastolic murmur, rubs, systolic murmur Pulses: PRESENT: normal dorsalis pedis pul GI/Abdominal exam: PRESENT: normal bowel sounds, soft. ABSENT: distended, guarding, mass, organolmegaly, rebound, tenderness Rectal exam: PRESENT: deferred Neurological exam: PRESENT: awake, oriented to person, oriented to place, CN II- XII grossly intact. ABSENT: motor sensory deficit Results Laboratory Results: 05/01/18 05:45 05/01/18 05:45 05/01/18 05/01/18 05/01/18 05:45 05:45 05:45 WBC 17.8 H RBC 3.84 Hgb 11.4 L Hct 34.0 L MCV 89 MCH 29.8 MCHC 33.5 RDW 12.6 Plt Count 251 Seg Neutrophils % Not Reportable Lymphocytes % Not Reportable Monocytes % Not Reportable Eosinophils % Not Reportable Basophils % Not Reportable Absolute Neutrophils Not Reportable Absolute Lymphocytes Not Reportable Absolute Monocytes Not Reportable Absolute Eosinophils Not Reportable Absolute Basophils Not Reportable Carbonic Acid 1.35 HCO3/H2CO3 Ratio 19:1 ABG pH 7.39 ABG pCO2 44.8 ABG pO2 145.7 H ABG HCO3 26.5 H ABG O2 Saturation 98.8 H ABG Base Excess 1.2 FiO2 40% Sodium 142.4 Potassium 3.9 Chloride 110 H Carbon Dioxide 30 Anion Gap 2 L BUN 27 H Creatinine 0.45 L Est GFR ( Amer) > 60 Est GFR (Non-Af Amer) > 60 Glucose 136 H Calcium 6.8 L* Magnesium 2.4 H Albumin Urine Color Urine Appearance Urine pH Ur Specific Cable Urine Protein Urine Glucose (UA) Urine Ketones Urine Blood Urine Nitrite Ur Leukocyte Esterase Urine WBC (Auto) Urine RBC (Auto) 05/01/18 05/01/18 05:45 05:45 WBC RBC Hgb Hct MCV MCH MCHC RDW Plt Count Seg Neutrophils % Lymphocytes % Monocytes % Eosinophils % Basophils % Absolute Neutrophils Absolute Lymphocytes Absolute Monocytes Absolute Eosinophils Absolute Basophils Carbonic Acid HCO3/H2CO3 Ratio ABG pH ABG pCO2 ABG pO2 ABG HCO3 ABG O2 Saturation ABG Base Excess FiO2 Sodium Potassium Chloride Carbon Dioxide Anion Gap BUN Creatinine Est GFR ( Amer) Est GFR (Non-Af Amer) Glucose Calcium Magnesium Albumin 2.8 L Urine Color YELLOW Urine Appearance CLEAR Urine pH 6.0 Ur Specific Cable 1.016 Urine Protein NEGATIVE Urine Glucose (UA) 50 H Urine Ketones NEGATIVE Urine Blood NEGATIVE Urine Nitrite NEGATIVE Ur Leukocyte Esterase NEGATIVE Urine WBC (Auto) 3 Urine RBC (Auto) 0 04/25/18 22:06 Blood Blood Culture - Final NO GROWTH IN 5 DAYS 04/25/18 21:09 Blood Blood Culture - Final NO GROWTH IN 5 DAYS 04/25/18 04/25/18 04/25/18 21:09 22:06 22:32 Creatine Kinase 91 CK-MB (CK-2) Troponin I Cancelled 0.787 NT-Pro-B Natriuret Pep Cancelled 256 04/25/18 04/26/18 04/26/18 22:32 04:40 04:40 Creatine Kinase 121 CK-MB (CK-2) 3.26 7.97 H Troponin I Cancelled 1.820 NT-Pro-B Natriuret Pep 04/26/18 04/26/18 04/26/18 10:24 10:24 19:17 Creatine Kinase 171 H 143 H CK-MB (CK-2) 12.50 H Troponin I 2.090 NT-Pro-B Natriuret Pep 04/26/18 04/28/18 04/29/18 19:17 10:00 11:30 Creatine Kinase CK-MB (CK-2) 9.22 H Troponin I 2.020 0.654 0.301 NT-Pro-B Natriuret Pep Impressions: KUB X-Ray 04/26/18 16:45 IMPRESSION: Satisfactory position of nasogastric tube. Head CT 04/27/18 00:00 IMPRESSION: NORMAL BRAIN CT WITHOUT CONTRAST. EVIDENCE OF ACUTE STROKE: NO. Chest X-Ray 05/01/18 06:00 IMPRESSION: Interval extubation. Assessment & Plan - Diagnosis (1) Acute respiratory failure with hypoxia and hypercapnia Is this a current diagnosis for this admission?: Yes Plan: Secondary to COPD exacerbation, influenza A and possible pneumonia. Currently saturating well on minimal vent settings. Successfully extubated 04/30/18. She did had transient episodes of tachypnea on BIPAP. Patient will be transitioned to hospice. Family is still deciding between home vs inpatient hospice. (2) COPD exacerbation Is this a current diagnosis for this admission?: Yes Plan: Continue steroids and breathing treatments. Continue solumedrol. (3) Influenza A with pneumonia Is this a current diagnosis for this admission?: Yes Plan: Completed 5 days of Tamiflu. (4) Non-STEMI (non-ST elevated myocardial infarction) Is this a current diagnosis for this admission?: Yes Plan: Cardiology following. Continue aspirin and Lovenox. Troponins trending down. - Time Time Spent with patient: 25-34 minutes
--- NOTE | 2018-05-01 18:11 | Progress Note ---
Provider Note Provider Note: CARDIOLOGY note by Dr. Nereyda Dunlap on 05/01/2018. The patient's family decided to make the patient hospice care only. Hence we will sign off the case. Thank you for allowing me to participate in the care of this patient so far.
[2018-05-01] MEDS: ALBUTEROL SULFATE 0.083% NEB 2.5 MG/3 ML AMPUL NEB PRN (19:40)
[2018-05-01] MEDS: NORMAL SALINE 1000 ML 1,000 ML IV PRN (20:00)
[2018-05-02 02:06] LABS: BLOOD UREA NITROGEN 26 mg/dL (7-20); GLUCOSE 156 mg/dL (75-110); PHOSPHORUS 1.2 mg/dL (2.5-4.5); POTASSIUM 3.9 mmol/L (3.6-5.0)
[2018-05-02 02:11] LABS: CARBON DIOXIDE 30 mmol/L (22-30); CHLORIDE 108 mmol/L (98-107); SODIUM 139.3 mmol/L (137-145)
[2018-05-02 02:13] LABS: ANION GAP 1 (5-19)
[2018-05-02 02:15] LABS: CALCIUM 6.7 mg/dL (8.4-10.2)
[2018-05-02] MEDS ORDERED: PHOSPHORUS #1 250 MG TABLET ONE (03:10)
[2018-05-02] MEDS: PHOSPHORUS #1 250 MG TABLET PO SCH ×4 (03:21→22:51)
[2018-05-02] MEDS: AZTREONAM 1 GM in DEXTROSE 5%-WATER 50 ML IV SCH ×3 (05:24→22:50)
[2018-05-02] MEDS: VANCOMYCIN HCL 1,000 MG in DEXTROSE 5%-WATER 250 ML IV SCH ×2 (06:25→16:36)
[2018-05-02] MEDS: IPRATROPIUM BROMIDE 0.02% NEB 0.5 MG/2.5 ML AMPUL NEB SCH ×3 (07:48→23:29)
[2018-05-02] MEDS: ACETYLCYSTEINE 20% SOLN 800 MG/4 ML VIAL.NEB NEB SCH ×2 (07:48→19:42)
[2018-05-02] MEDS: LEVALBUTEROL HCL NEB 1.25 MG/3 ML AMPUL NEB SCH ×3 (07:48→23:29)
--- NOTE | 2018-05-02 08:22 | RADIOLOGY REPORT (SQ) ---
EXAM DESCRIPTION: CHEST SINGLE VIEW COMPLETED DATE/TIME: 05/02/2018 8:05 am REASON FOR STUDY: resp failure COMPARISON: 05/01/2018. FINDINGS: Single-view chest AP portable upright at approximately 0743 hours. Right IJ line remains in place. Mild interstitial edema looks slightly worse. Suspect small effusions. Stable cardiomediastinal primo houette. TECHNICAL DOCUMENTATION: JOB ID: [id number] Reading location - IP/workstation name: [email or web address]
[2018-05-02 08:38] LABS: ARTERIAL BLOOD BASE EXCESS 2.9 mmol/L; ARTERIAL BLOOD H2CO3 1.22 mmol/L (1.05-1.35); ARTERIAL BLOOD HCO3 27.1 mmol/L (20-24); ARTERIAL BLOOD O2 SATURATION 98.7 % (94-98); ARTERIAL BLOOD PCO2 40.4 mmHg (35-45); ARTERIAL BLOOD PH 7.45 (7.35-7.45); ARTERIAL BLOOD PO2 131.9 mmHg (80-100); ARTERIAL BLOOD TOTAL CO2 28.4 mmol/L (21-25)
[2018-05-02 08:41] LABS: ARTERIAL BLOOD FIO2 40%
[2018-05-02 08:55] LABS: BLOOD UREA NITROGEN 28 mg/dL (7-20); GLUCOSE 150 mg/dL (75-110); POTASSIUM 3.9 mmol/L (3.6-5.0)
[2018-05-02 09:00] LABS: CARBON DIOXIDE 29 mmol/L (22-30); CHLORIDE 108 mmol/L (98-107); SODIUM 140.8 mmol/L (137-145)
[2018-05-02 09:11] LABS: ANION GAP 3 (5-19)
[2018-05-02 09:15] LABS: CALCIUM 6.6 mg/dL (8.4-10.2)
[2018-05-02 09:32] LABS: HEMATOCRIT 32.5 % (36.0-47.0); MEAN CORPUSCULAR HEMOGLOBIN 29.9 pg (27.0-33.4); MEAN CORPUSCULAR HGB CONC 33.7 g/dL (32.0-36.0); MEAN CORPUSCULAR VOLUME 89 fl (80-97); PLATELET COUNT 256 10^3/uL (150-450); RED BLOOD COUNT 3.66 10^6/uL (3.72-5.28); WHITE BLOOD COUNT 17.8 10^3/uL (4.0-10.5)
[2018-05-02 09:57] LABS: ABSOLUTE LYMPHOCYTES# (MANUAL) 2.8 10^3/uL (0.5-4.7); ABSOLUTE MONOCYTES # (MANUAL) 1.2 10^3/uL (0.1-1.4); ABSOLUTE NEUTROPHILS# (MANUAL) 13.7 10^3/uL (1.7-8.2); BAND NEUTROPHILS % (MANUAL) 2 % (3-5); BASOPHILS % (MANUAL) 0 % (0-2); EOSINOPHILS % (MANUAL) 0 % (0-6); LYMPHOCYTES % (MANUAL) 16 % (13-45); METAMYELOCYTES % (MANUAL) 1 % (0); MONOCYTES % (MANUAL) 7 % (3-13); SEGMENTED NEUTROPHILS % (MAN) 74 % (42-78); TOTAL CELLS COUNTED 100
[2018-05-02 09:58] LABS: OVALOCYTES SLIGHT; PLATELET COMMENT ADEQUATE; POIKILOCYTOSIS SLIGHT; TOXIC GRANULATION 2+
[2018-05-02] MEDS: NORMAL SALINE 1000 ML 1,000 ML IV PRN (11:46)
[2018-05-02] MEDS: METOPROLOL TARTRATE 25 MG TABLET PO SCH ×2 (11:48→22:51)
[2018-05-02] MEDS: ASPIRIN 81 MG TABLET, CHEWABLE PO SCH (11:48)
[2018-05-02] MEDS: METHYLPREDNISOLONE INJ 40 MG/1 ML SDV IV SCH ×2 (11:48→22:52)
[2018-05-02] MEDS: NICOTINE 21 MG/24 HR PATCH.TD24 TD SCH (11:49)
[2018-05-02] MEDS: AZITHROMYCIN 500 MG in DEXTROSE 5%-WATER 250 ML IV SCH (11:50)
[2018-05-02] MEDS: ENOXAPARIN SODIUM INJ 80 MG/0.8 ML DISP.SYRIN SUBCUT SCH ×2 (11:55→22:51)
--- NOTE | 2018-05-02 15:55 | PDOC PROGRESS REPORT ---
Subjective Progress Note for:: 05/02/18 Subjective:: This is a 72 yr old with a past medical history of COPD, hyperlipidemia, hypertension and hypothyroidism who initially presented with increasing shortness of breath and cough. Patient was initially placed on BiPAP in the ER but she continued to decompensate. She was noted to be hypoxic and also had respiratory acidosis and was subsequently intubated. She was treated for COPD exacerbation. Her initial x-ray also showed questionable right basilar opacity. Flu testing also came back positive for influenza A. Patient's troponin also trended up to 2.0 and she was treated for possible NSTEMI. Patient extubated on 04/30/18 successfully and was transitioned to BIPAP. Plan of care discussed in length with family and pulmonology and patient also expressed she wants to be DNR/DNI. They also expressed interest in transitioning her to hospice or comfort measures if she has recurrence of respiratory distress. 05/01/18: Patient had episodes of tachypnea last night and was relieved with morphine. Discussed with patient and family again this morning and they are co nsidering between inpatient vs home hospice but awaiting for other family members to come in. 05/02/18: Patient is more awake and conversant today. She continues to be on BIPAP. Family has expressed they want to hold off on hospice as she appears more alert today. We did discuss this in length on bedside with patient participating in decision making. Family and patient did express they are interested in pursuing inpatient rehab vs SNF placement and pursue physical therapy and pulmonary rehab for her if she continues to show improvement. Will hold off on plan to transition to hospice for now. Also discussed about her recent NSTEMI and option to do cath and they did verbalize they prefer not to pursue any invasive cardiac testing. Reason For Visit: ACUTE ON CHRONIC RESPIRATORY FAILURE WITH HYPOXIA Physical Exam Vital Signs: Temp Pulse Resp BP Pulse Ox 98.7 F 87 20 110/61 99 05/02/18 12:26 05/02/18 12:26 05/02/18 12:26 05/02/18 12:26 05/02/18 12:26 Intake & Output 05/01/18 05/02/18 05/03/18 06:59 06:59 06:59 Intake Total 1900 2083 250 Output Total 3525 1325 Balance -1625 758 250 Weight 165 lb 2.02 oz 166 lb 3.657 oz General appearance: PRESENT: mild distress Head exam: PRESENT: atraumatic, normocephalic Eye exam: PRESENT: conjunctiva pink, EOMI, PERRLA. ABSENT: scleral icterus Ear exam: PRESENT: normal external ear exam Mouth exam: PRESENT: moist, tongue midline Neck exam: ABSENT: carotid bruit, JVD, lymphadenopathy, thyromegaly Respiratory exam: PRESENT: rhonchi, wheezes - midl occasional wheeze improved from yesterday. ABSENT: rales Cardiovascular exam: PRESENT: RRR. ABSENT: diastolic murmur, rubs, systolic murmur Pulses: PRESENT: normal dorsalis pedis pul GI/Abdominal exam: PRESENT: normal bowel sounds, soft. ABSENT: distended, guarding, mass, organolmegaly, rebound, tenderness Rectal exam: PRESENT: deferred Neurological exam: PRESENT: alert, awake, oriented to person, oriented to place, oriented to time, oriented to situation, CN II-XII grossly intact. ABSENT: motor sensory deficit Results Laboratory Results: 05/02/18 09:00 05/02/18 06:45 05/02/18 05/02/18 05/02/18 01:30 06:45 06:55 WBC RBC Hgb Hct MCV MCH MCHC RDW Plt Count Seg Neutrophils % Lymphocytes % Monocytes % Eosinophils % Basophils % Absolute Neutrophils Absolute Lymphocytes Absolute Monocytes Absolute Eosinophils Absolute Basophils Carbonic Acid 1.22 HCO3/H2CO3 Ratio 22:1 ABG pH 7.45 ABG pCO2 40.4 ABG pO2 131.9 H ABG HCO3 27.1 H ABG O2 Saturation 98.7 H ABG Base Excess 2.9 FiO2 40% Sodium 139.3 140.8 Potassium 3.9 3.9 Chloride 108 H 108 H Carbon Dioxide 30 29 Anion Gap 1 L 3 L BUN 26 H 28 H Creatinine 0.39 L 0.39 L Est GFR ( Amer) > 60 > 60 Est GFR (Non-Af Amer) > 60 > 60 Glucose 156 H 150 H Calcium 6.7 L* 6.6 L* Phosphorus 1.2 L Magnesium 2.2 2.2 05/02/18 09:00 WBC 17.8 H RBC 3.66 L Hgb 11.0 L Hct 32.5 L MCV 89 MCH 29.9 MCHC 33.7 RDW 13.0 Plt Count 256 Seg Neutrophils % Not Reportable Lymphocytes % Not Reportable Monocytes % Not Reportable Eosinophils % Not Reportable Basophils % Not Reportable Absolute Neutrophils Not Reportable Absolute Lymphocytes Not Reportable Absolute Monocytes Not Reportable Absolute Eosinophils Not Reportable Absolute Basophils Not Reportable Carbonic Acid HCO3/H2CO3 Ratio ABG pH ABG pCO2 ABG pO2 ABG HCO3 ABG O2 Saturation ABG Base Excess FiO2 Sodium Potassium Chloride Carbon Dioxide Anion Gap BUN Creatinine Est GFR ( Amer) Est GFR (Non-Af Amer) Glucose Calcium Phosphorus Magnesium 04/25/18 04/25/18 04/25/18 21:09 22:06 22:32 Creatine Kinase 91 CK-MB (CK-2) Troponin I Cancelled 0.787 NT-Pro-B Natriuret Pep Cancelled 256 04/25/18 04/26/18 04/26/18 22:32 04:40 04:40 Creatine Kinase 121 CK-MB (CK-2) 3.26 7.97 H Troponin I Cancelled 1.820 NT-Pro-B Natriuret Pep 04/26/18 04/26/18 04/26/18 10:24 10:24 19:17 Creatine Kinase 171 H 143 H CK-MB (CK-2) 12.50 H Troponin I 2.090 NT-Pro-B Natriuret Pep 04/26/18 04/28/18 04/29/18 19:17 10:00 11:30 Creatine Kinase CK-MB (CK-2) 9.22 H Troponin I 2.020 0.654 0.301 NT-Pro-B Natriuret Pep Impressions: KUB X-Ray 04/26/18 16:45 IMPRESSION: Satisfactory position of nasogastric tube. Head CT 04/27/18 00:00 IMPRESSION: NORMAL BRAIN CT WITHOUT CONTRAST. EVIDENCE OF ACUTE STROKE: NO. Assessment & Plan - Diagnosis (1) Acute respiratory failure with hypoxia and hypercapnia Is this a current diagnosis for this admission?: Yes Plan: Secondary to COPD exacerbation, influenza A and possible pneumonia. Currently saturating well on minimal vent settings. 05/01/18: Patient had episodes of tachypnea last night and was relieved with morphine. Discussed with patient and family again this morning and they are considering between inpatient vs home hospice but awaiting for other family members to come in. 05/02/18: Patient is more awake and conversant today. She continues to be on BIPAP. Family has expressed they want to hold off on hospice as she appears more alert today. We did discuss this in length on bedside with patient participating in decision making. Family and patient did express they are interested in pursuing inpatient rehab vs SNF placement and pursue physical therapy and pulmonary rehab for her if she continues to show improvement. Will hold off on plan to transition to hospice for now. Also discussed about her recent NSTEMI and option to do cath and they did verbalize they prefer not to pursue any invasive cardiac testing. Will plan to start weaning off BIPAP (2 hrs on/2 hrs off) and see if she can tolerate it. (2) COPD exacerbation Is this a current diagnosis for this admission?: Yes Plan: Continue steroids and breathing treatments. Will discontinue IV antibiotics tomorrow (day 7). (3) Influenza A with pneumonia Is this a current diagnosis for this admission?: Yes Plan: Completed 5 days of Tamiflu. (4) Non-STEMI (non-ST elevated myocardial infarction) Is this a current diagnosis for this admission?: Yes Plan: Continue aspirin and Lovenox. Troponins trended down. Cath deferred after discussion with family and patient. (5) Pulmonary congestion Is this a current diagnosis for this admission?: Yes Plan: CXR today shows mild congestion. Will start low dose Lasix. - Time Time Spent with patient: 35 or more minutes
[2018-05-02] MEDS ORDERED: ALPRAZOLAM 0.25 MG TABLET PO PRN (16:00)
[2018-05-02] MEDS ORDERED: BUPROPION HCL 75 MG TABLET PO SCH (16:30)
[2018-05-02] MEDS: FUROSEMIDE INJ/PF 20 MG/2 ML SDV IV SCH (16:41)
[2018-05-02] MEDS: ALBUTEROL SULFATE 0.083% NEB 2.5 MG/3 ML AMPUL NEB PRN (19:42)
[2018-05-02] MEDS: MELATONIN 5 MG TABLET PO PRN (22:50)
[2018-05-02] MEDS: BUPROPION HCL 75 MG TABLET PO SCH (22:55)
[2018-05-03] MEDS: VANCOMYCIN HCL 1,000 MG in DEXTROSE 5%-WATER 250 ML IV SCH ×3 (00:57→14:44)
[2018-05-03] MEDS: AZTREONAM 1 GM in DEXTROSE 5%-WATER 50 ML IV SCH ×2 (06:28→14:44)
[2018-05-03] MEDS: LEVALBUTEROL HCL NEB 1.25 MG/3 ML AMPUL NEB SCH ×3 (07:52→23:49)
[2018-05-03] MEDS: IPRATROPIUM BROMIDE 0.02% NEB 0.5 MG/2.5 ML AMPUL NEB SCH ×3 (07:52→23:50)
[2018-05-03] MEDS: ACETYLCYSTEINE 20% SOLN 800 MG/4 ML VIAL.NEB NEB SCH ×2 (07:52→19:37)
[2018-05-03] MEDS: FUROSEMIDE INJ/PF 20 MG/2 ML SDV IV SCH (10:06)
[2018-05-03] MEDS: ASPIRIN 81 MG TABLET, CHEWABLE PO SCH (10:06)
[2018-05-03] MEDS: METOPROLOL TARTRATE 25 MG TABLET PO SCH ×2 (10:06→22:56)
[2018-05-03] MEDS: NICOTINE 21 MG/24 HR PATCH.TD24 TD SCH (10:07)
[2018-05-03] MEDS: METHYLPREDNISOLONE INJ 40 MG/1 ML SDV IV SCH ×2 (10:07→22:58)
[2018-05-03] MEDS: BUPROPION HCL 75 MG TABLET PO SCH ×2 (10:08→22:58)
[2018-05-03] MEDS: AZITHROMYCIN 500 MG in DEXTROSE 5%-WATER 250 ML IV SCH (10:08)
[2018-05-03] MEDS: ENOXAPARIN SODIUM INJ 80 MG/0.8 ML DISP.SYRIN SUBCUT SCH ×2 (10:09→22:57)
--- NOTE | 2018-05-03 11:56 | RADIOLOGY REPORT (SQ) ---
EXAM DESCRIPTION: CHEST SINGLE VIEW COMPLETED DATE/TIME: 05/03/2018 11:11 am REASON FOR STUDY: congestion COMPARISON: 05/02/2018 EXAM PARAMETERS: NUMBER OF VIEWS: One view. TECHNIQUE: Single frontal radiographic view of the chest acquired. RADIATION DOSE: NA LIMITATIONS: None. FINDINGS: LUNGS AND PLEURA: Bilateral pleural effusions again noted. MEDIASTINUM AND HILAR STRUCTURES: No masses. Contour normal. HEART AND VASCULAR STRUCTURES: The heart remains unchanged in size. Persistent pulmonary vascular co ngestion. BONES: No acute findings. HARDWARE: None in the chest. OTHER: Right IJ line overlying SVC. IMPRESSION: Borderline congestive failure. Bilateral pleural effusions. TECHNICAL DOCUMENTATION: JOB ID: [id number] [employer]- All Rights Reserved Reading location - IP/workstation name: [email or web address]
[2018-05-03] MEDS ORDERED: FUROSEMIDE INJ/PF 20 MG/2 ML SDV IV ONE (14:06)
--- NOTE | 2018-05-03 14:22 | PDOC PROGRESS REPORT ---
Subjective Progress Note for:: 05/03/18 Subjective:: This is a 72 yr old with a past medical history of COPD, hyperlipidemia, hypertension and hypothyroidism who initially presented with increasing shortness of breath and cough. Patient was initially placed on BiPAP in the ER but she continued to decompensate. She was noted to be hypoxic and also had respiratory acidosis and was subsequently intubated. She was treated for COPD exacerbation. Her initial x-ray also showed questionable right basilar opacity. Flu testing also came back positive for influenza A. Patient's troponin also trended up to 2.0 and she was treated for possible NSTEMI. Patient extubated on 04/30/18 successfully and was transitioned to BIPAP. Plan of care discussed in length with family and pulmonology and patient also expressed she wants to be DNR/DNI. They also expressed interest in transitioning her to hospice or comfort measures if she has recurrence of respiratory distress. 05/01/18: Patient had episodes of tachypnea last night and was relieved with morphine. Discussed with patient and family again this morning and they are co nsidering between inpatient vs home hospice but awaiting for other family members to come in. 05/02/18: Patient is more awake and conversant today. She continues to be on BIPAP. Family has expressed they want to hold off on hospice as she appears more alert today. We did discuss this in length on bedside with patient participating in decision making. Family and patient did express they are interested in pursuing inpatient rehab vs SNF placement and pursue physical therapy and pulmonary rehab for her if she continues to show improvement. Will hold off on plan to transition to hospice for now. Also discussed about her recent NSTEMI and option to do cath and they did verbalize they prefer not to pursue any invasive cardiac testing. 05/03/18: Patient appears comfortable on BIPAP but has been BIPAP dependent since extubation. She is more awake and coherent today. Denies chest pain. Plan to try weaning her off BIPAP today. Reason For Visit: ACUTE ON CHRONIC RESPIRATORY FAILURE WITH HYPOXIA Physical Exam Vital Signs: Temp Pulse Resp BP Pulse Ox 98.8 F 84 18 110/58 L 99 05/03/18 03:28 05/03/18 07:55 05/03/18 07:55 05/03/18 03:28 05/03/18 07:55 Intake & Output 05/02/18 05/03/18 05/04/18 06:59 06:59 06:59 Intake Total 2083 1100 550 Output Total 1325 3650 Balance 758 -2550 550 Weight 166 lb 3.657 oz 166 lb 3.657 oz General appearance: PRESENT: no acute distress, well-developed, well-nourished Head exam: PRESENT: atraumatic, normocephalic Eye exam: PRESENT: conjunctiva pink, EOMI, PERRLA. ABSENT: scleral icterus Ear exam: PRESENT: normal external ear exam Mouth exam: PRESENT: moist, tongue midline Neck exam: ABSENT: carotid bruit, JVD, lymphadenopathy, thyromegaly Respiratory exam: PRESENT: rhonchi, wheezes. ABSENT: rales Cardiovascular exam: PRESENT: RRR. ABSENT: diastolic murmur, rubs, systolic murmur Pulses: PRESENT: normal dorsalis pedis pul GI/Abdominal exam: PRESENT: normal bowel sounds, soft. ABSENT: distended, guarding, mass, organolmegaly, rebound, tenderness Rectal exam: PRESENT: deferred Neurological exam: PRESENT: alert, awake, oriented to person, oriented to place, oriented to time, CN II-XII grossly intact. ABSENT: motor sensory deficit Results Laboratory Results: 05/02/18 09:00 05/02/18 06:45 04/25/18 04/25/18 04/25/18 21:09 22:06 22:32 Creatine Kinase 91 CK-MB (CK-2) Troponin I Cancelled 0.787 NT-Pro-B Natriuret Pep Cancelled 256 04/25/18 04/26/18 04/26/18 22:32 04:40 04:40 Creatine Kinase 121 CK-MB (CK-2) 3.26 7.97 H Troponin I Cancelled 1.820 NT-Pro-B Natriuret Pep 04/26/18 04/26/18 04/26/18 10:24 10:24 19:17 Creatine Kinase 171 H 143 H CK-MB (CK-2) 12.50 H Troponin I 2.090 NT-Pro-B Natriuret Pep 04/26/18 04/28/18 04/29/18 19:17 10:00 11:30 Creatine Kinase CK-MB (CK-2) 9.22 H Troponin I 2.020 0.654 0.301 NT-Pro-B Natriuret Pep Impressions: KUB X-Ray 04/26/18 16:45 IMPRESSION: Satisfactory position of nasogastric tube. Head CT 04/27/18 00:00 IMPRESSION: NORMAL BRAIN CT WITHOUT CONTRAST. EVIDENCE OF ACUTE STROKE: NO. Chest X-Ray 05/03/18 09:52 IMPRESSION: Borderline congestive failure. Bilateral pleural effusions. Assessment & Plan - Diagnosis (1) Acute respiratory failure with hypoxia and hypercapnia Is this a current diagnosis for this admission?: Yes Plan: Secondary to COPD exacerbation, influenza A and possible pneumonia. Currently saturating well on minimal vent settings. 05/01/18: Patient had episodes of tachypnea last night and was relieved with morphine. Discussed with patient and family again this morning and they are cons idering between inpatient vs home hospice but awaiting for other family members to come in. 05/02/18: Patient is more awake and conversant today. She continues to be on BIPAP. Family has expressed they want to hold off on hospice as she appears more alert today. We did discuss this in length on bedside with patient participating in decision making. Family and patient did express they are interested in pursuing inpatient rehab vs SNF placement and pursue physical therapy and pulmonary rehab for her if she continues to show improvement. Will hold off on plan to transition to hospice for now. Also discussed about her recent NSTEMI and option to do cath and they did verbalize they prefer not to pursue any invasive cardiac testing. 05/03/18: Patient appears comfortable on BIPAP but has been BIPAP dependent since extubation. Plan to reattempt weaning her off BIPAP today. (2) COPD exacerbation Is this a current diagnosis for this admission?: Yes Plan: Continue steroids and breathing treatments. Will discontinue IV antibiotics today. (3) Influenza A with pneumonia Is this a current diagnosis for this admission?: Yes Plan: Completed 5 days of Tamiflu. (4) Non-STEMI (non-ST elevated myocardial infarction) Is this a current diagnosis for this admission?: Yes Plan: Continue aspirin and Lovenox. Troponins trended down. Cath deferred after discussion with family and patient. (5) Pulmonary congestion Is this a current diagnosis for this admission?: Yes Plan: CXR today still shows congestion. Increase IV Lasix 40 mg daily. - Time Time Spent with patient: 25-34 minutes
[2018-05-03 19:31] LABS: HEMATOCRIT 33.7 % (36.0-47.0); HEMOGLOBIN 11.4 g/dL (12.0-15.5); MEAN CORPUSCULAR HEMOGLOBIN 29.7 pg (27.0-33.4); MEAN CORPUSCULAR HGB CONC 33.8 g/dL (32.0-36.0); MEAN CORPUSCULAR VOLUME 88 fl (80-97); PLATELET COUNT 274 10^3/uL (150-450); RED BLOOD COUNT 3.84 10^6/uL (3.72-5.28); RED CELL DISTRIBUTION WIDTH 12.8 % (11.5-14.0); WHITE BLOOD COUNT 18.4 10^3/uL (4.0-10.5)
[2018-05-03] MEDS: ALBUTEROL SULFATE 0.083% NEB 2.5 MG/3 ML AMPUL NEB PRN (19:37)
[2018-05-03 19:49] LABS: ALANINE AMINOTRANSFERASE 81 U/L (9-52); ALBUMIN 2.8 g/dL (3.5-5.0); ALKALINE PHOSPHATASE 54 U/L (38-126); ASPARTATE AMINO TRANSFERASE 21 U/L (14-36); BILIRUBIN,DIRECT 0.2 mg/dL (0.0-0.4); BILIRUBIN,TOTAL 0.8 mg/dL (0.2-1.3); BLOOD UREA NITROGEN 19 mg/dL (7-20); GLUCOSE 141 mg/dL (75-110); POTASSIUM 3.6 mmol/L (3.6-5.0); TOTAL PROTEIN 4.9 g/dL (6.3-8.2)
[2018-05-03 19:52] LABS: ABSOLUTE LYMPHOCYTES# (MANUAL) 2.4 10^3/uL (0.5-4.7); ABSOLUTE MONOCYTES # (MANUAL) 1.1 10^3/uL (0.1-1.4); ABSOLUTE NEUTROPHILS# (MANUAL) 14.9 10^3/uL (1.7-8.2); BASOPHILS % (MANUAL) 0 % (0-2); EOSINOPHILS % (MANUAL) 0 % (0-6); LYMPHOCYTES % (MANUAL) 13 % (13-45); MONOCYTES % (MANUAL) 6 % (3-13); SEGMENTED NEUTROPHILS % (MAN) 81 % (42-78); TOTAL CELLS COUNTED 100
[2018-05-03 19:53] LABS: PLATELET COMMENT ADEQUATE; RBC MORPHOLOGY COMMENT NORMO-CYTIC/CHROMIC
[2018-05-03 19:54] LABS: CARBON DIOXIDE 25 mmol/L (22-30); CHLORIDE 105 mmol/L (98-107); SODIUM 134.1 mmol/L (137-145)
[2018-05-03 19:56] LABS: ANION GAP 4 (5-19)
[2018-05-03 19:57] LABS: CALCIUM 6.3 mg/dL (8.4-10.2)
[2018-05-03] MEDS ORDERED: CALCIUM GLUCONATE 2,222 MG in DEXTROSE 5%-WATER 100 ML IV ONE (19:59)
[2018-05-03] MEDS ORDERED: CALCIUM GLUCONATE 1000 MG/10 ML INJ IV PRN ×2 (20:14→23:45)
[2018-05-03] MEDS: MELATONIN 5 MG TABLET PO PRN (22:56)
[2018-05-04 01:17] LABS: APPEARANCE,URINE CLEAR; BILIRUBIN,URINE NEGATIVE (NEGATIVE); COLOR,URINE YELLOW; GLUCOSE, URINE NEGATIVE (NEGATIVE); KETONES,URINE NEGATIVE (NEGATIVE); LEUKOCYTE ESTERASE,URINE NEGATIVE (NEGATIVE); NITRITE,URINE NEGATIVE (NEGATIVE); PROTEIN,URINE NEGATIVE (NEGATIVE); URINE SPECIFIC GRAVITY 1.012
[2018-05-04] MEDS: AZTREONAM 1 GM in DEXTROSE 5%-WATER 50 ML IV SCH ×2 (01:28→05:14)
[2018-05-04] MEDS: VANCOMYCIN HCL 1,000 MG in DEXTROSE 5%-WATER 250 ML IV SCH ×2 (02:10→05:55)
[2018-05-04 07:49] LABS: HEMATOCRIT 32.6 % (36.0-47.0); MEAN CORPUSCULAR HEMOGLOBIN 29.9 pg (27.0-33.4); MEAN CORPUSCULAR HGB CONC 33.6 g/dL (32.0-36.0); MEAN CORPUSCULAR VOLUME 89 fl (80-97); PLATELET COUNT 263 10^3/uL (150-450); RED BLOOD COUNT 3.67 10^6/uL (3.72-5.28); RED CELL DISTRIBUTION WIDTH 12.8 % (11.5-14.0); WHITE BLOOD COUNT 17.6 10^3/uL (4.0-10.5)
[2018-05-04] MEDS: LEVALBUTEROL HCL NEB 1.25 MG/3 ML AMPUL NEB SCH ×2 (08:07→16:26)
[2018-05-04] MEDS: ACETYLCYSTEINE 20% SOLN 800 MG/4 ML VIAL.NEB NEB SCH ×2 (08:07→20:47)
[2018-05-04] MEDS: IPRATROPIUM BROMIDE 0.02% NEB 0.5 MG/2.5 ML AMPUL NEB SCH ×2 (08:07→16:26)
[2018-05-04] MEDS: ENOXAPARIN SODIUM INJ 80 MG/0.8 ML DISP.SYRIN SUBCUT SCH ×2 (09:20→22:50)
[2018-05-04] MEDS: METHYLPREDNISOLONE INJ 40 MG/1 ML SDV IV SCH (09:20)
[2018-05-04] MEDS: FUROSEMIDE INJ/PF 20 MG/2 ML SDV IV SCH (09:22)
[2018-05-04] MEDS: AZITHROMYCIN 500 MG in DEXTROSE 5%-WATER 250 ML IV SCH (09:22)
[2018-05-04] MEDS: NICOTINE 21 MG/24 HR PATCH.TD24 TD SCH (09:23)
[2018-05-04] MEDS: METOPROLOL TARTRATE 25 MG TABLET PO SCH ×2 (09:23→22:49)
[2018-05-04] MEDS: ASPIRIN 81 MG TABLET, CHEWABLE PO SCH (09:24)
[2018-05-04] MEDS: BUPROPION HCL 75 MG TABLET PO SCH ×2 (09:24→22:51)
[2018-05-04 09:47] LABS: BLOOD UREA NITROGEN 20 mg/dL (7-20); CARBON DIOXIDE 28 mmol/L (22-30); CHLORIDE 104 mmol/L (98-107); GLUCOSE 125 mg/dL (75-110); PHOSPHORUS 1.9 mg/dL (2.5-4.5); POTASSIUM 3.9 mmol/L (3.6-5.0)
[2018-05-04 09:53] LABS: SODIUM 135.5 mmol/L (137-145)
[2018-05-04 09:55] LABS: ANION GAP 4 (5-19)
[2018-05-04 09:56] LABS: CALCIUM 6.8 mg/dL (8.4-10.2)
--- NOTE | 2018-05-04 11:06 | RADIOLOGY REPORT (SQ) ---
EXAM DESCRIPTION: CHEST SINGLE VIEW COMPLETED DATE/TIME: 05/04/2018 10:54 am REASON FOR STUDY: reassess congestion COMPARISON: Chest films 05/03/2018, 05/02/2018, 04/29/2018 11/17/2017, 04/29/2018, 05/02/2018, 05/03/2018 EXAM PARAMETERS: NUMBER OF VIEWS: One view. TECHNIQUE: Single frontal radiographic view of the chest acquired. RADIATION DOSE: NA LIMITATIONS: None. FINDINGS: LUNGS AND PLEURA: Trace pleural effusions are present, similar compared to prior studies. There is mild pulmonary vascular congestion without alveolar or interstitial edema. No pneumothorax. MEDIASTINUM AND HILAR STRUCTURES: No masses. Contour normal. HEART AND VASCULAR STRUCTURES: No cardiomegaly BONES: No acute findings. HARDWARE: Right jugular central line tip superior vena cava. OTHER: No other significant finding. IMPRESSION: Trace persistent bilateral pleural effusions. TECHNICAL DOCUMENTATION: JOB ID: [id number] [employer]- All Rights Reserved Reading location - IP/workstation name: [email or web address]
[2018-05-04] MEDS: PHOSPHORUS #1 250 MG TABLET PO SCH ×3 (12:48→22:49)
--- NOTE | 2018-05-04 13:54 | PDOC PROGRESS REPORT ---
Subjective Progress Note for:: 05/04/18 Subjective:: This is a 72 yr old with a past medical history of COPD, hyperlipidemia, hypertension and hypothyroidism who initially presented with increasing shortness of breath and cough. Patient was initially placed on BiPAP in the ER but she continued to decompensate. She was noted to be hypoxic and also had respiratory acidosis and was subsequently intubated. She was treated for COPD exacerbation. Her initial x-ray also showed questionable right basilar opacity. Flu testing also came back positive for influenza A. Patient's troponin also trended up to 2.0 and she was treated for possible NSTEMI. Patient extubated on 04/30/18 successfully and was transitioned to BIPAP. Plan of care discussed in length with family and pulmonology and patient also expressed she wants to be DNR/DNI. They also expressed interest in transitioning her to hospice or comfort measures if she has recurrence of respiratory distress. 05/01/18: Patient had episodes of tachypnea last night and was relieved with morphine. Discussed with patient and family again this morning and they are co nsidering between inpatient vs home hospice but awaiting for other family members to come in. 05/02/18: Patient is more awake and conversant today. She continues to be on BIPAP. Family has expressed they want to hold off on hospice as she appears more alert today. We did discuss this in length on bedside with patient participating in decision making. Family and patient did express they are interested in pursuing inpatient rehab vs SNF placement and pursue physical therapy and pulmonary rehab for her if she continues to show improvement. Will hold off on plan to transition to hospice for now. Also discussed about her recent NSTEMI and option to do cath and they did verbalize they prefer not to pursue any invasive cardiac testing. 05/03/18: Patient appears comfortable on BIPAP but has been BIPAP dependent since extubation. She is more awake and coherent today. Denies chest pain. Plan to try weaning her off BIPAP today. 05/04/18: No acute event overnight. Patient is doing much better and is now more conversant and making jokes. She has been off BIPAP this morning and is comfortable and saturating well on nasal cannula. If she continues to do well off BIPAP, she will be deemed likely fir for discharge to SNF/rehab in the next 24-48 hrs. Reason For Visit: ACUTE ON CHRONIC RESPIRATORY FAILURE WITH HYPOXIA Physical Exam Vital Signs: Temp Pulse Resp BP Pulse Ox 97.9 F 70 18 126/72 H 100 05/04/18 11:45 05/04/18 11:45 05/04/18 11:45 05/04/18 11:45 05/04/18 11:45 Intake & Output 05/03/18 05/04/18 05/05/18 06:59 06:59 06:59 Intake Total 1100 1322.22 500 Output Total 3650 760 Balance -2550 562.22 500 Weight 166 lb 3.657 oz 163 lb 9.328 oz General appearance: PRESENT: no acute distress, well-developed, well-nourished Head exam: PRESENT: atraumatic, normocephalic Eye exam: PRESENT: conjunctiva pink, EOMI, PERRLA. ABSENT: scleral icterus Ear exam: PRESENT: normal external ear exam Mouth exam: PRESENT: moist, tongue midline Neck exam: ABSENT: carotid bruit, JVD, lymphadenopathy, thyromegaly Respiratory exam: PRESENT: rhonchi, wheezes - mild wheezes on the left, much improved from yesterday. ABSENT: rales Cardiovascular exam: PRESENT: RRR. ABSENT: diastolic murmur, rubs, systolic murmur Pulses: PRESENT: normal dorsalis pedis pul GI/Abdominal exam: PRESENT: normal bowel sounds, soft. ABSENT: distended, guarding, mass, organolmegaly, rebound, tenderness Rectal exam: PRESENT: deferred Neurological exam: PRESENT: alert, awake, oriented to person, oriented to place, oriented to time, CN II-XII grossly intact. ABSENT: motor sensory deficit Results Laboratory Results: 05/04/18 06:28 05/04/18 08:52 05/03/18 05/03/18 05/03/18 19:20 19:20 19:20 WBC 18.4 H RBC 3.84 Hgb 11.4 L Hct 33.7 L MCV 88 MCH 29.7 MCHC 33.8 RDW 12.8 Plt Count 274 Seg Neutrophils % Not Reportable Lymphocytes % Not Reportable Monocytes % Not Reportable Eosinophils % Not Reportable Basophils % Not Reportable Absolute Neutrophils Not Reportable Absolute Lymphocytes Not Reportable Absolute Monocytes Not Reportable Absolute Eosinophils Not Reportable Absolute Basophils Not Reportable Sodium 134.1 L Potassium 3.6 Chloride 105 Carbon Dioxide 25 Anion Gap 4 L BUN 19 Creatinine 0.35 L Est GFR ( Amer) > 60 Est GFR (Non-Af Amer) > 60 Glucose 141 H Calcium 6.3 L* Phosphorus Magnesium 1.7 Total Bilirubin 0.8 AST 21 ALT 81 H Alkaline Phosphatase 54 Total Protein 4.9 L Albumin 2.8 L Urine Color Urine Appearance Urine pH Ur Specific [place] Urine Protein Urine Glucose (UA) Urine Ketones Urine Blood Urine Nitrite Ur Leukocyte Esterase Urine WBC (Auto) Urine RBC (Auto) 05/04/18 05/04/18 05/04/18 00:25 06:28 08:52 WBC 17.6 H RBC 3.67 L Hgb 11.0 L Hct 32.6 L MCV 89 MCH 29.9 MCHC 33.6 RDW 12.8 Plt Count 263 Seg Neutrophils % Lymphocytes % Monocytes % Eosinophils % Basophils % Absolute Neutrophils Absolute Lymphocytes Absolute Monocytes Absolute Eosinophils Absolute Basophils Sodium 135.5 L Potassium 3.9 Chloride 104 Carbon Dioxide 28 Anion Gap 4 L BUN 20 Creatinine 0.37 L Est GFR ( Amer) > 60 Est GFR (Non-Af Amer) > 60 Glucose 125 H Calcium 6.8 L* Phosphorus 1.9 L Magnesium Total Bilirubin AST ALT Alkaline Phosphatase Total Protein Albumin Urine Color YELLOW Urine Appearance CLEAR Urine pH 8.0 Ur Specific [place] 1.012 Urine Protein NEGATIVE Urine Glucose (UA) NEGATIVE Urine Ketones NEGATIVE Urine Blood NEGATIVE Urine Nitrite NEGATIVE Ur Leukocyte Esterase NEGATIVE Urine WBC (Auto) 2 Urine RBC (Auto) 4 04/25/18 04/25/18 04/25/18 21:09 22:06 22:32 Creatine Kinase 91 CK-MB (CK-2) Troponin I Cancelled 0.787 NT-Pro-B Natriuret Pep Cancelled 256 04/25/18 04/26/18 04/26/18 22:32 04:40 04:40 Creatine Kinase 121 CK-MB (CK-2) 3.26 7.97 H Troponin I Cancelled 1.820 NT-Pro-B Natriuret Pep 04/26/18 04/26/18 04/26/18 10:24 10:24 19:17 Creatine Kinase 171 H 143 H CK-MB (CK-2) 12.50 H Troponin I 2.090 NT-Pro-B Natriuret Pep 04/26/18 04/28/18 04/29/18 19:17 10:00 11:30 Creatine Kinase CK-MB (CK-2) 9.22 H Troponin I 2.020 0.654 0.301 NT-Pro-B Natriuret Pep Impressions: KUB X-Ray 04/26/18 16:45 IMPRESSION: Satisfactory position of nasogastric tube. Head CT 04/27/18 00:00 IMPRESSION: NORMAL BRAIN CT WITHOUT CONTRAST. EVIDENCE OF ACUTE STROKE: NO. Chest X-Ray 05/04/18 10:25 IMPRESSION: Trace persistent bilateral pleural effusions. Assessment & Plan - Diagnosis (1) Acute respiratory failure with hypoxia and hypercapnia Is this a current diagnosis for this admission?: Yes Plan: Secondary to COPD exacerbation, influenza A and possible pneumonia. Currently saturating well on minimal vent settings. 05/01/18: Patient had episodes of tachypnea last night and was relieved with morphine. Discussed with patient and family again this morning and they are considering between inpatient vs home hospice but awaiting for other family members to come in. 05/02/18: Patient is more awake and conversant today. She continues to be on BIPAP. Family has expressed they want to hold off on hospice as she appears more alert today. We did discuss this in length on bedside with patient participating in decision making. Family and patient did express they are interested in pursuing inpatient rehab vs SNF placement and pursue physical therapy and pulmonary rehab for her if she continues to show improvement. Will hold off on plan to transition to hospice for now. Also discussed about her recent NSTEMI and option to do cath and they did verbalize they prefer not to pursue any invasive cardiac testing. 05/03/18: Patient appears comfortable on BIPAP but has been BIPAP dependent since extubation. Plan to reattempt weaning her off BIPAP today. 05/04/18:Patient is doing much better and is now more conversant and making jokes. She has been off BIPAP this morning and is comfortable and saturating well on nasal cannula. If she continues to do well off BIPAP, she will be deemed likely fit for discharge to SNF/rehab in the next 24-48 hrs. (2) COPD exacerbation Is this a current diagnosis for this admission?: Yes Plan: Reduce solumedrol to 40 mg daily. IV antibiotics discontinued. (3) Influenza A with pneumonia Is this a current diagnosis for this admission?: Yes Plan: Completed 5 days of Tamiflu. (4) Non-STEMI (non-ST elevated myocardial infarction) Is this a current diagnosis for this admission?: Yes Plan: Continue aspirin and Lovenox. Troponins trended down. Cath deferred after discussion with family and patient. (5) Pulmonary congestion Is this a current diagnosis for this admission?: Yes Plan: CXR shows improvement of congestion. Continue IV Lasix 40 mg daily. - Time Time Spent with patient: 25-34 minutes
[2018-05-04] MEDS: ALBUTEROL SULFATE 0.083% NEB 2.5 MG/3 ML AMPUL NEB PRN (20:48)
[2018-05-04] MEDS: MELATONIN 5 MG TABLET PO PRN (22:49)
[2018-05-04] MEDS: NORMAL SALINE 1000 ML 1,000 ML IV PRN (23:51)
[2018-05-05] MEDS: LEVALBUTEROL HCL NEB 1.25 MG/3 ML AMPUL NEB SCH ×4 (00:35→23:41)
[2018-05-05] MEDS: IPRATROPIUM BROMIDE 0.02% NEB 0.5 MG/2.5 ML AMPUL NEB SCH ×4 (00:35→23:41)
[2018-05-05] MEDS ORDERED: NITROGLYCERIN 0.4 MG/TAB 25 TAB/BOTTLE ONE (01:22)
[2018-05-05] MEDS ORDERED: NITROGLYCERIN 0.4 MG/TAB 25 TAB/BOTTLE SL ONE (01:45)
[2018-05-05] MEDS: ACETYLCYSTEINE 20% SOLN 800 MG/4 ML VIAL.NEB NEB SCH (08:19)
[2018-05-05] MEDS: PHOSPHORUS #1 250 MG TABLET PO SCH ×4 (08:51→22:58)
[2018-05-05] MEDS ORDERED: BENAZEPRIL PO SCH (10:00)
[2018-05-05] MEDS ORDERED: METHYLPREDNISOLONE INJ 40 MG/1 ML SDV IV SCH (10:00)
[2018-05-05] MEDS ORDERED: [UNRECOGNIZED DRUG - OTHER] PO SCH (10:00)
[2018-05-05] MEDS ORDERED: HYDROCHLOROTHIAZIDE PO SCH (10:00)
[2018-05-05] MEDS ORDERED: (PENDING PHARMACY ID) (Potassium Chloride [Klor-Con M10] 10 MEQ) PO SCH (10:00)
[2018-05-05] MEDS: HYDROCHLOROTHIAZIDE 12.5 MG TABLET PO SCH (10:11)
[2018-05-05] MEDS: BUPROPION HCL 75 MG TABLET PO SCH ×2 (10:12→22:58)
[2018-05-05] MEDS: CETIRIZINE 10 MG TABLET PO SCH (10:12)
[2018-05-05] MEDS: ASPIRIN 81 MG TABLET, CHEWABLE PO SCH (10:12)
[2018-05-05] MEDS: FUROSEMIDE INJ/PF 20 MG/2 ML SDV IV SCH (10:12)
[2018-05-05] MEDS: ATORVASTATIN CALCIUM 10 MG TABLET PO SCH (10:12)
[2018-05-05] MEDS: POTASSIUM CHLORIDE 10 MEQ CAPSULE.ER PO SCH (10:12)
[2018-05-05] MEDS: BUDESONIDE/FORMOTEROL 160-4.5 MCG 60 PUFF/6 GM MDI IH SCH ×2 (10:13→22:59)
[2018-05-05] MEDS: NICOTINE 21 MG/24 HR PATCH.TD24 TD SCH (10:13)
[2018-05-05] MEDS: NORMAL SALINE 1000 ML 1,000 ML IV PRN (10:21)
[2018-05-05] MEDS: ENOXAPARIN SODIUM INJ 80 MG/0.8 ML DISP.SYRIN SUBCUT SCH ×2 (10:22→23:09)
[2018-05-05] MEDS: METOPROLOL TARTRATE 25 MG TABLET PO SCH ×2 (10:24→22:58)
[2018-05-05] MEDS: TIOTROPIUM BROMIDE DPI 5 CAP/KIT (18 MCG/CAP) IH SCH (11:32)
[2018-05-05] MEDS: ALBUTEROL SULFATE HFA (90 MCG/PUFF) 200 PUFF/8.5 GM MDI IH SCH ×3 (11:32→23:00)
--- NOTE | 2018-05-05 15:26 | PDOC PROGRESS REPORT ---
Subjective Progress Note for:: 05/05/18 Subjective:: This is a 72 yr old with a past medical history of COPD, hyperlipidemia, hypertension and hypothyroidism who initially presented with increasing shortness of breath and cough. Patient was initially placed on BiPAP in the ER but she continued to decompensate. She was noted to be hypoxic and also had respiratory acidosis and was subsequently intubated. She was treated for COPD exacerbation. Her initial x-ray also showed questionable right basilar opacity. Flu testing also came back positive for influenza A. Patient's troponin also trended up to 2.0 and she was treated for possible NSTEMI. Patient extubated on 04/30/18 successfully and was transitioned to BIPAP. Plan of care discussed in length with family and pulmonology and patient also expressed she wants to be DNR/DNI. They also expressed interest in transitioning her to hospice or comfort measures if she has recurrence of respiratory distress. 05/01/18: Patient had episodes of tachypnea last night and was relieved with morphine. Discussed with patient and family again this morning and they are c onsidering between inpatient vs home hospice but awaiting for other family members to come in. 05/02/18: Patient is more awake and conversant today. She continues to be on BIPAP. Family has expressed they want to hold off on hospice as she appears more alert today. We did discuss this in length on bedside with patient participating in decision making. Family and patient did express they are interested in pursuing inpatient rehab vs SNF placement and pursue physical therapy and pulmonary rehab for her if she continues to show improvement. Will hold off on plan to transition to hospice for now. Also discussed about her recent NSTEMI and option to do cath and they did verbalize they prefer not to pursue any invasive cardiac testing. 05/03/18: Patient appears comfortable on BIPAP but has been BIPAP dependent since extubation. She is more awake and coherent today. Denies chest pain. Plan to try weaning her off BIPAP today. 05/04/18: No acute event overnight. Patient is doing much better and is now more conversant and making jokes. She has been off BIPAP this morning and is comfortable and saturating well on nasal cannula. If she continues to do well off BIPAP, she will be deemed likely fir for discharge to SNF/rehab in the next 24-48 hrs. 05/15/2018-no acute events in the last 24 hours. Patient is afebrile. Swallowing evaluation was done the recommendation is to start on mechanical soft diet. Patient is on nasal cannula pulse ox is 94% on 4 L. Patient is using the BiPAP on and off. Physical therapy consult was requested. Reason For Visit: ACUTE ON CHRONIC RESPIRATORY FAILURE WITH HYPOXIA Physical Exam Vital Signs: Temp Pulse Resp BP Pulse Ox 98 F 78 20 122/63 94 05/05/18 12:00 05/05/18 12:00 05/05/18 12:00 05/05/18 12:00 05/05/18 12:00 Intake & Output 05/04/18 05/05/18 05/06/18 06:59 06:59 06:59 Intake Total 1322.22 500 1000 Output Total 760 3800 Balance 562.22 -3300 1000 Weight 74.2 kg 61.2 kg General appearance: PRESENT: no acute distress Head exam: PRESENT: atraumatic Eye exam: PRESENT: PERRLA Mouth exam: PRESENT: moist Neck exam: ABSENT: carotid bruit, JVD, lymphadenopathy, thyromegaly Respiratory exam: PRESENT: decreased breath sounds Cardiovascular exam: PRESENT: tachycardia GI/Abdominal exam: PRESENT: normal bowel sounds, soft. ABSENT: distended, guarding, mass, organolmegaly, rebound, tenderness Extremities exam: PRESENT: full ROM. ABSENT: calf tenderness, clubbing, pedal edema Neurological exam: PRESENT: alert, awake, oriented to person, oriented to place, oriented to time, oriented to situation, CN II-XII grossly intact. ABSENT: motor sensory deficit Psychiatric exam: PRESENT: appropriate affect, normal mood. ABSENT: homicidal ideation, suicidal ideation Results Laboratory Results: 05/04/18 06:28 05/04/18 08:52 04/25/18 04/25/18 04/25/18 21:09 22:06 22:32 Creatine Kinase 91 CK-MB (CK-2) Troponin I Cancelled 0.787 NT-Pro-B Natriuret Pep Cancelled 256 04/25/18 04/26/18 04/26/18 22:32 04:40 04:40 Creatine Kinase 121 CK-MB (CK-2) 3.26 7.97 H Troponin I Cancelled 1.820 NT-Pro-B Natriuret Pep 12/04/26/18 04/26/18 10:24 10:24 19:17 Creatine Kinase 171 H 143 H CK-MB (CK-2) 12.50 H Troponin I 2.090 NT-Pro-B Natriuret Pep 04/26/18 04/28/18 04/29/18 19:17 10:00 11:30 Creatine Kinase CK-MB (CK-2) 9.22 H Troponin I 2.020 0.654 0.301 NT-Pro-B Natriuret Pep Impressions: KUB X-Ray 04/26/18 16:45 IMPRESSION: Satisfactory position of nasogastric tube. Head CT 04/27/18 00:00 IMPRESSION: NORMAL BRAIN CT WITHOUT CONTRAST. EVIDENCE OF ACUTE STROKE: NO. Chest X-Ray 05/04/18 10:25 IMPRESSION: Trace persistent bilateral pleural effusions. Assessment & Plan - Diagnosis (1) Acute respiratory failure with hypoxia and hypercapnia Is this a current diagnosis for this admission?: Yes Plan: -Secondary to COPD exacerbation, influenza A and possible pneumonia. Currently saturating well on minimal vent settings. 05/01/18: Patient had episodes of tachypnea last night and was relieved with morphine. Discussed with patient and family again this morning and they are considering between inpatient vs home hospice but awaiting for other family members to come in. 05/02/18: Patient is more awake and conversant today. She continues to be on BIPAP. Family has expressed they want to hold off on hospice as she appears more alert today. We did discuss this in length on bedside with patient participating in decision making. Family and patient did express they are interested in p ursuing inpatient rehab vs SNF placement and pursue physical therapy and pulmonary rehab for her if she continues to show improvement. Will hold off on plan to transition to hospice for now. Also discussed about her recent NSTEMI and option to do cath and they did verbalize they prefer not to pursue any invasive cardiac testing. 05/03/18: Patient appears comfortable on BIPAP but has been BIPAP dependent since extubation. Plan to reattempt weaning her off BIPAP today. 05/04/18:Patient is doing much better and is now more conversant and making jokes. She has been off BIPAP this morning and is comfortable and saturating well on nasal cannula. If she continues to do well off BIPAP, she will be deemed likely fit for discharge to SNF/rehab in the next 24-48 hrs. 05/05/2018-she is comfortably in the bed not in distress pulse ox is 94% on 4 L she is using the BiPAP on and off BiPAP requirements are gradually going down every day. Physical therapy consult was requested probably to send her to snf. Should is on regular scheduled breathing treatments and IV Solu-Medrol 40 mg daily. stopped Solu-Medrol and started on prednisone 10 mg p.o. twice daily. (2) COPD exacerbation Is this a current diagnosis for this admission?: Yes Plan: 05/05/2018-patient is admitted with COPD exacerbation Solu-Medrol was changed to prednisone 10 mg p.o. twice daily. She is off the antibiotics. She is afebrile. (3) Influenza Is this a current diagnosis for this admission?: Yes Plan: 05/05/2018-was positive for influenza A at the time of admission completed 5 days course of Tamiflu. (4) Pulmonary congestion Is this a current diagnosis for this admission?: Yes Plan: 05/05/2018 patient is in IV Lasix 40 mg daily, she is also on IV fluids at 100 cc/h stopped IV fluids. Chest x-ray shows trace bilateral pleural effusions. Lasix is discontinued today. Plan to repeat the chest x-ray tomorrow. - Time Time Spent with patient: 15-24 minutes Medications reviewed and adjusted accordingly: Yes Anticipated discharge: SNF
[2018-05-05] MEDS: PREDNISONE 10 MG TABLET PO SCH (17:46)
[2018-05-05] MEDS: NYSTATIN 500000 UNIT/5 ML UDCUP PO SCH (17:46)
--- NOTE | 2018-05-05 17:48 | RADIOLOGY REPORT (SQ) ---
EXAM DESCRIPTION: CHEST SINGLE VIEW COMPLETED DATE/TIME: 05/05/2018 5:27 pm REASON FOR STUDY: pneumonia COMPARISON: 05/04/2018 EXAM PARAMETERS: NUMBER OF VIEWS: One view. TECHNIQUE: Single frontal radiographic view of the chest acquired. RADIATION DOSE: NA LIMITATIONS: None. FINDINGS: LUNGS AND PLEURA: Increased opacification the left base. Small pleural effusions bilatera lly. MEDIASTINUM AND HILAR STRUCTURES: No masses. Contour normal. HEART AND VASCULAR STRUCTURES: Heart normal in size. Normal vasculature. BONES: No acute findings. HARDWARE: Right-sided catheter. OTHER: No other significant finding. IMPRESSION: Small pleural effusions. Increased retrocardiac opacification consistent with left lowe r lobe pneumonia. TECHNICAL DOCUMENTATION: JOB ID: [id number] 1987 [employer]- All Rights Reserved Reading location - IP/workstation name: [email or web address]
[2018-05-05] MEDS: MELATONIN 5 MG TABLET PO PRN (22:58)
[2018-05-05] MEDS: MONTELUKAST SODIUM 10 MG TABLET PO SCH (22:58)
[2018-05-06] MEDS: NYSTATIN 500000 UNIT/5 ML UDCUP PO SCH ×5 (00:27→23:44)
[2018-05-06 06:20] LABS: HEMATOCRIT 35.5 % (36.0-47.0); HEMOGLOBIN 12.2 g/dL (12.0-15.5); MEAN CORPUSCULAR HGB CONC 34.4 g/dL (32.0-36.0); MEAN CORPUSCULAR VOLUME 87 fl (80-97); PLATELET COUNT 289 10^3/uL (150-450); RED BLOOD COUNT 4.07 10^6/uL (3.72-5.28); RED CELL DISTRIBUTION WIDTH 12.8 % (11.5-14.0); WHITE BLOOD COUNT 19.2 10^3/uL (4.0-10.5)
[2018-05-06] MEDS: LEVOTHYROXINE SODIUM 0.088 MG TABLET PO SCH (06:23)
[2018-05-06] MEDS: ALBUTEROL SULFATE HFA (90 MCG/PUFF) 200 PUFF/8.5 GM MDI IH SCH ×4 (06:23→23:44)
[2018-05-06 06:33] LABS: ALANINE AMINOTRANSFERASE 60 U/L (9-52); ALBUMIN 2.9 g/dL (3.5-5.0); ALKALINE PHOSPHATASE 57 U/L (38-126); ASPARTATE AMINO TRANSFERASE 16 U/L (14-36); BILIRUBIN,DIRECT 0.3 mg/dL (0.0-0.4); BILIRUBIN,TOTAL 1.4 mg/dL (0.2-1.3); BLOOD UREA NITROGEN 19 mg/dL (7-20); GLUCOSE 98 mg/dL (75-110); POTASSIUM 3.3 mmol/L (3.6-5.0)
[2018-05-06 06:38] LABS: ANION GAP 6 (5-19); CARBON DIOXIDE 31 mmol/L (22-30); CHLORIDE 101 mmol/L (98-107); SODIUM 137.9 mmol/L (137-145)
[2018-05-06 06:40] LABS: ABSOLUTE LYMPHOCYTES# (MANUAL) 3.6 10^3/uL (0.5-4.7); ABSOLUTE NEUTROPHILS# (MANUAL) 14.2 10^3/uL (1.7-8.2); BASOPHILS % (MANUAL) 0 % (0-2); EOSINOPHILS % (MANUAL) 2 % (0-6); LYMPHOCYTES % (MANUAL) 16 % (13-45); MONOCYTES % (MANUAL) 5 % (3-13); SEGMENTED NEUTROPHILS % (MAN) 74 % (42-78); TOTAL CELLS COUNTED 100; TOXIC GRANULATION 1+
[2018-05-06 06:41] LABS: PLATELET COMMENT ADEQUATE; PLATELET LARGE PRESENT; SCHISTOCYTES SLIGHT
[2018-05-06 06:51] LABS: CALCIUM 6.5 mg/dL (8.4-10.2)
[2018-05-06] MEDS: IPRATROPIUM BROMIDE 0.02% NEB 0.5 MG/2.5 ML AMPUL NEB SCH ×2 (08:29→16:06)
[2018-05-06] MEDS: LEVALBUTEROL HCL NEB 1.25 MG/3 ML AMPUL NEB SCH ×2 (08:29→16:07)
[2018-05-06] MEDS ORDERED: HYDROCHLOROTHIAZIDE 25 MG TABLET PO SCH (10:00)
[2018-05-06] MEDS: POTASSIUM CHLORIDE 10 MEQ CAPSULE.ER PO SCH (11:00)
[2018-05-06] MEDS: CETIRIZINE 10 MG TABLET PO SCH (11:00)
[2018-05-06] MEDS: BUPROPION HCL 75 MG TABLET PO SCH ×2 (11:00→22:38)
[2018-05-06] MEDS: PHOSPHORUS #1 250 MG TABLET PO SCH ×4 (11:40→22:37)
[2018-05-06] MEDS: NICOTINE 21 MG/24 HR PATCH.TD24 TD SCH (11:40)
[2018-05-06] MEDS: ATORVASTATIN CALCIUM 10 MG TABLET PO SCH (11:40)
[2018-05-06] MEDS: PREDNISONE 10 MG TABLET PO SCH ×2 (11:40→18:23)
[2018-05-06] MEDS: ASPIRIN 81 MG TABLET, CHEWABLE PO SCH (11:40)
[2018-05-06] MEDS: METOPROLOL TARTRATE 25 MG TABLET PO SCH ×2 (11:42→22:38)
[2018-05-06] MEDS: BUDESONIDE/FORMOTEROL 160-4.5 MCG 60 PUFF/6 GM MDI IH SCH ×2 (11:43→22:39)
[2018-05-06] MEDS: TIOTROPIUM BROMIDE DPI 5 CAP/KIT (18 MCG/CAP) IH SCH (11:43)
[2018-05-06] MEDS: ENOXAPARIN SODIUM INJ 80 MG/0.8 ML DISP.SYRIN SUBCUT SCH (11:45)
[2018-05-06] MEDS ORDERED: PIPERACILLIN/TAZOBACTAM 3.375 GM VIAL IV SCH (12:00)
--- NOTE | 2018-05-06 12:00 | PDOC PROGRESS REPORT ---
Subjective Progress Note for:: 05/06/18 Subjective:: This is a 72 yr old with a past medical history of COPD, hyperlipidemia, hypertension and hypothyroidism who initially presented with increasing shortness of breath and cough. Patient was initially placed on BiPAP in the ER but she continued to decompensate. She was noted to be hypoxic and also had respiratory acidosis and was subsequently intubated. She was treated for COPD exacerbation. Her initial x-ray also showed questionable right basilar opacity. Flu testing also came back positive for influenza A. Patient's troponin also trended up to 2.0 and she was treated for possible NSTEMI. Patient extubated on 04/30/18 successfully and was transitioned to BIPAP. Plan of care discussed in length with family and pulmonology and patient also expressed she wants to be DNR/DNI. They also expressed interest in transitioning her to hospice or comfort measures if she has recurrence of respiratory distress. 05/01/18: Patient had episodes of tachypnea last night and was relieved with morphine. Discussed with patient and family again this morning and they are c onsidering between inpatient vs home hospice but awaiting for other family members to come in. 05/02/18: Patient is more awake and conversant today. She continues to be on BIPAP. Family has expressed they want to hold off on hospice as she appears more alert today. We did discuss this in length on bedside with patient participating in decision making. Family and patient did express they are interested in pursuing inpatient rehab vs SNF placement and pursue physical therapy and pulmonary rehab for her if she continues to show improvement. Will hold off on plan to transition to hospice for now. Also discussed about her recent NSTEMI and option to do cath and they did verbalize they prefer not to pursue any invasive cardiac testing. 05/03/18: Patient appears comfortable on BIPAP but has been BIPAP dependent since extubation. She is more awake and coherent today. Denies chest pain. Plan to try weaning her off BIPAP today. 05/04/18: No acute event overnight. Patient is doing much better and is now more conversant and making jokes. She has been off BIPAP this morning and is comfortable and saturating well on nasal cannula. If she continues to do well off BIPAP, she will be deemed likely fir for discharge to SNF/rehab in the next 24-48 hrs. 05/15/2018-no acute events in the last 24 hours. Patient is afebrile. Swallowing evaluation was done the recommendation is to start on mechanical soft diet. Patient is on nasal cannula pulse ox is 94% on 4 L. Patient is using the BiPAP on and off. Physical therapy consult was requested. 05/06/2018 no acute events overnight. Patient is afebrile. We repeated the chest x-ray yesterday. It shows increased opacification which is retrocardiac suggesting left lower lobe pneumonia. WBC is going up. Patient is asymptomatic comfortably in the bed. Reason For Visit: ACUTE ON CHRONIC RESPIRATORY FAILURE WITH HYPOXIA Physical Exam Vital Signs: Temp Pulse Resp BP Pulse Ox 98.7 F 76 16 105/45 L 95 05/06/18 07:17 05/06/18 08:29 05/06/18 08:29 05/06/18 07:17 05/06/18 08:29 Intake & Output 05/05/18 05/06/18 05/07/18 06:59 06:59 06:59 Intake Total 500 2000 Output Total 3800 3540 Balance -3300 -1540 Weight 61.2 kg 57 kg General appearance: PRESENT: no acute distress Head exam: PRESENT: atraumatic Eye exam: PRESENT: PERRLA Mouth exam: PRESENT: moist Neck exam: ABSENT: carotid bruit, JVD, lymphadenopathy, thyromegaly Respiratory exam: PRESENT: decreased breath sounds Cardiovascular exam: PRESENT: tachycardia GI/Abdominal exam: PRESENT: normal bowel sounds, soft. ABSENT: distended, guarding, mass, organolmegaly, rebound, tenderness Extremities exam: PRESENT: full ROM. ABSENT: calf tenderness, clubbing, pedal edema Neurological exam: PRESENT: alert, awake, oriented to person, oriented to place, oriented to time, oriented to situation, CN II-XII grossly intact. ABSENT: motor sensory deficit Psychiatric exam: PRESENT: appropriate affect, normal mood. ABSENT: homicidal ideation, suicidal ideation Results Laboratory Results: 05/06/18 05:25 05/06/18 05:25 05/06/18 05/06/18 05:25 05:25 WBC 19.2 H RBC 4.07 Hgb 12.2 Hct 35.5 L MCV 87 MCH 30.0 MCHC 34.4 RDW 12.8 Plt Count 289 Seg Neutrophils % Not Reportable Lymphocytes % Not Reportable Monocytes % Not Reportable Eosinophils % Not Reportable Basophils % Not Reportable Absolute Neutrophils Not Reportable Absolute Lymphocytes Not Reportable Absolute Monocytes Not Reportable Absolute Eosinophils Not Reportable Absolute Basophils Not Reportable Sodium 137.9 Potassium 3.3 L Chloride 101 Carbon Dioxide 31 H Anion Gap 6 BUN 19 Creatinine 0.42 L Est GFR ( Amer) > 60 Est GFR (Non-Af Amer) > 60 Glucose 98 Calcium 6.5 L* Magnesium 1.7 Total Bilirubin 1.4 H AST 16 ALT 60 H Alkaline Phosphatase 57 Total Protein 5.0 L Albumin 2.9 L 04/25/18 04/25/18 04/25/18 21:09 22:06 22:32 Creatine Kinase 91 CK-MB (CK-2) Troponin I Cancelled 0.787 NT-Pro-B Natriuret Pep Cancelled 256 04/25/18 04/26/18 04/26/18 22:32 04:40 04:40 Creatine Kinase 121 CK-MB (CK-2) 3.26 7.97 H Troponin I Cancelled 1.820 NT-Pro-B Natriuret Pep 04/26/18 04/26/18 04/26/18 10:24 10:24 19:17 Creatine Kinase 171 H 143 H CK-MB (CK-2) 12.50 H Troponin I 2.090 NT-Pro-B Natriuret Pep 04/26/18 04/28/18 04/29/18 19:17 10:00 11:30 Creatine Kinase CK-MB (CK-2) 9.22 H Troponin I 2.020 0.654 0.301 NT-Pro-B Natriuret Pep Impressions: KUB X-Ray 04/26/18 16:45 IMPRESSION: Satisfactory position of nasogastric tube. Head CT 04/27/18 00:00 IMPRESSION: NORMAL BRAIN CT WITHOUT CONTRAST. EVIDENCE OF ACUTE STROKE: NO. Chest X-Ray 05/05/18 00:00 IMPRESSION: Small pleural effusions. Increased retrocardiac opacification consistent with left lower lobe pneumonia. Assessment & Plan - Diagnosis (1) Acute respiratory failure with hypoxia and hypercapnia Is this a current diagnosis for this admission?: Yes Plan: -Secondary to COPD exacerbation, influenza A and possible pneumonia. Currently saturating well on minimal vent settings. 05/01/18: Patient had episodes of tachypnea last night and was relieved with morphine. Discussed with patient and family again this morning and they are considering between inpatient vs home hospice but awaiting for other family members to come in. 05/02/18: Patient is more awake and conversant today. She continues to be on BIPAP. Family has expressed they want to hold off on hospice as she appears more alert today. We did discuss this in length on bedside with patient participating in decision making. Family and patient did express they are interested in pursuing inpatient rehab vs SNF placement and pursue physical therapy and pu lmonary rehab for her if she continues to show improvement. Will hold off on plan to transition to hospice for now. Also discussed about her recent NSTEMI and option to do cath and they did verbalize they prefer not to pursue any invasive cardiac testing. 05/03/18: Patient appears comfortable on BIPAP but has been BIPAP dependent since extubation. Plan to reattempt weaning her off BIPAP today. 05/04/18:Patient is doing much better and is now more conversant and making jokes. She has been off BIPAP this morning and is comfortable and saturating well on nasal cannula. If she continues to do well off BIPAP, she will be deemed likely fit for discharge to SNF/rehab in the next 24-48 hrs. 05/05/2018-she is comfortably in the bed not in distress pulse ox is 94% on 4 L she is using the BiPAP on and off BiPAP requirements are gradually going down every day. Physical therapy consult was requested probably to send her to snf. pt is on regular scheduled breathing treatments and IV Solu-Medrol 40 mg daily. stopped Solu-Medrol and started on prednisone 10 mg p.o. twice daily. 05/06/2018-patient is comfortably in the bed not in respiratory distress using the BiPAP on and off. T-max is 98.7. Pulse ox is 95% on 3 L. Patient is getting a regular scheduled breathing treatments, prednisone 10 mg p.o. twice daily. Chest x-ray shows left lower lobe pneumonia started on Zosyn and vancomycin today. CT chest without contrast was requested. (2) COPD exacerbation Is this a current diagnosis for this admission?: Yes Plan: 05/05/2018-patient is admitted with COPD exacerbation Solu-Medrol was changed to prednisone 10 mg p.o. twice daily. She is off the antibiotics. She is afebrile. 05/06/2018-on examination chest bilateral entry was decreased no wheezing presently on patient presently on prednisone 10 mg p.o. twice daily. It is getting Xopenex nebulizations every 4 as needed. To continue the present management. (3) Influenza Is this a current diagnosis for this admission?: Yes Plan: 05/05/2018-was positive for influenza A at the time of admission completed 5 days course of Tamiflu. 05/06/2018 patient was positive for influenza A and was treated with 5 days course of Tamiflu. (4) Pulmonary congestion Is this a current diagnosis for this admission?: Yes Plan: 05/05/2018 patient is in IV Lasix 40 mg daily, she is also on IV fluids at 100 cc/h stopped IV fluids. Chest x-ray shows trace bilateral pleural effusions. Lasix is discontinued today. Plan to repeat the chest x-ray tomorrow. 05/06/2018-chest x-ray were done yesterday shows small bilateral pleural effusions and left lower lobe pneumonia no pulmonary congestion was noticed. She is off the IV fluids she is off the Lasix. (5) Pneumonia Is this a current diagnosis for this admission?: Yes Plan: 05/06/2018-chest x-ray yesterday reveals left lower lobe pneumonia, started on Zosyn 3.37 g IV every 6 hours and vancomycin 1 g IV daily Vanco trough will be managed by the pharmacy. CT chest without contrast was requested for better assessment of the pneumonia. She is afebrile. - Time Time Spent with patient: 25-34 minutes Medications reviewed and adjusted accordingly: Yes Anticipated discharge: Home
[2018-05-06] MEDS: HYDROCHLOROTHIAZIDE 12.5 MG TABLET PO SCH (12:04)
[2018-05-06] MEDS: BENAZEPRIL HCL 20 MG TABLET PO SCH (12:04)
[2018-05-06] MEDS ORDERED: VANCOMYCIN HCL 0 MG in DEXTROSE 5%-WATER 250 ML IV NR (14:30)
--- NOTE | 2018-05-06 16:40 | RADIOLOGY REPORT (SQ) ---
EXAM DESCRIPTION: CT CHEST WITHOUT COMPLETED DATE/TIME: 05/06/2018 2:52 pm REASON FOR STUDY: pneumonia COMPARISON: 05/05/2018 TECHNIQUE: CT scan performed of the chest without intravenous contrast. Images reviewed with lung, soft tissue and bone windows. Reconstructed coronal and sagittal MPR images reviewed. All images st ored on PACS. All CT scanners at this facility use dose modulation, iterative reconstruction, and/or weight based d osing when appropriate to reduce radiation dose to as low as reasonably achievable (ALARA). [facility]: Dose Right [facility]: CareDose [facility]: Dose Right [facility]: Teradose 4D [facility]: Smart JCD RADIATION DOSE: CT Rad equipment meets quality standard of care and radiation dose reduction techniq ues were employed. CTDIvol: 6.6 mGy. DLP: 268 mGy-cm. mGy. LIMITATIONS: No technical limitations. FINDINGS: LUNGS AND PLEURA: Extensive upper lobe predominant panacinar are in centrilobular emphysem a. There are small bilateral pleural effusions, right greater than left. Mild patchy areas of hazy ground-glass opacification within the lateral right lower lobe. Bandlike consolidation within the li ngula, likely scarring. Scattered subcentimeter nodular opacities, largest within the left lower lob e measuring 6 mm (series 4, image 84). HILAR AND MEDIASTINAL STRUCTURES: No discrete mediastinal, hilar or axillary adenopathy. HEART AND VASCULAR STRUCTURES: Scattered coronary atherosclerosis. No pericardial effusion. Aortic atherosclerosis. Normal heart size. UPPER ABDOMEN: No evidence of acute process. THYROID AND OTHER SOFT TISSUES: Unremarkable thyroid. BONES: No acute osseous abnormality. No discrete osseous lesions. HARDWARE: Right internal jugular central venous catheter tip at distal SVC. OTHER: No other significant findings. IMPRESSION: Small bilateral pleural effusions with minimal right upper lobe ground-glass attenuation , possibly infectious/ inflammatory. Extensive upper lobe predominant panacinar emphysema. Scattered subcentimeter nodules, largest measuring 6 mm. See follow-up as below. COMMENT: F[place]ISCHNER CRITERIA FOR FOLLOW-UP OF PULMONARY NODULES Incidentally detected new nodules in persons 35 or older. HIGH RISK: History of smoking or other known risk factors. 6-8mm single solid nodule: LOW RISK: CT 6-12 mo; then consider CT 18-24 mo. HIGH RISK: CT 6-12 mo; th en CT 18-24 mo. TECHNICAL DOCUMENTATION: JOB ID: [id number] Quality ID # [id number]: Final reports with documentation of one or more dose reduction techniques (e.g., Au tomated exposure control, adjustment of the mA and/or kV according to patient size, use of iterative reconstruction technique) 2010 [employer]- All Rights Reserved Reading location - IP/workstation name: [facility]
[2018-05-06] MEDS: PIPERACILLIN SODIUM/TAZOBACTAM 3.375 GM in NORMAL SALINE 100 ML IV SCH ×2 (17:20→22:35)
[2018-05-06] MEDS: VANCOMYCIN HCL 750 MG in DEXTROSE 5%-WATER 250 ML IV SCH (18:23)
[2018-05-06] MEDS: MONTELUKAST SODIUM 10 MG TABLET PO SCH (22:38)
[2018-05-06] MEDS: MELATONIN 5 MG TABLET PO PRN (22:38)
[2018-05-06] MEDS: ENOXAPARIN SODIUM INJ 60 MG/0.6 ML DISP.SYRIN SUBCUT SCH (22:39)
[2018-05-07] MEDS: LEVALBUTEROL HCL NEB 1.25 MG/3 ML AMPUL NEB SCH ×3 (00:02→16:10)
[2018-05-07] MEDS: IPRATROPIUM BROMIDE 0.02% NEB 0.5 MG/2.5 ML AMPUL NEB SCH ×3 (00:03→16:10)
[2018-05-07] MEDS: VANCOMYCIN HCL 750 MG in DEXTROSE 5%-WATER 250 ML IV SCH ×3 (01:57→18:23)
[2018-05-07] MEDS: PIPERACILLIN SODIUM/TAZOBACTAM 3.375 GM in NORMAL SALINE 100 ML IV SCH ×4 (03:59→21:10)
[2018-05-07 06:00] LABS: HEMATOCRIT 29.6 % (36.0-47.0); HEMOGLOBIN 10.2 g/dL (12.0-15.5); MEAN CORPUSCULAR HEMOGLOBIN 30.6 pg (27.0-33.4); MEAN CORPUSCULAR HGB CONC 34.4 g/dL (32.0-36.0); MEAN CORPUSCULAR VOLUME 89 fl (80-97); PLATELET COUNT 223 10^3/uL (150-450); RED BLOOD COUNT 3.33 10^6/uL (3.72-5.28); RED CELL DISTRIBUTION WIDTH 12.5 % (11.5-14.0)
[2018-05-07] MEDS: LEVOTHYROXINE SODIUM 0.088 MG TABLET PO SCH (06:00)
[2018-05-07] MEDS: NYSTATIN 500000 UNIT/5 ML UDCUP PO SCH ×3 (06:00→18:23)
[2018-05-07] MEDS: ALBUTEROL SULFATE HFA (90 MCG/PUFF) 200 PUFF/8.5 GM MDI IH SCH ×3 (06:00→18:24)
[2018-05-07 06:14] LABS: ABSOLUTE LYMPHOCYTES# (MANUAL) 1.3 10^3/uL (0.5-4.7); ABSOLUTE MONOCYTES # (MANUAL) 1.9 10^3/uL (0.1-1.4); ABSOLUTE NEUTROPHILS# (MANUAL) 12.8 10^3/uL (1.7-8.2); BAND NEUTROPHILS % (MANUAL) 3 % (3-5); BASOPHILS % (MANUAL) 0 % (0-2); EOSINOPHILS % (MANUAL) 0 % (0-6); LYMPHOCYTES % (MANUAL) 8 % (13-45); MONOCYTES % (MANUAL) 12 % (3-13); SEGMENTED NEUTROPHILS % (MAN) 77 % (42-78); TOTAL CELLS COUNTED 100
[2018-05-07 06:15] LABS: PLATELET COMMENT ADEQUATE; RBC MORPHOLOGY COMMENT NORMO-CYTIC/CHROMIC; TOXIC GRANULATION 1+; TOXIC VACUOLATION PRESENT
[2018-05-07 06:23] LABS: ALANINE AMINOTRANSFERASE 61 U/L (9-52); ALBUMIN 2.3 g/dL (3.5-5.0); ALKALINE PHOSPHATASE 46 U/L (38-126); ANION GAP 5 (5-19); ASPARTATE AMINO TRANSFERASE 17 U/L (14-36); BILIRUBIN,DIRECT 0.1 mg/dL (0.0-0.4); BILIRUBIN,TOTAL 0.9 mg/dL (0.2-1.3); BLOOD UREA NITROGEN 19 mg/dL (7-20); CARBON DIOXIDE 27 mmol/L (22-30); CHLORIDE 105 mmol/L (98-107); GLUCOSE 115 mg/dL (75-110); SODIUM 137.1 mmol/L (137-145); TOTAL PROTEIN 4.1 g/dL (6.3-8.2)
[2018-05-07 06:36] LABS: CALCIUM 6.3 mg/dL (8.4-10.2)
[2018-05-07] MEDS: PHOSPHORUS #1 250 MG TABLET PO SCH ×4 (08:19→21:11)
[2018-05-07] MEDS: POTASSIUM CHLORIDE 20 MEQ/50 ML RTU IV SCH ×2 (08:24→12:32)
[2018-05-07] MEDS ORDERED: VANCOMYCIN HCL INJ 1000 MG VIAL IV SCH (10:00)
[2018-05-07] MEDS ORDERED: POTASSIUM CHLORIDE 20 MEQ/15 ML UDCUP PO SCH (10:00)
[2018-05-07] MEDS ORDERED: VANCOMYCIN HCL 1,000 MG in DEXTROSE 5%-WATER 250 ML IV SCH (10:00)
[2018-05-07] MEDS: BENAZEPRIL HCL 20 MG TABLET PO SCH (10:22)
[2018-05-07] MEDS: METOPROLOL TARTRATE 25 MG TABLET PO SCH ×2 (10:22→21:11)
[2018-05-07] MEDS: BUPROPION HCL 75 MG TABLET PO SCH ×2 (10:26→21:12)
[2018-05-07] MEDS: POTASSIUM CHLORIDE 20 MEQ/15 ML UDCUP PO SCH ×2 (10:26→18:23)
[2018-05-07] MEDS: CETIRIZINE 10 MG TABLET PO SCH (10:26)
[2018-05-07] MEDS: PREDNISONE 10 MG TABLET PO SCH ×2 (10:26→18:22)
[2018-05-07] MEDS: ASPIRIN 81 MG TABLET, CHEWABLE PO SCH (10:26)
[2018-05-07] MEDS: ATORVASTATIN CALCIUM 10 MG TABLET PO SCH (10:26)
[2018-05-07] MEDS: NICOTINE 21 MG/24 HR PATCH.TD24 TD SCH (10:27)
[2018-05-07] MEDS: ENOXAPARIN SODIUM INJ 60 MG/0.6 ML DISP.SYRIN SUBCUT SCH ×2 (10:27→21:12)
[2018-05-07] MEDS: BUDESONIDE/FORMOTEROL 160-4.5 MCG 60 PUFF/6 GM MDI IH SCH ×2 (10:27→21:10)
[2018-05-07] MEDS: TIOTROPIUM BROMIDE DPI 5 CAP/KIT (18 MCG/CAP) IH SCH (10:28)
--- NOTE | 2018-05-07 11:02 | PDOC PROGRESS REPORT ---
Subjective Progress Note for:: 05/07/18 Subjective:: This is a 72 yr old with a past medical history of COPD, hyperlipidemia, hypertension and hypothyroidism who initially presented with increasing shortness of breath and cough. Patient was initially placed on BiPAP in the ER but she continued to decompensate. She was noted to be hypoxic and also had respiratory acidosis and was subsequently intubated. She was treated for COPD exacerbation. Her initial x-ray also showed questionable right basilar opacity. Flu testing also came back positive for influenza A. Patient's troponin also trended up to 2.0 and she was treated for possible NSTEMI. Patient extubated on 04/30/18 successfully and was transitioned to BIPAP. Plan of care discussed in length with family and pulmonology and patient also expressed she wants to be DNR/DNI. They also expressed interest in transitioning her to hospice or comfort measures if she has recurrence of respiratory distress. 05/01/18: Patient had episodes of tachypnea last night and was relieved with morphine. Discussed with patient and family again this morning and they are c onsidering between inpatient vs home hospice but awaiting for other family members to come in. 05/02/18: Patient is more awake and conversant today. She continues to be on BIPAP. Family has expressed they want to hold off on hospice as she appears more alert today. We did discuss this in length on bedside with patient participating in decision making. Family and patient did express they are interested in pursuing inpatient rehab vs SNF placement and pursue physical therapy and pulmonary rehab for her if she continues to show improvement. Will hold off on plan to transition to hospice for now. Also discussed about her recent NSTEMI and option to do cath and they did verbalize they prefer not to pursue any invasive cardiac testing. 05/03/18: Patient appears comfortable on BIPAP but has been BIPAP dependent since extubation. She is more awake and coherent today. Denies chest pain. Plan to try weaning her off BIPAP today. 05/04/18: No acute event overnight. Patient is doing much better and is now more conversant and making jokes. She has been off BIPAP this morning and is comfortable and saturating well on nasal cannula. If she continues to do well off BIPAP, she will be deemed likely fir for discharge to SNF/rehab in the next 24-48 hrs. 05/15/2018-no acute events in the last 24 hours. Patient is afebrile. Swallowing evaluation was done the recommendation is to start on mechanical soft diet. Patient is on nasal cannula pulse ox is 94% on 4 L. Patient is using the BiPAP on and off. Physical therapy consult was requested. 05/06/2018 no acute events overnight. Patient is afebrile. We repeated the chest x-ray yesterday. It shows increased opacification which is retrocardiac suggesting left lower lobe pneumonia. WBC is going up. Patient is asymptomatic comfortably in the bed. 05/07/2018 no acute events in the last 24 hours. Patient afebrile. Patient is still weak to get out of the bed and get onto the commode. Physical therapy working with the patient. Patient still have a Arredondo's catheter. Pulse ox 98% on 3 L. Reason For Visit: ACUTE ON CHRONIC RESPIRATORY FAILURE WITH HYPOXIA Physical Exam Vital Signs: Temp Pulse Resp BP Pulse Ox 97.9 F 76 18 101/41 L 98 05/07/18 10:13 05/07/18 10:13 05/07/18 09:00 05/07/18 10:13 05/07/18 10:13 Intake & Output 05/06/18 05/07/18 05/08/18 06:59 06:59 06:59 Intake Total 2000 1184 150 Output Total 3540 650 Balance -1540 534 150 Weight 57 kg 59.6 kg General appearance: PRESENT: no acute distress Head exam: PRESENT: atraumatic Eye exam: PRESENT: PERRLA Mouth exam: PRESENT: moist Neck exam: ABSENT: carotid bruit, JVD, lymphadenopathy, thyromegaly Respiratory exam: PRESENT: decreased breath sounds Cardiovascular exam: PRESENT: tachycardia GI/Abdominal exam: PRESENT: normal bowel sounds, soft. ABSENT: distended, guarding, mass, organolmegaly, rebound, tenderness Extremities exam: PRESENT: full ROM. ABSENT: calf tenderness, clubbing, pedal edema Neurological exam: PRESENT: alert, awake, oriented to person, oriented to place, oriented to time, oriented to situation, CN II-XII grossly intact. ABSENT: motor sensory deficit Psychiatric exam: PRESENT: appropriate affect, normal mood. ABSENT: homicidal ideation, suicidal ideation Results Laboratory Results: 05/07/18 04:53 05/07/18 04:53 05/07/18 05/07/18 04:53 04:53 WBC 16.0 H RBC 3.33 L Hgb 10.2 L Hct 29.6 L MCV 89 MCH 30.6 MCHC 34.4 RDW 12.5 Plt Count 223 Seg Neutrophils % Not Reportable Lymphocytes % Not Reportable Monocytes % Not Reportable Eosinophils % Not Reportable Basophils % Not Reportable Absolute Neutrophils Not Reportable Absolute Lymphocytes Not Reportable Absolute Monocytes Not Reportable Absolute Eosinophils Not Reportable Absolute Basophils Not Reportable Sodium 137.1 Potassium 3.0 L* Chloride 105 Carbon Dioxide 27 Anion Gap 5 BUN 19 Creatinine 0.44 L Est GFR ( Amer) > 60 Est GFR (Non-Af Amer) > 60 Glucose 115 H Calcium 6.3 L* Total Bilirubin 0.9 AST 17 ALT 61 H Alkaline Phosphatase 46 Total Protein 4.1 L Albumin 2.3 L 04/25/18 04/25/18 04/25/18 21:09 22:06 22:32 Creatine Kinase 91 CK-MB (CK-2) Troponin I Cancelled 0.787 NT-Pro-B Natriuret Pep Cancelled 256 04/25/18 04/26/18 04/26/18 22:32 04:40 04:40 Creatine Kinase 121 CK-MB (CK-2) 3.26 7.97 H Troponin I Cancelled 1.820 NT-Pro-B Natriuret Pep 04/26/18 04/26/18 04/26/18 10:24 10:24 19:17 Creatine Kinase 171 H 143 H CK-MB (CK-2) 12.50 H Troponin I 2.090 NT-Pro-B Natriuret Pep 04/26/18 04/28/18 04/29/18 19:17 10:00 11:30 Creatine Kinase CK-MB (CK-2) 9.22 H Troponin I 2.020 0.654 0.301 NT-Pro-B Natriuret Pep Impressions: KUB X-Ray 04/26/18 16:45 IMPRESSION: Satisfactory position of nasogastric tube. Head CT 04/27/18 00:00 IMPRESSION: NORMAL BRAIN CT WITHOUT CONTRAST. EVIDENCE OF ACUTE STROKE: NO. Chest X-Ray 05/05/18 00:00 IMPRESSION: Small pleural effusions. Increased retrocardiac opacification consistent with left lower lobe pneumonia. Chest CT 05/06/18 00:00 IMPRESSION: Small bilateral pleural effusions with minimal right upper lobe ground-glass attenuation, possibly infectious/ inflammatory. Extensive upper lobe predominant panacinar emphysema. Scattered subcentimeter nodules, largest measuring 6 mm. See follow-up as below. Assessment & Plan - Diagnosis (1) Acute respiratory failure with hypoxia and hypercapnia Is this a current diagnosis for this admission?: Yes Plan: -Secondary to COPD exacerbation, influenza A and possible pneumonia. Currently saturating well on minimal vent settings. 05/01/18: Patient had episodes of tachypnea last night and was relieved with morphine. Discussed with patient and family again this morning and they are considering between inpatient vs home hospice but awaiting for other family members to come in. 05/02/18: Patient is more awake and conversant today. She continues to be on BIPAP. Family has expressed they want to hold off on hospice as she appears more alert today. We did discuss this in length on bedside with patient participating in decision making. Family and patient did express they are interested in pursuing inpatient rehab vs SNF placement and pursue physical therapy and pulmonary rehab for her if she continues to show improvement. Will hold off on plan to transition to hospice for now. Also discussed about her recent NSTEMI and option to do cath and they did verbalize they prefer not to pursue any invasive cardiac testing. 05/03/18: Patient appears comfortable on BIPAP but has been BIPAP dependent since extubation. Plan to reattempt weaning her off BIPAP today. 05/04/18:Patient is doing much better and is now more conversant and making jokes. She has been off BIPAP this morning and is comfortable and saturating well on nasal cannula. If she continues to do well off BIPAP, she will be deemed likely fit for discharge to SNF/rehab in the next 24-48 hrs. 05/05/2018-she is comfortably in the bed not in distress pulse ox is 94% on 4 L she is using the BiPAP on and off BiPAP requirements are gradually going down every day. Physical therapy consult was requested probably to send her to snf. pt is on regular scheduled breathing treatments and IV Solu-Medrol 40 mg daily. stopped Solu-Medrol and started on prednisone 10 mg p.o. twice daily. 05/06/2018-patient is comfortably in the bed not in respiratory distress using the BiPAP on and off. T-max is 98.7. Pulse ox is 95% on 3 L. Patient is getting a regular scheduled breathing treatments, prednisone 10 mg p.o. twice daily. Chest x-ray shows left lower lobe pneumonia started on Zosyn and vancomycin today. CT chest without contrast was requested. 05/07/2018 patient is comfortable in the bed on oxygen via nasal cannula denies any complaints doing well. T-max is 97.9. Chest x-ray shows left lower lobe pneumonia and was started on Zosyn and vancomycin yesterday. CT chest without contrast shows small bilateral pleural effusions with minimal right right upper lobe groundglass appearance possible infection was/inflammatory cause. And is to continue the present management. (2) COPD exacerbation Is this a current diagnosis for this admission?: Yes Plan: 05/05/2018-patient is admitted with COPD exacerbation Solu-Medrol was changed to prednisone 10 mg p.o. twice daily. She is off the antibiotics. She is afebrile. 05/06/2018-on examination chest bilateral entry was decreased no wheezing presently on patient presently on prednisone 10 mg p.o. twice daily. It is getting Xopenex nebulizations every 4 as needed. To continue the present management. 05/07/2018-on examination chest bilateral entry was severely decreased probably secondary to emphysema/COPD. Patient is on prednisone 10 mg twice daily Xopenex nebulizations every 4 hours as needed plan is to continue the present management. (3) Influenza Is this a current diagnosis for this admission?: Yes Plan: 05/05/2018-was positive for influenza A at the time of admission completed 5 days course of Tamiflu. 05/06/2018 patient was positive for influenza A and was treated with 5 days course of Tamiflu. 05/07/2018-patient was treated for influenza A with 5 days of Tamiflu. (4) Pulmonary congestion Is this a current diagnosis for this admission?: Yes Plan: 05/05/2018 patient is in IV Lasix 40 mg daily, she is also on IV fluids at 100 cc/h stopped IV fluids. Chest x-ray shows trace bilateral pleural effusions. Lasix is discontinued today. Plan to repeat the chest x-ray tomorrow. 05/06/2018-chest x-ray were done yesterday shows small bilateral pleural effusions and left lower lobe pneumonia no pulmonary congestion was noticed. She is off the IV fluids she is off the Lasix. 01/2018-chest CT shows small bilateral pleural effusions more prominent at the right side no evidence of fluid overload no pedal edema she is off the Lasix blood pressure is 101/41. Plan is we will continue the present management. (5) Pneumonia Is this a current diagnosis for this admission?: Yes Plan: 05/06/2018-chest x-ray yesterday reveals left lower lobe pneumonia, started on Zosyn 3.37 g IV every 6 hours and vancomycin 1 g IV daily Vanco trough will be managed by the pharmacy. CT chest without contrast was requested for better assessment of the pneumonia. She is afebrile. 05/07/2018-chest x-ray shows left lower lobe pneumonia, CT chest shows small right upper lobe groundglass appearance probably reflecting/inflammatory cause. Patient might have bacterial pneumonia. She is on Zosyn and vancomycin. We can classify as a hospital-acquired pneumonia. - Time Time Spent with patient: 15-24 minutes Medications reviewed and adjusted accordingly: Yes Anticipated discharge: Home
[2018-05-07] MEDS: MONTELUKAST SODIUM 10 MG TABLET PO SCH (21:13)
[2018-05-08] MEDS: LEVALBUTEROL HCL NEB 1.25 MG/3 ML AMPUL NEB SCH ×3 (00:22→16:40)
[2018-05-08] MEDS: IPRATROPIUM BROMIDE 0.02% NEB 0.5 MG/2.5 ML AMPUL NEB SCH ×3 (00:22→16:40)
[2018-05-08] MEDS: ALBUTEROL SULFATE HFA (90 MCG/PUFF) 200 PUFF/8.5 GM MDI IH SCH ×4 (00:50→18:01)
[2018-05-08] MEDS: NYSTATIN 500000 UNIT/5 ML UDCUP PO SCH ×4 (00:50→18:00)
[2018-05-08] MEDS: VANCOMYCIN HCL 750 MG in DEXTROSE 5%-WATER 250 ML IV SCH ×3 (02:07→18:00)
[2018-05-08] MEDS: PIPERACILLIN SODIUM/TAZOBACTAM 3.375 GM in NORMAL SALINE 100 ML IV SCH ×4 (03:57→21:25)
[2018-05-08 05:05] LABS: APPEARANCE,URINE CLEAR; BILIRUBIN,URINE NEGATIVE (NEGATIVE); COLOR,URINE YELLOW; GLUCOSE, URINE 50 mg/dL (NEGATIVE); KETONES,URINE NEGATIVE (NEGATIVE); LEUKOCYTE ESTERASE,URINE NEGATIVE (NEGATIVE); NITRITE,URINE NEGATIVE (NEGATIVE); PROTEIN,URINE NEGATIVE (NEGATIVE); URINE SPECIFIC GRAVITY 1.014
[2018-05-08 05:26] LABS: HEMOGLOBIN 9.5 g/dL (12.0-15.5); MEAN CORPUSCULAR HEMOGLOBIN 30.4 pg (27.0-33.4); MEAN CORPUSCULAR HGB CONC 33.9 g/dL (32.0-36.0); MEAN CORPUSCULAR VOLUME 90 fl (80-97); PLATELET COUNT 215 10^3/uL (150-450); RED BLOOD COUNT 3.13 10^6/uL (3.72-5.28); RED CELL DISTRIBUTION WIDTH 12.9 % (11.5-14.0); WHITE BLOOD COUNT 15.4 10^3/uL (4.0-10.5)
[2018-05-08] MEDS: LEVOTHYROXINE SODIUM 0.088 MG TABLET PO SCH (05:29)
[2018-05-08 05:57] LABS: ABSOLUTE LYMPHOCYTES# (MANUAL) 0.3 10^3/uL (0.5-4.7); ABSOLUTE MONOCYTES # (MANUAL) 1.4 10^3/uL (0.1-1.4); ABSOLUTE NEUTROPHILS# (MANUAL) 13.4 10^3/uL (1.7-8.2); BAND NEUTROPHILS % (MANUAL) 3 % (3-5); BASOPHILS % (MANUAL) 0 % (0-2); EOSINOPHILS % (MANUAL) 2 % (0-6); LYMPHOCYTES % (MANUAL) 1 % (13-45); MONOCYTES % (MANUAL) 9 % (3-13); NUCLEATED RED BLOOD CELLS 1 /100 WBC (0); PLATELET COMMENT ADEQUATE; RBC MORPHOLOGY COMMENT NORMO-CYTIC/CHROMIC; SEGMENTED NEUTROPHILS % (MAN) 84 % (42-78); TOTAL CELLS COUNTED 100; TOXIC GRANULATION 1+
[2018-05-08 06:01] LABS: ALANINE AMINOTRANSFERASE 60 U/L (9-52); ALBUMIN 2.3 g/dL (3.5-5.0); ALKALINE PHOSPHATASE 43 U/L (38-126); ASPARTATE AMINO TRANSFERASE 17 U/L (14-36); BILIRUBIN,DIRECT 0.1 mg/dL (0.0-0.4); BILIRUBIN,TOTAL 0.7 mg/dL (0.2-1.3); BLOOD UREA NITROGEN 11 mg/dL (7-20); GLUCOSE 115 mg/dL (75-110); POTASSIUM 3.8 mmol/L (3.6-5.0); TOTAL PROTEIN 4.1 g/dL (6.3-8.2)
[2018-05-08 06:12] LABS: CARBON DIOXIDE 24 mmol/L (22-30); CHLORIDE 106 mmol/L (98-107); SODIUM 135.8 mmol/L (137-145)
[2018-05-08 06:23] LABS: ANION GAP 6 (5-19); CALCIUM 6.5 mg/dL (8.4-10.2)
[2018-05-08] MEDS: PHOSPHORUS #1 250 MG TABLET PO SCH ×4 (07:53→21:28)
[2018-05-08] MEDS: POTASSIUM CHLORIDE 20 MEQ/15 ML UDCUP PO SCH (10:07)
[2018-05-08] MEDS: BUPROPION HCL 75 MG TABLET PO SCH ×2 (10:44→21:28)
[2018-05-08] MEDS: NICOTINE 21 MG/24 HR PATCH.TD24 TD SCH (10:44)
[2018-05-08] MEDS: ATORVASTATIN CALCIUM 10 MG TABLET PO SCH (10:45)
[2018-05-08] MEDS: CETIRIZINE 10 MG TABLET PO SCH (10:45)
[2018-05-08] MEDS: METOPROLOL TARTRATE 25 MG TABLET PO SCH ×2 (10:45→21:28)
[2018-05-08] MEDS: BENAZEPRIL HCL 20 MG TABLET PO SCH (10:46)
[2018-05-08] MEDS: PREDNISONE 10 MG TABLET PO SCH ×2 (10:46→18:00)
[2018-05-08] MEDS: TIOTROPIUM BROMIDE DPI 5 CAP/KIT (18 MCG/CAP) IH SCH (10:46)
[2018-05-08] MEDS: BUDESONIDE/FORMOTEROL 160-4.5 MCG 60 PUFF/6 GM MDI IH SCH ×2 (10:46→21:27)
[2018-05-08] MEDS: ASPIRIN 81 MG TABLET, CHEWABLE PO SCH (10:46)
[2018-05-08] MEDS: ENOXAPARIN SODIUM INJ 60 MG/0.6 ML DISP.SYRIN SUBCUT SCH ×2 (10:47→21:29)
[2018-05-08] MEDS ORDERED: PHENOL/SODIUM PHENOLATE 100 SPRAY/177 ML BOTTLE PO PRN (10:50)
--- NOTE | 2018-05-08 11:28 | PDOC PROGRESS REPORT ---
Subjective Progress Note for:: 05/08/18 Subjective:: This is a 72 yr old with a past medical history of COPD, hyperlipidemia, hypertension and hypothyroidism who initially presented with increasing shortness of breath and cough. Patient was initially placed on BiPAP in the ER but she continued to decompensate. She was noted to be hypoxic and also had respiratory acidosis and was subsequently intubated. She was treated for COPD exacerbation. Her initial x-ray also showed questionable right basilar opacity. Flu testing also came back positive for influenza A. Patient's troponin also trended up to 2.0 and she was treated for possible NSTEMI. Patient extubated on 04/30/18 successfully and was transitioned to BIPAP. Plan of care discussed in length with family and pulmonology and patient also expressed she wants to be DNR/DNI. They also expressed interest in transitioning her to hospice or comfort measures if she has recurrence of respiratory distress. 05/01/18: Patient had episodes of tachypnea last night and was relieved with morphine. Discussed with patient and family again this morning and they are c onsidering between inpatient vs home hospice but awaiting for other family members to come in. 05/02/18: Patient is more awake and conversant today. She continues to be on BIPAP. Family has expressed they want to hold off on hospice as she appears more alert today. We did discuss this in length on bedside with patient participating in decision making. Family and patient did express they are interested in pursuing inpatient rehab vs SNF placement and pursue physical therapy and pulmonary rehab for her if she continues to show improvement. Will hold off on plan to transition to hospice for now. Also discussed about her recent NSTEMI and option to do cath and they did verbalize they prefer not to pursue any invasive cardiac testing. 05/03/18: Patient appears comfortable on BIPAP but has been BIPAP dependent since extubation. She is more awake and coherent today. Denies chest pain. Plan to try weaning her off BIPAP today. 05/04/18: No acute event overnight. Patient is doing much better and is now more conversant and making jokes. She has been off BIPAP this morning and is comfortable and saturating well on nasal cannula. If she continues to do well off BIPAP, she will be deemed likely fir for discharge to SNF/rehab in the next 24-48 hrs. 05/15/2018-no acute events in the last 24 hours. Patient is afebrile. Swallowing evaluation was done the recommendation is to start on mechanical soft diet. Patient is on nasal cannula pulse ox is 94% on 4 L. Patient is using the BiPAP on and off. Physical therapy consult was requested. 05/06/2018 no acute events overnight. Patient is afebrile. We repeated the chest x-ray yesterday. It shows increased opacification which is retrocardiac suggesting left lower lobe pneumonia. WBC is going up. Patient is asymptomatic comfortably in the bed. 05/07/2018 no acute events in the last 24 hours. Patient afebrile. Patient is still weak to get out of the bed and get onto the commode. Physical therapy working with the patient. Patient still have a Arredondo's catheter. Pulse ox 98% on 3 L. 05/08/2018 patient is comfortably in the bed communicating very well. Patient is afebrile no acute events in the last 24 hours. Pulse ox is 100% on 3 L. Reason For Visit: ACUTE ON CHRONIC RESPIRATORY FAILURE WITH HYPOXIA Physical Exam Vital Signs: Temp Pulse Resp BP Pulse Ox 98.4 F 74 14 116/49 L 98 05/08/18 08:00 05/08/18 08:35 05/08/18 08:35 05/08/18 08:00 05/08/18 08:35 Intake & Output 05/07/18 05/08/18 05/09/18 06:59 06:59 06:59 Intake Total 1184 1848 Output Total 650 2265 Balance 534 -417 Weight 59.6 kg 61.9 kg General appearance: PRESENT: no acute distress Head exam: PRESENT: atraumatic Eye exam: PRESENT: PERRLA Mouth exam: PRESENT: moist Neck exam: ABSENT: carotid bruit, JVD, lymphadenopathy, thyromegaly Respiratory exam: PRESENT: decreased breath sounds Cardiovascular exam: PRESENT: RRR. ABSENT: diastolic murmur, rubs, systolic murmur GI/Abdominal exam: PRESENT: normal bowel sounds, soft. ABSENT: distended, guarding, mass, organolmegaly, rebound, tenderness Extremities exam: PRESENT: full ROM. ABSENT: calf tenderness, clubbing, pedal edema Neurological exam: PRESENT: alert, awake, oriented to person, oriented to place, oriented to time, oriented to situation, CN II-XII grossly intact. ABSENT: motor sensory deficit Psychiatric exam: PRESENT: appropriate affect, normal mood. ABSENT: homicidal ideation, suicidal ideation Results Laboratory Results: 05/08/18 04:25 05/08/18 04:25 05/08/18 05/08/18 05/08/18 04:25 04:25 04:45 WBC 15.4 H RBC 3.13 L Hgb 9.5 L Hct 28.0 L MCV 90 MCH 30.4 MCHC 33.9 RDW 12.9 Plt Count 215 Seg Neutrophils % Not Reportable Lymphocytes % Not Reportable Monocytes % Not Reportable Eosinophils % Not Reportable Basophils % Not Reportable Absolute Neutrophils Not Reportable Absolute Lymphocytes Not Reportable Absolute Monocytes Not Reportable Absolute Eosinophils Not Reportable Absolute Basophils Not Reportable Sodium 135.8 L Potassium 3.8 Chloride 106 Carbon Dioxide 24 Anion Gap 6 BUN 11 Creatinine 0.39 L Est GFR ( Amer) > 60 Est GFR (Non-Af Amer) > 60 Glucose 115 H Calcium 6.5 L* Magnesium 1.5 L Total Bilirubin 0.7 AST 17 ALT 60 H Alkaline Phosphatase 43 Total Protein 4.1 L Albumin 2.3 L Urine Color YELLOW Urine Appearance CLEAR Urine pH 7.0 Ur Specific Severance 1.014 Urine Protein NEGATIVE Urine Glucose (UA) 50 H Urine Ketones NEGATIVE Urine Blood MODERATE H Urine Nitrite NEGATIVE Ur Leukocyte Esterase NEGATIVE Urine WBC (Auto) 1 Urine RBC (Auto) 86 04/25/18 04/25/18 04/25/18 21:09 22:06 22:32 Creatine Kinase 91 CK-MB (CK-2) Troponin I Cancelled 0.787 NT-Pro-B Natriuret Pep Cancelled 256 04/25/18 04/26/18 04/26/18 22:32 04:40 04:40 Creatine Kinase 121 CK-MB (CK-2) 3.26 7.97 H Troponin I Cancelled 1.820 NT-Pro-B Natriuret Pep 04/26/18 04/26/18 04/26/18 10:24 10:24 19:17 Creatine Kinase 171 H 143 H CK-MB (CK-2) 12.50 H Troponin I 2.090 NT-Pro-B Natriuret Pep 04/26/18 04/28/18 04/29/18 19:17 10:00 11:30 Creatine Kinase CK-MB (CK-2) 9.22 H Troponin I 2.020 0.654 0.301 NT-Pro-B Natriuret Pep Impressions: KUB X-Ray 04/26/18 16:45 IMPRESSION: Satisfactory position of nasogastric tube. Head CT 04/27/18 00:00 IMPRESSION: NORMAL BRAIN CT WITHOUT CONTRAST. EVIDENCE OF ACUTE STROKE: NO. Chest X-Ray 05/05/18 00:00 IMPRESSION: Small pleural effusions. Increased retrocardiac opacification consistent with left lower lobe pneumonia. Chest CT 05/06/18 00:00 IMPRESSION: Small bilateral pleural effusions with minimal right upper lobe ground-glass attenuation, possibly infectious/ inflammatory. Extensive upper lobe predominant panacinar emphysema. Scattered subcentimeter nodules, largest measuring 6 mm. See follow-up as below. Assessment & Plan - Diagnosis (1) Acute respiratory failure with hypoxia and hypercapnia Is this a current diagnosis for this admission?: Yes Plan: -Secondary to COPD exacerbation, influenza A and possible pneumonia. Currently saturating well on minimal vent settings. 05/01/18: Patient had episodes of tachypnea last night and was relieved with morphine. Discussed with patient and family again this morning and they are considering between inpatient vs home hospice but awaiting for other family members to come in. 05/02/18: Patient is more awake and conversant today. She continues to be on BIPAP. Family has expressed they want to hold off on hospice as she appears more alert today. We did discuss this in length on bedside with patient participating in decision making. Family and patient did express they are interested in pursuing inpatient rehab vs SNF placement and pursue physical therapy and pulmonary rehab for her if she continues to show improvement. Will hold off on plan to transition to hospice for now. Also discussed about her recent NSTEMI and option to do cath and they did verbalize they prefer not to pursue any invasive cardiac testing. 05/03/18: Patient appears comfortable on BIPAP but has been BIPAP dependent since extubation. Plan to reattempt weaning her off BIPAP today. 05/04/18:Patient is doing much better and is now more conversant and making jokes. She has been off BIPAP this morning and is comfortable and saturating well on nasal cannula. If she continues to do well off BIPAP, she will be deemed likely fit for discharge to SNF/rehab in the next 24-48 hrs. 05/05/2018-she is comfortably in the bed not in distress pulse ox is 94% on 4 L she is using the BiPAP on and off BiPAP requirements are gradually going down every day. Physical therapy consult was requested probably to send her to snf. pt is on regular scheduled breathing treatments and IV Solu-Medrol 40 mg daily. stopped Solu-Medrol and started on prednisone 10 mg p.o. twice daily. 05/06/2018-patient is comfortably in the bed not in respiratory distress using the BiPAP on and off. T-max is 98.7. Pulse ox is 95% on 3 L. Patient is getting a regular scheduled breathing treatments, prednisone 10 mg p.o. twice daily. Chest x-ray shows left lower lobe pneumonia started on Zosyn and vancomycin today. CT chest without contrast was requested. 05/07/2018 patient is comfortable in the bed on oxygen via nasal cannula denies any complaints doing well. T-max is 97.9. Chest x-ray shows left lower lobe pneumonia and was started on Zosyn and vancomycin yesterday. CT chest without contrast shows small bilateral pleural effusions with minimal right right upper lobe groundglass appearance possible infection was/inflammatory cause. And is to continue the present management. 05/08/2018-pulse ox on 3 L is 100%. Per the pneumonia she is getting Zosyn and vancomycin. C and hypercapnia resolving. Vanco trough is pending. Plan is to continue the present management. (2) COPD exacerbation Is this a current diagnosis for this admission?: Yes Plan: 05/05/2018-patient is admitted with COPD exacerbation Solu-Medrol was changed to prednisone 10 mg p.o. twice daily. She is off the antibiotics. She is afebrile. 05/06/2018-on examination chest bilateral entry was decreased no wheezing presently on patient presently on prednisone 10 mg p.o. twice daily. It is getting Xopenex nebulizations every 4 as needed. To continue the present management. 05/07/2018-on examination chest bilateral air entry was severely decreased probably secondary to emphysema/COPD. Patient is on prednisone 10 mg twice daily Xopenex nebulizations every 4 hours as needed plan is to continue the pres ent management. 05/08/2018-on examination of the chest bilateral air entry was decreased secondary to COPD/emphysema. Patient is on p.o. prednisone on Xopenex nebulizations every 4 hours as needed. Patient is doing well pulse ox is 100% on 3 L. Plan is to continue the present management. (3) Influenza Is this a current diagnosis for this admission?: Yes Plan: 05/05/2018-was positive for influenza A at the time of admission completed 5 days course of Tamiflu. 05/06/2018 patient was positive for influenza A and was treated with 5 days course of Tamiflu. 05/07/2018-patient was treated for influenza A with 5 days of Tamiflu. 05/08/2018 patient was positive for influenza A completed a course of Tamiflu for 5 days. (4) Pulmonary congestion Is this a current diagnosis for this admission?: Yes Plan: 05/05/2018 patient is in IV Lasix 40 mg daily, she is also on IV fluids at 100 cc/h stopped IV fluids. Chest x-ray shows trace bilateral pleural effusions. Lasix is discontinued today. Plan to repeat the chest x-ray tomorrow. 05/06/2018-chest x-ray were done yesterday shows small bilateral pleural effusions and left lower lobe pneumonia no pulmonary congestion was noticed. She is off the IV fluids she is off the Lasix. 05/07/2017-chest CT shows small bilateral pleural effusions more prominent at the right side no evidence of fluid overload no pedal edema she is off the Lasix blood pressure is 101/41. Plan is we will continue the present management. 05/08/2018-chest CT done yesterday did not show any pulmonary congestion. (5) Pneumonia Is this a current diagnosis for this admission?: Yes Plan: 05/06/2018-chest x-ray yesterday reveals left lower lobe pneumonia, started on Zosyn 3.37 g IV every 6 hours and vancomycin 1 g IV daily Vanco trough will be managed by the pharmacy. CT chest without contrast was requested for better assessment of the pneumonia. She is afebrile. 05/07/2018-chest x-ray shows left lower lobe pneumonia, CT chest shows small right upper lobe groundglass appearance probably reflecting/inflammatory cause. Patient might have bacterial pneumonia. She is on Zosyn and vancomycin. We can classify as a hospital-acquired pneumonia. 05/08/2018-chest x-ray showed left lower lobe pneumonia. But CT chest indicates right upper lobe groundglass appearance probably reflecting infectious/inflammatory cause. Patient is on Zosyn and vancomycin. Patient is afebrile. Cultures are negative so far. Plan is to complete the 1 week course of antibiotics. (6) Constipation Is this a current diagnosis for this admission?: Yes Plan: 05/08/2018-nurse notified me that patient does not have any bowel movement for the last 5 days. I started her on MiraLAX 17 g p.o. daily and order for enema. (7) Physical debility Is this a current diagnosis for this admission?: Yes Plan: 05/08/2018-physical therapy is working with the patient. Patient still having difficulty even come out of the bed onto the bedside commode. In my opinion she made her to go to acute rehab for complete recovery. - Time Time Spent with patient: 15-24 minutes Medications reviewed and adjusted accordingly: Yes Anticipated discharge: SNF
[2018-05-08 11:56] LABS: VANCOMYCIN,TROUGH 12.4 ug/mL (5.0-20.0)
[2018-05-08] MEDS: POTASSIUM CHLORIDE 10 MEQ CAPSULE.ER PO SCH ×2 (13:32→18:00)
--- NOTE | 2018-05-08 17:18 | Progress Note ---
Provider Note Provider Note: ID Consult Note Asked to review chart of patient by Pharmacy. Pt not seen or examined. Reviewed VS, labs, provider reports, imaging reports. Pt is a 72 year old woman with PMH including COPD and tobacco use who presented on 04/25/18 with c/o 2 days of progressive cough, SOB, subjective fever similar to sx with previous AE COPD episodes. She was found to be tachycardic, tachypnic, and febrile with extremely dry mucous membranes on exam, poor air movement with scattered wheezing throughout and retractions on exam, poor skin turgor, soft 2/6 systolic murmur, able to speak in only short sentences. She was given Solu-Medrol, nebulizers, managed with BiPAP initially but required intubation. Initial labs revealed hyponatremia, low chloride, leukocytosis with WBC count 21. CXR was read as being consistent with mild pulmonary edema. Rapid influenza test was positive for influenza A. Blood cultures on 04/25 negative x 5d. Sputum on 04/26 grew normal bharath. Pt was given Tamiflu and empiric broad spectrum antibiotics for presumed bacterial pneumonia superimposed on influenza. Antibiotics administered during hospitalization include Doxycycline 04/25-04/27 Azithromycin 04/27-05/04 Aztreonam 04/27-05/04 vancomycin 04/27-05/04 Pt had fever on 04/25 and on 04/26 but as been afebrile since then. She was successfully extubated on 04/30 and transitioned to BiPAP. WBC count increased on 05/06 although pt continued to be clinically stable on NC supplemental O2 3 L. Zosyn was started on 05/06 and vancomycin was restarted from 05/[address] scan of the chest on 05/06 was read as showing small b/l effusions and minimal RUL ground glass attenuation, possibly infectious/inflammatory. Impression/Recommendations Pt had sepsis and respiratory failure secondary to influenza. She was treated for a presumed superimposed bacterial pneumonia with empiric broad spectrum antibiotics including activity against GNRs, MRSA, and atypicals, and only oropharyngeal bharath was isolated. If there is a suspicion for a new, superimposed hospital acquired pneumonia, repeat blood cultures and sputum should be sent to the lab for culture. However, she has clinically improved. She should not require further antibiotics at this point. Radiographic improvement can lag behind clinical improvement. Leukocytosis is multifactorial, with some effect of demargination from steroids contributing. She has completed an adequate course of therapy for pneumonia. Recommend discontinuing Zosyn and vancomycin. Manuel Lake MD [facility] Infectious Diseases pager [phone]
[2018-05-08] MEDS: MONTELUKAST SODIUM 10 MG TABLET PO SCH (21:28)
[2018-05-09] MEDS: LEVALBUTEROL HCL NEB 1.25 MG/3 ML AMPUL NEB SCH ×3 (00:13→15:50)
[2018-05-09] MEDS: IPRATROPIUM BROMIDE 0.02% NEB 0.5 MG/2.5 ML AMPUL NEB SCH ×3 (00:13→15:50)
[2018-05-09] MEDS: ALBUTEROL SULFATE HFA (90 MCG/PUFF) 200 PUFF/8.5 GM MDI IH SCH ×5 (00:32→23:34)
[2018-05-09] MEDS: NYSTATIN 500000 UNIT/5 ML UDCUP PO SCH ×5 (00:32→23:33)
[2018-05-09] MEDS: MELATONIN 5 MG TABLET PO PRN ×2 (00:32→22:00)
[2018-05-09] MEDS: VANCOMYCIN HCL 750 MG in DEXTROSE 5%-WATER 250 ML IV SCH (01:08)
[2018-05-09] MEDS: PIPERACILLIN SODIUM/TAZOBACTAM 3.375 GM in NORMAL SALINE 100 ML IV SCH ×2 (03:34→09:30)
[2018-05-09 05:30] LABS: HEMATOCRIT 27.3 % (36.0-47.0); HEMOGLOBIN 9.2 g/dL (12.0-15.5); MEAN CORPUSCULAR HEMOGLOBIN 30.2 pg (27.0-33.4); MEAN CORPUSCULAR HGB CONC 33.8 g/dL (32.0-36.0); MEAN CORPUSCULAR VOLUME 90 fl (80-97); PLATELET COUNT 194 10^3/uL (150-450); RED BLOOD COUNT 3.05 10^6/uL (3.72-5.28); RED CELL DISTRIBUTION WIDTH 13.1 % (11.5-14.0); WHITE BLOOD COUNT 16.5 10^3/uL (4.0-10.5)
[2018-05-09 05:41] LABS: ALANINE AMINOTRANSFERASE 57 U/L (9-52); ALBUMIN 2.4 g/dL (3.5-5.0); ALKALINE PHOSPHATASE 46 U/L (38-126); ASPARTATE AMINO TRANSFERASE 16 U/L (14-36); BILIRUBIN,DIRECT 0.3 mg/dL (0.0-0.4); BILIRUBIN,TOTAL 0.8 mg/dL (0.2-1.3); BLOOD UREA NITROGEN 9 mg/dL (7-20); CALCIUM 7.3 mg/dL (8.4-10.2); GLUCOSE 133 mg/dL (75-110); POTASSIUM 4.3 mmol/L (3.6-5.0); TOTAL PROTEIN 4.3 g/dL (6.3-8.2)
[2018-05-09 05:46] LABS: CARBON DIOXIDE 27 mmol/L (22-30); CHLORIDE 105 mmol/L (98-107); SODIUM 135.1 mmol/L (137-145)
[2018-05-09] MEDS: LEVOTHYROXINE SODIUM 0.088 MG TABLET PO SCH (05:46)
[2018-05-09 05:48] LABS: ANION GAP 3 (5-19)
[2018-05-09 05:51] LABS: ABSOLUTE LYMPHOCYTES# (MANUAL) 1.2 10^3/uL (0.5-4.7); ABSOLUTE MONOCYTES # (MANUAL) 1.2 10^3/uL (0.1-1.4); ABSOLUTE NEUTROPHILS# (MANUAL) 13.7 10^3/uL (1.7-8.2); BAND NEUTROPHILS % (MANUAL) 2 % (3-5); BASOPHILS % (MANUAL) 0 % (0-2); EOSINOPHILS % (MANUAL) 3 % (0-6); LYMPHOCYTES % (MANUAL) 7 % (13-45); MONOCYTES % (MANUAL) 7 % (3-13); SEGMENTED NEUTROPHILS % (MAN) 81 % (42-78); TOTAL CELLS COUNTED 100
[2018-05-09 05:52] LABS: PLATELET COMMENT ADEQUATE; RBC MORPHOLOGY COMMENT NORMO-CYTIC/CHROMIC; TOXIC GRANULATION 1+
[2018-05-09] MEDS: PHOSPHORUS #1 250 MG TABLET PO SCH ×4 (09:30→22:01)
[2018-05-09] MEDS: POTASSIUM CHLORIDE 10 MEQ CAPSULE.ER PO SCH ×2 (09:34→17:42)
[2018-05-09] MEDS: BUPROPION HCL 75 MG TABLET PO SCH ×2 (09:35→22:01)
[2018-05-09] MEDS: ATORVASTATIN CALCIUM 10 MG TABLET PO SCH (09:35)
[2018-05-09] MEDS: ASPIRIN 81 MG TABLET, CHEWABLE PO SCH (09:35)
[2018-05-09] MEDS: PREDNISONE 10 MG TABLET PO SCH (09:35)
[2018-05-09] MEDS: CETIRIZINE 10 MG TABLET PO SCH (09:36)
[2018-05-09] MEDS: NICOTINE 21 MG/24 HR PATCH.TD24 TD SCH (09:37)
[2018-05-09] MEDS: POLYETHYLENE GLYCOL 3350 POWDER 17 GM/1 PACKET PO SCH ×2 (09:37→13:28)
[2018-05-09] MEDS: ENOXAPARIN SODIUM INJ 60 MG/0.6 ML DISP.SYRIN SUBCUT SCH ×2 (09:37→22:00)
[2018-05-09] MEDS: BENAZEPRIL HCL 20 MG TABLET PO SCH (09:37)
[2018-05-09] MEDS: METOPROLOL TARTRATE 25 MG TABLET PO SCH ×2 (09:37→22:01)
[2018-05-09] MEDS: BUDESONIDE/FORMOTEROL 160-4.5 MCG 60 PUFF/6 GM MDI IH SCH ×2 (09:40→22:01)
--- NOTE | 2018-05-09 10:29 | PDOC PROGRESS REPORT ---
Subjective Progress Note for:: 05/09/18 Subjective:: This is a 72 yr old with a past medical history of COPD, hyperlipidemia, hypertension and hypothyroidism who initially presented with increasing shortness of breath and cough. Patient was initially placed on BiPAP in the ER but she continued to decompensate. She was noted to be hypoxic and also had respiratory acidosis and was subsequently intubated. She was treated for COPD exacerbation. Her initial x-ray also showed questionable right basilar opacity. Flu testing also came back positive for influenza A. Patient's troponin also trended up to 2.0 and she was treated for possible NSTEMI. Patient extubated on 04/30/18 successfully and was transitioned to BIPAP. Plan of care discussed in length with family and pulmonology and patient also expressed she wants to be DNR/DNI. They also expressed interest in transitioning her to hospice or comfort measures if she has recurrence of respiratory distress. 05/01/18: Patient had episodes of tachypnea last night and was relieved with morphine. Discussed with patient and family again this morning and they are c onsidering between inpatient vs home hospice but awaiting for other family members to come in. 05/02/18: Patient is more awake and conversant today. She continues to be on BIPAP. Family has expressed they want to hold off on hospice as she appears more alert today. We did discuss this in length on bedside with patient participating in decision making. Family and patient did express they are interested in pursuing inpatient rehab vs SNF placement and pursue physical therapy and pulmonary rehab for her if she continues to show improvement. Will hold off on plan to transition to hospice for now. Also discussed about her recent NSTEMI and option to do cath and they did verbalize they prefer not to pursue any invasive cardiac testing. 05/03/18: Patient appears comfortable on BIPAP but has been BIPAP dependent since extubation. She is more awake and coherent today. Denies chest pain. Plan to try weaning her off BIPAP today. 05/04/18: No acute event overnight. Patient is doing much better and is now more conversant and making jokes. She has been off BIPAP this morning and is comfortable and saturating well on nasal cannula. If she continues to do well off BIPAP, she will be deemed likely fir for discharge to SNF/rehab in the next 24-48 hrs. 05/15/2018-no acute events in the last 24 hours. Patient is afebrile. Swallowing evaluation was done the recommendation is to start on mechanical soft diet. Patient is on nasal cannula pulse ox is 94% on 4 L. Patient is using the BiPAP on and off. Physical therapy consult was requested. 05/06/2018 no acute events overnight. Patient is afebrile. We repeated the chest x-ray yesterday. It shows increased opacification which is retrocardiac suggesting left lower lobe pneumonia. WBC is going up. Patient is asymptomatic comfortably in the bed. 05/07/2018 no acute events in the last 24 hours. Patient afebrile. Patient is still weak to get out of the bed and get onto the commode. Physical therapy working with the patient. Patient still have a Arredondo's catheter. Pulse ox 98% on 3 L. 05/08/2018 patient is comfortably in the bed communicating very well. Patient is afebrile no acute events in the last 24 hours. Pulse ox is 100% on 3 L. 05/09/2018 no acute events in the last 24 hours patient is afebrile comfortably in the bed. Pulse ox is 99% on 2 L. I had a long discussion with the family about antibiotics and referral to [facility] they happy with the management so far. As per the ID recommendations I am going to stop the antibiotics from today. Reason For Visit: ACUTE ON CHRONIC RESPIRATORY FAILURE WITH HYPOXIA Physical Exam Vital Signs: Temp Pulse Resp BP Pulse Ox 97.6 F 77 20 113/44 L 99 05/09/18 08:52 05/09/18 08:52 05/09/18 08:52 05/09/18 08:52 05/09/18 08:52 Intake & Output 05/08/18 05/09/18 05/10/18 06:59 06:59 06:59 Intake Total 1848 1830 Output Total 3660 5915 Balance -417 -765 Weight 61.9 kg 60.8 kg General appearance: PRESENT: no acute distress Head exam: PRESENT: atraumatic Eye exam: PRESENT: PERRLA Mouth exam: PRESENT: moist, tongue midline Neck exam: ABSENT: carotid bruit, JVD, lymphadenopathy, thyromegaly Respiratory exam: PRESENT: decreased breath sounds Cardiovascular exam: PRESENT: tachycardia GI/Abdominal exam: PRESENT: normal bowel sounds, soft. ABSENT: distended, guarding, mass, organolmegaly, rebound, tenderness Extremities exam: PRESENT: full ROM. ABSENT: calf tenderness, clubbing, pedal edema Neurological exam: PRESENT: alert, awake, oriented to person, oriented to place, oriented to time, oriented to situation, CN II-XII grossly intact. ABSENT: motor sensory deficit Psychiatric exam: PRESENT: appropriate affect, normal mood. ABSENT: homicidal ideation, suicidal ideation Results Laboratory Results: 05/09/18 04:20 05/09/18 04:20 05/09/18 05/09/18 04:20 04:20 WBC 16.5 H RBC 3.05 L Hgb 9.2 L Hct 27.3 L MCV 90 MCH 30.2 MCHC 33.8 RDW 13.1 Plt Count 194 Seg Neutrophils % Not Reportable Lymphocytes % Not Reportable Monocytes % Not Reportable Eosinophils % Not Reportable Basophils % Not Reportable Absolute Neutrophils Not Reportable Absolute Lymphocytes Not Reportable Absolute Monocytes Not Reportable Absolute Eosinophils Not Reportable Absolute Basophils Not Reportable Sodium 135.1 L Potassium 4.3 Chloride 105 Carbon Dioxide 27 Anion Gap 3 L BUN 9 Creatinine 0.41 L Est GFR ( Amer) > 60 Est GFR (Non-Af Amer) > 60 Glucose 133 H Calcium 7.3 L Magnesium 1.4 L Total Bilirubin 0.8 AST 16 ALT 57 H Alkaline Phosphatase 46 Total Protein 4.3 L Albumin 2.4 L 04/25/18 04/25/18 04/25/18 21:09 22:06 22:32 Creatine Kinase 91 CK-MB (CK-2) Troponin I Cancelled 0.787 NT-Pro-B Natriuret Pep Cancelled 256 04/25/18 04/26/18 04/26/18 22:32 04:40 04:40 Creatine Kinase 121 CK-MB (CK-2) 3.26 7.97 H Troponin I Cancelled 1.820 NT-Pro-B Natriuret Pep 04/26/18 04/26/18 04/26/18 10:24 10:24 19:17 Creatine Kinase 171 H 143 H CK-MB (CK-2) 12.50 H Troponin I 2.090 NT-Pro-B Natriuret Pep 04/26/18 04/28/18 04/29/18 19:17 10:00 11:30 Creatine Kinase CK-MB (CK-2) 9.22 H Troponin I 2.020 0.654 0.301 NT-Pro-B Natriuret Pep Impressions: KUB X-Ray 04/26/18 16:45 IMPRESSION: Satisfactory position of nasogastric tube. Head CT 04/27/18 00:00 IMPRESSION: NORMAL BRAIN CT WITHOUT CONTRAST. EVIDENCE OF ACUTE STROKE: NO. Chest X-Ray 05/05/18 00:00 IMPRESSION: Small pleural effusions. Increased retrocardiac opacification consistent with left lower lobe pneumonia. Chest CT 05/06/18 00:00 IMPRESSION: Small bilateral pleural effusions with minimal right upper lobe ground-glass attenuation, possibly infectious/ inflammatory. Extensive upper lobe predominant panacinar emphysema. Scattered subcentimeter nodules, largest measuring 6 mm. See follow-up as below. Assessment & Plan - Diagnosis (1) Acute respiratory failure with hypoxia and hypercapnia Is this a current diagnosis for this admission?: Yes Plan: -Secondary to COPD exacerbation, influenza A and possible pneumonia. Currently saturating well on minimal vent settings. 05/01/18: Patient had episodes of tachypnea last night and was relieved with morphine. Discussed with patient and family again this morning and they are considering between inpatient vs home hospice but awaiting for other family members to come in. 05/02/18: Patient is more awake and conversant today. She continues to be on BIPAP. Family has expressed they want to hold off on hospice as she appears more alert today. We did discuss this in length on bedside with patient participating in decision making. Family and patient did express they are interested in pursu ing inpatient rehab vs SNF placement and pursue physical therapy and pulmonary rehab for her if she continues to show improvement. Will hold off on plan to transition to hospice for now. Also discussed about her recent NSTEMI and option to do cath and they did verbalize they prefer not to pursue any invasive cardiac testing. 05/03/18: Patient appears comfortable on BIPAP but has been BIPAP dependent since extubation. Plan to reattempt weaning her off BIPAP today. 05/04/18:Patient is doing much better and is now more conversant and making jokes. She has been off BIPAP this morning and is comfortable and saturating well on nasal cannula. If she continues to do well off BIPAP, she will be deemed likely fit for discharge to SNF/rehab in the next 24-48 hrs. 05/05/2018-she is comfortably in the bed not in distress pulse ox is 94% on 4 L she is using the BiPAP on and off BiPAP requirements are gradually going down every day. Physical therapy consult was requested probably to send her to snf. pt is on regular scheduled breathing treatments and IV Solu-Medrol 40 mg daily. stopped Solu-Medrol and started on prednisone 10 mg p.o. twice daily. 05/06/2018-patient is comfortably in the bed not in respiratory distress using the BiPAP on and off. T-max is 98.7. Pulse ox is 95% on 3 L. Patient is getting a regular scheduled breathing treatments, prednisone 10 mg p.o. twice daily. Chest x-ray shows left lower lobe pneumonia started on Zosyn and vancomycin today. CT chest without contrast was requested. 05/07/2018 patient is comfortable in the bed on oxygen via nasal cannula denies any complaints doing well. T-max is 97.9. Chest x-ray shows left lower lobe pneumonia and was started on Zosyn and vancomycin yesterday. CT chest without contrast shows small bilateral pleural effusions with minimal right right upper lobe groundglass appearance possible infection was/inflammatory cause. And is to continue the present management. 05/08/2018-pulse ox on 3 L is 100%. Per the pneumonia she is getting Zosyn and vancomycin. C and hypercapnia resolving. Vanco trough is pending. Plan is to continue the present management. 05/09/2018-pulse ox on 2 L is 99%. As per the ID recommendations planning to stop Zosyn and vancomycin from today. Acute respiratory failure with hypoxia and hypercapnia resolved. (2) COPD exacerbation Is this a current diagnosis for this admission?: Yes Plan: 05/05/2018-patient is admitted with COPD exacerbation Solu-Medrol was changed to prednisone 10 mg p.o. twice daily. She is off the antibiotics. She is afebrile. 05/06/2018-on examination chest bilateral entry was decreased no wheezing presently on patient presently on prednisone 10 mg p.o. twice daily. It is getting Xopenex nebulizations every 4 as needed. To continue the present management. 05/07/2018-on examination chest bilateral air entry was severely decreased probably secondary to emphysema/COPD. Patient is on prednisone 10 mg twice daily Xopenex nebulizations every 4 hours as needed plan is to continue the pre sent management. 05/08/2018-on examination of the chest bilateral air entry was decreased secondary to COPD/emphysema. Patient is on p.o. prednisone on Xopenex nebulizations every 4 hours as needed. Patient is doing well pulse ox is 100% on 3 L. Plan is to continue the present management. 05/09/2018-COPD exacerbation is resolved on examination chest bilateral entry was decreased no wheezing. Pulse ox is 99% on 2 L. Adding to stop the p.o. prednisone today. (3) Influenza Is this a current diagnosis for this admission?: Yes Plan: 05/05/2018-was positive for influenza A at the time of admission completed 5 days course of Tamiflu. 05/06/2018 patient was positive for influenza A and was treated with 5 days course of Tamiflu. 05/07/2018-patient was treated for influenza A with 5 days of Tamiflu. 05/08/2018 patient was positive for influenza A completed a course of Tamiflu for 5 days. 05/09/2018 influenza A was treated with 5 days course of Tamiflu. (4) Pulmonary congestion Is this a current diagnosis for this admission?: Yes (5) Pneumonia Is this a current diagnosis for this admission?: Yes Plan: 05/06/2018-chest x-ray yesterday reveals left lower lobe pneumonia, started on Zosyn 3.37 g IV every 6 hours and vancomycin 1 g IV daily Vanco trough will be managed by the pharmacy. CT chest without contrast was requested for better assessment of the pneumonia. She is afebrile. 05/07/2018-chest x-ray shows left lower lobe pneumonia, CT chest shows small right upper lobe groundglass appearance probably reflecting/inflammatory cause. Patient might have bacterial pneumonia. She is on Zosyn and vancomycin. We can classify as a hospital-acquired pneumonia. 05/08/2018-chest x-ray showed left lower lobe pneumonia. But CT chest indicates right upper lobe groundglass appearance probably reflecting infect ious/inflammatory cause. Patient is on Zosyn and vancomycin. Patient is afebrile. Cultures are negative so far. Plan is to complete the 1 week course of antibiotics. 05/09/2018-pneumonia was appropriately treated with antibiotic therapy cultures are negative as per the ID recommendations were going to stop the antibiotics from today. (6) Constipation Is this a current diagnosis for this admission?: Yes Plan: 05/08/2018-nurse notified me that patient does not have any bowel movement for the last 5 days. I started her on MiraLAX 17 g p.o. daily and order for enema. 05/09/2018-patient complained of constipation yesterday she was given enema and started on MiraLAX no complaints today. (7) Physical debility Is this a current diagnosis for this admission?: Yes Plan: 05/08/2018-physical therapy is working with the patient. Patient still having difficulty even come out of the bed onto the bedside commode. In my opinion she made her to go to acute rehab for complete recovery. 05/09/2018 patient has a difficulty even coming out of the bed onto the bedside commode physical therapy is working with the patient most likely she [facility]. - Time Time Spent with patient: 15-24 minutes Medications reviewed and adjusted accordingly: Yes Anticipated discharge: SNF
[2018-05-09] MEDS: MAGNESIUM SULFATE/D5W 1 GM/100 ML RTUPB IV SCH ×2 (13:09→15:11)
[2018-05-09] MEDS: TIOTROPIUM BROMIDE DPI 5 CAP/KIT (18 MCG/CAP) IH SCH (13:09)
[2018-05-09] MEDS ORDERED: MAGNESIUM SULFATE/D5W 1 GM/100 ML RTUPB IV ONE (15:10)
[2018-05-09] MEDS: MONTELUKAST SODIUM 10 MG TABLET PO SCH (22:01)
[2018-05-10] MEDS: IPRATROPIUM BROMIDE 0.02% NEB 0.5 MG/2.5 ML AMPUL NEB SCH ×4 (00:01→23:57)
[2018-05-10] MEDS: LEVALBUTEROL HCL NEB 1.25 MG/3 ML AMPUL NEB SCH ×4 (00:01→23:57)
[2018-05-10] MEDS: ALBUTEROL SULFATE HFA (90 MCG/PUFF) 200 PUFF/8.5 GM MDI IH SCH ×4 (05:32→23:08)
[2018-05-10] MEDS: LEVOTHYROXINE SODIUM 0.088 MG TABLET PO SCH (05:32)
[2018-05-10] MEDS: NYSTATIN 500000 UNIT/5 ML UDCUP PO SCH ×4 (05:32→23:08)
[2018-05-10 06:11] LABS: HEMATOCRIT 29.2 % (36.0-47.0); HEMOGLOBIN 9.7 g/dL (12.0-15.5); MEAN CORPUSCULAR HEMOGLOBIN 29.9 pg (27.0-33.4); MEAN CORPUSCULAR HGB CONC 33.3 g/dL (32.0-36.0); MEAN CORPUSCULAR VOLUME 90 fl (80-97); PLATELET COUNT 200 10^3/uL (150-450); RED BLOOD COUNT 3.25 10^6/uL (3.72-5.28); RED CELL DISTRIBUTION WIDTH 13.4 % (11.5-14.0)
[2018-05-10 06:17] LABS: ALANINE AMINOTRANSFERASE 56 U/L (9-52); ALBUMIN 2.7 g/dL (3.5-5.0); ALKALINE PHOSPHATASE 54 U/L (38-126); ASPARTATE AMINO TRANSFERASE 18 U/L (14-36); BILIRUBIN,DIRECT 0.3 mg/dL (0.0-0.4); BILIRUBIN,TOTAL 1.2 mg/dL (0.2-1.3); BLOOD UREA NITROGEN 9 mg/dL (7-20); CALCIUM 7.9 mg/dL (8.4-10.2); GLUCOSE 77 mg/dL (75-110); POTASSIUM 4.5 mmol/L (3.6-5.0); TOTAL PROTEIN 4.8 g/dL (6.3-8.2)
[2018-05-10 06:22] LABS: CARBON DIOXIDE 32 mmol/L (22-30); CHLORIDE 104 mmol/L (98-107); SODIUM 136.6 mmol/L (137-145)
[2018-05-10 06:28] LABS: ABSOLUTE MONOCYTES # (MANUAL) 1.4 10^3/uL (0.1-1.4); ABSOLUTE NEUTROPHILS# (MANUAL) 9.6 10^3/uL (1.7-8.2); BASOPHILS % (MANUAL) 0 % (0-2); EOSINOPHILS % (MANUAL) 0 % (0-6); LYMPHOCYTES % (MANUAL) 15 % (13-45); MONOCYTES % (MANUAL) 11 % (3-13); SEGMENTED NEUTROPHILS % (MAN) 74 % (42-78); TOTAL CELLS COUNTED 100
[2018-05-10 06:30] LABS: ANION GAP 1 (5-19); BURR CELLS SLIGHT; OVALOCYTES 1+; PLATELET COMMENT ADEQUATE; POIKILOCYTOSIS 1+; TEAR DROP CELLS SLIGHT; TOXIC GRANULATION 1+; TOXIC VACUOLATION PRESENT
[2018-05-10] MEDS: PHOSPHORUS #1 250 MG TABLET PO SCH ×4 (08:19→22:47)
--- NOTE | 2018-05-10 09:00 | PDOC PROGRESS REPORT ---
Subjective Progress Note for:: 05/10/18 Subjective:: This is a 72 yr old with a past medical history of COPD, hyperlipidemia, hypertension and hypothyroidism who initially presented with increasing shortness of breath and cough. Patient was initially placed on BiPAP in the ER but she continued to decompensate. She was noted to be hypoxic and also had respiratory acidosis and was subsequently intubated. She was treated for COPD exacerbation. Her initial x-ray also showed questionable right basilar opacity. Flu testing also came back positive for influenza A. Patient's troponin also trended up to 2.0 and she was treated for possible NSTEMI. Patient extubated on 04/30/18 successfully and was transitioned to BIPAP. Plan of care discussed in length with family and pulmonology and patient also expressed she wants to be DNR/DNI. They also expressed interest in transitioning her to hospice or comfort measures if she has recurrence of respiratory distress. 05/01/18: Patient had episodes of tachypnea last night and was relieved with morphine. Discussed with patient and family again this morning and they are c onsidering between inpatient vs home hospice but awaiting for other family members to come in. 05/02/18: Patient is more awake and conversant today. She continues to be on BIPAP. Family has expressed they want to hold off on hospice as she appears more alert today. We did discuss this in length on bedside with patient participating in decision making. Family and patient did express they are interested in pursuing inpatient rehab vs SNF placement and pursue physical therapy and pulmonary rehab for her if she continues to show improvement. Will hold off on plan to transition to hospice for now. Also discussed about her recent NSTEMI and option to do cath and they did verbalize they prefer not to pursue any invasive cardiac testing. 05/03/18: Patient appears comfortable on BIPAP but has been BIPAP dependent since extubation. She is more awake and coherent today. Denies chest pain. Plan to try weaning her off BIPAP today. 05/04/18: No acute event overnight. Patient is doing much better and is now more conversant and making jokes. She has been off BIPAP this morning and is comfortable and saturating well on nasal cannula. If she continues to do well off BIPAP, she will be deemed likely fir for discharge to SNF/rehab in the next 24-48 hrs. 05/15/2018-no acute events in the last 24 hours. Patient is afebrile. Swallowing evaluation was done the recommendation is to start on mechanical soft diet. Patient is on nasal cannula pulse ox is 94% on 4 L. Patient is using the BiPAP on and off. Physical therapy consult was requested. 05/06/2018 no acute events overnight. Patient is afebrile. We repeated the chest x-ray yesterday. It shows increased opacification which is retrocardiac suggesting left lower lobe pneumonia. WBC is going up. Patient is asymptomatic comfortably in the bed. 05/07/2018 no acute events in the last 24 hours. Patient afebrile. Patient is still weak to get out of the bed and get onto the commode. Physical therapy working with the patient. Patient still have a Arredondo's catheter. Pulse ox 98% on 3 L. 05/08/2018 patient is comfortably in the bed communicating very well. Patient is afebrile no acute events in the last 24 hours. Pulse ox is 100% on 3 L. 05/09/2018 no acute events in the last 24 hours patient is afebrile comfortably in the bed. Pulse ox is 99% on 2 L. I had a long discussion with the family about antibiotics and referral to alf they happy with the management so far. As per the ID recommendations I am going to stop the antibiotics from today. 05/10/2018-no acute events in the last 24 hours. Patient is afebrile. Pulse ox is 99% on 2 L. Patient is comfortably in the bed reading the newspaper. Sickle therapy is going to work with her either today or tomorrow again. The plan is to send her to the acute rehab. Reason For Visit: ACUTE ON CHRONIC RESPIRATORY FAILURE WITH HYPOXIA Physical Exam Vital Signs: Temp Pulse Resp BP Pulse Ox 97.6 F 68 16 121/51 L 99 05/10/18 07:58 05/10/18 07:58 05/10/18 07:58 05/10/18 07:58 05/10/18 07:58 Intake & Output 05/09/18 05/10/18 05/11/18 06:59 06:59 06:59 Intake Total 1830 1573 Output Total 2595 3830 Balance -765 -1047 Weight 60.8 kg 59.8 kg General appearance: PRESENT: no acute distress Head exam: PRESENT: atraumatic Eye exam: PRESENT: PERRLA Mouth exam: PRESENT: moist Neck exam: ABSENT: carotid bruit, JVD, lymphadenopathy, thyromegaly Respiratory exam: PRESENT: decreased breath sounds Cardiovascular exam: PRESENT: RRR. ABSENT: diastolic murmur, rubs, systolic murmur GI/Abdominal exam: PRESENT: normal bowel sounds, soft. ABSENT: distended, guarding, mass, organolmegaly, rebound, tenderness Extremities exam: PRESENT: full ROM. ABSENT: calf tenderness, clubbing, pedal edema Neurological exam: PRESENT: alert, awake, oriented to person, oriented to place, oriented to time, oriented to situation, CN II-XII grossly intact. ABSENT: motor sensory deficit Psychiatric exam: PRESENT: appropriate affect, normal mood. ABSENT: homicidal ideation, suicidal ideation Results Laboratory Results: 05/10/18 05:38 05/10/18 05:38 05/10/18 05/10/18 05:38 05:38 WBC 13.0 H RBC 3.25 L Hgb 9.7 L Hct 29.2 L MCV 90 MCH 29.9 MCHC 33.3 RDW 13.4 Plt Count 200 Seg Neutrophils % Not Reportable Lymphocytes % Not Reportable Monocytes % Not Reportable Eosinophils % Not Reportable Basophils % Not Reportable Absolute Neutrophils Not Reportable Absolute Lymphocytes Not Reportable Absolute Monocytes Not Reportable Absolute Eosinophils Not Reportable Absolute Basophils Not Reportable Sodium 136.6 L Potassium 4.5 Chloride 104 Carbon Dioxide 32 H Anion Gap 1 L BUN 9 Creatinine 0.48 L Est GFR ( Amer) > 60 Est GFR (Non-Af Amer) > 60 Glucose 77 Calcium 7.9 L Magnesium 2.1 Total Bilirubin 1.2 AST 18 ALT 56 H Alkaline Phosphatase 54 Total Protein 4.8 L Albumin 2.7 L 04/25/18 04/25/18 04/25/18 21:09 22:06 22:32 Creatine Kinase 91 CK-MB (CK-2) Troponin I Cancelled 0.787 NT-Pro-B Natriuret Pep Cancelled 256 04/25/18 04/26/18 04/26/18 22:32 04:40 04:40 Creatine Kinase 121 CK-MB (CK-2) 3.26 7.97 H Troponin I Cancelled 1.820 NT-Pro-B Natriuret Pep 04/26/18 04/26/18 04/26/18 10:24 10:24 19:17 Creatine Kinase 171 H 143 H CK-MB (CK-2) 12.50 H Troponin I 2.090 NT-Pro-B Natriuret Pep 04/26/18 04/28/18 04/29/18 19:17 10:00 11:30 Creatine Kinase CK-MB (CK-2) 9.22 H Troponin I 2.020 0.654 0.301 NT-Pro-B Natriuret Pep Impressions: KUB X-Ray 04/26/18 16:45 IMPRESSION: Satisfactory position of nasogastric tube. Head CT 04/27/18 00:00 IMPRESSION: NORMAL BRAIN CT WITHOUT CONTRAST. EVIDENCE OF ACUTE STROKE: NO. Chest X-Ray 05/05/18 00:00 IMPRESSION: Small pleural effusions. Increased retrocardiac opacification consistent with left lower lobe pneumonia. Chest CT 05/06/18 00:00 IMPRESSION: Small bilateral pleural effusions with minimal right upper lobe ground-glass attenuation, possibly infectious/ inflammatory. Extensive upper lobe predominant panacinar emphysema. Scattered subcentimeter nodules, largest measuring 6 mm. See follow-up as below. Assessment & Plan - Diagnosis (1) Acute respiratory failure with hypoxia and hypercapnia Is this a current diagnosis for this admission?: Yes Plan: -Secondary to COPD exacerbation, influenza A and possible pneumonia. Currently saturating well on minimal vent settings. 05/01/18: Patient had episodes of tachypnea last night and was relieved with morphine. Discussed with patient and family again this morning and they are considering between inpatient vs home hospice but awaiting for other family members to come in. 05/02/18: Patient is more awake and conversant today. She continues to be on BIPAP. Family has expressed they want to hold off on hospice as she appears more alert today. We did discuss this in length on bedside with patient participating in decision making. Family and patient did express they are interested in pursuing inpatient rehab vs SNF placement and pursue physical therapy and pulmonary rehab for her if she continues to show improvement. Will hold off on plan to transition to hospice for now. Also discussed about her recent NSTEMI and option to do cath and they did verbalize they prefer not to pursue any i nvasive cardiac testing. 05/03/18: Patient appears comfortable on BIPAP but has been BIPAP dependent since extubation. Plan to reattempt weaning her off BIPAP today. 05/04/18:Patient is doing much better and is now more conversant and making jokes. She has been off BIPAP this morning and is comfortable and saturating well on nasal cannula. If she continues to do well off BIPAP, she will be deemed likely fit for discharge to SNF/rehab in the next 24-48 hrs. 05/05/2018-she is comfortably in the bed not in distress pulse ox is 94% on 4 L she is using the BiPAP on and off BiPAP requirements are gradually going down every day. Physical therapy consult was requested probably to send her to snf. pt is on regular scheduled breathing treatments and IV Solu-Medrol 40 mg daily. stopped Solu-Medrol and started on prednisone 10 mg p.o. twice daily. 05/06/2018-patient is comfortably in the bed not in respiratory distress using the BiPAP on and off. T-max is 98.7. Pulse ox is 95% on 3 L. Patient is getting a regular scheduled breathing treatments, prednisone 10 mg p.o. twice daily. Chest x-ray shows left lower lobe pneumonia started on Zosyn and vancomycin today. CT chest without contrast was requested. 05/07/2018 patient is comfortable in the bed on oxygen via nasal cannula denies any complaints doing well. T-max is 97.9. Chest x-ray shows left lower lobe pneumonia and was started on Zosyn and vancomycin yesterday. CT chest without contrast shows small bilateral pleural effusions with minimal right right upper lobe groundglass appearance possible infection was/inflammatory cause. And is to continue the present management. 05/08/2018-pulse ox on 3 L is 100%. Per the pneumonia she is getting Zosyn and vancomycin. C and hypercapnia resolving. Vanco trough is pending. Plan is to continue the present management. 05/09/2018-pulse ox on 2 L is 99%. As per the ID recommendations planning to stop Zosyn and vancomycin from today. Acute respiratory failure with hypoxia and hypercapnia resolved. 05/10/2018-pulse ox on 2 L is 99%. She is off the antibiotics. Afebrile. Off the antibiotics off the steroids. WBC came down to 13,000. Acute on chronic respiratory failure with hypoxia and hypercapnia resolved. (2) COPD exacerbation Is this a current diagnosis for this admission?: Yes Plan: 05/05/2018-patient is admitted with COPD exacerbation Solu-Medrol was changed to prednisone 10 mg p.o. twice daily. She is off the antibiotics. She is afebrile. 05/06/2018-on examination chest bilateral entry was decreased no wheezing presently on patient presently on prednisone 10 mg p.o. twice daily. It is g etting Xopenex nebulizations every 4 as needed. To continue the present management. 05/07/2018-on examination chest bilateral air entry was severely decreased probably secondary to emphysema/COPD. Patient is on prednisone 10 mg twice daily Xopenex nebulizations every 4 hours as needed plan is to continue the present management. 05/08/2018-on examination of the chest bilateral air entry was decreased secondary to COPD/emphysema. Patient is on p.o. prednisone on Xopenex nebulizations every 4 hours as needed. Patient is doing well pulse ox is 100% on 3 L. Plan is to continue the present management. 05/09/2018-COPD exacerbation is resolved on examination chest bilateral entry was decreased no wheezing. Pulse ox is 99% on 2 L. planning to stop the p.o. prednisone today. 05/10/2018 COPD exacerbation probably secondary to multifocal pneumonia pneumonia is resolved her latest chest x-ray no acute pathology. Off the antibiotics afebrile. Plan is to continue the present management. (3) Influenza Is this a current diagnosis for this admission?: Yes Plan: 05/05/2018-was positive for influenza A at the time of admission completed 5 days course of Tamiflu. 05/06/2018 patient was positive for influenza A and was treated with 5 days course of Tamiflu. 05/07/2018-patient was treated for influenza A with 5 days of Tamiflu. 05/08/2018 patient was positive for influenza A completed a course of Tamiflu for 5 days. 05/09/2018 influenza A was treated with 5 days course of Tamiflu. 05/10/2018-patient was positive for influenza A at the time of admission completed the course of Tamiflu for 5 days. (4) Pulmonary congestion Is this a current diagnosis for this admission?: Yes (5) Pneumonia Is this a current diagnosis for this admission?: Yes Plan: 05/06/2018-chest x-ray yesterday reveals left lower lobe pneumonia, started on Zosyn 3.37 g IV every 6 hours and vancomycin 1 g IV daily Vanco trough will be managed by the pharmacy. CT chest without contrast was requested for better assessment of the pneumonia. She is afebrile. 05/07/2018-chest x-ray shows left lower lobe pneumonia, CT chest shows small right upper lobe groundglass appearance probably reflecting/inflammatory cause. Patient might have bacterial pneumonia. She is on Zosyn and vancomycin. We can classify as a hospital-acquired pneumonia. 05/08/2018-chest x-ray showed left lower lobe pneumonia. But CT chest indicates right upper lobe groundglass appearance probably reflecting infectious/inflammatory cause. Patient is on Zosyn and vancomycin. Patient is afebrile. Cultures are negative so far. Plan is to complete the 1 week course of antibiotics. 05/09/2018-pneumonia was appropriately treated with antibiotic therapy cultures are negative as per the ID recommendations were going to stop the antibiotics from today. 05/10/2018-latest chest x-ray shows pneumonia is resolved patient is off the antibiotics pulse ox of 99% on 2 L off the steroids. Community-acquired pneumonia is resolved. Cultures are negative. Sputum culture is negative. (6) Constipation Is this a current diagnosis for this admission?: Yes Plan: 05/08/2018-nurse notified me that patient does not have any bowel movement for the last 5 days. I started her on MiraLAX 17 g p.o. daily and order for enema. 05/09/2018-patient complained of constipation yesterday she was given enema and started on MiraLAX no complaints today. 05/10/2018 patient is having the regular bowel movements constipation is resolved. (7) Physical debility Is this a current diagnosis for this admission?: Yes Plan: 05/08/2018-physical therapy is working with the patient. Patient still having difficulty even come out of the bed onto the bedside commode. In my opinion she made her to go to acute rehab for complete recovery. 05/09/2018 patient has a difficulty even coming out of the bed onto the bedside commode physical therapy is working with the patient most likely she go to the alf for acute rehab next week. 05/10/2018 physical therapy is working with the patient patient is bedbound during the hospital stay. Using the bedpan. She has difficulty coming out of the bed onto the bedside commode. Probably she may need to go to a intermediate facility. - Time Time Spent with patient: 15-24 minutes Smoking Cessation Education: over 10 minutes Medications reviewed and adjusted accordingly: Yes Anticipated discharge: SNF
[2018-05-10] MEDS: METOPROLOL TARTRATE 25 MG TABLET PO SCH ×2 (10:24→22:47)
[2018-05-10] MEDS: ASPIRIN 81 MG TABLET, CHEWABLE PO SCH (10:25)
[2018-05-10] MEDS: CETIRIZINE 10 MG TABLET PO SCH (10:25)
[2018-05-10] MEDS: BUPROPION HCL 75 MG TABLET PO SCH ×2 (10:25→22:47)
[2018-05-10] MEDS: ATORVASTATIN CALCIUM 10 MG TABLET PO SCH (10:25)
[2018-05-10] MEDS: BENAZEPRIL HCL 20 MG TABLET PO SCH (10:25)
[2018-05-10] MEDS: POTASSIUM CHLORIDE 10 MEQ CAPSULE.ER PO SCH ×2 (10:25→18:21)
[2018-05-10] MEDS: ENOXAPARIN SODIUM INJ 60 MG/0.6 ML DISP.SYRIN SUBCUT SCH ×2 (10:26→22:48)
[2018-05-10] MEDS: NICOTINE 21 MG/24 HR PATCH.TD24 TD SCH (10:26)
[2018-05-10] MEDS: POLYETHYLENE GLYCOL 3350 POWDER 17 GM/1 PACKET PO SCH (10:26)
[2018-05-10] MEDS: TIOTROPIUM BROMIDE DPI 5 CAP/KIT (18 MCG/CAP) IH SCH (10:27)
[2018-05-10] MEDS: BUDESONIDE/FORMOTEROL 160-4.5 MCG 60 PUFF/6 GM MDI IH SCH ×2 (10:28→22:47)
[2018-05-10] MEDS ORDERED: SIMETHICONE 80 MG TAB.CHEW PO PRN (22:24)
[2018-05-10] MEDS ORDERED: MELATONIN 5 MG TABLET PO PRN (22:30)
[2018-05-10] MEDS: MONTELUKAST SODIUM 10 MG TABLET PO SCH (22:47)
[2018-05-11] MEDS: LEVOTHYROXINE SODIUM 0.088 MG TABLET PO SCH (06:17)
[2018-05-11] MEDS: NYSTATIN 500000 UNIT/5 ML UDCUP PO SCH ×4 (06:17→23:46)
[2018-05-11] MEDS: ALBUTEROL SULFATE HFA (90 MCG/PUFF) 200 PUFF/8.5 GM MDI IH SCH ×3 (06:17→18:52)
[2018-05-11 07:30] LABS: HEMATOCRIT 28.7 % (36.0-47.0); HEMOGLOBIN 9.8 g/dL (12.0-15.5); MEAN CORPUSCULAR HEMOGLOBIN 30.7 pg (27.0-33.4); MEAN CORPUSCULAR HGB CONC 34.2 g/dL (32.0-36.0); MEAN CORPUSCULAR VOLUME 90 fl (80-97); PLATELET COUNT 189 10^3/uL (150-450); RED CELL DISTRIBUTION WIDTH 13.1 % (11.5-14.0); WHITE BLOOD COUNT 12.5 10^3/uL (4.0-10.5)
[2018-05-11] MEDS: IPRATROPIUM BROMIDE 0.02% NEB 0.5 MG/2.5 ML AMPUL NEB SCH ×3 (08:16→23:59)
[2018-05-11] MEDS: LEVALBUTEROL HCL NEB 1.25 MG/3 ML AMPUL NEB SCH ×3 (08:16→23:59)
[2018-05-11 08:54] LABS: AMORPHOUS SEDIMENT,URINE 1+ /HPF; APPEARANCE,URINE SLIGHTLY-CLOUDY; BILIRUBIN,URINE NEGATIVE (NEGATIVE); COLOR,URINE YELLOW; GLUCOSE, URINE NEGATIVE (NEGATIVE); KETONES,URINE NEGATIVE (NEGATIVE); LEUKOCYTE ESTERASE,URINE NEGATIVE (NEGATIVE); NITRITE,URINE NEGATIVE (NEGATIVE); PROTEIN,URINE NEGATIVE (NEGATIVE); UROBILINOGEN,URINE NEGATIVE mg/dL (<2.0)
[2018-05-11] MEDS: POLYETHYLENE GLYCOL 3350 POWDER 17 GM/1 PACKET PO SCH (10:33)
[2018-05-11] MEDS: BENAZEPRIL HCL 20 MG TABLET PO SCH (10:34)
[2018-05-11] MEDS: BUDESONIDE/FORMOTEROL 160-4.5 MCG 60 PUFF/6 GM MDI IH SCH ×2 (10:53→21:41)
[2018-05-11] MEDS: POTASSIUM CHLORIDE 10 MEQ CAPSULE.ER PO SCH (10:53)
[2018-05-11] MEDS: PHOSPHORUS #1 250 MG TABLET PO SCH ×4 (10:53→21:42)
[2018-05-11] MEDS: ASPIRIN 81 MG TABLET, CHEWABLE PO SCH (10:54)
[2018-05-11] MEDS: ATORVASTATIN CALCIUM 10 MG TABLET PO SCH (10:54)
[2018-05-11] MEDS: CETIRIZINE 10 MG TABLET PO SCH (10:54)
[2018-05-11] MEDS: BUPROPION HCL 75 MG TABLET PO SCH ×2 (10:54→21:42)
[2018-05-11] MEDS: METOPROLOL TARTRATE 25 MG TABLET PO SCH ×2 (10:54→21:43)
[2018-05-11] MEDS: NICOTINE 21 MG/24 HR PATCH.TD24 TD SCH (10:54)
[2018-05-11] MEDS: ENOXAPARIN SODIUM INJ 60 MG/0.6 ML DISP.SYRIN SUBCUT SCH ×2 (11:00→21:43)
[2018-05-11] MEDS: TIOTROPIUM BROMIDE DPI 5 CAP/KIT (18 MCG/CAP) IH SCH (11:01)
--- NOTE | 2018-05-11 12:36 | PDOC PROGRESS REPORT ---
Subjective Progress Note for:: 05/11/18 Subjective:: This is a 72 yr old with a past medical history of COPD, hyperlipidemia, hypertension and hypothyroidism who initially presented with increasing shortness of breath and cough. Patient was initially placed on BiPAP in the ER but she continued to decompensate. She was noted to be hypoxic and also had respiratory acidosis and was subsequently intubated. She was treated for COPD exacerbation. Her initial x-ray also showed questionable right basilar opacity. Flu testing also came back positive for influenza A. Patient's troponin also trended up to 2.0 and she was treated for possible NSTEMI. Patient extubated on 04/30/18 successfully and was transitioned to BIPAP. Plan of care discussed in length with family and pulmonology and patient also expressed she wants to be DNR/DNI. They also expressed interest in transitioning her to hospice or comfort measures if she has recurrence of respiratory distress. 05/01/18: Patient had episodes of tachypnea last night and was relieved with morphine. Discussed with patient and family again this morning and they are c onsidering between inpatient vs home hospice but awaiting for other family members to come in. 05/02/18: Patient is more awake and conversant today. She continues to be on BIPAP. Family has expressed they want to hold off on hospice as she appears more alert today. We did discuss this in length on bedside with patient participating in decision making. Family and patient did express they are interested in pursuing inpatient rehab vs SNF placement and pursue physical therapy and pulmonary rehab for her if she continues to show improvement. Will hold off on plan to transition to hospice for now. Also discussed about her recent NSTEMI and option to do cath and they did verbalize they prefer not to pursue any invasive cardiac testing. 05/03/18: Patient appears comfortable on BIPAP but has been BIPAP dependent since extubation. She is more awake and coherent today. Denies chest pain. Plan to try weaning her off BIPAP today. 05/04/18: No acute event overnight. Patient is doing much better and is now more conversant and making jokes. She has been off BIPAP this morning and is comfortable and saturating well on nasal cannula. If she continues to do well off BIPAP, she will be deemed likely fir for discharge to SNF/rehab in the next 24-48 hrs. 05/15/2018-no acute events in the last 24 hours. Patient is afebrile. Swallowing evaluation was done the recommendation is to start on mechanical soft diet. Patient is on nasal cannula pulse ox is 94% on 4 L. Patient is using the BiPAP on and off. Physical therapy consult was requested. 05/06/2018 no acute events overnight. Patient is afebrile. We repeated the chest x-ray yesterday. It shows increased opacification which is retrocardiac suggesting left lower lobe pneumonia. WBC is going up. Patient is asymptomatic comfortably in the bed. 05/07/2018 no acute events in the last 24 hours. Patient afebrile. Patient is still weak to get out of the bed and get onto the commode. Physical therapy working with the patient. Patient still have a Arredondo's catheter. Pulse ox 98% on 3 L. 05/08/2018 patient is comfortably in the bed communicating very well. Patient is afebrile no acute events in the last 24 hours. Pulse ox is 100% on 3 L. 05/09/2018 no acute events in the last 24 hours patient is afebrile comfortably in the bed. Pulse ox is 99% on 2 L. I had a long discussion with the family about antibiotics and referral to prison they happy with the management so far. As per the ID recommendations I am going to stop the antibiotics from today. 05/10/2018-no acute events in the last 24 hours. Patient is afebrile. Pulse ox is 99% on 2 L. Patient is comfortably in the bed reading the newspaper. Sickle therapy is going to work with her either today or tomorrow again. The plan is to send her to the acute rehab. 05/11/2018 no acute events in the last 24 hours. Patient is afebrile. Patient says slept well last night without using BiPAP. Physical therapy is working with the patient plan is to send her to a acute rehab. Pulse ox on 2 L is 95%. Reason For Visit: ACUTE ON CHRONIC RESPIRATORY FAILURE WITH HYPOXIA Physical Exam Vital Signs: Temp Pulse Resp BP Pulse Ox 97.3 F 71 16 113/43 L 100 05/11/18 12:00 05/11/18 12:00 05/11/18 12:00 05/11/18 12:00 05/11/18 12:00 Intake & Output 05/10/18 05/11/18 05/12/18 06:59 06:59 06:59 Intake Total 1573 702 Output Total 2621 5040 Balance -1047 -1748 Weight 59.8 kg 58.6 kg General appearance: PRESENT: no acute distress Head exam: PRESENT: atraumatic Eye exam: PRESENT: PERRLA Mouth exam: PRESENT: moist Neck exam: ABSENT: carotid bruit, JVD, lymphadenopathy, thyromegaly Respiratory exam: PRESENT: decreased breath sounds Cardiovascular exam: PRESENT: tachycardia GI/Abdominal exam: PRESENT: normal bowel sounds, soft. ABSENT: distended, guarding, mass, organolmegaly, rebound, tenderness Extremities exam: PRESENT: full ROM. ABSENT: calf tenderness, clubbing, pedal edema Neurological exam: PRESENT: alert, awake, oriented to person, oriented to place, oriented to time, oriented to situation, CN II-XII grossly intact. ABSENT: motor sensory deficit Psychiatric exam: PRESENT: appropriate affect, normal mood. ABSENT: homicidal ideation, suicidal ideation Results Laboratory Results: 05/11/18 06:15 05/10/18 05:38 05/11/18 05/11/18 05/11/18 06:15 08:34 09:36 WBC 12.5 H RBC 3.20 L Hgb 9.8 L Hct 28.7 L MCV 90 MCH 30.7 MCHC 34.2 RDW 13.1 Plt Count 189 Urine Color YELLOW Urine Appearance SLIGHTLY-CLOUDY Urine pH 7.0 Ur Specific Sandy 1.010 Urine Protein NEGATIVE Urine Glucose (UA) NEGATIVE Urine Ketones NEGATIVE Urine Blood SMALL H Urine Nitrite NEGATIVE Ur Leukocyte Esterase NEGATIVE Urine WBC (Auto) 2 Urine RBC (Auto) 18 Stool Occult Blood NEGATIVE 04/25/18 04/25/18 04/25/18 21:09 22:06 22:32 Creatine Kinase 91 CK-MB (CK-2) Troponin I Cancelled 0.787 NT-Pro-B Natriuret Pep Cancelled 256 04/25/18 04/26/18 04/26/18 22:32 04:40 04:40 Creatine Kinase 121 CK-MB (CK-2) 3.26 7.97 H Troponin I Cancelled 1.820 NT-Pro-B Natriuret Pep 04/26/18 04/26/18 04/26/18 10:24 10:24 19:17 Creatine Kinase 171 H 143 H CK-MB (CK-2) 12.50 H Troponin I 2.090 NT-Pro-B Natriuret Pep 04/26/18 04/28/18 04/29/18 19:17 10:00 11:30 Creatine Kinase CK-MB (CK-2) 9.22 H Troponin I 2.020 0.654 0.301 NT-Pro-B Natriuret Pep Impressions: KUB X-Ray 04/26/18 16:45 IMPRESSION: Satisfactory position of nasogastric tube. Head CT 04/27/18 00:00 IMPRESSION: NORMAL BRAIN CT WITHOUT CONTRAST. EVIDENCE OF ACUTE STROKE: NO. Chest X-Ray 05/05/18 00:00 IMPRESSION: Small pleural effusions. Increased retrocardiac opacification consistent with left lower lobe pneumonia. Chest CT 05/06/18 00:00 IMPRESSION: Small bilateral pleural effusions with minimal right upper lobe ground-glass attenuation, possibly infectious/ inflammatory. Extensive upper lobe predominant panacinar emphysema. Scattered subcentimeter nodules, largest measuring 6 mm. See follow-up as below. Assessment & Plan - Diagnosis (1) Acute respiratory failure with hypoxia and hypercapnia Is this a current diagnosis for this admission?: Yes Plan: -Secondary to COPD exacerbation, influenza A and possible pneumonia. Currently saturating well on minimal vent settings. 05/01/18: Patient had episodes of tachypnea last night and was relieved with morphine. Discussed with patient and family again this morning and they are considering between inpatient vs home hospice but awaiting for other family members to come in. 05/02/18: Patient is more awake and conversant today. She continues to be on BIPAP. Family has expressed they want to hold off on hospice as she appears more alert today. We did discuss this in length on bedside with patient participating in decision making. Family and patient did express they are interested in pursuing inpatient rehab vs SNF placement and pursue physical therapy and pulmonary rehab for her if she continues to show improvement. Will hold off on plan to transition to hospice for now. Also discussed about her recent NSTEMI and option to do cath and they did verbalize they prefer not to pursue any invasive cardiac testing. 05/03/18: Patient appears comfortable on BIPAP but has been BIPAP dependent since extubation. Plan to reattempt weaning her off BIPAP today. 05/04/18:Patient is doing much better and is now more conversant and making jokes. She has been off BIPAP this morning and is comfortable and saturating well on nasal cannula. If she continues to do well off BIPAP, she will be deemed likely fit for discharge to SNF/rehab in the next 24-48 hrs. 05/05/2018-she is comfortably in the bed not in distress pulse ox is 94% on 4 L she is using the BiPAP on and off BiPAP requirements are gradually going down every day. Physical therapy consult was requested probably to send her to snf. pt is on regular scheduled breathing treatments and IV Solu-Medrol 40 mg daily. stopped Solu-Medrol and started on prednisone 10 mg p.o. twice daily. 05/06/2018-patient is comfortably in the bed not in respiratory distress using the BiPAP on and off. T-max is 98.7. Pulse ox is 95% on 3 L. Patient is getting a regular scheduled breathing treatments, prednisone 10 mg p.o. twice daily. Chest x-ray shows left lower lobe pneumonia started on Zosyn and vancomycin today. CT chest without contrast was requested. 05/07/2018 patient is comfortable in the bed on oxygen via nasal cannula denies any complaints doing well. T-max is 97.9. Chest x-ray shows left lower lobe pneumonia and was started on Zosyn and vancomycin yesterday. CT chest without contrast shows small bilateral pleural effusions with minimal right right upper lobe groundglass appearance possible infection was/inflammatory cause. And is to continue the present management. 05/08/2018-pulse ox on 3 L is 100%. Per the pneumonia she is getting Zosyn and vancomycin. C and hypercapnia resolving. Vanco trough is pending. Plan is to continue the present management. 05/09/2018-pulse ox on 2 L is 99%. As per the ID recommendations planning to stop Zosyn and vancomycin from today. Acute respiratory failure with hypoxia and hypercapnia resolved. 05/10/2018-pulse ox on 2 L is 99%. She is off the antibiotics. Afebrile. Off the antibiotics off the steroids. WBC came down to 13,000. Acute on chronic respiratory failure with hypoxia and hypercapnia resolved. 05/11/2018-patient pulse ox is 95% on 2 L she did not have to use the BiPAP last night. Patient is comfortably in the bed. Afebrile. Latest chest x-ray was negative for pneumonia. (2) COPD exacerbation Is this a current diagnosis for this admission?: Yes Plan: 05/05/2018-patient is admitted with COPD exacerbation Solu-Medrol was changed to prednisone 10 mg p.o. twice daily. She is off the antibiotics. She is afebril e. 05/06/2018-on examination chest bilateral entry was decreased no wheezing presently on patient presently on prednisone 10 mg p.o. twice daily. It is getting Xopenex nebulizations every 4 as needed. To continue the present management. 05/07/2018-on examination chest bilateral air entry was severely decreased probably secondary to emphysema/COPD. Patient is on prednisone 10 mg twice daily Xopenex nebulizations every 4 hours as needed plan is to continue the present management. 05/08/2018-on examination of the chest bilateral air entry was decreased secondary to COPD/emphysema. Patient is on p.o. prednisone on Xopenex nebulizations every 4 hours as needed. Patient is doing well pulse ox is 100% on 3 L. Plan is to continue the present management. 05/09/2018-COPD exacerbation is resolved on examination chest bilateral entry was decreased no wheezing. Pulse ox is 99% on 2 L. planning to stop the p.o. prednisone today. 05/10/2018 COPD exacerbation probably secondary to multifocal pneumonia pneumonia is resolved her latest chest x-ray no acute pathology. Off the antibiotics afebrile. Plan is to continue the present management. 05/11/2018-COPD exacerbation is resolved on examination chest bilateral entry was decreased no wheezing. Pulse ox is 95% on 2 L. COPD exacerbation most likely secondary to multifocal pneumonia and pneumonia is resolved patient is off the antibiotics. (3) Influenza Is this a current diagnosis for this admission?: Yes Plan: 05/05/2018-was positive for influenza A at the time of admission completed 5 days course of Tamiflu. 05/06/2018 patient was positive for influenza A and was treated with 5 days course of Tamiflu. 05/07/2018-patient was treated for influenza A with 5 days of Tamiflu. 05/08/2018 patient was positive for influenza A completed a course of Tamiflu for 5 days. 05/09/2018 influenza A was treated with 5 days course of Tamiflu. 05/10/2018-patient was positive for influenza A at the time of admission completed the course of Tamiflu for 5 days. 2018 patient was positive for influenza A completed 5 days of course of Tamiflu during this hospital stay. (4) Pulmonary congestion Is this a current diagnosis for this admission?: Yes Plan: 05/05/2018 patient is in IV Lasix 40 mg daily, she is also on IV fluids at 100 cc/h stopped IV fluids. Chest x-ray shows trace bilateral pleural effusions. Lasix is discontinued today. Plan to repeat the chest x-ray tomorrow. 05/06/2018-chest x-ray were done yesterday shows small bilateral pleural effusions and left lower lobe pneumonia no pulmonary congestion was noticed. She is off the IV fluids she is off the Lasix. 05/07/2017-chest CT shows small bilateral pleural effusions more prominent at the right side no evidence of fluid overload no pedal edema she is off the Lasix blood pressure is 101/41. Plan is we will continue the present management. 05/08/2018-chest CT done yesterday did not show any pulmonary congestion. 05/10/2018-latest radiological investigations showed resolution of the pulmonary congestion. (5) Pneumonia Is this a current diagnosis for this admission?: Yes Plan: 05/06/2018-chest x-ray yesterday reveals left lower lobe pneumonia, started on Zosyn 3.37 g IV every 6 hours and vancomycin 1 g IV daily Vanco trough will be managed by the pharmacy. CT chest without contrast was requested for better assessment of the pneumonia. She is afebrile. 05/07/2018-chest x-ray shows left lower lobe pneumonia, CT chest shows small right upper lobe groundglass appearance probably reflecting/inflammatory cause. Patient might have bacterial pneumonia. She is on Zosyn and vancomycin. We can classify as a hospital-acquired pneumonia. 05/08/2018-chest x-ray showed left lower lobe pneumonia. But CT chest indicates right upper lobe groundglass appearance probably reflecting infectious/inflammatory cause. Patient is on Zosyn and vancomycin. Patient is afebrile. Cultures are negative so far. Plan is to complete the 1 week course of antibiotics. 05/09/2018-pneumonia was appropriately treated with antibiotic therapy cultures are negative as per the ID recommendations were going to stop the antibiotics from today. 05/10/2018-latest chest x-ray shows pneumonia is resolved patient is off the antibiotics pulse ox of 99% on 2 L off the steroids. Community-acquired pneumonia is resolved. Cultures are negative. Sputum culture is negative. 05/11/2018-patient is afebrile for the last 72 hours to 96 hours she is off the antibiotics latest chest x-ray shows resolution of pneumonia. (6) Constipation Is this a current diagnosis for this admission?: Yes Plan: 05/08/2018-nurse notified me that patient does not have any bowel movement for the last 5 days. I started her on MiraLAX 17 g p.o. daily and order for enema. 05/09/2018-patient complained of constipation yesterday she was given enema and started on MiraLAX no complaints today. 05/10/2018 patient is having the regular bowel movements constipation is resolved. (7) Physical debility Is this a current diagnosis for this admission?: Yes Plan: 05/08/2018-physical therapy is working with the patient. Patient still having difficulty even come out of the bed onto the bedside commode. In my opinion she made her to go to acute rehab for complete recovery. 05/09/2018 patient has a difficulty even coming out of the bed onto the bedside commode physical therapy is working with the patient most [facility]. 05/10/2018 physical therapy is working with the patient patient is bedbound during the hospital stay. Using the bedpan. She has difficulty coming out of the bed onto the bedside commode. Probably she may need to go to a correction facility. 2018 physical therapy is helping the patient she is going to have another session of PT today plan is to discharge her to acute rehab once the bed is available. - Time Time Spent with patient: 15-24 minutes Medications reviewed and adjusted accordingly: Yes Anticipated discharge: Acute Rehab
[2018-05-11] MEDS: MONTELUKAST SODIUM 10 MG TABLET PO SCH (21:42)
[2018-05-12] MEDS: ALBUTEROL SULFATE HFA (90 MCG/PUFF) 200 PUFF/8.5 GM MDI IH SCH ×4 (00:51→17:50)
[2018-05-12] MEDS: NYSTATIN 500000 UNIT/5 ML UDCUP PO SCH ×3 (06:06→17:50)
[2018-05-12] MEDS: LEVOTHYROXINE SODIUM 0.088 MG TABLET PO SCH (06:10)
[2018-05-12] MEDS: IPRATROPIUM BROMIDE 0.02% NEB 0.5 MG/2.5 ML AMPUL NEB SCH ×3 (08:39→23:47)
[2018-05-12] MEDS: LEVALBUTEROL HCL NEB 1.25 MG/3 ML AMPUL NEB SCH ×3 (08:39→23:47)
[2018-05-12] MEDS: ATORVASTATIN CALCIUM 10 MG TABLET PO SCH (11:13)
[2018-05-12] MEDS: POTASSIUM CHLORIDE 10 MEQ CAPSULE.ER PO SCH (11:13)
[2018-05-12] MEDS: CETIRIZINE 10 MG TABLET PO SCH (11:13)
[2018-05-12] MEDS: BUPROPION HCL 75 MG TABLET PO SCH ×2 (11:14→21:49)
[2018-05-12] MEDS: ASPIRIN 81 MG TABLET, CHEWABLE PO SCH (11:14)
[2018-05-12] MEDS: ENOXAPARIN SODIUM INJ 60 MG/0.6 ML DISP.SYRIN SUBCUT SCH (11:14)
[2018-05-12] MEDS: NICOTINE 21 MG/24 HR PATCH.TD24 TD SCH (11:14)
[2018-05-12] MEDS: METOPROLOL TARTRATE 25 MG TABLET PO SCH ×2 (11:14→21:49)
[2018-05-12] MEDS: PHOSPHORUS #1 250 MG TABLET PO SCH ×4 (11:15→21:48)
[2018-05-12] MEDS: POLYETHYLENE GLYCOL 3350 POWDER 17 GM/1 PACKET PO SCH (11:15)
[2018-05-12] MEDS: BENAZEPRIL HCL 20 MG TABLET PO SCH (11:15)
[2018-05-12] MEDS: TIOTROPIUM BROMIDE DPI 5 CAP/KIT (18 MCG/CAP) IH SCH (11:16)
[2018-05-12] MEDS: BUDESONIDE/FORMOTEROL 160-4.5 MCG 60 PUFF/6 GM MDI IH SCH ×2 (11:16→21:49)
--- NOTE | 2018-05-12 14:36 | PDOC PROGRESS REPORT ---
Subjective Progress Note for:: 05/12/18 Subjective:: This is a 72 yr old with a past medical history of COPD, hyperlipidemia, hypertension and hypothyroidism who initially presented with increasing shortness of breath and cough. Patient was initially placed on BiPAP in the ER but she continued to decompensate. She was noted to be hypoxic and also had respiratory acidosis and was subsequently intubated. She was treated for COPD exacerbation. Her initial x-ray also showed questionable right basilar opacity. Flu testing also came back positive for influenza A. Patient's troponin also trended up to 2.0 and she was treated for possible NSTEMI. Patient extubated on 04/30/18 successfully and was transitioned to BIPAP. Plan of care discussed in length with family and pulmonology and patient also expressed she wants to be DNR/DNI. They also expressed interest in transitioning her to hospice or comfort measures if she has recurrence of respiratory distress. 05/01/18: Patient had episodes of tachypnea last night and was relieved with morphine. Discussed with patient and family again this morning and they are co nsidering between inpatient vs home hospice but awaiting for other family members to come in. 05/02/18: Patient is more awake and conversant today. She continues to be on BIPAP. Family has expressed they want to hold off on hospice as she appears more alert today. We did discuss this in length on bedside with patient participating in decision making. Family and patient did express they are interested in pursuing inpatient rehab vs SNF placement and pursue physical therapy and pulmonary rehab for her if she continues to show improvement. Will hold off on plan to transition to hospice for now. Also discussed about her recent NSTEMI and option to do cath and they did verbalize they prefer not to pursue any invasive cardiac testing. 05/03/18: Patient appears comfortable on BIPAP but has been BIPAP dependent since extubation. She is more awake and coherent today. Denies chest pain. Plan to try weaning her off BIPAP today. 05/04/18: No acute event overnight. Patient is doing much better and is now more conversant and making jokes. She has been off BIPAP this morning and is comfortable and saturating well on nasal cannula. If she continues to do well off BIPAP, she will be deemed likely fir for discharge to SNF/rehab in the next 24-48 hrs. 05/12/18: Reassumed care today. Patient continued to improve clinically in the interim. She has completed antibiotics which were DCed subsequently per ID recommendations. She is stable for discharge/transfer and is just awaiting placement for rehab/SNF. She denies SOB or chest pain. Reason For Visit: ACUTE ON CHRONIC RESPIRATORY FAILURE WITH HYPOXIA Physical Exam Vital Signs: Temp Pulse Resp BP Pulse Ox 99.0 F 72 16 104/37 L 99 05/12/18 07:24 05/12/18 08:39 05/12/18 08:39 05/12/18 07:24 05/12/18 08:39 Intake & Output 05/11/18 05/12/18 05/13/18 06:59 06:59 06:59 Intake Total 702 1357 Output Total 2450 1775 Balance -1748 -418 Weight 129 lb 3.054 oz 126 lb 8.725 oz General appearance: PRESENT: no acute distress, well-developed, well-nourished Head exam: PRESENT: atraumatic, normocephalic Eye exam: PRESENT: conjunctiva pink, EOMI, PERRLA. ABSENT: scleral icterus Ear exam: PRESENT: normal external ear exam Mouth exam: PRESENT: moist, tongue midline Neck exam: ABSENT: carotid bruit, JVD, lymphadenopathy, thyromegaly Respiratory exam: PRESENT: clear to auscultation babita. ABSENT: rales, rhonchi, wheezes Cardiovascular exam: PRESENT: RRR. ABSENT: diastolic murmur, rubs, systolic murmur Pulses: PRESENT: normal dorsalis pedis pul GI/Abdominal exam: PRESENT: normal bowel sounds, soft. ABSENT: distended, guarding, mass, organolmegaly, rebound, tenderness Rectal exam: PRESENT: deferred Neurological exam: PRESENT: alert, awake, oriented to person, oriented to place, oriented to time, oriented to situation, CN II-XII grossly intact. ABSENT: motor sensory deficit Results Laboratory Results: 05/11/18 06:15 05/10/18 05:38 04/25/18 04/25/18 04/25/18 21:09 22:06 22:32 Creatine Kinase 91 CK-MB (CK-2) Troponin I Cancelled 0.787 NT-Pro-B Natriuret Pep Cancelled 256 04/25/18 04/26/18 04/26/18 22:32 04:40 04:40 Creatine Kinase 121 CK-MB (CK-2) 3.26 7.97 H Troponin I Cancelled 1.820 NT-Pro-B Natriuret Pep 04/26/18 04/26/18 04/26/18 10:24 10:24 19:17 Creatine Kinase 171 H 143 H CK-MB (CK-2) 12.50 H Troponin I 2.090 NT-Pro-B Natriuret Pep 04/26/18 04/28/18 04/29/18 19:17 10:00 11:30 Creatine Kinase CK-MB (CK-2) 9.22 H Troponin I 2.020 0.654 0.301 NT-Pro-B Natriuret Pep Impressions: KUB X-Ray 04/26/18 16:45 IMPRESSION: Satisfactory position of nasogastric tube. Head CT 04/27/18 00:00 IMPRESSION: NORMAL BRAIN CT WITHOUT CONTRAST. EVIDENCE OF ACUTE STROKE: NO. Chest X-Ray 05/05/18 00:00 IMPRESSION: Small pleural effusions. Increased retrocardiac opacification consistent with left lower lobe pneumonia. Chest CT 05/06/18 00:00 IMPRESSION: Small bilateral pleural effusions with minimal right upper lobe ground-glass attenuation, possibly infectious/ inflammatory. Extensive upper lobe predominant panacinar emphysema. Scattered subcentimeter nodules, largest measuring 6 mm. See follow-up as below. Assessment & Plan - Diagnosis (1) Acute respiratory failure with hypoxia and hypercapnia Is this a current diagnosis for this admission?: Yes Plan: Secondary to COPD exacerbation, influenza A and possible pneumonia. Resolved. She has been saturating well on 2L via NC. Awaiting placement. (2) COPD exacerbation Is this a current diagnosis for this admission?: Yes Plan: Resolved. Breathing treatments as needed. (3) Influenza A with pneumonia Is this a current diagnosis for this admission?: Yes Plan: Completed 5 days of Tamiflu. (4) Non-STEMI (non-ST elevated myocardial infarction) Is this a current diagnosis for this admission?: Yes Plan: Continue aspirin and statin. Cath deferred as mentioned. Switch Lovenox to prophylactic dose. (5) Pulmonary congestion Is this a current diagnosis for this admission?: Yes Plan: Resolved. (6) Pulmonary nodule Is this a current diagnosis for this admission?: Yes Plan: This will be followed up outpatient with pulmonology. - Time Time Spent with patient: 25-34 minutes
[2018-05-12] MEDS: MONTELUKAST SODIUM 10 MG TABLET PO SCH (21:48)
[2018-05-13] MEDS: ALBUTEROL SULFATE HFA (90 MCG/PUFF) 200 PUFF/8.5 GM MDI IH SCH ×4 (00:48→18:18)
[2018-05-13] MEDS: NYSTATIN 500000 UNIT/5 ML UDCUP PO SCH ×4 (00:48→18:19)
[2018-05-13] MEDS: LEVOTHYROXINE SODIUM 0.088 MG TABLET PO SCH (05:38)
[2018-05-13] MEDS: IPRATROPIUM BROMIDE 0.02% NEB 0.5 MG/2.5 ML AMPUL NEB SCH ×2 (08:07→15:54)
[2018-05-13] MEDS: LEVALBUTEROL HCL NEB 1.25 MG/3 ML AMPUL NEB SCH ×2 (08:07→15:54)
[2018-05-13] MEDS: PHOSPHORUS #1 250 MG TABLET PO SCH ×4 (08:23→22:38)
[2018-05-13] MEDS ORDERED: ENOXAPARIN SODIUM INJ 60 MG/0.6 ML DISP.SYRIN SUBCUT SCH (10:00)
[2018-05-13] MEDS: ASPIRIN 81 MG TABLET, CHEWABLE PO SCH (11:01)
[2018-05-13] MEDS: POTASSIUM CHLORIDE 10 MEQ CAPSULE.ER PO SCH (11:01)
[2018-05-13] MEDS: CETIRIZINE 10 MG TABLET PO SCH (11:02)
[2018-05-13] MEDS: ATORVASTATIN CALCIUM 10 MG TABLET PO SCH (11:02)
[2018-05-13] MEDS: BUPROPION HCL 75 MG TABLET PO SCH ×2 (11:03→22:38)
[2018-05-13] MEDS: NICOTINE 21 MG/24 HR PATCH.TD24 TD SCH (11:03)
[2018-05-13] MEDS: TIOTROPIUM BROMIDE DPI 5 CAP/KIT (18 MCG/CAP) IH SCH (11:06)
[2018-05-13] MEDS: POLYETHYLENE GLYCOL 3350 POWDER 17 GM/1 PACKET PO SCH (11:10)
[2018-05-13] MEDS: ENOXAPARIN SODIUM INJ 40 MG/0.4 ML DISP.SYRIN SUBCUT SCH (11:22)
[2018-05-13] MEDS: METOPROLOL TARTRATE 25 MG TABLET PO SCH ×2 (11:23→22:38)
[2018-05-13] MEDS: BENAZEPRIL HCL 20 MG TABLET PO SCH (11:23)
[2018-05-13] MEDS: BUDESONIDE/FORMOTEROL 160-4.5 MCG 60 PUFF/6 GM MDI IH SCH ×2 (11:24→22:45)
--- NOTE | 2018-05-13 13:34 | PDOC PROGRESS REPORT ---
Subjective Progress Note for:: 05/13/18 Subjective:: This is a 72 yr old with a past medical history of COPD, hyperlipidemia, hypertension and hypothyroidism who initially presented with increasing shortness of breath and cough. Patient was initially placed on BiPAP in the ER but she continued to decompensate. She was noted to be hypoxic and also had respiratory acidosis and was subsequently intubated. She was treated for COPD exacerbation. Her initial x-ray also showed questionable right basilar opacity. Flu testing also came back positive for influenza A. Patient's troponin also trended up to 2.0 and she was treated for possible NSTEMI. Patient extubated on 04/30/18 successfully and was transitioned to BIPAP. Plan of care discussed in length with family and pulmonology and patient also expressed she wants to be DNR/DNI. They also expressed interest in transitioning her to hospice or comfort measures if she has recurrence of respiratory distress. 05/01/18: Patient had episodes of tachypnea last night and was relieved with morphine. Discussed with patient and family again this morning and they are co nsidering between inpatient vs home hospice but awaiting for other family members to come in. 05/02/18: Patient is more awake and conversant today. She continues to be on BIPAP. Family has expressed they want to hold off on hospice as she appears more alert today. We did discuss this in length on bedside with patient participating in decision making. Family and patient did express they are interested in pursuing inpatient rehab vs SNF placement and pursue physical therapy and pulmonary rehab for her if she continues to show improvement. Will hold off on plan to transition to hospice for now. Also discussed about her recent NSTEMI and option to do cath and they did verbalize they prefer not to pursue any invasive cardiac testing. 05/03/18: Patient appears comfortable on BIPAP but has been BIPAP dependent since extubation. She is more awake and coherent today. Denies chest pain. Plan to try weaning her off BIPAP today. 05/04/18: No acute event overnight. Patient is doing much better and is now more conversant and making jokes. She has been off BIPAP this morning and is comfortable and saturating well on nasal cannula. If she continues to do well off BIPAP, she will be deemed likely fir for discharge to SNF/rehab in the next 24-48 hrs. 05/12/18: Reassumed care today. Patient continued to improve clinically in the interim. She has completed antibiotics which were DCed subsequently per ID recommendations. She is stable for discharge/transfer and is just awaiting placement for rehab/SNF. She denies SOB or chest pain. 05/13/18: No acute issues. She continues to be doing well clinically. She has been re-evaluated by PT. She is slowly regaining her strength but still appears to be needing inpatient rehab vs SNF. Family expressed to try to place patient at [facility] nursing and rehab. Reason For Visit: ACUTE ON CHRONIC RESPIRATORY FAILURE WITH HYPOXIA Physical Exam Vital Signs: Temp Pulse Resp BP Pulse Ox 97.2 F 78 18 101/46 L 97 05/13/18 12:00 05/13/18 12:00 05/13/18 12:00 05/13/18 12:00 05/13/18 12:00 Intake & Output 05/12/18 05/13/18 05/14/18 06:59 06:59 06:59 Intake Total 1357 774 Output Total 1775 1210 Balance -418 -436 Weight 126 lb 8.725 oz 129 lb 13.636 oz General appearance: PRESENT: no acute distress, well-developed, well-nourished Head exam: PRESENT: atraumatic, normocephalic Eye exam: PRESENT: conjunctiva pink, EOMI, PERRLA. ABSENT: scleral icterus Ear exam: PRESENT: normal external ear exam Mouth exam: PRESENT: moist, tongue midline Neck exam: ABSENT: carotid bruit, JVD, lymphadenopathy, thyromegaly Respiratory exam: PRESENT: clear to auscultation babita. ABSENT: rales, rhonchi, wheezes Cardiovascular exam: PRESENT: RRR. ABSENT: diastolic murmur, rubs, systolic murmur Pulses: PRESENT: normal dorsalis pedis pul GI/Abdominal exam: PRESENT: normal bowel sounds, soft. ABSENT: distended, guarding, mass, organolmegaly, rebound, tenderness Rectal exam: PRESENT: deferred Neurological exam: PRESENT: alert, awake, oriented to person, oriented to place, oriented to time, oriented to situation, CN II-XII grossly intact. ABSENT: motor sensory deficit Results Laboratory Results: 05/11/18 06:15 05/10/18 05:38 1204/25/18 04/25/18 21:09 22:06 22:32 Creatine Kinase 91 CK-MB (CK-2) Troponin I Cancelled 0.787 NT-Pro-B Natriuret Pep Cancelled 256 04/25/18 04/26/18 04/26/18 22:32 04:40 04:40 Creatine Kinase 121 CK-MB (CK-2) 3.26 7.97 H Troponin I Cancelled 1.820 NT-Pro-B Natriuret Pep 04/26/18 04/26/18 04/26/18 10:24 10:24 19:17 Creatine Kinase 171 H 143 H CK-MB (CK-2) 12.50 H Troponin I 2.090 NT-Pro-B Natriuret Pep 04/26/18 04/28/18 04/29/18 19:17 10:00 11:30 Creatine Kinase CK-MB (CK-2) 9.22 H Troponin I 2.020 0.654 0.301 NT-Pro-B Natriuret Pep Impressions: KUB X-Ray 04/26/18 16:45 IMPRESSION: Satisfactory position of nasogastric tube. Head CT 04/27/18 00:00 IMPRESSION: NORMAL BRAIN CT WITHOUT CONTRAST. EVIDENCE OF ACUTE STROKE: NO. Chest X-Ray 05/05/18 00:00 IMPRESSION: Small pleural effusions. Increased retrocardiac opacification consistent with left lower lobe pneumonia. Chest CT 05/06/18 00:00 IMPRESSION: Small bilateral pleural effusions with minimal right upper lobe ground-glass attenuation, possibly infectious/ inflammatory. Extensive upper lobe predominant panacinar emphysema. Scattered subcentimeter nodules, largest measuring 6 mm. See follow-up as below. Assessment & Plan - Diagnosis (1) Acute respiratory failure with hypoxia and hypercapnia Is this a current diagnosis for this admission?: Yes Plan: Secondary to COPD exacerbation, influenza A and possible pneumonia. Resolved. She has been saturating well on 2L via NC. Still awaiting placement. (2) COPD exacerbation Is this a current diagnosis for this admission?: Yes Plan: Resolved. Breathing treatments as needed. (3) Influenza A with pneumonia Is this a current diagnosis for this admission?: Yes Plan: Completed 5 days of Tamiflu. (4) Non-STEMI (non-ST elevated myocardial infarction) Is this a current diagnosis for this admission?: Yes Plan: Continue aspirin and statin. Cath deferred as mentioned. Lovenox switched to prophylactic dose. (5) Pulmonary congestion Is this a current diagnosis for this admission?: Yes Plan: Resolved. (6) Pulmonary nodule Is this a current diagnosis for this admission?: Yes Plan: This will be followed up outpatient with pulmonology. - Time Time Spent with patient: 15-24 minutes
[2018-05-13] MEDS: MONTELUKAST SODIUM 10 MG TABLET PO SCH (22:38)
[2018-05-14] MEDS: ALBUTEROL SULFATE HFA (90 MCG/PUFF) 200 PUFF/8.5 GM MDI IH SCH ×3 (00:30→14:05)
[2018-05-14] MEDS: NYSTATIN 500000 UNIT/5 ML UDCUP PO SCH ×2 (00:30→06:18)
[2018-05-14] MEDS: IPRATROPIUM BROMIDE 0.02% NEB 0.5 MG/2.5 ML AMPUL NEB SCH ×3 (01:02→15:52)
[2018-05-14] MEDS: LEVALBUTEROL HCL NEB 1.25 MG/3 ML AMPUL NEB SCH ×3 (01:04→15:52)
[2018-05-14] MEDS: LEVOTHYROXINE SODIUM 0.088 MG TABLET PO SCH (06:18)
[2018-05-14] MEDS: PHOSPHORUS #1 250 MG TABLET PO SCH ×2 (09:56→12:25)
[2018-05-14] MEDS: BUPROPION HCL 75 MG TABLET PO SCH (09:57)
[2018-05-14] MEDS: METOPROLOL TARTRATE 25 MG TABLET PO SCH (09:57)
[2018-05-14] MEDS: ATORVASTATIN CALCIUM 10 MG TABLET PO SCH (09:57)
[2018-05-14] MEDS: ASPIRIN 81 MG TABLET, CHEWABLE PO SCH (09:57)
[2018-05-14] MEDS: POTASSIUM CHLORIDE 10 MEQ CAPSULE.ER PO SCH (09:58)
[2018-05-14] MEDS: BENAZEPRIL HCL 20 MG TABLET PO SCH (09:58)
[2018-05-14] MEDS: CETIRIZINE 10 MG TABLET PO SCH (09:59)
[2018-05-14] MEDS: NICOTINE 21 MG/24 HR PATCH.TD24 TD SCH (10:00)
[2018-05-14] MEDS: POLYETHYLENE GLYCOL 3350 POWDER 17 GM/1 PACKET PO SCH (10:01)
[2018-05-14] MEDS: TIOTROPIUM BROMIDE DPI 5 CAP/KIT (18 MCG/CAP) IH SCH (10:01)
[2018-05-14] MEDS: BUDESONIDE/FORMOTEROL 160-4.5 MCG 60 PUFF/6 GM MDI IH SCH (10:01)
[2018-05-14] MEDS: ENOXAPARIN SODIUM INJ 40 MG/0.4 ML DISP.SYRIN SUBCUT SCH (10:06)
--- NOTE | 2018-05-14 13:57 | PDOC DISCHARGE SUMMARY ---
General - Admit/Disc Date/PCP Admission Date/Primary Care Provider: 04/25/18 23:58 SHIMON LA MD Discharge Date: 05/14/18 - Discharge Diagnosis (1) Acute respiratory failure with hypoxia and hypercapnia Is this a current diagnosis for this admission?: Yes (2) COPD exacerbation Is this a current diagnosis for this admission?: Yes (3) Influenza A with pneumonia Is this a current diagnosis for this admission?: Yes (4) Non-STEMI (non-ST elevated myocardial infarction) Is this a current diagnosis for this admission?: Yes (5) Pulmonary congestion Is this a current diagnosis for this admission?: Yes (6) Pulmonary nodule Is this a current diagnosis for this admission?: Yes - Additional Information Resuscitation Status: Do Not Resuscitate Prescriptions: Aspirin [Aspirin 81 mg Chewable Tablet] 81 mg PO DAILY #30 tab.chew Benazepril HCl [Lotensin 20 mg Tablet] 20 mg PO DAILY #30 tablet Ipratropium/Albuterol Sulfate [Duoneb 3 ml Ampul] 3 ml NEB RTQ6HP PRN #30 vial.neb PRN Reason: Metoprolol Tartrate [Lopressor 25 mg Tablet] 25 mg PO Q12 #60 tablet Phosphorus #1 [K-Phos Neutral 250 mg Tablet] 500 mg PO ACHS #20 tablet Home Medications: Albuterol Sulfate [Proair HFA Inhalation Aerosol 8.5 gm MDI] 2 puff IH Q6 04/26/18 Atorvastatin Calcium [Lipitor 10 mg Tablet] 10 mg PO DAILY 04/26/18 Budesonide/Formoterol Fumarate [Symbicort HFA 160-4.5 mcg Inhaler 6 gm] 2 puff IH Q12 04/26/18 Bupropion HCl [Bupropion Xl] 150 mg PO DAILY 04/26/18 Cetirizine HCl [Zyrtec 10 mg Tablet] 10 mg PO DAILY 04/26/18 Levothyroxine Sodium [Synthroid 0.088 mg Tablet] 0.088 mg PO Q6AM 04/26/18 Montelukast Sodium [Singulair 10 mg Tablet] 10 mg PO QHS 04/26/18 Tiotropium Texline [Spiriva Handihaler 5 Cap/Kit (18 Mcg/Cap)] 1 puff IH DAILY 04/26/18 Triamcinolone Acetonide [Aristocort 0.1% Ointment] 1 applic TOP BID 04/26/18 Acetaminophen [Tylenol 650 mg Supp] 650 mg RI Q4HP PRN supp.rect 05/14/18 Aspirin [Aspirin 81 mg Chewable Tablet] 81 mg PO DAILY #30 tab.chew 05/14/18 Benazepril HCl [Lotensin 20 mg Tablet] 20 mg PO DAILY #30 tablet 05/14/18 Ipratropium/Albuterol Sulfate [Duoneb 3 ml Ampul] 3 ml NEB RTQ6HP PRN #30 vial.neb 05/14/18 Melatonin [Melatonin 5 mg Tablet] 10 mg PO HSP PRN tablet 05/14/18 Metoprolol Tartrate [Lopressor 25 mg Tablet] 25 mg PO Q12 #60 tablet 05/14/18 Nicotine [Nicoderm 21 mg/24 Hr Transderm Patch] 1 each TD DAILY patch.td24 05/14/18 Phosphorus #1 [K-Phos Neutral 250 mg Tablet] 500 mg PO ACHS #20 tablet 05/14/18 History of Present Illness History of Present Illness: Admitting hospitalist's H&P: CAROLE SOARES is a 72 year old female who presented to the emergency room with a 2-day history of progressively worsening dyspnea which had increased to extremely severe at the time of her presentation to the ER. At the time of her initial presentation she was only able to speak 2-3 word sentences and was aggressively using her accessory musculature of respiration. She was initially treated with BiPAP which failed and she was subsequently intubated and placed on a mechanical ventilator. Patient's family therefore has provided most of this information. She had associated symptoms of a slightly increased chronic nonproductive cough as well as a subjective low-grade fever. She has experienced similar symptoms in the past with exacerbations of her chronic obstructive pulmonary disease. Her dyspnea was worsened by any effort or exertion and had not improved with her usual home medications for COPD. In the emergency room she was found to have severe hypoxia and hypercapnia with a positive influenza A titer and a leukocytosis noted after the patient had received IV Solu-Medrol and albuterol nebulizers. Patient was therefore admitted to the intensive care unit for further evaluation and treatment as soon as an intensive care bed is available. Hospital Course Hospital Course: This is a 72 yr old with a past medical history of COPD, hyperlipidemia, hypertension and hypothyroidism who initially presented with increasing shortness of breath and cough. Patient was initially placed on BiPAP in the ER but she continued to decompensate. She was noted to be hypoxic and also had respiratory acidosis and was subsequently intubated. She was treated for COPD exacerbation. Her initial x-ray also showed questionable right basilar opacity. Flu testing also came back positive for influenza A. Patient's troponin also trended up to 2.0 and she was treated for possible NSTEMI. Patient was extubated on 04/30/18 successfully and was transitioned to BIPAP. Plan of care discussed in length with family and pulmonology and patient also expressed she wants to be DNR/DNI. They also intially expressed interest in transitioning her to hospice or comfort measures if she has recurrence of respiratory distress. Patient did continue to show gradual but significant imp rovement and eventually was weaned off BIPAP hence plan to transition to hospice was deferred. She was initially on Lovenox for possible NSTEMI and was also seen by cardio. She was started and optimized on CAD meds. Patient and family prefer not to pursue any invasive testing including cardiac cath. She completed antibiotics for her right basilar pneumonia and also completed Tamiflu for influenza A. She also completed steroids for her COPD exacerbation. Her hospital stay was prolonged only due to placement issues. She was continually assess by PT who has recommended inpatient rehab vs SNF placement. Physical Exam Vital Signs: Temp Pulse Resp BP Pulse Ox 98.3 F 75 16 109/44 L 98 05/14/18 08:08 05/14/18 08:45 05/14/18 08:45 05/14/18 08:08 05/14/18 08:45 Intake & Output 05/13/18 05/14/18 05/15/18 06:59 06:59 06:59 Intake Total 774 937 Output Total 1210 1275 Balance -436 -338 Weight 129 lb 13.636 oz 128 lb 4.944 oz General appearance: PRESENT: no acute distress, well-developed, well-nourished Head exam: PRESENT: atraumatic, normocephalic Eye exam: PRESENT: conjunctiva pink, EOMI, PERRLA. ABSENT: scleral icterus Ear exam: PRESENT: normal external ear exam Mouth exam: PRESENT: moist, tongue midline Neck exam: ABSENT: carotid bruit, JVD, lymphadenopathy, thyromegaly Respiratory exam: PRESENT: clear to auscultation babita. ABSENT: rales, rhonchi, wheezes Cardiovascular exam: PRESENT: RRR. ABSENT: diastolic murmur, rubs, systolic murmur Pulses: PRESENT: normal dorsalis pedis pul GI/Abdominal exam: PRESENT: normal bowel sounds, soft. ABSENT: distended, guarding, mass, organolmegaly, rebound, tenderness Rectal exam: PRESENT: deferred Neurological exam: PRESENT: alert, awake, oriented to person, oriented to place, oriented to time, oriented to situation, CN II-XII grossly intact. ABSENT: motor sensory deficit Results Laboratory Results: 05/11/18 06:15 05/10/18 05:38 04/25/18 04/25/18 04/25/18 21:09 22:06 22:32 Creatine Kinase 91 CK-MB (CK-2) Troponin I Cancelled 0.787 NT-Pro-B Natriuret Pep Cancelled 256 04/25/18 04/26/18 04/26/18 22:32 04:40 04:40 Creatine Kinase 121 CK-MB (CK-2) 3.26 7.97 H Troponin I Cancelled 1.820 NT-Pro-B Natriuret Pep 04/26/18 04/26/18 04/26/18 10:24 10:24 19:17 Creatine Kinase 171 H 143 H CK-MB (CK-2) 12.50 H Troponin I 2.090 NT-Pro-B Natriuret Pep 04/26/18 04/28/18 04/29/18 19:17 10:00 11:30 Creatine Kinase CK-MB (CK-2) 9.22 H Troponin I 2.020 0.654 0.301 NT-Pro-B Natriuret Pep Impressions: KUB X-Ray 04/26/18 16:45 IMPRESSION: Satisfactory position of nasogastric tube. Head CT 04/27/18 00:00 IMPRESSION: NORMAL BRAIN CT WITHOUT CONTRAST. EVIDENCE OF ACUTE STROKE: NO. Chest X-Ray 05/05/18 00:00 IMPRESSION: Small pleural effusions. Increased retrocardiac opacification consistent with left lower lobe pneumonia. Chest CT 05/06/18 00:00 IMPRESSION: Small bilateral pleural effusions with minimal right upper lobe ground-glass attenuation, possibly infectious/ inflammatory. Extensive upper lobe predominant panacinar emphysema. Scattered subcentimeter nodules, largest measuring 6 mm. See follow-up as below. Qualifiers - * PATIENT BEING DISCHARGED WITH ANY OF THE FOLLOWING DIAGNOSIS: No
[2018-05-14 14:37] VITALS: BP 105/50
--- NOTE | 2018-05-20 14:57 | Physician Advisory Note ---
Physician Advisor ProgressNote .: Pursuant to the plan for [facility], I have reviewed the medical record for this patient. Physician Advisor Statement: Asked to review chart by purification operator helper, who noted DCS did not include certain dx previously mentioned & wondered if this was likely ruled out or in. Pt w/COPD, needing chronic 2L O2 at baseline (which is consistent w/Chr Resp Failure). Came in (+) for influenza A w/fevers to 101.3, HR 140s, RR30s+, WBC 21, lactate 2.4, severe Ac Resp Failure w/Ac Resp Acidosis/hypercarbia & hypoxemia, quickly developing "lethargy" (to the point she was unable to give any hx & became " increasingly somnolent"), hypotension (MAP 60s) within hours despite IVF boluses & requiring pressors for >24 hrs, ICU stay for several days, and associated with acute NSTEMI. - Based on this, pt met Sepsis-3 criteria as well as Sepsis-2 criteria for potential dx of sepsis, and also met criteria for dx of septic shock. - Some progress notes, including 04/27's hospitalist's & pulm's, documented " sepsis", but DCS did not mention sepsis. Attending, please clarify in addendum to DCS your impression of which add'l dx.s describe this pt most accurately: 1. Did pt have "severe sepsis w/septic shock, due to ___, present/developing on admission [vs developing >48 hrs after adm], evidenced by ____" [State all that apply: Hypotension requiring pressors due to sepsis? Ac Resp Failure due to se psis? Acute AMS due to sepsis? Hyperlactatemia due to sepsis? F/HR/RR/WBC? ...]? - or "Severe sepsis without shock, due to , present/developing on admission [vs dev'ing >48 hrs after adm], evidenced by ____" [State all that apply: Hypotension requiring pressors? Ac Resp Failure due to sepsis? Acute AMS due to sepsis? Hyperlactatemia? F/HR/RR/WBC? ...]? - or "Severe sepsis [+/- shock] was/were suspected but later ruled out" ... - Or "hypovolemic shock due to ____, developing on admission [vs dev'ing >48 hrs after adm], evidenced by "? - Or shock due to ____ [Rx] side effect, developing on admission [vs dev'ing >48 hrs after adm], evidenced by "? - Or "cardiogenic shock due to , developing on admission [vs dev'ing >48 hrs after adm], evidenced by "? - Or ....? 2. Do you feel pt had "Chronic Hypoxemic Respiratory Failure, requiring 2L O2 at baseline" in addition to the well-documented Ac REsp Failure? - Or, did pt have "Acute Resp Failure but no Chronic Resp Failure"? 3. Did pt have "altered mental status due to Acute metabolic encephalopathy due to Acute Hypercarbic & Hypoxemic Resp Failure"? - or "AMS due to metabolic encephalopathy due to sepsis"? - or "AMS due to toxic encephalopathy as side effect of ____ [Rx]"? - or "AMS due to " [depression/anxiety/dementia ... ] - or "lethargy [altered level of consciousness] due to ____, but no encephalopathy" - or ...? Thanks! CK
--- NOTE | 2018-05-20 15:50 | PDOC PROGRESS REPORT ---
Subjective Progress Note for:: 04/30/18 Subjective:: Intubated lethargic but arousable Reason For Visit: ACUTE ON CHRONIC RESPIRATORY FAILURE WITH HYPOXIA Physical Exam Vital Signs: Temp Pulse Resp BP Pulse Ox 98.2 F 81 21 H 113/67 96 04/30/18 06:09 04/30/18 00:20 04/30/18 06:09 04/30/18 06:09 04/30/18 06:09 Intake & Output 04/29/18 04/30/18 05/01/18 06:59 06:59 06:59 Intake Total 3662 2375 Output Total 2195 2135 Balance 1467 240 Weight 72.7 kg 77 kg General appearance: PRESENT: no acute distress, disheveled Head exam: PRESENT: atraumatic, normocephalic Eye exam: PRESENT: conjunctiva pale, nystagmus, scleral icterus Mouth exam: PRESENT: dry mucosa, neck supple, tongue midline, other - ET tube in place Neck exam: ABSENT: carotid bruit, JVD, lymphadenopathy, thyromegaly, tracheal deviation, tracheostomy Respiratory exam: PRESENT: decreased breath sounds, prolonged expiratory phas, rales, rhonchi, unlabored Cardiovascular exam: PRESENT: irregular rhythm, RRR, +S2 Pulses: PRESENT: normal radial pulses GI/Abdominal exam: PRESENT: soft. ABSENT: tenderness Gentrourinary exam: PRESENT: indwelling catheter Neurological exam: PRESENT: awake Skin exam: PRESENT: dry, warm Results Laboratory Results: 04/29/18 04:13 04/30/18 04:44 04/30/18 04/30/18 04:44 04:53 Carbonic Acid 1.12 HCO3/H2CO3 Ratio 21:1 ABG pH 7.43 ABG pCO2 37.2 ABG pO2 80.5 ABG HCO3 24.2 H ABG O2 Saturation 96.2 ABG Base Excess 0.1 FiO2 30% Sodium 137.2 Potassium 4.0 Chloride 108 H Carbon Dioxide 26 Anion Gap 3 L BUN 27 H Creatinine 0.49 L Est GFR ( Amer) > 60 Est GFR (Non-Af Amer) > 60 Glucose 160 H Calcium 6.8 L* Magnesium 2.5 H Total Bilirubin 0.5 AST 21 ALT 52 Alkaline Phosphatase 48 Total Protein 4.8 L Albumin 2.7 L 04/25/18 04/25/18 04/25/18 21:09 22:06 22:32 Creatine Kinase 91 CK-MB (CK-2) Troponin I Cancelled 0.787 NT-Pro-B Natriuret Pep Cancelled 256 04/25/18 04/26/18 04/26/18 22:32 04:40 04:40 Creatine Kinase 121 CK-MB (CK-2) 3.26 7.97 H Troponin I Cancelled 1.820 NT-Pro-B Natriuret Pep 04/26/18 04/26/18 04/26/18 10:24 10:24 19:17 Creatine Kinase 171 H 143 H CK-MB (CK-2) 12.50 H Troponin I 2.090 NT-Pro-B Natriuret Pep 04/26/18 04/28/18 04/29/18 19:17 10:00 11:30 Creatine Kinase CK-MB (CK-2) 9.22 H Troponin I 2.020 0.654 0.301 NT-Pro-B Natriuret Pep Impressions: KUB X-Ray 04/26/18 16:45 IMPRESSION: Satisfactory position of nasogastric tube. Head CT 04/27/18 00:00 IMPRESSION: NORMAL BRAIN CT WITHOUT CONTRAST. EVIDENCE OF ACUTE STROKE: NO. Chest X-Ray 04/30/18 06:00 IMPRESSION: No significant change. Assessment & Plan - Diagnosis (1) Acute on chronic respiratory failure with hypoxemia Plan: Discussed with patient, nurse, family will proceed to extubation with BiPAP (2) Chronic obstructive pulmonary disease (COPD) Is this a current diagnosis for this admission?: Yes Plan: Generic Name Dose Route Start Last Admin Trade Name Freq PRN Reason Stop Dose Admin Levalbuterol HCl 1.25 mg 04/26/18 00:00 04/27/18 07:59 Xopenex Neb 1.25 Mg/3 Ml Ampul NEB 05/26/18 00:00 1.25 mg RTQ8 AURELIO Budesonide 0.5 mg 04/26/18 08:00 04/27/18 07:59 Pulmicort Neb 0.5 Mg/2 Ml Ampul NEB 05/26/18 07:59 0.5 mg RTQ12 AURELIO Methylprednisolone Sodium Succinate 40 mg 04/26/18 06:00 04/27/18 13:26 Solu-Medrol Inj/Pf 40 Mg/1 Ml Sdv IV 05/24/18 00:01 40 mg Q6 AURELIO Albuterol 2.5 mg 04/25/18 23:50 04/26/18 21:07 Ventolin 0.083% Neb 2.5 Mg/3 Ml Ampul NEB 05/25/18 23:49 2.5 mg RTQ1HP PRN SHORTNESS OF BREATH Ipratropium [place] 0.5 mg 04/26/18 00:00 04/27/18 07:59 Atrovent 0.02% Neb 0.5 Mg/2.5 Ml Ampul NEB 05/26/18 00:00 0.5 mg RTQ8 AURELIO Acetylcysteine 600 mg 04/26/18 13:45 04/27/18 07:59 Mucomist 20% Soln 800 Mg/4 Ml NEB 05/26/18 13:44 600 mg RTBID AURELIO (3) Influenza A with pneumonia Is this a current diagnosis for this admission?: Yes Plan: Per rapid testing (4) Nicotine addiction Is this a current diagnosis for this admission?: Yes Plan: Transdermal nicotine - Time Total Critical Time (Minutes): 45
--- NOTE | 2018-05-20 15:56 | PDOC PROGRESS REPORT ---
Subjective Progress Note for:: 05/01/18 Subjective:: patient on bipap 20/ Reason For Visit: ACUTE ON CHRONIC RESPIRATORY FAILURE WITH HYPOXIA Physical Exam Vital Signs: Temp Pulse Resp BP Pulse Ox 97.9 F 88 34 H 133/78 H 98 05/01/18 08:10 05/01/18 08:44 05/01/18 08:44 05/01/18 08:10 05/01/18 08:44 Intake & Output 04/30/18 05/01/18 05/02/18 06:59 06:59 06:59 Intake Total 2925 1900 250 Output Total 2135 5255 375 Balance 790 -1995 -125 Weight 77 kg 74.9 kg General appearance: PRESENT: no acute distress, disheveled, hard of hearing Head exam: PRESENT: atraumatic, normocephalic Eye exam: PRESENT: conjunctiva pale Mouth exam: PRESENT: dry mucosa, neck supple, tongue midline Neck exam: ABSENT: carotid bruit, JVD, lymphadenopathy, thyromegaly, tracheal de viation, tracheostomy Respiratory exam: PRESENT: decreased breath sounds, prolonged expiratory phas, rales, unlabored. ABSENT: tachypnea Cardiovascular exam: PRESENT: RRR, +S1, +S2 Pulses: PRESENT: normal radial pulses Gentrourinary exam: PRESENT: indwelling catheter Neurological exam: PRESENT: awake Psychiatric exam: PRESENT: normal mood Skin exam: PRESENT: dry, warm Results Laboratory Results: 05/01/18 05:45 05/01/18 05:45 05/01/18 05/01/18 05/01/18 05:45 05:45 05:45 WBC 17.8 H RBC 3.84 Hgb 11.4 L Hct 34.0 L MCV 89 MCH 29.8 MCHC 33.5 RDW 12.6 Plt Count 251 Seg Neutrophils % Not Reportable Lymphocytes % Not Reportable Monocytes % Not Reportable Eosinophils % Not Reportable Basophils % Not Reportable Absolute Neutrophils Not Reportable Absolute Lymphocytes Not Reportable Absolute Monocytes Not Reportable Absolute Eosinophils Not Reportable Absolute Basophils Not Reportable Carbonic Acid 1.35 HCO3/H2CO3 Ratio 19:1 ABG pH 7.39 ABG pCO2 44.8 ABG pO2 145.7 H ABG HCO3 26.5 H ABG O2 Saturation 98.8 H ABG Base Excess 1.2 FiO2 40% Sodium 142.4 Potassium 3.9 Chloride 110 H Carbon Dioxide 30 Anion Gap 2 L BUN 27 H Creatinine 0.45 L Est GFR ( Amer) > 60 Est GFR (Non-Af Amer) > 60 Glucose 136 H Calcium 6.8 L* Magnesium 2.4 H Albumin Urine Color Urine Appearance Urine pH Ur Specific [place] Urine Protein Urine Glucose (UA) Urine Ketones Urine Blood Urine Nitrite Ur Leukocyte Esterase Urine WBC (Auto) Urine RBC (Auto) 05/01/18 05/01/18 05:45 05:45 WBC RBC Hgb Hct MCV MCH MCHC RDW Plt Count Seg Neutrophils % Lymphocytes % Monocytes % Eosinophils % Basophils % Absolute Neutrophils Absolute Lymphocytes Absolute Monocytes Absolute Eosinophils Absolute Basophils Carbonic Acid HCO3/H2CO3 Ratio ABG pH ABG pCO2 ABG pO2 ABG HCO3 ABG O2 Saturation ABG Base Excess FiO2 Sodium Potassium Chloride Carbon Dioxide Anion Gap BUN Creatinine Est GFR ( Amer) Est GFR (Non-Af Amer) Glucose Calcium Magnesium Albumin 2.8 L Urine Color YELLOW Urine Appearance CLEAR Urine pH 6.0 Ur Specific [place] 1.016 Urine Protein NEGATIVE Urine Glucose (UA) 50 H Urine Ketones NEGATIVE Urine Blood NEGATIVE Urine Nitrite NEGATIVE Ur Leukocyte Esterase NEGATIVE Urine WBC (Auto) 3 Urine RBC (Auto) 0 04/25/18 22:06 Blood Blood Culture - Final NO GROWTH IN 5 DAYS 04/25/18 21:09 Blood Blood Culture - Final NO GROWTH IN 5 DAYS 04/25/18 04/25/18 04/25/18 21:09 22:06 22:32 Creatine Kinase 91 CK-MB (CK-2) Troponin I Cancelled 0.787 NT-Pro-B Natriuret Pep Cancelled 256 04/25/18 04/26/18 04/26/18 22:32 04:40 04:40 Creatine Kinase 121 CK-MB (CK-2) 3.26 7.97 H Troponin I Cancelled 1.820 NT-Pro-B Natriuret Pep 04/26/18 04/26/18 04/26/18 10:24 10:24 19:17 Creatine Kinase 171 H 143 H CK-MB (CK-2) 12.50 H Troponin I 2.090 NT-Pro-B Natriuret Pep 04/26/18 04/28/18 04/29/18 19:17 10:00 11:30 Creatine Kinase CK-MB (CK-2) 9.22 H Troponin I 2.020 0.654 0.301 NT-Pro-B Natriuret Pep Impressions: KUB X-Ray 04/26/18 16:45 IMPRESSION: Satisfactory position of nasogastric tube. Head CT 04/27/18 00:00 IMPRESSION: NORMAL BRAIN CT WITHOUT CONTRAST. EVIDENCE OF ACUTE STROKE: NO. Chest X-Ray 05/01/18 06:00 IMPRESSION: Interval extubation. Assessment & Plan - Diagnosis (1) Acute on chronic respiratory failure with hypoxemia Is this a current diagnosis for this admission?: Yes Plan: improving, BIPAP (2) Chronic obstructive pulmonary disease (COPD) Is this a current diagnosis for this admission?: Yes Plan: Generic Name Dose Route Start Last Admin Trade Name Freq PRN Reason Stop Dose Admin Levalbuterol HCl 1.25 mg 04/26/18 00:00 04/27/18 07:59 Xopenex Neb 1.25 Mg/3 Ml Ampul NEB 05/26/18 00:00 1.25 mg RTQ8 [facility] Budesonide 0.5 mg 04/26/18 08:00 04/27/18 07:59 Pulmicort Neb 0.5 Mg/2 Ml Ampul NEB 05/26/18 07:59 0.5 mg RTQ12 [facility] Methylprednisolone Sodium Succinate 40 mg 04/26/18 06:00 04/27/18 13:26 Solu-Medrol Inj/Pf 40 Mg/1 Ml Sdv IV 05/24/18 00:01 40 mg Q6 [facility] Albuterol 2.5 mg 04/25/18 23:50 04/26/18 21:07 Ventolin 0.083% Neb 2.5 Mg/3 Ml Ampul NEB 05/25/18 23:49 2.5 mg RTQ1HP PRN SHORTNESS OF BREATH Ipratropium [place] 0.5 mg 04/26/18 00:00 04/27/18 07:59 Atrovent 0.02% Neb 0.5 Mg/2.5 Ml Ampul NEB 05/26/18 00:00 0.5 mg RTQ8 [facility] Acetylcysteine 600 mg 04/26/18 13:45 04/27/18 07:59 Mucomist 20% Soln 800 Mg/4 Ml NEB 05/26/18 13:44 600 mg RTBID [facility] (3) Influenza A with pneumonia Is this a current diagnosis for this admission?: Yes Plan: improving (4) Nicotine addiction Is this a current diagnosis for this admission?: Yes Plan: Transdermal nicotine - Time Total Critical Time (Minutes): 45
--- NOTE | 2018-05-20 16:00 | PDOC PROGRESS REPORT ---
Subjective Progress Note for:: 05/04/18 Subjective:: Patient is improving. BIPAP at bedside but patient did not use last night. O2 at 4 l/m via nasal cannula Reason For Visit: ACUTE ON CHRONIC RESPIRATORY FAILURE WITH HYPOXIA Physical Exam Vital Signs: Temp Pulse Resp BP Pulse Ox 98.3 F 73 18 105/50 L 98 05/14/18 14:33 05/14/18 15:52 05/14/18 15:52 05/14/18 14:33 05/14/18 15:52 General appearance: PRESENT: no acute distress, cooperative Eye exam: PRESENT: conjunctiva pale Mouth exam: PRESENT: dry mucosa, neck supple, tongue midline Neck exam: ABSENT: carotid bruit, JVD, lymphadenopathy, tracheal deviation, tracheostomy Respiratory exam: PRESENT: decreased breath sounds, prolonged expiratory phas, rales, wheezes. ABSENT: stridor, tachypnea Cardiovascular exam: PRESENT: RRR, +S1, +S2 Pulses: PRESENT: normal femoral pulses GI/Abdominal exam: PRESENT: soft. ABSENT: tenderness Rectal exam: PRESENT: deferred Extremities exam: ABSENT: calf tenderness, clubbing, joint swelling Musculoskeletal exam: ABSENT: ambulatory, deformity Neurological exam: PRESENT: awake Psychiatric exam: PRESENT: normal mood Skin exam: PRESENT: dry, warm Results Laboratory Results: 05/11/18 06:15 05/10/18 05:38 04/25/18 04/25/18 04/25/18 21:09 22:06 22:32 Creatine Kinase 91 CK-MB (CK-2) Troponin I Cancelled 0.787 NT-Pro-B Natriuret Pep Cancelled 256 04/25/18 04/26/18 04/26/18 22:32 04:40 04:40 Creatine Kinase 121 CK-MB (CK-2) 3.26 7.97 H Troponin I Cancelled 1.820 NT-Pro-B Natriuret Pep 04/26/18 04/26/18 04/26/18 10:24 10:24 19:17 Creatine Kinase 171 H 143 H CK-MB (CK-2) 12.50 H Troponin I 2.090 NT-Pro-B Natriuret Pep 04/26/18 04/28/18 04/29/18 19:17 10:00 11:30 Creatine Kinase CK-MB (CK-2) 9.22 H Troponin I 2.020 0.654 0.301 NT-Pro-B Natriuret Pep Impressions: KUB X-Ray 04/26/18 16:45 IMPRESSION: Satisfactory position of nasogastric tube. Head CT 04/27/18 00:00 IMPRESSION: NORMAL BRAIN CT WITHOUT CONTRAST. EVIDENCE OF ACUTE STROKE: NO. Chest X-Ray 05/05/18 00:00 IMPRESSION: Small pleural effusions. Increased retrocardiac opacification consistent with left lower lobe pneumonia. Chest CT 05/06/18 00:00 IMPRESSION: Small bilateral pleural effusions with minimal right upper lobe ground-glass attenuation, possibly infectious/ inflammatory. Extensive upper lobe predominant panacinar emphysema. Scattered subcentimeter nodules, largest measuring 6 mm. See follow-up as below. Assessment & Plan - Diagnosis (1) Acute on chronic respiratory failure with hypoxemia Is this a current diagnosis for this admission?: Yes Plan: improving, BIPAP at bedside on oxygen at 4 l/m via nasal cannula (2) Chronic obstructive pulmonary disease (COPD) Is this a current diagnosis for this admission?: Yes Plan: Generic Name Dose Route Start Last Admin Trade Name Freq PRN Reason Stop Dose Admin Levalbuterol HCl 1.25 mg 04/26/18 00:00 04/27/18 07:59 Xopenex Neb 1.25 Mg/3 Ml Ampul NEB 05/26/18 00:00 1.25 mg RTQ8 [facility] Budesonide 0.5 mg 04/26/18 08:00 04/27/18 07:59 Pulmicort Neb 0.5 Mg/2 Ml Ampul NEB 05/26/18 07:59 0.5 mg RTQ12 [facility] Methylprednisolone Sodium Succinate 40 mg 04/26/18 06:00 04/27/18 13:26 Solu-Medrol Inj/Pf 40 Mg/1 Ml Sdv IV 05/24/18 00:01 40 mg Q6 [facility] Albuterol 2.5 mg 04/25/18 23:50 04/26/18 21:07 Ventolin 0.083% Neb 2.5 Mg/3 Ml Ampul NEB 05/25/18 23:49 2.5 mg RTQ1HP PRN SHORTNESS OF BREATH Ipratropium [place] 0.5 mg 04/26/18 00:00 04/27/18 07:59 Atrovent 0.02% Neb 0.5 Mg/2.5 Ml Ampul NEB 05/26/18 00:00 0.5 mg RTQ8 [facility] Acetylcysteine 600 mg 04/26/18 13:45 04/27/18 07:59 Mucomist 20% Soln 800 Mg/4 Ml NEB 05/26/18 13:44 600 mg RTBID [facility] (3) Influenza A with pneumonia Is this a current diagnosis for this admission?: Yes Plan: improving (4) Nicotine addiction Is this a current diagnosis for this admission?: Yes Plan: Transdermal nicotine
--- NOTE | 2018-05-20 16:17 | PDOC PROGRESS REPORT ---
Subjective Progress Note for:: 05/05/18 Subjective:: Bipap at bedside patient on oxygen 2 l/m via nasal cannula Reason For Visit: ACUTE ON CHRONIC RESPIRATORY FAILURE WITH HYPOXIA Physical Exam Vital Signs: Temp Pulse Resp BP Pulse Ox 98.3 F 73 18 105/50 L 98 05/14/18 14:33 05/14/18 15:52 05/14/18 15:52 05/14/18 14:33 05/14/18 15:52 General appearance: PRESENT: cooperative Head exam: PRESENT: atraumatic, normocephalic Eye exam: PRESENT: conjunctiva pale Mouth exam: PRESENT: dry mucosa, neck supple, tongue midline Neck exam: ABSENT: carotid bruit, full ROM, lymphadenopathy, tenderness, tracheal deviation, tracheostomy Respiratory exam: PRESENT: decreased breath sounds, prolonged expiratory phas, rales, wheezes. ABSENT: stridor, tachypnea Cardiovascular exam: PRESENT: RRR, rubs, +S2 Pulses: PRESENT: normal radial pulses GI/Abdominal exam: PRESENT: soft. ABSENT: tenderness Rectal exam: PRESENT: deferred Extremities exam: ABSENT: calf tenderness, clubbing, joint swelling Musculoskeletal exam: ABSENT: ambulatory, deformity Neurological exam: PRESENT: awake Psychiatric exam: PRESENT: normal mood Skin exam: PRESENT: dry, warm Results Laboratory Results: 05/11/18 06:15 05/10/18 05:38 04/25/18 04/25/18 04/25/18 21:09 22:06 22:32 Creatine Kinase 91 CK-MB (CK-2) Troponin I Cancelled 0.787 NT-Pro-B Natriuret Pep Cancelled 256 04/25/18 04/26/18 04/26/18 22:32 04:40 04:40 Creatine Kinase 121 CK-MB (CK-2) 3.26 7.97 H Troponin I Cancelled 1.820 NT-Pro-B Natriuret Pep 04/26/18 04/26/18 04/26/18 10:24 10:24 19:17 Creatine Kinase 171 H 143 H CK-MB (CK-2) 12.50 H Troponin I 2.090 NT-Pro-B Natriuret Pep 04/26/18 04/28/18 04/29/18 19:17 10:00 11:30 Creatine Kinase CK-MB (CK-2) 9.22 H Troponin I 2.020 0.654 0.301 NT-Pro-B Natriuret Pep Impressions: KUB X-Ray 04/26/18 16:45 IMPRESSION: Satisfactory position of nasogastric tube. Head CT 04/27/18 00:00 IMPRESSION: NORMAL BRAIN CT WITHOUT CONTRAST. EVIDENCE OF ACUTE STROKE: NO. Chest X-Ray 05/05/18 00:00 IMPRESSION: Small pleural effusions. Increased retrocardiac opacification consistent with left lower lobe pneumonia. Chest CT 05/06/18 00:00 IMPRESSION: Small bilateral pleural effusions with minimal right upper lobe ground-glass attenuation, possibly infectious/ inflammatory. Extensive upper lobe predominant panacinar emphysema. Scattered subcentimeter nodules, largest measuring 6 mm. See follow-up as bel ow. Assessment & Plan - Diagnosis (1) Acute on chronic respiratory failure with hypoxemia Is this a current diagnosis for this admission?: Yes Plan: continue current oxygen therapy (2) Chronic obstructive pulmonary disease (COPD) Is this a current diagnosis for this admission?: Yes Plan: Generic Name Dose Route Start Last Admin Trade Name Freq PRN Reason Stop Dose Admin Levalbuterol HCl 1.25 mg 04/26/18 00:00 04/27/18 07:59 Xopenex Neb 1.25 Mg/3 Ml Ampul NEB 05/26/18 00:00 1.25 mg RTQ8 [facility] Budesonide 0.5 mg 04/26/18 08:00 04/27/18 07:59 Pulmicort Neb 0.5 Mg/2 Ml Ampul NEB 05/26/18 07:59 0.5 mg RTQ12 [facility] Methylprednisolone Sodium Succinate 40 mg 04/26/18 06:00 04/27/18 13:26 Solu-Medrol Inj/Pf 40 Mg/1 Ml Sdv IV 05/24/18 00:01 40 mg Q6 [facility] Albuterol 2.5 mg 04/25/18 23:50 04/26/18 21:07 Ventolin 0.083% Neb 2.5 Mg/3 Ml Ampul NEB 05/25/18 23:49 2.5 mg RTQ1HP PRN SHORTNESS OF BREATH Ipratropium [place] 0.5 mg 04/26/18 00:00 04/27/18 07:59 Atrovent 0.02% Neb 0.5 Mg/2.5 Ml Ampul NEB 05/26/18 00:00 0.5 mg RTQ8 [facility] Acetylcysteine 600 mg 04/26/18 13:45 04/27/18 07:59 Mucomist 20% Soln 800 Mg/4 Ml NEB 05/26/18 13:44 600 mg RTBID [facility] (3) Influenza A with pneumonia Is this a current diagnosis for this admission?: Yes Plan: improving (4) Nicotine addiction Is this a current diagnosis for this admission?: Yes
--- NOTE | 2018-05-20 16:22 | PDOC PROGRESS REPORT ---
Subjective Subjective:: Bipap at bedside patient on oxygen 2 l/m via nasal cannula Reason For Visit: ACUTE ON CHRONIC RESPIRATORY FAILURE WITH HYPOXIA Physical Exam Vital Signs: Temp Pulse Resp BP Pulse Ox 98.3 F 73 18 105/50 L 98 05/14/18 14:33 05/14/18 15:52 05/14/18 15:52 05/14/18 14:33 05/14/18 15:52 General appearance: PRESENT: no acute distress, cooperative Head exam: PRESENT: atraumatic, normocephalic Eye exam: PRESENT: conjunctiva pale Mouth exam: PRESENT: dry mucosa, neck supple, tongue midline Neck exam: ABSENT: carotid bruit, JVD, lymphadenopathy, thyromegaly, tracheal deviation, tracheostomy Respiratory exam: PRESENT: decreased breath sounds, prolonged expiratory phas, unlabored. ABSENT: rhonchi, stridor, tachypnea Cardiovascular exam: PRESENT: RRR, +S1, +S2 Pulses: PRESENT: normal radial pulses GI/Abdominal exam: PRESENT: soft. ABSENT: tenderness Rectal exam: PRESENT: deferred Extremities exam: ABSENT: calf tenderness, clubbing, joint swelling, pedal edema, tenderness Musculoskeletal exam: PRESENT: ambulatory Neurological exam: PRESENT: alert, awake Psychiatric exam: PRESENT: normal mood Skin exam: PRESENT: dry, warm Results Laboratory Results: 05/11/18 06:15 05/10/18 05:38 04/25/18 04/25/18 04/25/18 21:09 22:06 22:32 Creatine Kinase 91 CK-MB (CK-2) Troponin I Cancelled 0.787 NT-Pro-B Natriuret Pep Cancelled 256 04/25/18 04/26/18 04/26/18 22:32 04:40 04:40 Creatine Kinase 121 CK-MB (CK-2) 3.26 7.97 H Troponin I Cancelled 1.820 NT-Pro-B Natriuret Pep 04/26/18 04/26/18 04/26/18 10:24 10:24 19:17 Creatine Kinase 171 H 143 H CK-MB (CK-2) 12.50 H Troponin I 2.090 NT-Pro-B Natriuret Pep 04/26/18 04/28/18 04/29/18 19:17 10:00 11:30 Creatine Kinase CK-MB (CK-2) 9.22 H Troponin I 2.020 0.654 0.301 NT-Pro-B Natriuret Pep Impressions: KUB X-Ray 04/26/18 16:45 IMPRESSION: Satisfactory position of nasogastric tube. Head CT 04/27/18 00:00 IMPRESSION: NORMAL BRAIN CT WITHOUT CONTRAST. EVIDENCE OF ACUTE STROKE: NO. Chest X-Ray 05/05/18 00:00 IMPRESSION: Small pleural effusions. Increased retrocardiac opacification consistent with left lower lobe pneumonia. Chest CT 05/06/18 00:00 IMPRESSION: Small bilateral pleural effusions with minimal right upper lobe ground-glass attenuation, possibly infectious/ inflammatory. Extensive upper lobe predominant panacinar emphysema. Scattered subcentimeter nodules, largest measuring 6 mm. See follow-up as below. Assessment & Plan - Diagnosis (1) Acute on chronic respiratory failure with hypoxemia Is this a current diagnosis for this admission?: Yes Plan: continue current oxygen therapy (2) Chronic obstructive pulmonary disease (COPD) Is this a current diagnosis for this admission?: Yes Plan: Generic Name Dose Route Start Last Admin Trade Name Freq PRN Reason Stop Dose Admin Levalbuterol HCl 1.25 mg 04/26/18 00:00 04/27/18 07:59 Xopenex Neb 1.25 Mg/3 Ml Ampul NEB 05/26/18 00:00 1.25 mg RTQ8 [facility] Budesonide 0.5 mg 04/26/18 08:00 04/27/18 07:59 Pulmicort Neb 0.5 Mg/2 Ml Ampul NEB 05/26/18 07:59 0.5 mg RTQ12 [facility] Methylprednisolone Sodium Succinate 40 mg 04/26/18 06:00 04/27/18 13:26 Solu-Medrol Inj/Pf 40 Mg/1 Ml Sdv IV 05/24/18 00:01 40 mg Q6 [facility] Albuterol 2.5 mg 04/25/18 23:50 04/26/18 21:07 Ventolin 0.083% Neb 2.5 Mg/3 Ml Ampul NEB 05/25/18 23:49 2.5 mg RTQ1HP PRN SHORTNESS OF BREATH Ipratropium [place] 0.5 mg 04/26/18 00:00 04/27/18 07:59 Atrovent 0.02% Neb 0.5 Mg/2.5 Ml Ampul NEB 05/26/18 00:00 0.5 mg RTQ8 [facility] Acetylcysteine 600 mg 04/26/18 13:45 04/27/18 07:59 Mucomist 20% Soln 800 Mg/4 Ml NEB 05/26/18 13:44 600 mg RTBID [facility] (3) Influenza A with pneumonia Is this a current diagnosis for this admission?: Yes (4) Nicotine addiction Is this a current diagnosis for this admission?: Yes Plan: Transdermal nicotine
--- NOTE | 2018-05-20 16:34 | PDOC PROGRESS REPORT ---
Subjective Progress Note for:: 05/07/18 Subjective:: patient on oxygen 2 l/m via nasal cannula plan is to send patient to rehab Reason For Visit: ACUTE ON CHRONIC RESPIRATORY FAILURE WITH HYPOXIA Physical Exam Vital Signs: Temp Pulse Resp BP Pulse Ox 98.3 F 73 18 105/50 L 98 05/14/18 14:33 05/14/18 15:52 05/14/18 15:52 05/14/18 14:33 05/14/18 15:52 General appearance: PRESENT: no acute distress, cooperative Head exam: PRESENT: atraumatic, normocephalic Eye exam: PRESENT: conjunctiva pale Mouth exam: PRESENT: dry mucosa, neck supple, tongue midline Neck exam: ABSENT: carotid bruit, JVD, lymphadenopathy, thyromegaly, tracheal deviation, tracheostomy Respiratory exam: PRESENT: decreased breath sounds, prolonged expiratory phas, unlabored, wheezes. ABSENT: rhonchi, stridor, tachypnea Cardiovascular exam: PRESENT: RRR, +S1, +S2 Pulses: PRESENT: normal radial pulses GI/Abdominal exam: PRESENT: soft. ABSENT: tenderness Rectal exam: PRESENT: deferred Extremities exam: ABSENT: calf tenderness, clubbing, joint swelling, pedal edema, tenderness Musculoskeletal exam: PRESENT: ambulatory. ABSENT: deformity, dislocation Neurological exam: PRESENT: awake Psychiatric exam: PRESENT: normal mood Skin exam: PRESENT: dry, warm Results Laboratory Results: 05/11/18 06:15 05/10/18 05:38 04/25/18 04/25/18 04/25/18 21:09 22:06 22:32 Creatine Kinase 91 CK-MB (CK-2) Troponin I Cancelled 0.787 NT-Pro-B Natriuret Pep Cancelled 256 04/25/18 04/26/18 04/26/18 22:32 04:40 04:40 Creatine Kinase 121 CK-MB (CK-2) 3.26 7.97 H Troponin I Cancelled 1.820 NT-Pro-B Natriuret Pep 04/26/18 04/26/18 04/26/18 10:24 10:24 19:17 Creatine Kinase 171 H 143 H CK-MB (CK-2) 12.50 H Troponin I 2.090 NT-Pro-B Natriuret Pep 04/26/18 04/28/18 04/29/18 19:17 10:00 11:30 Creatine Kinase CK-MB (CK-2) 9.22 H Troponin I 2.020 0.654 0.301 NT-Pro-B Natriuret Pep Impressions: KUB X-Ray 04/26/18 16:45 IMPRESSION: Satisfactory position of nasogastric tube. Head CT 04/27/18 00:00 IMPRESSION: NORMAL BRAIN CT WITHOUT CONTRAST. EVIDENCE OF ACUTE STROKE: NO. Chest X-Ray 05/05/18 00:00 IMPRESSION: Small pleural effusions. Increased retrocardiac opacification consistent with left lower lobe pneumonia. Chest CT 05/06/18 00:00 IMPRESSION: Small bilateral pleural effusions with minimal right upper lobe gr ound-glass attenuation, possibly infectious/ inflammatory. Extensive upper lobe predominant panacinar emphysema. Scattered subcentimeter nodules, largest measuring 6 mm. See follow-up as below. Assessment & Plan - Diagnosis (1) Acute on chronic respiratory failure with hypoxemia Is this a current diagnosis for this admission?: Yes Plan: continue current oxygen therapy (2) Chronic obstructive pulmonary disease (COPD) Is this a current diagnosis for this admission?: Yes Plan: Generic Name Dose Route Start Last Admin Trade Name Freq PRN Reason Stop Dose Admin Levalbuterol HCl 1.25 mg 04/26/18 00:00 04/27/18 07:59 Xopenex Neb 1.25 Mg/3 Ml Ampul NEB 05/26/18 00:00 1.25 mg RTQ8 [facility] Budesonide 0.5 mg 04/26/18 08:00 04/27/18 07:59 Pulmicort Neb 0.5 Mg/2 Ml Ampul NEB 05/26/18 07:59 0.5 mg RTQ12 [facility] Methylprednisolone Sodium Succinate 40 mg 04/26/18 06:00 04/27/18 13:26 Solu-Medrol Inj/Pf 40 Mg/1 Ml Sdv IV 05/24/18 00:01 40 mg Q6 [facility] Albuterol 2.5 mg 04/25/18 23:50 04/26/18 21:07 Ventolin 0.083% Neb 2.5 Mg/3 Ml Ampul NEB 05/25/18 23:49 2.5 mg RTQ1HP PRN SHORTNESS OF BREATH Ipratropium [place] 0.5 mg 04/26/18 00:00 04/27/18 07:59 Atrovent 0.02% Neb 0.5 Mg/2.5 Ml Ampul NEB 05/26/18 00:00 0.5 mg RTQ8 [facility] Acetylcysteine 600 mg 04/26/18 13:45 04/27/18 07:59 Mucomist 20% Soln 800 Mg/4 Ml NEB 05/26/18 13:44 600 mg RTBID [facility] (3) Influenza A with pneumonia Is this a current diagnosis for this admission?: Yes Plan: improving (4) Nicotine addiction Is this a current diagnosis for this admission?: Yes Plan: Transdermal nicotine
--- NOTE | 2018-05-20 16:36 | PDOC PROGRESS REPORT ---
Subjective Progress Note for:: 05/08/18 Subjective:: patient on oxygen 2 l/m via nasal cannula plan is to send patient to rehab Reason For Visit: ACUTE ON CHRONIC RESPIRATORY FAILURE WITH HYPOXIA Physical Exam Vital Signs: Temp Pulse Resp BP Pulse Ox 98.3 F 73 18 105/50 L 98 05/14/18 14:33 05/14/18 15:52 05/14/18 15:52 05/14/18 14:33 05/14/18 15:52 General appearance: PRESENT: no acute distress, cooperative, well-developed, well-nourished Head exam: PRESENT: atraumatic, normocephalic Eye exam: PRESENT: conjunctiva pale, EOMI. ABSENT: nystagmus Mouth exam: PRESENT: dry mucosa, neck supple, tongue midline Neck exam: ABSENT: carotid bruit, JVD, lymphadenopathy, thyromegaly, tracheal deviation, tracheostomy Respiratory exam: PRESENT: decreased breath sounds, prolonged expiratory phas, rhonchi, unlabored. ABSENT: retraction, stridor, tachypnea Cardiovascular exam: PRESENT: RRR, +S1, +S2. ABSENT: tachycardia Pulses: PRESENT: normal radial pulses GI/Abdominal exam: PRESENT: soft. ABSENT: tenderness Extremities exam: ABSENT: calf tenderness, clubbing, joint swelling, pedal edema Musculoskeletal exam: ABSENT: deformity, dislocation Neurological exam: PRESENT: awake Psychiatric exam: PRESENT: appropriate affect Skin exam: PRESENT: dry, warm Results Laboratory Results: 05/11/18 06:15 05/10/18 05:38 04/25/18 04/25/18 04/25/18 21:09 22:06 22:32 Creatine Kinase 91 CK-MB (CK-2) Troponin I Cancelled 0.787 NT-Pro-B Natriuret Pep Cancelled 256 04/25/18 04/26/18 04/26/18 22:32 04:40 04:40 Creatine Kinase 121 CK-MB (CK-2) 3.26 7.97 H Troponin I Cancelled 1.820 NT-Pro-B Natriuret Pep 04/26/18 04/26/18 04/26/18 10:24 10:24 19:17 Creatine Kinase 171 H 143 H CK-MB (CK-2) 12.50 H Troponin I 2.090 NT-Pro-B Natriuret Pep 04/26/18 04/28/18 04/29/18 19:17 10:00 11:30 Creatine Kinase CK-MB (CK-2) 9.22 H Troponin I 2.020 0.654 0.301 NT-Pro-B Natriuret Pep Impressions: KUB X-Ray 04/26/18 16:45 IMPRESSION: Satisfactory position of nasogastric tube. Head CT 04/27/18 00:00 IMPRESSION: NORMAL BRAIN CT WITHOUT CONTRAST. EVIDENCE OF ACUTE STROKE: NO. Chest X-Ray 05/05/18 00:00 IMPRESSION: Small pleural effusions. Increased retrocardiac opacification consistent with left lower lobe pneumonia. Chest CT 05/06/18 00:00 IMPRESSION: Small bilateral pleural effusions with minimal right upper lobe gr ound-glass attenuation, possibly infectious/ inflammatory. Extensive upper lobe predominant panacinar emphysema. Scattered subcentimeter nodules, largest measuring 6 mm. See follow-up as below. Assessment & Plan - Diagnosis (1) Acute on chronic respiratory failure with hypoxemia Is this a current diagnosis for this admission?: Yes Plan: continue current oxygen therapy (2) Chronic obstructive pulmonary disease (COPD) Is this a current diagnosis for this admission?: Yes Plan: Generic Name Dose Route Start Last Admin Trade Name Freq PRN Reason Stop Dose Admin Levalbuterol HCl 1.25 mg 04/26/18 00:00 04/27/18 07:59 Xopenex Neb 1.25 Mg/3 Ml Ampul NEB 05/26/18 00:00 1.25 mg RTQ8 AURELIO Budesonide 0.5 mg 04/26/18 08:00 04/27/18 07:59 Pulmicort Neb 0.5 Mg/2 Ml Ampul NEB 05/26/18 07:59 0.5 mg RTQ12 AURELIO Methylprednisolone Sodium Succinate 40 mg 04/26/18 06:00 04/27/18 13:26 Solu-Medrol Inj/Pf 40 Mg/1 Ml Sdv IV 05/24/18 00:01 40 mg Q6 AURELIO Albuterol 2.5 mg 04/25/18 23:50 04/26/18 21:07 Ventolin 0.083% Neb 2.5 Mg/3 Ml Ampul NEB 05/25/18 23:49 2.5 mg RTQ1HP PRN SHORTNESS OF BREATH Ipratropium [place] 0.5 mg 04/26/18 00:00 04/27/18 07:59 Atrovent 0.02% Neb 0.5 Mg/2.5 Ml Ampul NEB 05/26/18 00:00 0.5 mg RTQ8 AURELIO Acetylcysteine 600 mg 04/26/18 13:45 04/27/18 07:59 Mucomist 20% Soln 800 Mg/4 Ml NEB 05/26/18 13:44 600 mg RTBID AURELIO (3) Influenza A with pneumonia Is this a current diagnosis for this admission?: Yes Plan: improving (4) Nicotine addiction Is this a current diagnosis for this admission?: Yes Plan: Transdermal nicotine
--- NOTE | 2018-05-20 16:37 | PDOC PROGRESS REPORT ---
Subjective Progress Note for:: 05/11/18 Subjective:: patient on oxygen 2 l/m via nasal cannula plan is to send patient to rehab Reason For Visit: ACUTE ON CHRONIC RESPIRATORY FAILURE WITH HYPOXIA Physical Exam Vital Signs: Temp Pulse Resp BP Pulse Ox 98.3 F 73 18 105/50 L 98 05/14/18 14:33 05/14/18 15:52 05/14/18 15:52 05/14/18 14:33 05/14/18 15:52 General appearance: PRESENT: no acute distress, cooperative, well-developed, well-nourished Head exam: PRESENT: atraumatic, normocephalic Eye exam: PRESENT: conjunctiva pale, EOMI. ABSENT: nystagmus, scleral icterus Mouth exam: PRESENT: dry mucosa, neck supple, tongue midline Neck exam: ABSENT: carotid bruit, JVD, lymphadenopathy, thyromegaly, tracheal deviation, tracheostomy Respiratory exam: PRESENT: decreased breath sounds, prolonged expiratory phas, rhonchi, unlabored. ABSENT: retraction, tachypnea Cardiovascular exam: PRESENT: RRR, +S1, +S2 Pulses: PRESENT: normal radial pulses GI/Abdominal exam: PRESENT: soft. ABSENT: tenderness Extremities exam: ABSENT: calf tenderness, clubbing, joint swelling, pedal edema Musculoskeletal exam: ABSENT: deformity, dislocation Neurological exam: PRESENT: awake Psychiatric exam: PRESENT: appropriate affect Skin exam: PRESENT: dry, warm Results Laboratory Results: 05/11/18 06:15 05/10/18 05:38 04/25/18 04/25/18 04/25/18 21:09 22:06 22:32 Creatine Kinase 91 CK-MB (CK-2) Troponin I Cancelled 0.787 NT-Pro-B Natriuret Pep Cancelled 256 04/25/18 04/26/18 04/26/18 22:32 04:40 04:40 Creatine Kinase 121 CK-MB (CK-2) 3.26 7.97 H Troponin I Cancelled 1.820 NT-Pro-B Natriuret Pep 04/26/18 04/26/18 04/26/18 10:24 10:24 19:17 Creatine Kinase 171 H 143 H CK-MB (CK-2) 12.50 H Troponin I 2.090 NT-Pro-B Natriuret Pep 04/26/18 04/28/1819 19:17 10:00 11:30 Creatine Kinase CK-MB (CK-2) 9.22 H Troponin I 2.020 0.654 0.301 NT-Pro-B Natriuret Pep Impressions: KUB X-Ray 04/26/18 16:45 IMPRESSION: Satisfactory position of nasogastric tube. Head CT 04/27/18 00:00 IMPRESSION: NORMAL BRAIN CT WITHOUT CONTRAST. EVIDENCE OF ACUTE STROKE: NO. Chest X-Ray 05/05/18 00:00 IMPRESSION: Small pleural effusions. Increased retrocardiac opacification consistent with left lower lobe pneumonia. Chest CT 05/06/18 00:00 IMPRESSION: Small bilateral pleural effusions with minimal right upper lobe ground-glass attenuation, possibly infectious/ inflammatory. Extensive upper lobe predominant panacinar emphysema. Scattered subcentimeter nodules, largest measuring 6 mm. See follow-up as below. Assessment & Plan - Diagnosis (1) Acute on chronic respiratory failure with hypoxemia Is this a current diagnosis for this admission?: Yes Plan: continue current oxygen therapy (2) Chronic obstructive pulmonary disease (COPD) Is this a current diagnosis for this admission?: Yes Plan: Generic Name Dose Route Start Last Admin Trade Name Freq PRN Reason Stop Dose Admin Levalbuterol HCl 1.25 mg 04/26/18 00:00 04/27/18 07:59 Xopenex Neb 1.25 Mg/3 Ml Ampul NEB 05/26/18 00:00 1.25 mg RTQ8 AURELIO Budesonide 0.5 mg 04/26/18 08:00 04/27/18 07:59 Pulmicort Neb 0.5 Mg/2 Ml Ampul NEB 05/26/18 07:59 0.5 mg RTQ12 AURELIO Methylprednisolone Sodium Succinate 40 mg 04/26/18 06:00 04/27/18 13:26 Solu-Medrol Inj/Pf 40 Mg/1 Ml Sdv IV 05/24/18 00:01 40 mg Q6 AURELIO Albuterol 2.5 mg 04/25/18 23:50 04/26/18 21:07 Ventolin 0.083% Neb 2.5 Mg/3 Ml Ampul NEB 05/25/18 23:49 2.5 mg RTQ1HP PRN SHORTNESS OF BREATH Ipratropium [place] 0.5 mg 04/26/18 00:00 04/27/18 07:59 Atrovent 0.02% Neb 0.5 Mg/2.5 Ml Ampul NEB 05/26/18 00:00 0.5 mg RTQ8 AURELIO Acetylcysteine 600 mg 04/26/18 13:45 04/27/18 07:59 Mucomist 20% Soln 800 Mg/4 Ml NEB 05/26/18 13:44 600 mg RTBID AURELIO (3) Influenza A with pneumonia Is this a current diagnosis for this admission?: Yes Plan: improving (4) Nicotine addiction Is this a current diagnosis for this admission?: Yes Plan: Transdermal nicotine
--- NOTE | 2018-05-20 16:39 | PDOC PROGRESS REPORT ---
Subjective Progress Note for:: 05/12/18 Subjective:: patient on oxygen 2 l/m via nasal cannula plan is to send patient to rehab Reason For Visit: ACUTE ON CHRONIC RESPIRATORY FAILURE WITH HYPOXIA Physical Exam Vital Signs: Temp Pulse Resp BP Pulse Ox 98.3 F 73 18 105/50 L 98 05/14/18 14:33 05/14/18 15:52 05/14/18 15:52 05/14/18 14:33 05/14/18 15:52 General appearance: PRESENT: no acute distress, cooperative, well-developed, well-nourished Head exam: PRESENT: atraumatic, normocephalic Eye exam: PRESENT: conjunctiva pale, EOMI. ABSENT: nystagmus, scleral icterus Mouth exam: PRESENT: dry mucosa, neck supple, tongue midline Neck exam: ABSENT: carotid bruit, JVD, lymphadenopathy, thyromegaly, tracheal deviation, tracheostomy Respiratory exam: PRESENT: decreased breath sounds, prolonged expiratory phas, rhonchi, unlabored. ABSENT: retraction, tachypnea Cardiovascular exam: PRESENT: RRR, +S1, +S2. ABSENT: tachycardia Pulses: PRESENT: normal radial pulses GI/Abdominal exam: PRESENT: soft. ABSENT: tenderness Extremities exam: PRESENT: full ROM. ABSENT: calf tenderness, clubbing, pedal edema Neurological exam: PRESENT: alert, awake Psychiatric exam: PRESENT: appropriate affect Skin exam: PRESENT: dry, warm Results Laboratory Results: 05/11/18 06:15 05/10/18 05:38 04/25/18 04/25/18 04/25/18 21:09 22:06 22:32 Creatine Kinase 91 CK-MB (CK-2) Troponin I Cancelled 0.787 NT-Pro-B Natriuret Pep Cancelled 256 04/25/18 04/26/18 04/26/18 22:32 04:40 04:40 Creatine Kinase 121 CK-MB (CK-2) 3.26 7.97 H Troponin I Cancelled 1.820 NT-Pro-B Natriuret Pep 04/26/18 04/26/18 04/26/18 10:24 10:24 19:17 Creatine Kinase 171 H 143 H CK-MB (CK-2) 12.50 H Troponin I 2.090 NT-Pro-B Natriuret Pep 04/26/18 04/28/1819 19:17 10:00 11:30 Creatine Kinase CK-MB (CK-2) 9.22 H Troponin I 2.020 0.654 0.301 NT-Pro-B Natriuret Pep Impressions: KUB X-Ray 04/26/18 16:45 IMPRESSION: Satisfactory position of nasogastric tube. Head CT 04/27/18 00:00 IMPRESSION: NORMAL BRAIN CT WITHOUT CONTRAST. EVIDENCE OF ACUTE STROKE: NO. Chest X-Ray 05/05/18 00:00 IMPRESSION: Small pleural effusions. Increased retrocardiac opacification consistent with left lower lobe pneumonia. Chest CT 05/06/18 00:00 IMPRESSION: Small bilateral pleural effusions with minimal right upper lobe ground-glass attenuation, possibly infectious/ inflammatory. Extensive upper lobe predominant panacinar emphysema. Scattered subcentimeter nodules, largest measuring 6 mm. See follow-up as below. Assessment & Plan - Diagnosis (1) Acute on chronic respiratory failure with hypoxemia Is this a current diagnosis for this admission?: Yes Plan: continue current oxygen therapy (2) Chronic obstructive pulmonary disease (COPD) Is this a current diagnosis for this admission?: Yes Plan: Generic Name Dose Route Start Last Admin Trade Name Freq PRN Reason Stop Dose Admin Levalbuterol HCl 1.25 mg 04/26/18 00:00 04/27/18 07:59 Xopenex Neb 1.25 Mg/3 Ml Ampul NEB 05/26/18 00:00 1.25 mg RTQ8 AURELIO Budesonide 0.5 mg 04/26/18 08:00 04/27/18 07:59 Pulmicort Neb 0.5 Mg/2 Ml Ampul NEB 05/26/18 07:59 0.5 mg RTQ12 AURELIO Methylprednisolone Sodium Succinate 40 mg 04/26/18 06:00 04/27/18 13:26 Solu-Medrol Inj/Pf 40 Mg/1 Ml Sdv IV 05/24/18 00:01 40 mg Q6 AURELIO Albuterol 2.5 mg 04/25/18 23:50 04/26/18 21:07 Ventolin 0.083% Neb 2.5 Mg/3 Ml Ampul NEB 05/25/18 23:49 2.5 mg RTQ1HP PRN SHORTNESS OF BREATH Ipratropium [place] 0.5 mg 04/26/18 00:00 04/27/18 07:59 Atrovent 0.02% Neb 0.5 Mg/2.5 Ml Ampul NEB 05/26/18 00:00 0.5 mg RTQ8 AURELIO Acetylcysteine 600 mg 04/26/18 13:45 04/27/18 07:59 Mucomist 20% Soln 800 Mg/4 Ml NEB 05/26/18 13:44 600 mg RTBID AURELIO (3) Influenza A with pneumonia Is this a current diagnosis for this admission?: Yes Plan: improving (4) Nicotine addiction Is this a current diagnosis for this admission?: Yes Plan: Transdermal nicotine
--- NOTE | 2018-05-20 16:41 | PDOC PROGRESS REPORT ---
Subjective Progress Note for:: 05/13/18 Subjective:: patient on oxygen 2 l/m via nasal cannula plan is to send patient to rehab Reason For Visit: ACUTE ON CHRONIC RESPIRATORY FAILURE WITH HYPOXIA Physical Exam Vital Signs: Temp Pulse Resp BP Pulse Ox 98.3 F 73 18 105/50 L 98 05/14/18 14:33 05/14/18 15:52 05/14/18 15:52 05/14/18 14:33 05/14/18 15:52 General appearance: PRESENT: no acute distress, cooperative, well-developed, well-nourished Head exam: PRESENT: atraumatic, normocephalic Eye exam: PRESENT: conjunctiva pale, EOMI. ABSENT: nystagmus, scleral icterus Mouth exam: PRESENT: dry mucosa, neck supple, tongue midline Neck exam: ABSENT: carotid bruit, JVD, lymphadenopathy, thyromegaly, tracheal deviation, tracheostomy Respiratory exam: PRESENT: decreased breath sounds, prolonged expiratory phas, rhonchi, unlabored. ABSENT: retraction Cardiovascular exam: PRESENT: RRR, +S1, +S2 Pulses: PRESENT: normal radial pulses GI/Abdominal exam: PRESENT: soft. ABSENT: tenderness Extremities exam: ABSENT: calf tenderness, clubbing, joint swelling, pedal edema Musculoskeletal exam: ABSENT: deformity, dislocation Neurological exam: PRESENT: alert, oriented to person Psychiatric exam: PRESENT: appropriate affect Skin exam: PRESENT: dry, warm Results Laboratory Results: 05/11/18 06:15 05/10/18 05:38 04/25/18 04/25/18 04/25/18 21:09 22:06 22:32 Creatine Kinase 91 CK-MB (CK-2) Troponin I Cancelled 0.787 NT-Pro-B Natriuret Pep Cancelled 256 04/25/18 04/26/18 04/26/18 22:32 04:40 04:40 Creatine Kinase 121 CK-MB (CK-2) 3.26 7.97 H Troponin I Cancelled 1.820 NT-Pro-B Natriuret Pep 04/26/18 04/26/18 04/26/18 10:24 10:24 19:17 Creatine Kinase 171 H 143 H CK-MB (CK-2) 12.50 H Troponin I 2.090 NT-Pro-B Natriuret Pep 04/26/18 04/28/1819 19:17 10:00 11:30 Creatine Kinase CK-MB (CK-2) 9.22 H Troponin I 2.020 0.654 0.301 NT-Pro-B Natriuret Pep Impressions: KUB X-Ray 04/26/18 16:45 IMPRESSION: Satisfactory position of nasogastric tube. Head CT 04/27/18 00:00 IMPRESSION: NORMAL BRAIN CT WITHOUT CONTRAST. EVIDENCE OF ACUTE STROKE: NO. Chest X-Ray 05/05/18 00:00 IMPRESSION: Small pleural effusions. Increased retrocardiac opacification consistent with left lower lobe pneumonia. Chest CT 05/06/18 00:00 IMPRESSION: Small bilateral pleural effusions with minimal right upper lobe ground-glass attenuation, possibly infectious/ inflammatory. Extensive upper lobe predominant panacinar emphysema. Scattered subcentimeter nodules, largest measuring 6 mm. See follow-up as below. Assessment & Plan - Diagnosis (1) Acute on chronic respiratory failure with hypoxemia Is this a current diagnosis for this admission?: Yes Plan: continue current oxygen therapy (2) Chronic obstructive pulmonary disease (COPD) Is this a current diagnosis for this admission?: Yes Plan: Generic Name Dose Route Start Last Admin Trade Name Freq PRN Reason Stop Dose Admin Levalbuterol HCl 1.25 mg 04/26/18 00:00 04/27/18 07:59 Xopenex Neb 1.25 Mg/3 Ml Ampul NEB 05/26/18 00:00 1.25 mg RTQ8 AURELIO Budesonide 0.5 mg 04/26/18 08:00 04/27/18 07:59 Pulmicort Neb 0.5 Mg/2 Ml Ampul NEB 05/26/18 07:59 0.5 mg RTQ12 AURELIO Methylprednisolone Sodium Succinate 40 mg 04/26/18 06:00 04/27/18 13:26 Solu-Medrol Inj/Pf 40 Mg/1 Ml Sdv IV 05/24/18 00:01 40 mg Q6 AURELIO Albuterol 2.5 mg 04/25/18 23:50 04/26/18 21:07 Ventolin 0.083% Neb 2.5 Mg/3 Ml Ampul NEB 05/25/18 23:49 2.5 mg RTQ1HP PRN SHORTNESS OF BREATH Ipratropium [place] 0.5 mg 04/26/18 00:00 04/27/18 07:59 Atrovent 0.02% Neb 0.5 Mg/2.5 Ml Ampul NEB 05/26/18 00:00 0.5 mg RTQ8 AURELIO Acetylcysteine 600 mg 04/26/18 13:45 04/27/18 07:59 Mucomist 20% Soln 800 Mg/4 Ml NEB 05/26/18 13:44 600 mg RTBID AURELIO (3) Influenza A with pneumonia Is this a current diagnosis for this admission?: Yes Plan: improving (4) Nicotine addiction Is this a current diagnosis for this admission?: Yes Plan: Transdermal nicotine
--- NOTE | 2018-05-20 16:43 | PDOC PROGRESS REPORT ---
Subjective Progress Note for:: 05/14/18 Subjective:: patient on oxygen 2 l/m via nasal cannula plan is to send patient to rehab Reason For Visit: ACUTE ON CHRONIC RESPIRATORY FAILURE WITH HYPOXIA Physical Exam Vital Signs: Temp Pulse Resp BP Pulse Ox 98.3 F 73 18 105/50 L 98 05/14/18 14:33 05/14/18 15:52 05/14/18 15:52 05/14/18 14:33 05/14/18 15:52 General appearance: PRESENT: no acute distress, cooperative, well-developed, well-nourished Head exam: PRESENT: atraumatic, normocephalic Eye exam: PRESENT: conjunctiva pale, EOMI. ABSENT: nystagmus, scleral icterus Mouth exam: PRESENT: dry mucosa, neck supple, tongue midline Neck exam: ABSENT: carotid bruit, JVD, lymphadenopathy, thyromegaly, tracheal deviation, tracheostomy Respiratory exam: PRESENT: rhonchi, unlabored. ABSENT: decreased breath sounds, prolonged expiratory phas, retraction Cardiovascular exam: PRESENT: RRR, +S1, +S2 Pulses: PRESENT: normal radial pulses GI/Abdominal exam: PRESENT: soft. ABSENT: tenderness Extremities exam: ABSENT: calf tenderness, clubbing, joint swelling, pedal edema, tenderness Musculoskeletal exam: ABSENT: deformity, dislocation Neurological exam: PRESENT: alert, awake Psychiatric exam: PRESENT: appropriate affect Skin exam: PRESENT: dry, warm Results Laboratory Results: 05/11/18 06:15 05/10/18 05:38 04/25/18 04/25/18 04/25/18 21:09 22:06 22:32 Creatine Kinase 91 CK-MB (CK-2) Troponin I Cancelled 0.787 NT-Pro-B Natriuret Pep Cancelled 256 04/25/18 04/26/18 04/26/18 22:32 04:40 04:40 Creatine Kinase 121 CK-MB (CK-2) 3.26 7.97 H Troponin I Cancelled 1.820 NT-Pro-B Natriuret Pep 04/26/18 04/26/18 04/26/18 10:24 10:24 19:17 Creatine Kinase 171 H 143 H CK-MB (CK-2) 12.50 H Troponin I 2.090 NT-Pro-B Natriuret Pep 04/26/18 04/28/1819 19:17 10:00 11:30 Creatine Kinase CK-MB (CK-2) 9.22 H Troponin I 2.020 0.654 0.301 NT-Pro-B Natriuret Pep Impressions: KUB X-Ray 04/26/18 16:45 IMPRESSION: Satisfactory position of nasogastric tube. Head CT 04/27/18 00:00 IMPRESSION: NORMAL BRAIN CT WITHOUT CONTRAST. EVIDENCE OF ACUTE STROKE: NO. Chest X-Ray 05/05/18 00:00 IMPRESSION: Small pleural effusions. Increased retrocardiac opacification consistent with left lower lobe pneumonia. Chest CT 05/06/18 00:00 IMPRESSION: Small bilateral pleural effusions with minimal right upper lobe ground-glass attenuation, possibly infectious/ inflammatory. Extensive upper lobe predominant panacinar emphysema. Scattered subcentimeter nodules, largest measuring 6 mm. See follow-up as below. Assessment & Plan - Diagnosis (1) Acute on chronic respiratory failure with hypoxemia Is this a current diagnosis for this admission?: Yes Plan: continue current oxygen therapy (2) Chronic obstructive pulmonary disease (COPD) Is this a current diagnosis for this admission?: Yes Plan: Generic Name Dose Route Start Last Admin Trade Name Freq PRN Reason Stop Dose Admin Levalbuterol HCl 1.25 mg 04/26/18 00:00 04/27/18 07:59 Xopenex Neb 1.25 Mg/3 Ml Ampul NEB 05/26/18 00:00 1.25 mg RTQ8 AURELIO Budesonide 0.5 mg 04/26/18 08:00 04/27/18 07:59 Pulmicort Neb 0.5 Mg/2 Ml Ampul NEB 05/26/18 07:59 0.5 mg RTQ12 AURELIO Methylprednisolone Sodium Succinate 40 mg 04/26/18 06:00 04/27/18 13:26 Solu-Medrol Inj/Pf 40 Mg/1 Ml Sdv IV 05/24/18 00:01 40 mg Q6 AURELIO Albuterol 2.5 mg 04/25/18 23:50 04/26/18 21:07 Ventolin 0.083% Neb 2.5 Mg/3 Ml Ampul NEB 05/25/18 23:49 2.5 mg RTQ1HP PRN SHORTNESS OF BREATH Ipratropium [place] 0.5 mg 04/26/18 00:00 04/27/18 07:59 Atrovent 0.02% Neb 0.5 Mg/2.5 Ml Ampul NEB 05/26/18 00:00 0.5 mg RTQ8 AURELIO Acetylcysteine 600 mg 04/26/18 13:45 04/27/18 07:59 Mucomist 20% Soln 800 Mg/4 Ml NEB 05/26/18 13:44 600 mg RTBID AURELIO (3) Influenza A with pneumonia Is this a current diagnosis for this admission?: Yes Plan: improving (4) Nicotine addiction Is this a current diagnosis for this admission?: Yes Plan: Transdermal nicotine
== END 2018-05-14 17:32 | disposition short-term general hospital (02) | DRG 870 ==
LOC: ER 20:57 → EH 23:58 → ICU 04-26 03:27 → 4N 05-01 17:27
PROVIDERS: ADMIT Emergency Medicine; ATTEND Emergency Medicine
PROC: 5A1955Z Respiratory Ventilation, Greater than 96 Consecutive Hours (ICD-10-PCS; principal; 2018-04-25)
PROC: 0BH17EZ Insertion of Endotracheal Airway into Trachea, Via Natural or Artificial Opening (ICD-10-PCS; 2018-04-25)
PROC: 0D9670Z Drainage of Stomach with Drainage Device, Via Natural or Artificial Opening (ICD-10-PCS; 2018-04-26)
PROC: 02HV33Z Insertion of Infusion Device into Superior Vena Cava, Percutaneous Approach (ICD-10-PCS; 2018-04-27)
PROC: 5A09557 Assistance with Respiratory Ventilation, Greater than 96 Consecutive Hours, Continuous Positive Airway Pressure (ICD-10-PCS; 2018-04-30)
DX: A41.9 Sepsis, unspecified organism (principal); J96.21 Acute and chronic respiratory failure with hypoxia; J10.00 Influenza due to other identified influenza virus with unspecified type of pneumonia; I21.4 Non-ST elevation (NSTEMI) myocardial infarction; J96.02 Acute respiratory failure with hypercapnia; G93.41 Metabolic encephalopathy; J44.1 Chronic obstructive pulmonary disease with (acute) exacerbation; R65.20 Severe sepsis without septic shock; E78.5 Hyperlipidemia, unspecified; I10 Essential (primary) hypertension; E03.9 Hypothyroidism, unspecified; K21.9 Gastro-esophageal reflux disease without esophagitis; M19.90 Unspecified osteoarthritis, unspecified site; F17.200 Nicotine dependence, unspecified, uncomplicated; R91.1 Solitary pulmonary nodule; Z82.49 Family history of ischemic heart disease and other diseases of the circulatory system; Z83.3 Family history of diabetes mellitus; Z83.49 Family history of other endocrine, nutritional and metabolic diseases; Z79.82 Long term (current) use of aspirin; Z79.51 Long term (current) use of inhaled steroids; Z79.899 Other long term (current) drug therapy; Z88.2 Allergy status to sulfonamides; Z88.1 Allergy status to other antibiotic agents; Z88.8 Allergy status to other drugs, medicaments and biological substances; Z79.890 Hormone replacement therapy; K59.00 Constipation, unspecified; Z78.1 Physical restraint status; Z66 Do not resuscitate
CPT/HCPCS: 36415; 51702; 70450; 71045; 71250; 74018; 80048; 80053; 80202; 81001; 82040; 82271; 82272; 82550; 82553; 82803; 82962; 83605; 83735; 83880; 84100; 84484; 85025; 85027; 87040; 87070; 87205; 87804; 93005; 93010; 94002; 94003; 94640; 94660; 94667; 94668; 94799; 96361; 96365; 96366; 99291; J0456; J0610; J1100; J1642; J1644; J1650; J1940; J2250; J2270; J2543; J2704; J2920; J3370; J3475; J3480; J3490; J7030; J7050; J7060; J7120; J7512; J7620; S0164